=== PATIENT | female | born 1950 | race Caucasian/White ===

== ENCOUNTER 2017-09-04 12:34 | Emergency (ER) | payer MEDICARE, MEDICAID ==
[~2017-09-04] VITALS: Ht 157.5 cm; Wt 42.9 kg
[~2017-09-04 12:34] MED LIST: NO HOME MEDS; POTA20TA19 PO; PRED50TA PO
[2017-09-04 14:58] LABS: BASOPHILS % (AUTO) 0.1 % (0-1); EOSINOPHILS # (AUTO) 0.1 X10'3 (0-0.9); EOSINOPHILS % (AUTO) 1.1 % (0-6); HEMOGLOBIN 17.6 g/dl (12.0-16.0); MEAN CORPUSCULAR HEMOGLOBIN 29.4 PG (27.0-31.0); MEAN CORPUSCULAR HGB CONC 32.6 % (33.0-36.5); MEAN CORPUSCULAR VOLUME 90.2 FL (78-98); MEAN PLATELET VOLUME 8.7 FL (7.4-10.4); MONOCYTES # (AUTO) 0.2 X10'3 (0-0.9); MONOCYTES % (AUTO) 2.3 % (2-12); NEUTROPHILS # (AUTO) 6.1 X10'3 (1.8-7.7); NEUTROPHILS % (AUTO) 82.5 % (42-75); PLATELET COUNT 140 X10'3 (140-440); RED BLOOD COUNT 5.99 X10'6 (4.20-5.60); RED CELL DISTRIBUTION WIDTH 14.5 % (11.5-14.5); WHITE BLOOD COUNT 7.4 X10'3 (4.5-11.0)
[2017-09-04 15:12] LABS: ALANINE AMINOTRANSFERASE 19 U/L (12-78); ALBUMIN 3.5 G/DL (3.4-5.0); ALBUMIN/GLOBULIN RATIO 0.9 (1.1-1.5); ALKALINE PHOSPHATASE 85 IU/L (46-116); ANION GAP 5 (8-16); ASPARTATE AMINO TRANSFERASE 23 U/L (10-37); BILIRUBIN,TOTAL 0.9 MG/DL (0.1-1.0); BLOOD UREA NITROGEN 11 MG/DL (7-18); CALCIUM 9.5 MG/DL (8.5-10.1); CHLORIDE 104 MMOL/L (99-107); CREATININE 0.61 MG/DL (0.40-0.90); GLUCOSE 141 MG/DL (70-104); POTASSIUM 3.9 MMOL/L (3.5-5.1); SODIUM 144 MMOL/L (135-145); TOTAL CARBON DIOXIDE 34.7 MMOL/L (24-32); TOTAL PROTEIN 7.6 G/DL (6.4-8.2); eGFR > 90 ML/MIN
[2017-09-04] MEDS ORDERED: ringers solution, lactated 1000ml IV soln IV ONE (15:20)
[2017-09-04 17:42] VITALS: BP 109/77
== END 2017-09-04 17:45 | disposition home or self-care (01) ==
LOC: ER 12:34
DX: E86.0 Dehydration (principal); R13.10 Dysphagia, unspecified; J44.9 Chronic obstructive pulmonary disease, unspecified; Z88.0 Allergy status to penicillin; Z88.1 Allergy status to other antibiotic agents; Z88.5 Allergy status to narcotic agent; Z88.6 Allergy status to analgesic agent; Z88.8 Allergy status to other drugs, medicaments and biological substances
CPT/HCPCS: 36415; 71020; 80053; 85025; 96360; 99285; J7120

== ENCOUNTER 2017-09-24 20:49 | Emergency (ER) | payer MEDICARE, MEDICAID ==
[~2017-09-24] VITALS: Ht 157.5 cm; Wt 43.2 kg
[2017-09-24 20:53] VITALS: BP 106/66
== END 2017-09-24 21:25 | disposition home or self-care (01) ==
LOC: ER 20:50
DX: R13.10 Dysphagia, unspecified (principal); J44.9 Chronic obstructive pulmonary disease, unspecified; K21.9 Gastro-esophageal reflux disease without esophagitis; F17.200 Nicotine dependence, unspecified, uncomplicated; Z88.0 Allergy status to penicillin; Z88.5 Allergy status to narcotic agent; Z88.6 Allergy status to analgesic agent
CPT/HCPCS: 99283

== ENCOUNTER 2017-10-03 00:07 | Emergency (ER) | payer MEDICARE, MEDICAID ==
[~2017-10-03] VITALS: Ht 157.5 cm; Wt 43.2 kg
[2017-10-03] MEDS ORDERED: diphenhydrAMINE 50 mg/ml inj IV ONE (00:25)
[2017-10-03] MEDS ORDERED: BENZ1TAB7 PO (00:56)
[2017-10-03] MEDS ORDERED: benztropine 1mg tablet PO ONE (01:00)
[2017-10-03 01:54] VITALS: BP 117/77
== END 2017-10-03 02:27 | disposition home or self-care (01) ==
LOC: ER 00:07
DX: G24.09 Other drug induced dystonia (principal); J44.9 Chronic obstructive pulmonary disease, unspecified; K21.9 Gastro-esophageal reflux disease without esophagitis; R13.10 Dysphagia, unspecified; Z88.0 Allergy status to penicillin; Z88.5 Allergy status to narcotic agent; Z88.6 Allergy status to analgesic agent; Z88.1 Allergy status to other antibiotic agents; Z88.8 Allergy status to other drugs, medicaments and biological substances; Z79.899 Other long term (current) drug therapy
CPT/HCPCS: 96374; 99284; J1200

== ENCOUNTER 2018-09-25 10:39 | Emergency (ER) | payer MEDICARE, MEDICAID ==
[~2018-09-25] VITALS: Ht 157.5 cm; Wt 47.0 kg
[~2018-09-25 10:39] MED LIST changes: +PRED5TAB PO
[2018-09-25 10:40] VITALS: BP 121/92
== END 2018-09-25 12:32 | disposition home or self-care (01) ==
LOC: ER 10:40
DX: M79.672 Pain in left foot (principal); J44.9 Chronic obstructive pulmonary disease, unspecified; K21.9 Gastro-esophageal reflux disease without esophagitis; Z88.0 Allergy status to penicillin; Z88.6 Allergy status to analgesic agent; Z88.5 Allergy status to narcotic agent; Z88.1 Allergy status to other antibiotic agents; Z88.8 Allergy status to other drugs, medicaments and biological substances; Z79.899 Other long term (current) drug therapy; W01.0XXA Fall on same level from slipping, tripping and stumbling without subsequent striking against object, initial encounter; Y93.89 Activity, other specified; Y92.89 Other specified places as the place of occurrence of the external cause; Y99.8 Other external cause status
CPT/HCPCS: 73620; 99283

== ENCOUNTER 2019-07-06 10:21 | Emergency (ER) | payer MEDICARE, MEDICAID ==
[2019-07-06 11:05] LABS: BASOPHILS # (AUTO) 0.1 X10'3 (0-0.2); BASOPHILS % (AUTO) 0.8 % (0-1); EOSINOPHILS # (AUTO) 0.4 X10'3 (0-0.9); EOSINOPHILS % (AUTO) 6.5 % (0-6); HEMATOCRIT 47.9 % (35.0-45.0); LYMPHOCYTES # (AUTO) 1.2 X10'3 (1.1-4.8); LYMPHOCYTES % (AUTO) 16.9 % (21-51); MEAN CORPUSCULAR HEMOGLOBIN 30.4 PG (27.0-31.0); MEAN CORPUSCULAR HGB CONC 33.4 g/dL (33.0-36.5); MEAN CORPUSCULAR VOLUME 90.8 FL (78-98); MONOCYTES # (AUTO) 0.5 X10'3 (0-0.9); MONOCYTES % (AUTO) 7.3 % (2-12); NEUTROPHILS # (AUTO) 4.7 X10'3 (1.8-7.7); NEUTROPHILS % (AUTO) 68.5 % (42-75); PLATELET COUNT 180 X10'3 (140-440); RED BLOOD COUNT 5.27 X10'6 (4.20-5.60); RED CELL DISTRIBUTION WIDTH 14.2 % (11.5-14.5); WHITE BLOOD COUNT 6.8 X10'3 (4.5-11.0)
[2019-07-06 11:15] LABS: ALANINE AMINOTRANSFERASE 16 U/L (12-78); ALBUMIN 3.6 G/DL (3.4-5.0); ALBUMIN/GLOBULIN RATIO 0.8 (1.1-1.5); ALKALINE PHOSPHATASE 80 IU/L (46-116); ANION GAP 3 (8-16); ASPARTATE AMINO TRANSFERASE 23 U/L (10-37); BILIRUBIN,TOTAL 0.5 MG/DL (0.1-1.0); BLOOD UREA NITROGEN 11 MG/DL (7-18); BUN/CREATININE RATIO 18.3 (6.6-38.0); CALCIUM 9.5 MG/DL (8.5-10.1); CHLORIDE 103 MMOL/L (99-107); GLUCOSE 86 MG/DL (70-104); SODIUM 143 MMOL/L (135-145); TOTAL CARBON DIOXIDE 36.6 MMOL/L (24-32); TOTAL PROTEIN 8.1 G/DL (6.4-8.2); eGFR > 90 ML/MIN
[2019-07-06 11:16] LABS: POTASSIUM 4.5 MMOL/L (3.5-5.1)
[2019-07-06] MEDS ORDERED: ipratropium/albuterol 3ml nebule NEB ONE (11:30)
[2019-07-06] MEDS ORDERED: predniSONE 20 mg tablet PO ONE (11:35)
[2019-07-06] MEDS ORDERED: normal saline 1000ml 1,000 ML IV ONE (11:40)
[2019-07-06] MEDS ORDERED: PRED20TA PO (12:14)
[2019-07-06] MEDS ORDERED: AZIT-63 PO (12:14)
[2019-07-06 12:38] LABS: PARTIAL THROMBOPLASTIN TIME 28 SECONDS (22-32)
[2019-07-06 12:46] LABS: CLARITY,URINE CLOUDY (Clear); COLOR,URINE YELLOW (Yellow); GLUCOSE, URINE NEGATIVE (Neg); KETONES,URINE TRACE mg/dl (Neg); LEUKOCYTE ESTERASE ,URINE MODERATE (Neg); NITRITES, URINE POSITIVE (Neg); OCCULT BLOOD,URINE TRACE-INTACT (Neg); PROTEIN,URINE TRACE mg/dl (Neg)
[2019-07-06 12:47] LABS: UA COLLECTION TYPE CLN CATCH MIDSTREAM
[2019-07-06 12:54] LABS: SQUAMOUS EPITHELIAL CELL,UR MODERATE /LPF (FEW); TRIPLE PHOSPHATE CRYST 1+ /HPF (NEGATIVE); WBC,URINE 50-100 /HPF (0-4)
[2019-07-06 12:55] LABS: BACTERIA,URINE 3+ /HPF (Neg)
[2019-07-06 12:57] LABS: AMORPHOUS PHOSPHATES 1+; RBC,URINE 0-2 /HPF (0-2)
[2019-07-06] MEDS ORDERED: NITR100C6 PO (13:17)
[2019-07-06 13:28] VITALS: BP 105/67
== END 2019-07-06 13:29 | disposition home or self-care (01) ==
LOC: ER 10:22
DX: J44.1 Chronic obstructive pulmonary disease with (acute) exacerbation (principal); N39.0 Urinary tract infection, site not specified; B96.89 Other specified bacterial agents as the cause of diseases classified elsewhere; J44.9 Chronic obstructive pulmonary disease, unspecified; K21.9 Gastro-esophageal reflux disease without esophagitis; Z88.0 Allergy status to penicillin; Z88.6 Allergy status to analgesic agent; Z88.5 Allergy status to narcotic agent; Z88.1 Allergy status to other antibiotic agents; Z79.899 Other long term (current) drug therapy
CPT/HCPCS: 36415; 71045; 80053; 81001; 84484; 85025; 85610; 85730; 87077; 87088; 87186; 93005; 94640; 99284; J7030; J7512

== ENCOUNTER 2019-07-31 10:01 | Emergency (ER) | payer MEDICARE, MEDICAID ==
[~2019-07-31] VITALS: Ht 157.5 cm; Wt 53.6 kg
[~2019-07-31 10:01] MED LIST changes: +NITR100C6 PO
--- NOTE | 2019-07-31 11:02 | NUR ---
Gomez GAVIRIA stated no IV was necessary at this time.
[2019-07-31 11:08] LABS: BASOPHILS # (AUTO) 0.1 X10'3 (0-0.2); BASOPHILS % (AUTO) 0.8 % (0-1); EOSINOPHILS # (AUTO) 0.3 X10'3 (0-0.9); EOSINOPHILS % (AUTO) 4.9 % (0-6); HEMATOCRIT 48.4 % (35.0-45.0); HEMOGLOBIN 16.2 g/dl (12.0-16.0); LYMPHOCYTES # (AUTO) 1.1 X10'3 (1.1-4.8); LYMPHOCYTES % (AUTO) 16.4 % (21-51); MEAN CORPUSCULAR HEMOGLOBIN 30.1 PG (27.0-31.0); MEAN CORPUSCULAR HGB CONC 33.5 g/dL (33.0-36.5); MEAN CORPUSCULAR VOLUME 89.9 FL (78-98); MEAN PLATELET VOLUME 7.5 FL (7.4-10.4); MONOCYTES # (AUTO) 0.4 X10'3 (0-0.9); MONOCYTES % (AUTO) 6.1 % (2-12); NEUTROPHILS # (AUTO) 4.8 X10'3 (1.8-7.7); NEUTROPHILS % (AUTO) 71.8 % (42-75); PLATELET COUNT 282 X10'3 (140-440); RED BLOOD COUNT 5.38 X10'6 (4.20-5.60); RED CELL DISTRIBUTION WIDTH 13.9 % (11.5-14.5); WHITE BLOOD COUNT 6.7 X10'3 (4.5-11.0)
[2019-07-31 11:25] LABS: ALANINE AMINOTRANSFERASE 19 U/L (12-78); ALBUMIN 3.4 G/DL (3.4-5.0); ALBUMIN/GLOBULIN RATIO 0.8 (1.1-1.5); ALKALINE PHOSPHATASE 79 IU/L (46-116); ANION GAP 5 (8-16); ASPARTATE AMINO TRANSFERASE 25 U/L (10-37); BILIRUBIN,TOTAL 0.7 MG/DL (0.1-1.0); BLOOD UREA NITROGEN 6 MG/DL (7-18); BUN/CREATININE RATIO 10.5 (6.6-38.0); CALCIUM 9.5 MG/DL (8.5-10.1); CHLORIDE 104 MMOL/L (99-107); CREATININE 0.57 MG/DL (0.40-0.90); GLUCOSE 77 MG/DL (70-104); POTASSIUM 4.3 MMOL/L (3.5-5.1); SODIUM 143 MMOL/L (135-145); TOTAL PROTEIN 7.5 G/DL (6.4-8.2); eGFR > 90 ML/MIN
[2019-07-31 11:56] LABS: CLARITY,URINE CLOUDY (Clear); COLOR,URINE YELLOW (Yellow); GLUCOSE, URINE NEGATIVE (Neg); KETONES,URINE >=80 mg/dl (Neg); LEUKOCYTE ESTERASE ,URINE SMALL (Neg); NITRITES, URINE POSITIVE (Neg); OCCULT BLOOD,URINE MODERATE (Neg); PROTEIN,URINE TRACE mg/dl (Neg); UA COLLECTION TYPE VOIDED
[2019-07-31 12:03] LABS: BACTERIA,URINE 4+ /HPF (Neg); MUCUS STRANDS MODERATE /LPF (Neg); SQUAMOUS EPITHELIAL CELL,UR MODERATE /LPF (FEW); WBC,URINE 50-100 /HPF (0-4)
[2019-07-31 12:04] LABS: WBC CLUMPS,URINE MODERATE /HPF (NEGATIVE)
[2019-07-31] MEDS ORDERED: normal saline 1000ML IV soln IVB ONE (12:15)
[2019-07-31] MEDS ORDERED: CefTRIAXone 2gm/D5W 50ml 50 ML IV ONE (12:15)
[2019-07-31 12:16] LABS: ABG BASE EXCESS 2.4 mmol/L (-2.0-3.0); ABG HCO3 28.9 mmol/L (22.0-26.0); ABG OXYGEN SATURATION 96.2 % (95-98); ABG PCO2 (T) 51.4 mmHg (35.0-45.0); ABG PH (T) 7.368 (7.350-7.450); ABG PO2 (T) 83.4 mmHg (83-108); ALLEN'S TEST Positive; FLOW 2 L/min; FMetHb 0.2 % (0.3-1.12); FO2Hb 93.1 % (94-100); TOTAL HEMOGLOBIN 15.8 G/dl (12.0-16.0)
[2019-07-31] MEDS ORDERED: ketorolac trometh. 30mg/ml inj. IV ONE (12:40)
[2019-07-31] MEDS ORDERED: prednisone 10mg tablet PO STA (12:41)
[2019-07-31] MEDS ORDERED: SULF1TAB49 PO (13:48)
[2019-07-31] MEDS ORDERED: PRED20TA PO (13:48)
[2019-07-31 14:07] VITALS: BP 110/68
== END 2019-07-31 14:15 | disposition home or self-care (01) ==
LOC: ER 10:01
DX: J44.1 Chronic obstructive pulmonary disease with (acute) exacerbation (principal); N39.0 Urinary tract infection, site not specified; K21.9 Gastro-esophageal reflux disease without esophagitis; F41.9 Anxiety disorder, unspecified; F17.200 Nicotine dependence, unspecified, uncomplicated; Z99.81 Dependence on supplemental oxygen; Z88.0 Allergy status to penicillin; Z88.6 Allergy status to analgesic agent; Z88.1 Allergy status to other antibiotic agents; Z91.041 Radiographic dye allergy status; Z79.899 Other long term (current) drug therapy
CPT/HCPCS: 36415; 36600; 71046; 80053; 81001; 82803; 83880; 84484; 85018; 85025; 93005; 96365; 96375; 99284; J0696; J1885; J7040; J7512

== ENCOUNTER 2019-08-12 11:05 | Emergency (ER) | payer MEDICARE, MEDICAID ==
[~2019-08-12] VITALS: Ht 157.5 cm; Wt 60.0 kg
[2019-08-12] MEDS ORDERED: OLAN5TAB3 PO (13:02)
[2019-08-12 13:17] VITALS: BP 105/71
== END 2019-08-12 13:20 | disposition home or self-care (01) ==
LOC: ER 11:06
DX: G24.01 Drug induced subacute dyskinesia (principal); R13.10 Dysphagia, unspecified; R44.0 Auditory hallucinations; J44.9 Chronic obstructive pulmonary disease, unspecified; K21.9 Gastro-esophageal reflux disease without esophagitis; F41.9 Anxiety disorder, unspecified; Z88.0 Allergy status to penicillin; Z88.5 Allergy status to narcotic agent; Z91.048 Other nonmedicinal substance allergy status; Z88.8 Allergy status to other drugs, medicaments and biological substances; Z88.1 Allergy status to other antibiotic agents; Z79.899 Other long term (current) drug therapy
CPT/HCPCS: 99283

== ENCOUNTER 2019-08-29 10:59 | Emergency (ER) | payer MEDICARE, MEDICAID ==
[~2019-08-29] VITALS: Ht 154.9 cm; Wt 50.0 kg
[~2019-08-29 10:59] MED LIST changes: +OLAN5TAB3 PO
[2019-08-29 11:05] VITALS: BP 126/78
[2019-08-29] MEDS ORDERED: orphenadrine citrate 60mg/2ml inj. IM ONE (12:25)
--- NOTE | 2019-08-29 13:10 | NUR ---
PT GIVEN A PEPSI PER EVERETTE PATRICK REQUEST TO SEE IF THIS WILL HELP WITH THE SENSATION OF A FORGEIN BODY IN HER THROAT.
== END 2019-08-29 13:37 | disposition home or self-care (01) ==
LOC: ER 11:01
DX: R13.10 Dysphagia, unspecified (principal); J44.9 Chronic obstructive pulmonary disease, unspecified; K21.9 Gastro-esophageal reflux disease without esophagitis; Z88.8 Allergy status to other drugs, medicaments and biological substances; Z88.0 Allergy status to penicillin; Z88.6 Allergy status to analgesic agent; Z88.5 Allergy status to narcotic agent; Z91.041 Radiographic dye allergy status; Z79.899 Other long term (current) drug therapy
CPT/HCPCS: 70360; 99284

== ENCOUNTER 2019-09-10 11:35 | Emergency (ER) | payer MEDICARE, MEDICAID ==
[~2019-09-10] VITALS: Ht 157.5 cm; Wt 52.3 kg
[2019-09-10 12:49] LABS: BASOPHILS % (AUTO) 0.8 % (0-1); EOSINOPHILS # (AUTO) 0.2 X10'3 (0-0.9); EOSINOPHILS % (AUTO) 2.9 % (0-6); HEMATOCRIT 49.6 % (35.0-45.0); HEMOGLOBIN 16.5 g/dl (12.0-16.0); LYMPHOCYTES # (AUTO) 1.2 X10'3 (1.1-4.8); LYMPHOCYTES % (AUTO) 22.2 % (21-51); MEAN CORPUSCULAR HEMOGLOBIN 29.3 PG (27.0-31.0); MEAN CORPUSCULAR HGB CONC 33.2 g/dL (33.0-36.5); MEAN CORPUSCULAR VOLUME 88.3 FL (78-98); MEAN PLATELET VOLUME 9.1 FL (7.4-10.4); MONOCYTES # (AUTO) 0.3 X10'3 (0-0.9); NEUTROPHILS # (AUTO) 3.7 X10'3 (1.8-7.7); NEUTROPHILS % (AUTO) 68.1 % (42-75); PLATELET COUNT 168 X10'3 (140-440); RED BLOOD COUNT 5.61 X10'6 (4.20-5.60); RED CELL DISTRIBUTION WIDTH 13.8 % (11.5-14.5); WHITE BLOOD COUNT 5.4 X10'3 (4.5-11.0)
[2019-09-10 13:06] LABS: ALANINE AMINOTRANSFERASE 18 U/L (12-78); ALBUMIN 3.5 G/DL (3.4-5.0); ALBUMIN/GLOBULIN RATIO 1.1 (1.1-1.5); ALKALINE PHOSPHATASE 70 IU/L (46-116); ANION GAP 5 (8-16); ASPARTATE AMINO TRANSFERASE 20 U/L (10-37); BILIRUBIN,TOTAL 0.4 MG/DL (0.1-1.0); BLOOD UREA NITROGEN 7 MG/DL (7-18); BUN/CREATININE RATIO 10.9 (6.6-38.0); CALCIUM 9.4 MG/DL (8.5-10.1); CHLORIDE 104 MMOL/L (99-107); CREATININE 0.64 MG/DL (0.40-0.90); GLUCOSE 99 MG/DL (70-104); POTASSIUM 3.6 MMOL/L (3.5-5.1); SODIUM 145 MMOL/L (135-145); TOTAL CARBON DIOXIDE 35.7 MMOL/L (24-32); TOTAL PROTEIN 6.8 G/DL (6.4-8.2); eGFR > 90 ML/MIN
[2019-09-10 14:02] VITALS: BP 99/64
== END 2019-09-10 14:09 | disposition home or self-care (01) ==
LOC: ER 11:35
DX: J44.1 Chronic obstructive pulmonary disease with (acute) exacerbation (principal); K21.9 Gastro-esophageal reflux disease without esophagitis; Z88.8 Allergy status to other drugs, medicaments and biological substances; Z88.0 Allergy status to penicillin; Z88.6 Allergy status to analgesic agent; Z88.5 Allergy status to narcotic agent; Z91.041 Radiographic dye allergy status; Z79.899 Other long term (current) drug therapy; Z90.49 Acquired absence of other specified parts of digestive tract
CPT/HCPCS: 36415; 71045; 80053; 84484; 85025; 93005; 99284

== ENCOUNTER 2019-09-30 19:43 | Observation (INO) | payer MEDICARE, MEDICAID ==
[~2019-09-30] VITALS: Ht 157.5 cm; Wt 50.9 kg
[2019-09-30] MEDS ORDERED: pantoprazole 40 MG vial IV ONE (20:30)
[2019-09-30] MEDS ORDERED: DIAZ10TA5 PO (20:37)
[2019-09-30] MEDS ORDERED: ALB0.5UD IH (20:37)
[2019-09-30] MEDS: dextrose 5%-1/2 normal saline 1,000 ML IV SCH (20:50)
[2019-09-30] MEDS ORDERED: SUCR1TAB34 PO (20:59)
[2019-09-30] MEDS ORDERED: ondansetron/PF 4mg/2ml inj IV PRN (21:00)
[2019-09-30] MEDS ORDERED: magnesium 2GM in 50ml NS 50 ML IV PRN (21:00)
[2019-09-30] MEDS ORDERED: ipratropium/albuterol 3ml nebule NEB PRN (21:00)
[2019-09-30] MEDS ORDERED: mag hydrox/Alum hydrox/simeth 30ml oral suspension PO PRN (21:00)
[2019-09-30] MEDS ORDERED: acetaminophen 325mg tablet PO PRN (21:00)
[2019-09-30] MEDS ORDERED: magnesium hydroxide 30ml (MOM) UD suspension PO PRN (21:00)
[2019-09-30] MEDS ORDERED: magnesium 4gm in 100ml NS 100 ML IV PRN (21:00)
[2019-09-30] MEDS ORDERED: potassium CL 10mEq/100ml bag 100 ML IV PRN ×2 (21:00)
[2019-09-30] MEDS ORDERED: potassium Cl 20 mEq SR tablet PO PRN ×2 (21:00)
[2019-09-30 21:06] LABS: BASOPHILS % (AUTO) 0.3 % (0-1); EOSINOPHILS # (AUTO) 0.1 X10'3 (0-0.9); EOSINOPHILS % (AUTO) 0.5 % (0-6); HEMATOCRIT 53.1 % (35.0-45.0); HEMOGLOBIN 17.6 g/dl (12.0-16.0); LYMPHOCYTES # (AUTO) 1.5 X10'3 (1.1-4.8); LYMPHOCYTES % (AUTO) 12.8 % (21-51); MEAN CORPUSCULAR HEMOGLOBIN 29.3 PG (27.0-31.0); MEAN CORPUSCULAR HGB CONC 33.2 g/dL (33.0-36.5); MEAN CORPUSCULAR VOLUME 88.3 FL (78-98); MEAN PLATELET VOLUME 8.8 FL (7.4-10.4); MONOCYTES # (AUTO) 0.7 X10'3 (0-0.9); MONOCYTES % (AUTO) 5.9 % (2-12); NEUTROPHILS # (AUTO) 9.6 X10'3 (1.8-7.7); NEUTROPHILS % (AUTO) 80.5 % (42-75); PLATELET COUNT 231 X10'3 (140-440); RED BLOOD COUNT 6.02 X10'6 (4.20-5.60); RED CELL DISTRIBUTION WIDTH 14.8 % (11.5-14.5); WHITE BLOOD COUNT 11.9 X10'3 (4.5-11.0)
[2019-09-30 21:09] LABS: PARTIAL THROMBOPLASTIN TIME 29 SECONDS (22-32)
[2019-09-30 21:11] LABS: ANION GAP 11 (8-16); ASPARTATE AMINO TRANSFERASE 29 U/L (10-37); BILIRUBIN,TOTAL 0.4 MG/DL (0.1-1.0); BLOOD UREA NITROGEN 7 MG/DL (7-18); CALCIUM 9.4 MG/DL (8.5-10.1); CHLORIDE 102 MMOL/L (99-107); CREATININE 0.88 MG/DL (0.40-0.90); GLUCOSE 117 MG/DL (70-104); POTASSIUM 4.1 MMOL/L (3.5-5.1); SODIUM 141 MMOL/L (135-145); TOTAL CARBON DIOXIDE 27.9 MMOL/L (24-32); TOTAL PROTEIN 8.1 G/DL (6.4-8.2); eGFR 64 ML/MIN
[2019-09-30 21:12] LABS: ALANINE AMINOTRANSFERASE 27 U/L (12-78); ALKALINE PHOSPHATASE 115 IU/L (46-116)
[2019-09-30] MEDS: pantoprazole 40MG/NS 100ML BAG 100 ML IV SCH (21:54)
[2019-09-30] MEDS: normal saline 1000ml 1,000 ML IV SCH (22:34)
[2019-10-01] VITALS (10 sets, daily range): BP systolic 86–116; BP diastolic 48–75
[2019-10-01] MEDS: pantoprazole 40MG/NS 100ML BAG 100 ML IV SCH ×3 (02:36→12:40)
[2019-10-01] MEDS ORDERED: Chloraseptic (Phenol) Spray 177ml MM PRN (02:45)
[2019-10-01 06:08] LABS: BASOPHILS % (AUTO) 0.5 % (0-1); EOSINOPHILS # (AUTO) 0.2 X10'3 (0-0.9); EOSINOPHILS % (AUTO) 2.8 % (0-6); HEMATOCRIT 43.9 % (35.0-45.0); HEMOGLOBIN 14.7 g/dl (12.0-16.0); LYMPHOCYTES # (AUTO) 2.3 X10'3 (1.1-4.8); LYMPHOCYTES % (AUTO) 28.6 % (21-51); MEAN CORPUSCULAR HEMOGLOBIN 29.5 PG (27.0-31.0); MEAN CORPUSCULAR HGB CONC 33.6 g/dL (33.0-36.5); MEAN CORPUSCULAR VOLUME 87.9 FL (78-98); MEAN PLATELET VOLUME 8.5 FL (7.4-10.4); MONOCYTES # (AUTO) 0.7 X10'3 (0-0.9); MONOCYTES % (AUTO) 8.6 % (2-12); NEUTROPHILS # (AUTO) 4.7 X10'3 (1.8-7.7); NEUTROPHILS % (AUTO) 59.5 % (42-75); PLATELET COUNT 184 X10'3 (140-440); RED BLOOD COUNT 4.99 X10'6 (4.20-5.60); RED CELL DISTRIBUTION WIDTH 14.4 % (11.5-14.5); WHITE BLOOD COUNT 7.9 X10'3 (4.5-11.0)
--- NOTE | 2019-10-01 06:15 | NUR ---
Patient in room KATHY 350. I have received report from AMBER Avelar and had the opportunity to ask questions and assume patient care.
[2019-10-01 06:29] LABS: ALANINE AMINOTRANSFERASE 21 U/L (12-78); ALBUMIN 2.9 G/DL (3.4-5.0); ALKALINE PHOSPHATASE 87 IU/L (46-116); ANION GAP 7 (8-16); ASPARTATE AMINO TRANSFERASE 22 U/L (10-37); BILIRUBIN,TOTAL 0.6 MG/DL (0.1-1.0); BLOOD UREA NITROGEN 5 MG/DL (7-18); BUN/CREATININE RATIO 8.5 (6.6-38.0); CALCIUM 8.1 MG/DL (8.5-10.1); CHLORIDE 108 MMOL/L (99-107); CREATININE 0.59 MG/DL (0.40-0.90); GLUCOSE 59 MG/DL (70-104); MAGNESIUM 1.5 MG/DL (1.5-2.4); POTASSIUM 3.7 MMOL/L (3.5-5.1); SODIUM 144 MMOL/L (135-145); TOTAL CARBON DIOXIDE 28.9 MMOL/L (24-32); TOTAL PROTEIN 5.8 G/DL (6.4-8.2); eGFR > 90 ML/MIN
[2019-10-01] MEDS ORDERED: enoxaparin 40mg/0.4ml syringe SQ SCH (08:00)
[2019-10-01] MEDS ORDERED: K and/or MAG REPLACEMENT MC SCH (08:00)
[2019-10-01] MEDS: normal saline 1000ml 1,000 ML IV SCH (08:43)
[2019-10-01] MEDS ORDERED: MIDAZolam 5mg/5ml vial ONE (08:53)
[2019-10-01] MEDS ORDERED: fentaNYL/PF 50MCG/1 ML 2ML syringe ONE (08:53)
[2019-10-01] MEDS ORDERED: LIDOcaine Viscous 15ml cup ONE (08:54)
--- NOTE | 2019-10-01 11:36 | NUR ---
Initial: Pt admit with dysphagia with reports of difficulty swallowing solids and liquids. Per H&P pt seen in the the ED for COPD exacerbation on September 10 at that time she had had cessation of oatmeal stuck in her throat for 3 days. Pt with appointment for EGD 10/07 however is to get an EGD today per H&P. Pt NPO at this time. LBM 09/30. Will continue to follow closely and monitor need for nutrition intervention. Recommendations: 1) Advance to regular diet as medically indicated if safe for PO intake pending EGD 2) Monitor need for alternative nutrition if unsafe for PO intake 3) Bowel care PRN 4) Wt per rx Addendum: 10/01/19 at [address] Amended: Links added.
[2019-10-01] MEDS ORDERED: HYDROcodone/acetaminophen 5mg/325mg tablet PO PRN (13:50)
[2019-10-01] MEDS: dextrose 5%-1/2 normal saline 1,000 ML IV SCH (14:03)
[2019-10-01] MEDS ORDERED: PHEN20SP2 MM (14:22)
[2019-10-01] MEDS ORDERED: PANT40TA4 PO (14:22)
--- NOTE | 2019-10-01 15:33 | NUR ---
Patient discharged home via friend and taken from unit via wheelchair with x1 staff. PIV removed with cannula intact. Patient was given discharge instructions and was given time for question and answers. Patient was given education on smoking cessation due to overall health benefits as well as the spasms that she stated having. Patient was also given instructions on dysphagia and when to seek help. Patient was encouraged to follow up with Dr. Downey and keep her appointment on 10/07. Patient stated an understanding. During the discharge instruction patient asked primary nurse to stop explaining everything because her ride was downstairs and she did not want to keep them waiting or hear anymore of the discharge instructions. Patient stated that she would read over the packet. Patient was also given information on advancing diet slowly to soft foods after being able to tolerate full liquids. Primary nurse did confirm the return of patient's gag reflex after EGD and patient was able to drink water and broth without difficulty prior to discharge.
[2019-10-01] MEDS ORDERED: diazepam 5mg tablet PO SCH (21:00)
--- NOTE | 2019-10-05 13:08 | NUR ---
Case Management DC follow up: VMailbox full; unable to contact
== END 2019-10-01 15:15 | disposition home or self-care (01) ==
LOC: ER 19:43 → ED HOLD 22:02 → INTOOBSV 22:02 → SUR 3N 22:25
PROVIDERS: ADMIT Family Medicine; ATTEND Family Medicine
DX: K22.4 Dyskinesia of esophagus (principal); K21.0 Gastro-esophageal reflux disease with esophagitis; R13.10 Dysphagia, unspecified; D72.829 Elevated white blood cell count, unspecified; R47.02 Dysphasia; J44.9 Chronic obstructive pulmonary disease, unspecified; F32.9 Major depressive disorder, single episode, unspecified; F41.9 Anxiety disorder, unspecified; Z85.3 Personal history of malignant neoplasm of breast; F17.210 Nicotine dependence, cigarettes, uncomplicated; Z99.81 Dependence on supplemental oxygen; Z79.899 Other long term (current) drug therapy; Z88.0 Allergy status to penicillin; Z88.1 Allergy status to other antibiotic agents; Z88.5 Allergy status to narcotic agent; Z88.6 Allergy status to analgesic agent; Z88.8 Allergy status to other drugs, medicaments and biological substances; Z91.048 Other nonmedicinal substance allergy status
CPT/HCPCS: 36415; 43235; 80053; 83735; 85025; 85610; 85730; 94667; 94760; 96365; 96366; 96376; 99284; C9113; G0378; J2250; J3010; J7030; 43227; 96374; 99152; 99285; A4620

== ENCOUNTER 2019-10-16 15:05 | Inpatient (IN) | payer MEDICARE, MEDICAID ==
[~2019-10-16] VITALS: Ht 157.5 cm; Wt 45.5 kg
[~2019-10-16 15:05] MED LIST changes: +ALB0.5UD IH; +DIAZ10TA5 PO; -NITR100C6 PO; -NO HOME MEDS; -OLAN5TAB3 PO; +PANT40TA4 PO; +PHEN20SP2 MM; -POTA20TA19 PO; -PRED50TA PO; -PRED5TAB PO; +SUCR1TAB34 PO; +heparin, porcine-25,000 units/D5-250ml premix IV ONE
[2019-10-16] MEDS ORDERED: albuterol 2.5 MG/3 ML nebule CONTNEB PRN (15:15)
[2019-10-16] MEDS ORDERED: heparin 10,000 units/1 ML INJ IV ONE ×3 (15:25→17:45)
[2019-10-16] MEDS: heparin 25,000 UNIT/250ml bag 250 ML IV SCH ×2 (15:37→18:43)
[2019-10-16] MEDS ORDERED: dexamethasone sod phosphate 10mg/ml inj IV STA (15:43)
[2019-10-16] MEDS ORDERED: ondansetron/PF 4mg/2ml inj IV ONE (15:45)
[2019-10-16] MEDS ORDERED: famotidine/PF 10 mg/ml inj IV ONE (15:45)
[2019-10-16] MEDS ORDERED: diphenhydrAMINE 50 mg/ml inj IV ONE (15:45)
[2019-10-16] MEDS ORDERED: tirofiban 5mg in NS 100mL 100 ML IV ONE (15:48)
[2019-10-16] MEDS ORDERED: fentaNYL/PF 50MCG/1 ML 2ML syringe ONE (15:48)
[2019-10-16] MEDS ORDERED: LIDOcaine 1% (10mg/ml)w/preservative injection 20ml MDV ONE (15:49)
[2019-10-16] MEDS ORDERED: heparin 1,000unit/ml 10ml vial 10 ML ONE (15:49)
[2019-10-16] MEDS ORDERED: iohexol 350 MG/1 ML 200ml bottle ONE (15:49)
[2019-10-16] MEDS ORDERED: midazolam 2 mg/2 ml injection ONE (15:49)
[2019-10-16 16:06] LABS: ABG BASE EXCESS -5.4 mmol/L (-2.0-3.0); ABG HCO3 21.5 mmol/L (22.0-26.0); ABG OXYGEN SATURATION 98.9 % (95-98); ABG PCO2 (T) 46.7 mmHg (35.0-45.0); ABG PH (T) 7.281 (7.350-7.450); ABG PO2 (T) 144.2 mmHg (83-108); ALLEN'S TEST POSITIVE; FCOHb 1.1 % (0.5-1.5); FLOW 15 L/min; FMetHb 0.2 % (0.3-1.12); FO2Hb 97.6 % (94-100); TOTAL HEMOGLOBIN 16.1 G/dl (12.0-16.0)
[2019-10-16 16:06] LABS: BASOPHILS # (AUTO) 0.1 X10'3 (0-0.2); BASOPHILS % (AUTO) 0.3 % (0-1); EOSINOPHILS % (AUTO) 0 % (0-6); HEMATOCRIT 47.8 % (35.0-45.0); HEMOGLOBIN 15.6 g/dl (12.0-16.0); LYMPHOCYTES # (AUTO) 1.2 X10'3 (1.1-4.8); LYMPHOCYTES % (AUTO) 6.1 % (21-51); MEAN CORPUSCULAR HEMOGLOBIN 29.3 PG (27.0-31.0); MEAN CORPUSCULAR HGB CONC 32.6 g/dL (33.0-36.5); MEAN PLATELET VOLUME 8.4 FL (7.4-10.4); MONOCYTES # (AUTO) 1.5 X10'3 (0-0.9); MONOCYTES % (AUTO) 7.4 % (2-12); NEUTROPHILS # (AUTO) 17.5 X10'3 (1.8-7.7); NEUTROPHILS % (AUTO) 86.2 % (42-75); PLATELET COUNT 255 X10'3 (140-440); RED BLOOD COUNT 5.31 X10'6 (4.20-5.60); RED CELL DISTRIBUTION WIDTH 16.7 % (11.5-14.5); WHITE BLOOD COUNT 20.3 X10'3 (4.5-11.0)
[2019-10-16] MEDS ORDERED: normal saline 1000ML IV soln IVB ONE (16:10)
[2019-10-16 16:20] LABS: ALANINE AMINOTRANSFERASE 8 U/L (12-78); ALBUMIN 1.3 G/DL (3.4-5.0); ALBUMIN/GLOBULIN RATIO 0.7 (1.1-1.5); ALKALINE PHOSPHATASE 54 IU/L (46-116); ANION GAP 8 (8-16); ASPARTATE AMINO TRANSFERASE 31 U/L (10-37); BILIRUBIN,TOTAL 0.2 MG/DL (0.1-1.0); BLOOD UREA NITROGEN 7 MG/DL (7-18); BUN/CREATININE RATIO 13.2 (6.6-38.0); CHLORIDE 124 MMOL/L (99-107); CREATININE 0.53 MG/DL (0.40-0.90); GLUCOSE 92 MG/DL (70-104); SODIUM 150 MMOL/L (135-145); TOTAL CARBON DIOXIDE 17.8 MMOL/L (24-32); TOTAL PROTEIN 3.1 G/DL (6.4-8.2); eGFR > 90 ML/MIN
[2019-10-16 16:35] LABS: CALCIUM < 5.0 MG/DL (8.5-10.1)
[2019-10-16] MEDS ORDERED: CefTRIAXone 2gm/D5W 50ml 50 ML IV ONE (16:55)
[2019-10-16] MEDS ORDERED: azithromycin 250mg tablet PO ONE (16:55)
[2019-10-16] MEDS ORDERED: calcium chloride 100 MG/1 ML inj IV ONE (17:00)
[2019-10-16] MEDS ORDERED: vancomycin/NS 1 GM ADD-VANTAGE 250 ML IV ONE (17:20)
[2019-10-16] MEDS ORDERED: heparin 25,000 UNIT/250ml bag 250 ML IV SCH (17:42)
[2019-10-16] MEDS ORDERED: magnesium hydroxide 30ml (MOM) UD suspension PO PRN (17:45)
[2019-10-16] MEDS ORDERED: potassium CL 10mEq/100ml bag 100 ML IV PRN ×2 (17:45)
[2019-10-16] MEDS ORDERED: mag hydrox/Alum hydrox/simeth 30ml oral suspension PO PRN (17:45)
[2019-10-16] MEDS ORDERED: magnesium Cl slow-release 64mg tablet PO PRN (17:45)
[2019-10-16] MEDS ORDERED: potassium Cl 20 mEq SR tablet PO PRN ×2 (17:45)
[2019-10-16] MEDS ORDERED: ondansetron/PF 4mg/2ml inj IV PRN (17:45)
[2019-10-16] MEDS ORDERED: heparin 10,000 units/1 ML INJ IV PRN (17:45)
[2019-10-16] MEDS ORDERED: ipratropium/albuterol 3ml nebule NEB PRN (17:45)
[2019-10-16] MEDS ORDERED: magnesium 4gm in 100ml NS 100 ML IV PRN (17:45)
[2019-10-16] MEDS ORDERED: magnesium 2GM in 50ml NS 50 ML IV PRN (17:45)
[2019-10-16] MEDS: sodium chloride 0.45% 1,000 ML IV SCH (18:21)
[2019-10-16] MEDS: ipratropium/albuterol 3ml nebule NEB SCH ×2 (18:42→22:57)
[2019-10-16] MEDS ORDERED: RISP2TAB3 PO (18:54)
[2019-10-16] MEDS ORDERED: PANT-47 PO (18:54)
[2019-10-16] MEDS: K and/or MAG REPLACEMENT MC SCH (19:18)
[2019-10-16 19:47] LABS: BASOPHILS % (AUTO) 0.1 % (0-1); EOSINOPHILS % (AUTO) 0 % (0-6); HEMATOCRIT 45.6 % (35.0-45.0); HEMOGLOBIN 14.9 g/dl (12.0-16.0); LYMPHOCYTES # (AUTO) 0.5 X10'3 (1.1-4.8); LYMPHOCYTES % (AUTO) 2.9 % (21-51); MEAN CORPUSCULAR HEMOGLOBIN 29.2 PG (27.0-31.0); MEAN CORPUSCULAR HGB CONC 32.7 g/dL (33.0-36.5); MEAN CORPUSCULAR VOLUME 89.3 FL (78-98); MEAN PLATELET VOLUME 8.8 FL (7.4-10.4); MONOCYTES # (AUTO) 1.2 X10'3 (0-0.9); MONOCYTES % (AUTO) 6.9 % (2-12); NEUTROPHILS % (AUTO) 90.1 % (42-75); PLATELET COUNT 190 X10'3 (140-440); RED BLOOD COUNT 5.11 X10'6 (4.20-5.60); RED CELL DISTRIBUTION WIDTH 16.3 % (11.5-14.5); WHITE BLOOD COUNT 17.7 X10'3 (4.5-11.0)
[2019-10-16 19:55] LABS: PARTIAL THROMBOPLASTIN TIME 43 SECONDS (22-32)
--- NOTE | 2019-10-16 19:55 | NUR ---
Paged and spoke with MD Schwarz concerning 1520 Calcium result of < 5.0. Replacement was ordered in the ED but cancelled when the patient was moved to the cleaner laboratory equipment. MD Schwarz re-ordered 1gm calcium replacement.
[2019-10-16] MEDS ORDERED: calcium gluconate inj. 1 GM in normal saline 100ml IV soln 90 ML IV ONE (20:00)
[2019-10-16] MEDS: metoprolol tartrate 12.5mg (1/2 tablet) PO SCH (20:00)
--- NOTE | 2019-10-16 20:00 | NUR ---
Patient in room PCU 3024. I have received report from Markus CLARK and had the opportunity to ask questions and assume patient care.
[2019-10-16 20:10] VITALS: BP 89/56
[2019-10-16 20:11] LABS: HEMOGLOBIN A1C 5.5 % (4.5-6.2)
[2019-10-16] MEDS ORDERED: calcium gluconate inj. 1 GM in normal saline 100ml IV soln 100 ML IV ONE (20:12)
[2019-10-16] MEDS ORDERED: VANCOMYCIN 750MG IV in NS 250 ML IV SCH (20:14)
--- NOTE | 2019-10-16 20:27 | NUR ---
Page Sent PAGER ID: [phone] MESSAGE: lorri Junior Kimberlee here for NSTEMI and PNA, has a critical lactic acid of 5.3.- David 282
[2019-10-16] MEDS ORDERED: temazepam 15mg capsule PO PRN (21:00)
--- NOTE | 2019-10-16 22:36 | NUR ---
Page Sent PAGER ID: [phone] MESSAGE: pt Junior, Kimberlee [id number] here for NSTEMI and PNA, critical high lactic acid 4.2 down from 5.3 she has 1/2 NS at 100ml/hr , and being covered by azithromycin, vancomycin, rocephine. Pt also complains of a 8/10 head ache and neck pain- David
[2019-10-17] VITALS (9 sets, daily range): BP systolic 78–104; BP diastolic 47–74
[2019-10-17] MEDS: sodium chloride 0.45% 1,000 ML IV SCH (03:36)
--- NOTE | 2019-10-17 04:25 | NUR ---
Page Sent PAGER ID: [phone] MESSAGE: Kimberlee Ro [id number] here for NSTEMI and PNA, blood pressure is 76/50 by manual BP- David [id number]
--- NOTE | 2019-10-17 05:00 | NUR ---
Page Sent PAGER ID: [phone] MESSAGE: Kimberlee Ro [id number] here for NSTEMI and PNA, blood pressure is 76/50 by manual BP- David 5441
--- NOTE | 2019-10-17 05:28 | NUR ---
[address] Schwarz regarding pts low BP, 76/[address] Schwarz has not called, pt asymptomatic.
--- NOTE | 2019-10-17 05:39 | NUR ---
spoke with dr. smith regarding low bp, dr. smith gave the order to give a 500cc iv fluid bolus
--- NOTE | 2019-10-17 06:17 | NUR ---
Problems reprioritized. Patient report given, questions answered & plan of care reviewed with Brea CLARK.
[2019-10-17 06:45] LABS: BASOPHILS % (AUTO) 0.2 % (0-1); EOSINOPHILS % (AUTO) 0 % (0-6); HEMATOCRIT 44.6 % (35.0-45.0); HEMOGLOBIN 14.7 g/dl (12.0-16.0); LYMPHOCYTES % (AUTO) 6.6 % (21-51); MEAN CORPUSCULAR HEMOGLOBIN 29.1 PG (27.0-31.0); MEAN CORPUSCULAR HGB CONC 33.1 g/dL (33.0-36.5); MEAN PLATELET VOLUME 8.5 FL (7.4-10.4); MONOCYTES # (AUTO) 1.2 X10'3 (0-0.9); MONOCYTES % (AUTO) 7.7 % (2-12); NEUTROPHILS # (AUTO) 13.4 X10'3 (1.8-7.7); NEUTROPHILS % (AUTO) 85.5 % (42-75); PLATELET COUNT 205 X10'3 (140-440); RED BLOOD COUNT 5.07 X10'6 (4.20-5.60); RED CELL DISTRIBUTION WIDTH 16.2 % (11.5-14.5); WHITE BLOOD COUNT 15.6 X10'3 (4.5-11.0)
[2019-10-17 07:14] LABS: ALANINE AMINOTRANSFERASE 33 U/L (12-78); ALBUMIN 2.6 G/DL (3.4-5.0); ALBUMIN/GLOBULIN RATIO 0.7 (1.1-1.5); ALKALINE PHOSPHATASE 96 IU/L (46-116); ANION GAP 8 (8-16); ASPARTATE AMINO TRANSFERASE 66 U/L (10-37); BILIRUBIN,TOTAL 0.4 MG/DL (0.1-1.0); BLOOD UREA NITROGEN 15 MG/DL (7-18); CALCIUM 8.9 MG/DL (8.5-10.1); CHLORIDE 105 MMOL/L (99-107); CHOL/HDL RATIO 1.9 (0.00-4.99); CHOLESTEROL 122 MG/DL (0-200); CREATININE 0.88 MG/DL (0.40-0.90); GLUCOSE 123 MG/DL (70-104); HDL CHOLESTEROL 65 MG/DL (35-60); LDL CHOLESTEROL 48 MG/DL (50-100); MAGNESIUM 1.7 MG/DL (1.5-2.4); PHOSPHORUS 3.3 MG/DL (2.3-4.5); POTASSIUM 4.3 MMOL/L (3.5-5.1); SODIUM 139 MMOL/L (135-145); TOTAL CARBON DIOXIDE 26.1 MMOL/L (24-32); TOTAL PROTEIN 6.4 G/DL (6.4-8.2); TRIGLYCERIDES 72 MG/DL (20-135); eGFR 64 ML/MIN
--- NOTE | 2019-10-17 07:25 | NUR ---
Patient in room PCU 3024. I have received report from David CLARK and had the opportunity to ask questions and assume patient care.
[2019-10-17] MEDS: CefTRIAXone/D5W-Rocephin 1gm 50 ML IV SCH (07:52)
[2019-10-17] MEDS: azithromycin/NS 500mg/250ml 250 ML IV SCH (07:52)
[2019-10-17] MEDS: clopidogrel 75mg tablet PO SCH (07:52)
[2019-10-17] MEDS ORDERED: VANCOMYCIN 750MG IV in NS 250 ML IV SCH (08:00)
[2019-10-17] MEDS: metoprolol tartrate 12.5mg (1/2 tablet) PO SCH ×2 (08:00→19:14)
[2019-10-17] MEDS: K and/or MAG REPLACEMENT MC SCH ×2 (08:00→19:05)
[2019-10-17] MEDS: ipratropium/albuterol 3ml nebule NEB SCH ×5 (08:18→23:56)
[2019-10-17 10:18] LABS: URINE AMPHETAMINE SCREEN NEGATIVE (Neg); URINE BARBITUATE SCREEN NEGATIVE (Neg); URINE BENZODIAZEPINES SCREEN POSITIVE (Neg); URINE CANNABINOID SCREEN NEGATIVE (Neg); URINE COCAINE SCREEN NEGATIVE (Neg); URINE METHADONE SCREEN NEGATIVE (Neg); URINE OPIATE SCREEN NEGATIVE (Neg); URINE PHENCYCLIDINE SCREEN NEGATIVE (Neg)
--- NOTE | 2019-10-17 12:31 | NUR ---
PAGER ID: [phone] MESSAGE: [id number] Kimberlee Pacheco, can she have order for Tylenol for upper back pain? Brea CLARK
[2019-10-17] MEDS: acetaminophen 325mg tablet PO PRN (14:37)
--- NOTE | 2019-10-17 16:51 | NUR ---
Blood pressure check reveals 78/51 with a MAP of 60. Pt. stated, "Im just tired." Denies dizziness. LS are actually CTA. MD notified with orders to repeat a bolus 1/2 liter of NS and start NS @ 75 cc/hr. Pt. is in Trendelenburg. Will continue to monitor.
[2019-10-17] MEDS ORDERED: normal saline 1000ml 1,000 ML IV ONE (17:05)
--- NOTE | 2019-10-17 17:32 | NUR ---
Pt. had non-sustained bradycardia down to 48 with sinus arrhythmia, assessed patient. Pt. is currently getting a carotid ultrasound, assessed apical HR with pulse of 88. Returned to baseline quickly.
--- NOTE | 2019-10-17 17:40 | NUR ---
Patients blood pressure is currently 104/78. Pt. is in no apparent distress at this time. Will report off to NOC shift.
[2019-10-17] MEDS: normal saline 1000ml 1,000 ML IV SCH (17:44)
--- NOTE | 2019-10-17 17:46 | NUR ---
Malnutrition consult: Pt admit w/ SOB hx COPD and quit smoking last month but still chain smokes at home per EMR. DX NSTEMI, community vs possible aspiration PNA, and hypernatremia per MD note. Pt has mild weakness, no edema/wounds, and no accurate wt hx as all current and prior wts pt stated. Pt well-developed per MD note and PO 25-50% fluctuating first 2 meals this admit. Advanced to heart healthy/mechanical soft grind all per SUPER[employer] SH[employer]PER[employer] recs given pt hx esophageal narrowing. LBM 10/15. Pt likely maintains stable low wt and does not meet minimum malnutrition criteria at this time. Will continue to monitor for additional protein needs and malnutrition criteria this admit. Rec: 1. continue heart healthy/mechanical soft grind all per SUPER[employer] SHOW OPER[employer] recs 2. monitor for ONS needs 3. bowel care as needed 4. wt per rx Addendum: 10/17/19 at [address] Amended: Links added.
--- NOTE | 2019-10-17 18:19 | NUR ---
Problems reprioritized. Patient report given, questions answered & plan of care reviewed with David CLARK, Pt. is eating dinner and in no apparent distress.
--- NOTE | 2019-10-17 18:33 | NUR ---
Patient in room PCU 3024. I have received report from Brea CLARK and had the opportunity to ask questions and assume patient care.
[2019-10-17] MEDS: pantoprazole 40mg Tablet.DR PO SCH (19:14)
[2019-10-17] MEDS: vancomycin/NS 1 GM ADD-VANTAGE 250 ML IV SCH (19:15)
[2019-10-17] MEDS: diazepam 5mg tablet PO SCH (21:00)
--- NOTE | 2019-10-17 21:15 | NUR ---
PT REFUSED 2100 DIAZEPAM, PER PT SHE TAKES IT IN THE AM
[2019-10-18 01:37] LABS: BASOPHILS % (AUTO) 0.3 % (0-1); EOSINOPHILS % (AUTO) 0.2 % (0-6); LYMPHOCYTES # (AUTO) 0.9 X10'3 (1.1-4.8); LYMPHOCYTES % (AUTO) 8.7 % (21-51); MEAN CORPUSCULAR HEMOGLOBIN 29.6 PG (27.0-31.0); MEAN CORPUSCULAR HGB CONC 33.3 g/dL (33.0-36.5); MEAN CORPUSCULAR VOLUME 88.8 FL (78-98); MEAN PLATELET VOLUME 8.2 FL (7.4-10.4); MONOCYTES # (AUTO) 0.8 X10'3 (0-0.9); MONOCYTES % (AUTO) 7.8 % (2-12); NEUTROPHILS # (AUTO) 8.9 X10'3 (1.8-7.7); PLATELET COUNT 171 X10'3 (140-440); RED BLOOD COUNT 4.39 X10'6 (4.20-5.60); RED CELL DISTRIBUTION WIDTH 16.4 % (11.5-14.5); WHITE BLOOD COUNT 10.7 X10'3 (4.5-11.0)
[2019-10-18 01:53] LABS: ALANINE AMINOTRANSFERASE 46 U/L (12-78); ALBUMIN 2.2 G/DL (3.4-5.0); ALBUMIN/GLOBULIN RATIO 0.6 (1.1-1.5); ALKALINE PHOSPHATASE 120 IU/L (46-116); ANION GAP 7 (8-16); ASPARTATE AMINO TRANSFERASE 84 U/L (10-37); BILIRUBIN,TOTAL 0.4 MG/DL (0.1-1.0); BLOOD UREA NITROGEN 14 MG/DL (7-18); BUN/CREATININE RATIO 18.9 (6.6-38.0); CALCIUM 8.9 MG/DL (8.5-10.1); CHLORIDE 110 MMOL/L (99-107); CREATININE 0.74 MG/DL (0.40-0.90); GLUCOSE 90 MG/DL (70-104); MAGNESIUM 1.7 MG/DL (1.5-2.4); PHOSPHORUS 1.9 MG/DL (2.3-4.5); POTASSIUM 3.9 MMOL/L (3.5-5.1); SODIUM 143 MMOL/L (135-145); TOTAL CARBON DIOXIDE 26.4 MMOL/L (24-32); TOTAL PROTEIN 5.7 G/DL (6.4-8.2); eGFR 78 ML/MIN
[2019-10-18 02:00] VITALS: BP 94/62
[2019-10-18] MEDS: heparin 10,000 units/1 ML INJ IV PRN ×2 (02:11→15:44)
[2019-10-18] MEDS: heparin 25,000 UNIT/250ml bag 250 ML IV SCH ×3 (02:14→15:45)
[2019-10-18] MEDS: acetaminophen 325mg tablet PO PRN ×3 (02:21→19:52)
[2019-10-18] MEDS: normal saline 1000ml 1,000 ML IV SCH (04:39)
--- NOTE | 2019-10-18 05:48 | NUR ---
Page Sent PAGER ID: [phone] MESSAGE: pt 3K Juan Carlos Dutton here for resp failure, critical high venous CO2 of 44.8- David
--- NOTE | 2019-10-18 06:17 | NUR ---
Problems reprioritized. Patient report given, questions answered & plan of care reviewed with Brea CLARK.
[2019-10-18 07:00] VITALS: BP 82/52
[2019-10-18] MEDS ORDERED: predniSONE 20 mg tablet PO ONE (07:00)
--- NOTE | 2019-10-18 07:19 | NUR ---
Patient in room PCU 3024. I have received report from David CLARK and had the opportunity to ask questions and assume patient care.
[2019-10-18] MEDS: clopidogrel 75mg tablet PO SCH (07:28)
[2019-10-18] MEDS: pantoprazole 40mg Tablet.DR PO SCH ×2 (07:28→21:16)
[2019-10-18] MEDS: CefTRIAXone/D5W-Rocephin 1gm 50 ML IV SCH (07:29)
[2019-10-18] MEDS: metoprolol tartrate 12.5mg (1/2 tablet) PO SCH ×2 (07:42→20:00)
[2019-10-18] MEDS: K and/or MAG REPLACEMENT MC SCH ×2 (08:00→20:00)
[2019-10-18] MEDS: ipratropium/albuterol 3ml nebule NEB SCH ×5 (08:39→23:00)
[2019-10-18] MEDS: azithromycin/NS 500mg/250ml 250 ML IV SCH (08:43)
[2019-10-18] MEDS ORDERED: pneumococcal 23-VAL P-sac vacc 25 mcg/0.5ml vial IMVAC ONE (10:00)
[2019-10-18 11:00] VITALS: BP 87/53
--- NOTE | 2019-10-18 12:18 | NUR ---
Paged Dr Andersen, primary nurse currently with patient PAGER ID: [phone] MESSAGE: [place]. Adair Cantu [id number]. Reported from registered nurse cardiac telemetry that patient is going in and out of a-fib currently, rate currently in 140's. Pt symptomatic, feeling dizzy
--- NOTE | 2019-10-18 12:21 | NUR ---
Assessed patient r/t telephoto engineer reporting elevated HR and going in and out of a-fib. Pt. was ambulating back to bed from her BSC. Asked patient if she was symptomatic and she stated, "I feel loopy." Pt. reported feeling dizzy. BP 93/57 which is her baseline. Pt. denies having any more dyspnea that she has been having since admit. RR 20 and does not appear to be in any respiratory distress. Urine in BSC was noted to be cloudy and foul smelling. MD was notified of change in rhythm and nursing current assessment. PTT is therapeutic at this time. MD is evaluating the patient.
[2019-10-18] MEDS ORDERED: amiodarone 150mg/dext, iso-os 100 ML IV ONE (12:25)
--- NOTE | 2019-10-18 12:44 | NUR ---
Amiodarone bolus administered per MD order. Patient stated she is feeling better already. HR is 117-120's and in and out of sinus. Will continue to monitor patient status closely.
[2019-10-18] MEDS ORDERED: predniSONE 20 mg tablet PO SCH (13:35)
[2019-10-18] MEDS: amiodarone 200mg tablet PO SCH ×2 (14:02→21:16)
--- NOTE | 2019-10-18 14:16 | NUR ---
Patient is eating lunch. Pt. converted back to SR. Pt. is scheduled to go to hospital laboratory technician in the AM. Requested UA from Dr. Andersen r/t foul smelling, cloudy urine however, the patient denies urinary symptoms. Order was not granted. Will continue to monitor.
[2019-10-18 15:00] VITALS: BP 90/57
--- NOTE | 2019-10-18 17:00 | NUR ---
Patient was cleared to discharge. Discharge instructions and new medications reviewed with patient. New prescriptions were e-faxed to [facility] per patients request. Pt. stated he will call and make a FU appointment with his primary care provider within the week. Tele removed and PIV removed. Patient is currently waiting for his ride. Addendum: 10/18/19 at 1735 by Brea Mazariegos RN licensed direct entry midwife error - Previous note added on incorrect patient. Please disregard.
[2019-10-18 17:13] LABS: CLARITY,URINE SLIGHTLY CLOUDY (Clear); COLOR,URINE STRAW (Yellow); GLUCOSE, URINE NEGATIVE (Neg); KETONES,URINE NEGATIVE (Neg); LEUKOCYTE ESTERASE ,URINE NEGATIVE (Neg); NITRITES, URINE NEGATIVE (Neg); OCCULT BLOOD,URINE TRACE-INTACT (Neg); PROTEIN,URINE NEGATIVE (Neg); UROBILINOGEN,URINE 0.2 E.U/dL (0.2-1.0)
[2019-10-18 17:19] LABS: UA COLLECTION TYPE NON-SPECIFIED
[2019-10-18 17:41] LABS: MUCUS STRANDS NONE SEEN /LPF (Neg); SQUAMOUS EPITHELIAL CELL,UR MANY /LPF (FEW)
[2019-10-18 17:42] LABS: RBC,URINE 0-2 /HPF (0-2)
[2019-10-18 17:43] LABS: BACTERIA,URINE FEW /HPF (Neg)
--- NOTE | 2019-10-18 18:15 | NUR ---
Patient in room PCU 3024. I have received report from ALEKSANDR CLARK and had the opportunity to ask questions and assume patient care.
--- NOTE | 2019-10-18 18:29 | NUR ---
Problems reprioritized. Patient report given, questions answered & plan of care reviewed with Janel CLARK.
[2019-10-18 18:30] VITALS: BP 111/73
[2019-10-18] MEDS ORDERED: LORazepam 0.5 MG tablet PO PRN (18:50)
[2019-10-18] MEDS: vancomycin/NS 1 GM ADD-VANTAGE 250 ML IV SCH (21:09)
[2019-10-18] MEDS: diazepam 5mg tablet PO SCH (21:15)
[2019-10-18] MEDS: lactobacillus rhamnosus 10,000 MMU CELLS/CAPSULE PO SCH (21:16)
[2019-10-18 22:30] VITALS: BP 104/62
[2019-10-19] VITALS (14 sets, daily range): BP systolic 82–96; BP diastolic 51–72
[2019-10-19 03:19] LABS: BASOPHILS % (AUTO) 0.2 % (0-1); EOSINOPHILS % (AUTO) 0 % (0-6); HEMATOCRIT 34.9 % (35.0-45.0); HEMOGLOBIN 11.8 g/dl (12.0-16.0); LYMPHOCYTES # (AUTO) 0.5 X10'3 (1.1-4.8); LYMPHOCYTES % (AUTO) 9.2 % (21-51); MEAN CORPUSCULAR HEMOGLOBIN 30.1 PG (27.0-31.0); MEAN CORPUSCULAR VOLUME 88.6 FL (78-98); MEAN PLATELET VOLUME 8.3 FL (7.4-10.4); MONOCYTES # (AUTO) 0.2 X10'3 (0-0.9); MONOCYTES % (AUTO) 4.2 % (2-12); NEUTROPHILS # (AUTO) 4.3 X10'3 (1.8-7.7); NEUTROPHILS % (AUTO) 86.4 % (42-75); PLATELET COUNT 168 X10'3 (140-440); RED BLOOD COUNT 3.94 X10'6 (4.20-5.60); RED CELL DISTRIBUTION WIDTH 16.4 % (11.5-14.5)
[2019-10-19 03:37] LABS: ALANINE AMINOTRANSFERASE 44 U/L (12-78); ALBUMIN 2.1 G/DL (3.4-5.0); ALBUMIN/GLOBULIN RATIO 0.6 (1.1-1.5); ALKALINE PHOSPHATASE 110 IU/L (46-116); ANION GAP 6 (8-16); ASPARTATE AMINO TRANSFERASE 52 U/L (10-37); BILIRUBIN,TOTAL 0.4 MG/DL (0.1-1.0); BLOOD UREA NITROGEN 13 MG/DL (7-18); BUN/CREATININE RATIO 22.8 (6.6-38.0); CALCIUM 8.8 MG/DL (8.5-10.1); CHLORIDE 111 MMOL/L (99-107); CREATININE 0.57 MG/DL (0.40-0.90); GLUCOSE 160 MG/DL (70-104); MAGNESIUM 1.7 MG/DL (1.5-2.4); PHOSPHORUS 2.4 MG/DL (2.3-4.5); POTASSIUM 4.1 MMOL/L (3.5-5.1); SODIUM 142 MMOL/L (135-145); TOTAL CARBON DIOXIDE 25.3 MMOL/L (24-32); TOTAL PROTEIN 5.5 G/DL (6.4-8.2); eGFR > 90 ML/MIN
[2019-10-19] MEDS: normal saline 1000ml 1,000 ML IV SCH ×2 (05:19→11:54)
--- NOTE | 2019-10-19 06:08 | NUR ---
Patient in room PCU 3024. I have received report from Janel CLARK and had the opportunity to ask questions and assume patient care.
--- NOTE | 2019-10-19 06:32 | NUR ---
Problems reprioritized. Patient report given, questions answered & plan of care reviewed with Sadaf CLARK.
[2019-10-19] MEDS ORDERED: predniSONE 20 mg tablet PO ONE (07:00)
[2019-10-19] MEDS: ipratropium/albuterol 3ml nebule NEB SCH ×5 (07:18→23:15)
[2019-10-19] MEDS: K and/or MAG REPLACEMENT MC SCH ×2 (08:00→20:00)
[2019-10-19] MEDS: metoprolol tartrate 12.5mg (1/2 tablet) PO SCH ×2 (08:00→20:00)
[2019-10-19] MEDS: pantoprazole 40mg Tablet.DR PO SCH ×2 (08:05→20:22)
[2019-10-19] MEDS: amiodarone 200mg tablet PO SCH ×2 (08:06→20:23)
[2019-10-19] MEDS: clopidogrel 75mg tablet PO SCH (08:06)
[2019-10-19] MEDS: lactobacillus rhamnosus 10,000 MMU CELLS/CAPSULE PO SCH ×2 (08:06→20:23)
[2019-10-19] MEDS: azithromycin 250mg tablet PO SCH (08:06)
[2019-10-19] MEDS: CefTRIAXone/D5W-Rocephin 1gm 50 ML IV SCH (08:07)
[2019-10-19] MEDS ORDERED: fentaNYL/PF 50MCG/1 ML 2ML syringe ONE (08:30)
[2019-10-19] MEDS ORDERED: LIDOcaine 1% (10mg/ml)w/preservative injection 20ml MDV ONE (08:30)
[2019-10-19] MEDS ORDERED: iohexol 350 MG/ML 50ML vial IV ONE (08:30)
[2019-10-19] MEDS ORDERED: iohexol 350MG/ML 100ml bottle IV ONE (08:30)
[2019-10-19] MEDS ORDERED: midazolam 2 mg/2 ml injection ONE (08:30)
[2019-10-19] MEDS ORDERED: diphenhydrAMINE 50 mg/ml inj ONE (09:04)
[2019-10-19] MEDS: sodium chloride 0.45% 1,000 ML IV SCH (09:56)
[2019-10-19] MEDS ORDERED: acetaminophen 325mg tablet PO PRN (10:00)
[2019-10-19] MEDS ORDERED: OXAZEpam 15mg capsule PO PRN (10:00)
[2019-10-19] MEDS ORDERED: nitroGLYCERIN 0.4mg SUBLingual tab SL PRN (10:00)
[2019-10-19] MEDS ORDERED: ondansetron/PF 4mg/2ml inj IV PRN (10:00)
[2019-10-19] MEDS ORDERED: proCHLORperazine 10 MG/2 ml inj IV PRN (10:00)
[2019-10-19] MEDS ORDERED: VANCOMYCIN LEVEL IV ONE (17:30)
--- NOTE | 2019-10-19 18:30 | NUR ---
Patient in room PCU 3024. I have received report from Sadaf CLARK and had the opportunity to ask questions and assume patient care. per hand off report from Sadaf CLARK, pt has low blood pressures and this is normal for her, is aware of maps in the mid 50s, per Sadaf CLARK, is ok with maps >55.
[2019-10-19] MEDS: diazepam 5mg tablet PO SCH (20:24)
[2019-10-19] MEDS: vancomycin/NS 1 GM ADD-VANTAGE 250 ML IV SCH (20:25)
[2019-10-19] MEDS: acetaminophen 325mg tablet PO PRN (20:33)
[2019-10-20] MEDS: normal saline 1000ml 1,000 ML IV SCH ×2 (00:52→16:30)
[2019-10-20] MEDS: sodium chloride 0.45% 1,000 ML IV SCH (00:55)
[2019-10-20 02:00] VITALS: BP 93/53
[2019-10-20 05:34] LABS: BASOPHILS % (AUTO) 0.1 % (0-1); EOSINOPHILS % (AUTO) 0.2 % (0-6); HEMATOCRIT 32.5 % (35.0-45.0); HEMOGLOBIN 10.9 g/dl (12.0-16.0); LYMPHOCYTES # (AUTO) 1.1 X10'3 (1.1-4.8); LYMPHOCYTES % (AUTO) 15.7 % (21-51); MEAN CORPUSCULAR HEMOGLOBIN 29.3 PG (27.0-31.0); MEAN CORPUSCULAR HGB CONC 33.5 g/dL (33.0-36.5); MEAN CORPUSCULAR VOLUME 87.4 FL (78-98); MEAN PLATELET VOLUME 8.4 FL (7.4-10.4); MONOCYTES # (AUTO) 0.6 X10'3 (0-0.9); NEUTROPHILS # (AUTO) 5.2 X10'3 (1.8-7.7); PLATELET COUNT 194 X10'3 (140-440); RED BLOOD COUNT 3.71 X10'6 (4.20-5.60); RED CELL DISTRIBUTION WIDTH 16.3 % (11.5-14.5); WHITE BLOOD COUNT 6.9 X10'3 (4.5-11.0)
[2019-10-20 05:59] LABS: ALANINE AMINOTRANSFERASE 30 U/L (12-78); ALBUMIN 1.6 G/DL (3.4-5.0); ALBUMIN/GLOBULIN RATIO 0.6 (1.1-1.5); ALKALINE PHOSPHATASE 80 IU/L (46-116); ANION GAP 5 (8-16); ASPARTATE AMINO TRANSFERASE 27 U/L (10-37); BILIRUBIN,TOTAL 0.3 MG/DL (0.1-1.0); BLOOD UREA NITROGEN 8 MG/DL (7-18); BUN/CREATININE RATIO 18.2 (6.6-38.0); CALCIUM 8.2 MG/DL (8.5-10.1); CHLORIDE 109 MMOL/L (99-107); CREATININE 0.44 MG/DL (0.40-0.90); GLUCOSE 90 MG/DL (70-104); MAGNESIUM 1.4 MG/DL (1.5-2.4); PHOSPHORUS 1.8 MG/DL (2.3-4.5); POTASSIUM 3.5 MMOL/L (3.5-5.1); SODIUM 141 MMOL/L (135-145); TOTAL CARBON DIOXIDE 26.7 MMOL/L (24-32); TOTAL PROTEIN 4.5 G/DL (6.4-8.2); eGFR > 90 ML/MIN
[2019-10-20 06:00] VITALS: BP 100/61
--- NOTE | 2019-10-20 06:25 | NUR ---
Problems reprioritized. Patient report given, questions answered & plan of care reviewed with Belén CLARK.
--- NOTE | 2019-10-20 06:59 | NUR ---
Patient in room PCU 3024. I have received report from Jose Miguel CLARK and had the opportunity to ask questions and assume patient care.
[2019-10-20] MEDS: ipratropium/albuterol 3ml nebule NEB SCH ×5 (07:08→23:51)
[2019-10-20] MEDS: CefTRIAXone/D5W-Rocephin 1gm 50 ML IV SCH (08:05)
[2019-10-20] MEDS: azithromycin 250mg tablet PO SCH (08:05)
[2019-10-20] MEDS: lactobacillus rhamnosus 10,000 MMU CELLS/CAPSULE PO SCH ×2 (08:06→20:27)
[2019-10-20] MEDS: amiodarone 200mg tablet PO SCH ×2 (08:06→20:27)
[2019-10-20] MEDS: pantoprazole 40mg Tablet.DR PO SCH ×2 (08:06→20:27)
[2019-10-20] MEDS: clopidogrel 75mg tablet PO SCH (08:06)
[2019-10-20] MEDS: metoprolol tartrate 12.5mg (1/2 tablet) PO SCH ×2 (08:06→22:20)
[2019-10-20] MEDS ORDERED: magnesium Cl slow-release 64mg tablet PO PRN (08:40)
[2019-10-20] MEDS ORDERED: potassium CL 10mEq/100ml bag 100 ML IV PRN (08:40)
[2019-10-20] MEDS ORDERED: potassium Cl 20 mEq SR tablet PO PRN (08:40)
[2019-10-20] MEDS ORDERED: magnesium 4gm in 100ml NS 100 ML IV PRN (08:40)
[2019-10-20] MEDS: K and/or MAG REPLACEMENT MC SCH ×2 (08:55→20:00)
[2019-10-20 11:00] VITALS: BP 82/55
[2019-10-20] MEDS: heparin 25,000 UNIT/250ml bag 250 ML IV SCH (11:57)
--- NOTE | 2019-10-20 14:57 | NUR ---
Reassessment: Pt PO has improved to 75-100% avg meals meeting needs at this time. LBM 10/20 small per RN; JEROME d/w RN regarding routine bowel care per MD approval given likely constipation and no bowel care yet this admit. Will continue to monitor. Rec: 1. continue heart healthy/mechanical soft grind all per [employer]IC recs 2. monitor for ONS needs 3. routine bowel care 4. wt per rx Addendum: 10/20/19 at [address] Amended: Links added.
[2019-10-20 15:00] VITALS: BP 91/55
[2019-10-20] MEDS ORDERED: VANCOMYCIN LEVEL IV ONE (17:30)
[2019-10-20 18:00] VITALS: BP 92/61
--- NOTE | 2019-10-20 18:13 | NUR ---
Problems reprioritized. Patient report given, questions answered & plan of care reviewed with Anitha CLARK.
--- NOTE | 2019-10-20 18:15 | NUR ---
received pt report from AMBER Melissa
[2019-10-20] MEDS: furosemide 20MG tablet PO SCH (20:27)
[2019-10-20] MEDS: diazepam 5mg tablet PO SCH (20:51)
--- NOTE | 2019-10-20 21:00 | NUR ---
Dr. Howard ordered maintenance fluid to be discontinued due to CHF. patient is now saline locked. receiving PO lasix.
[2019-10-20 22:00] VITALS: BP 97/64
[2019-10-21 02:00] VITALS: BP 95/55
[2019-10-21 06:00] VITALS: BP 105/64
[2019-10-21 06:03] LABS: BASOPHILS % (AUTO) 0.1 % (0-1); EOSINOPHILS # (AUTO) 0.2 X10'3 (0-0.9); EOSINOPHILS % (AUTO) 2.4 % (0-6); HEMATOCRIT 38.2 % (35.0-45.0); HEMOGLOBIN 12.9 g/dl (12.0-16.0); LYMPHOCYTES # (AUTO) 2.2 X10'3 (1.1-4.8); LYMPHOCYTES % (AUTO) 27.2 % (21-51); MEAN CORPUSCULAR HEMOGLOBIN 29.3 PG (27.0-31.0); MEAN CORPUSCULAR HGB CONC 33.7 g/dL (33.0-36.5); MEAN CORPUSCULAR VOLUME 87.1 FL (78-98); MEAN PLATELET VOLUME 7.7 FL (7.4-10.4); MONOCYTES # (AUTO) 0.9 X10'3 (0-0.9); MONOCYTES % (AUTO) 10.6 % (2-12); NEUTROPHILS # (AUTO) 4.8 X10'3 (1.8-7.7); NEUTROPHILS % (AUTO) 59.7 % (42-75); PLATELET COUNT 257 X10'3 (140-440); RED BLOOD COUNT 4.39 X10'6 (4.20-5.60); RED CELL DISTRIBUTION WIDTH 16.4 % (11.5-14.5); WHITE BLOOD COUNT 8.1 X10'3 (4.5-11.0)
[2019-10-21 06:20] LABS: ALANINE AMINOTRANSFERASE 44 U/L (12-78); ALBUMIN 2.1 G/DL (3.4-5.0); ALBUMIN/GLOBULIN RATIO 0.6 (1.1-1.5); ALKALINE PHOSPHATASE 83 IU/L (46-116); ANION GAP -1 (8-16); ASPARTATE AMINO TRANSFERASE 32 U/L (10-37); BILIRUBIN,TOTAL 0.4 MG/DL (0.1-1.0); BLOOD UREA NITROGEN 6 MG/DL (7-18); BUN/CREATININE RATIO 9.5 (6.6-38.0); CALCIUM 8.3 MG/DL (8.5-10.1); CHLORIDE 107 MMOL/L (99-107); CREATININE 0.63 MG/DL (0.40-0.90); GLUCOSE 63 MG/DL (70-104); MAGNESIUM 1.6 MG/DL (1.5-2.4); PHOSPHORUS 2.6 MG/DL (2.3-4.5); POTASSIUM 3.2 MMOL/L (3.5-5.1); SODIUM 145 MMOL/L (135-145); TOTAL CARBON DIOXIDE 38.8 MMOL/L (24-32); TOTAL PROTEIN 5.4 G/DL (6.4-8.2); eGFR > 90 ML/MIN
--- NOTE | 2019-10-21 06:21 | NUR ---
gave report to AMBER Melissa
[2019-10-21] MEDS: ipratropium/albuterol 3ml nebule NEB SCH ×3 (06:52→15:46)
--- NOTE | 2019-10-21 06:54 | NUR ---
Patient in room PCU 3024. I have received report from Anitha CLARK and had the opportunity to ask questions and assume patient care.
[2019-10-21] MEDS: K and/or MAG REPLACEMENT MC SCH (08:00)
[2019-10-21] MEDS: potassium Cl 20 mEq SR tablet PO PRN ×2 (09:11→15:01)
[2019-10-21] MEDS: metoprolol tartrate 12.5mg (1/2 tablet) PO SCH (09:11)
[2019-10-21] MEDS: furosemide 20MG tablet PO SCH (09:11)
[2019-10-21] MEDS: clopidogrel 75mg tablet PO SCH (09:12)
[2019-10-21] MEDS: azithromycin 250mg tablet PO SCH (09:12)
[2019-10-21] MEDS: CefTRIAXone/D5W-Rocephin 1gm 50 ML IV SCH (09:12)
[2019-10-21] MEDS: amiodarone 200mg tablet PO SCH (09:12)
[2019-10-21] MEDS: pantoprazole 40mg Tablet.DR PO SCH (09:12)
[2019-10-21] MEDS: lactobacillus rhamnosus 10,000 MMU CELLS/CAPSULE PO SCH (09:12)
[2019-10-21] MEDS: acetaminophen 325mg tablet PO PRN (09:13)
[2019-10-21 11:00] VITALS: BP 97/61
--- NOTE | 2019-10-21 12:41 | NUR ---
PAGER ID: [phone] MESSAGE: [id number] Kimberlee Pacheco: JAMEY Aggarwal client support representative will be fitting patient here at [facility] today. Thanks Belén
--- NOTE | 2019-10-21 15:28 | NUR ---
Pt is scheduled to be transferred to [facility] today at 1630, report was given to Ludy CLARK, all questions answered
--- NOTE | 2019-10-21 16:50 | NUR ---
Pt is picked up for transfer to [facility] at 1640 by [facility]-a-van transportation via wheelchair, pt left with transfer packet, life vest and belongings, tele monitor dc'ed and returned and PIV discontinued, clean dry dressing in place.
== END 2019-10-21 16:45 | DRG 871 ==
LOC: ER 15:05 → ED HOLD 17:42 → PCU 3S 20:17
PROVIDERS: ADMIT Family Medicine; ATTEND Family Medicine
PROC: 4A023N7 Measurement of Cardiac Sampling and Pressure, Left Heart, Percutaneous Approach (ICD-10-PCS; principal; 2019-10-19)
PROC: B2111ZZ Fluoroscopy of Multiple Coronary Arteries using Low Osmolar Contrast (ICD-10-PCS; 2019-10-19)
PROC: B2151ZZ Fluoroscopy of Left Heart using Low Osmolar Contrast (ICD-10-PCS; 2019-10-19)
DX: A41.9 Sepsis, unspecified organism (principal); I21.4 Non-ST elevation (NSTEMI) myocardial infarction; J18.9 Pneumonia, unspecified organism; E43 Unspecified severe protein-calorie malnutrition; I50.23 Acute on chronic systolic (congestive) heart failure; J96.01 Acute respiratory failure with hypoxia; J44.0 Chronic obstructive pulmonary disease with (acute) lower respiratory infection; E87.0 Hyperosmolality and hypernatremia; I51.81 Takotsubo syndrome; I42.8 Other cardiomyopathies; J44.1 Chronic obstructive pulmonary disease with (acute) exacerbation; Z68.1 Body mass index [BMI] 19.9 or less, adult; J20.9 Acute bronchitis, unspecified; R13.10 Dysphagia, unspecified; E83.51 Hypocalcemia; K21.9 Gastro-esophageal reflux disease without esophagitis; E78.5 Hyperlipidemia, unspecified; E83.39 Other disorders of phosphorus metabolism; E83.42 Hypomagnesemia; E87.6 Hypokalemia; F20.9 Schizophrenia, unspecified; F41.1 Generalized anxiety disorder; I34.1 Nonrheumatic mitral (valve) prolapse; I48.91 Unspecified atrial fibrillation; M41.9 Scoliosis, unspecified; Y95 Nosocomial condition; Z77.22 Contact with and (suspected) exposure to environmental tobacco smoke (acute) (chronic); Z80.0 Family history of malignant neoplasm of digestive organs; Z83.3 Family history of diabetes mellitus; Z79.01 Long term (current) use of anticoagulants; Z79.02 Long term (current) use of antithrombotics/antiplatelets; Z79.899 Other long term (current) drug therapy; Z85.3 Personal history of malignant neoplasm of breast; Z91.041 Radiographic dye allergy status; Z99.81 Dependence on supplemental oxygen; Z88.0 Allergy status to penicillin; Z88.8 Allergy status to other drugs, medicaments and biological substances; Z88.6 Allergy status to analgesic agent; Z88.1 Allergy status to other antibiotic agents
CPT/HCPCS: 36415; 36600; 71045; 80053; 80061; 80202; 80305; 81001; 82803; 82948; 83036; 83605; 83735; 83880; 84100; 84484; 85018; 85025; 85610; 85730; 87040; 87081; 92508; 92616; 93005; 93306; 93458; 93880; 93925; 94060; 94640; 94760; 96365; 96375; 97110; 97116; 97161; 97530; 97535; 99152; 99291; A4620; A6258; C1769; G0378; J0282; J0456; J0610; J0696; J1200; J1644; J2001; J2250; J2405; J3010; J3246; J3370; J3475; J7030; J7512; Q9967

== ENCOUNTER 2019-11-12 09:58 | Emergency (ER) | payer MEDICARE, MEDICAID ==
[~2019-11-12] VITALS: Ht 157.5 cm; Wt 49.1 kg
[~2019-11-12 09:58] MED LIST changes: +PANT-47 PO; -PANT40TA4 PO; -PHEN20SP2 MM; +RISP2TAB3 PO; -SUCR1TAB34 PO; -heparin, porcine-25,000 units/D5-250ml premix IV ONE
[2019-11-12 09:59] VITALS: BP 126/63
[2019-11-12] MEDS ORDERED: ondansetron 4mg rapidly disintigrating tab PO ONE (11:30)
== END 2019-11-12 12:43 | disposition home or self-care (01) ==
LOC: ER 09:59
DX: J02.9 Acute pharyngitis, unspecified (principal); J44.9 Chronic obstructive pulmonary disease, unspecified; K21.9 Gastro-esophageal reflux disease without esophagitis; Z88.8 Allergy status to other drugs, medicaments and biological substances; Z88.0 Allergy status to penicillin; Z88.6 Allergy status to analgesic agent; Z88.1 Allergy status to other antibiotic agents; Z91.041 Radiographic dye allergy status
CPT/HCPCS: 70360; 99283

== ENCOUNTER 2019-12-21 09:53 | Emergency (ER) | payer MEDICARE, MEDICAID ==
[~2019-12-21] VITALS: Ht 158.8 cm; Wt 46.8 kg
--- NOTE | 2019-12-21 10:06 | NUR ---
Spoke with Dr. Bruno who stated to place patient into lobby. No risk for COVID-19
[2019-12-21] MEDS ORDERED: sucralfate 1gm/10ml UD suspension PO STA (10:23)
[2019-12-21] MEDS ORDERED: LIDOcaine Viscous 15ml cup MM ONE (10:25)
[2019-12-21] MEDS ORDERED: mag hydrox/Alum hydrox/simeth 30ml oral suspension PO ONE (10:25)
[2019-12-21 10:37] VITALS: BP 137/81
== END 2019-12-21 11:10 | disposition home or self-care (01) ==
LOC: ER 09:54
DX: J02.9 Acute pharyngitis, unspecified (principal); R13.10 Dysphagia, unspecified; J44.9 Chronic obstructive pulmonary disease, unspecified; K21.9 Gastro-esophageal reflux disease without esophagitis; F41.9 Anxiety disorder, unspecified; Z88.0 Allergy status to penicillin; Z88.8 Allergy status to other drugs, medicaments and biological substances; Z79.82 Long term (current) use of aspirin; Z79.2 Long term (current) use of antibiotics; Z79.899 Other long term (current) drug therapy
CPT/HCPCS: 99283

== ENCOUNTER 2019-12-29 09:52 | Emergency (ER) | payer MEDICARE, MEDICAID ==
[~2019-12-29] VITALS: Ht 157.5 cm; Wt 43.2 kg
[2019-12-29] MEDS ORDERED: famotidine 20mg tablet PO ONE (10:10)
[2019-12-29] MEDS ORDERED: traMADol 50MG tablet PO ONE (10:10)
[2019-12-29] MEDS ORDERED: mag hydrox/Alum hydrox/simeth 30ml oral suspension PO ONE (10:10)
[2019-12-29] MEDS ORDERED: LIDOcaine Viscous 15ml cup MM ONE (10:10)
[2019-12-29 10:42] VITALS: BP 137/88
== END 2019-12-29 10:44 | disposition home or self-care (01) ==
LOC: ER 09:52
DX: R07.0 Pain in throat (principal); R13.10 Dysphagia, unspecified; J44.9 Chronic obstructive pulmonary disease, unspecified; K21.9 Gastro-esophageal reflux disease without esophagitis; Z88.0 Allergy status to penicillin; Z88.6 Allergy status to analgesic agent; Z91.048 Other nonmedicinal substance allergy status; Z88.5 Allergy status to narcotic agent; Z88.8 Allergy status to other drugs, medicaments and biological substances; Z79.899 Other long term (current) drug therapy
CPT/HCPCS: 99284

== ENCOUNTER 2020-01-25 13:49 | Outpatient (CLI) | payer MEDICARE, MEDICAID | END 2020-01-25 23:59 | disposition home or self-care (01) | LOC: RAD 13:49 | PROVIDERS: ATTEND Internal Medicine Gastroenterology | DX: R13.10 Dysphagia, unspecified (principal) | CPT/HCPCS: 74230 ==

== ENCOUNTER 2020-01-29 09:14 | Emergency (ER) | payer MEDICARE, MEDICAID ==
[~2020-01-29] VITALS: Ht 157.5 cm; Wt 44.1 kg
[2020-01-29] MEDS ORDERED: LIDOcaine 5% patch TP STA (09:33)
[2020-01-29 09:56] VITALS: BP 126/81
== END 2020-01-29 10:11 | disposition home or self-care (01) ==
LOC: ER 09:15
DX: M54.2 Cervicalgia (principal); M54.5 Low back pain; M41.9 Scoliosis, unspecified; J44.9 Chronic obstructive pulmonary disease, unspecified; K21.9 Gastro-esophageal reflux disease without esophagitis; F41.9 Anxiety disorder, unspecified; Z87.440 Personal history of urinary (tract) infections; Z88.1 Allergy status to other antibiotic agents; Z88.0 Allergy status to penicillin; Z88.8 Allergy status to other drugs, medicaments and biological substances; Z79.899 Other long term (current) drug therapy
CPT/HCPCS: 99283

== ENCOUNTER 2020-01-31 10:07 | Emergency (ER) | payer MEDICARE, MEDICAID ==
[~2020-01-31] VITALS: Ht 157.5 cm; Wt 50.0 kg
[2020-01-31] MEDS ORDERED: CYCL-1 PO (12:39)
[2020-01-31] MEDS ORDERED: ketorolac tromethamine 15mg/ml inj. IM ONE (12:40)
[2020-01-31 12:57] VITALS: BP 147/80
== END 2020-01-31 12:58 | disposition home or self-care (01) ==
LOC: ER 10:08
DX: M54.2 Cervicalgia (principal); M54.9 Dorsalgia, unspecified; J44.9 Chronic obstructive pulmonary disease, unspecified; K21.9 Gastro-esophageal reflux disease without esophagitis; F41.9 Anxiety disorder, unspecified; Z88.0 Allergy status to penicillin; Z88.6 Allergy status to analgesic agent; Z88.8 Allergy status to other drugs, medicaments and biological substances; Z79.899 Other long term (current) drug therapy
CPT/HCPCS: 96372; 99283; J1885

== ENCOUNTER → 2020-03-30 | Outpatient (CLI) | payer MEDICARE, MEDICAID ==
[~2020-03-30] MED LIST changes: +CYCL-1 PO
[2020-03-30 16:56] LABS: BASOPHILS # (AUTO) 0.1 X10'3 (0-0.2); BASOPHILS % (AUTO) 0.7 % (0-1); EOSINOPHILS % (AUTO) 0.5 % (0-6); HEMATOCRIT 53.5 % (35.0-45.0); HEMOGLOBIN 17.7 g/dl (12.0-16.0); LYMPHOCYTES # (AUTO) 1.7 X10'3 (1.1-4.8); LYMPHOCYTES % (AUTO) 18.4 % (21-51); MEAN CORPUSCULAR HEMOGLOBIN 30.2 PG (27.0-31.0); MEAN CORPUSCULAR VOLUME 91.5 FL (78-98); MEAN PLATELET VOLUME 9.2 FL (7.4-10.4); MONOCYTES # (AUTO) 0.5 X10'3 (0-0.9); MONOCYTES % (AUTO) 5.4 % (2-12); PLATELET COUNT 268 X10'3 (140-440); RED BLOOD COUNT 5.85 X10'6 (4.20-5.60); RED CELL DISTRIBUTION WIDTH 14.5 % (11.5-14.5); WHITE BLOOD COUNT 9.3 X10'3 (4.5-11.0)
[2020-03-30 17:15] LABS: ALANINE AMINOTRANSFERASE 25 U/L (12-78); ALBUMIN/GLOBULIN RATIO 1.1 (1.1-1.5); ALKALINE PHOSPHATASE 95 IU/L (46-116); ANION GAP 10 (8-16); ASPARTATE AMINO TRANSFERASE 25 U/L (10-37); BILIRUBIN,TOTAL 0.7 MG/DL (0.1-1.0); BLOOD UREA NITROGEN 13 MG/DL (7-18); BUN/CREATININE RATIO 15.3 (6.6-38.0); CALCIUM 9.5 MG/DL (8.5-10.1); CHLORIDE 103 MMOL/L (99-107); CREATININE 0.85 MG/DL (0.40-0.90); GLUCOSE 111 MG/DL (70-104); POTASSIUM 4.2 MMOL/L (3.5-5.1); SODIUM 142 MMOL/L (135-145); TOTAL PROTEIN 7.6 G/DL (6.4-8.2); eGFR 66 ML/MIN
== END | disposition home or self-care (01) ==
LOC: LAB SPEC 16:41
PROVIDERS: ATTEND Family Medicine
DX: E86.0 Dehydration (principal); R53.1 Weakness
CPT/HCPCS: 36415; 80053; 84443; 85025

== ENCOUNTER 2020-10-07 18:04 | Emergency (ER) | payer MEDICARE, MEDICAID ==
[~2020-10-07] VITALS: Ht 154.9 cm; Wt 45.5 kg
[~2020-10-07 18:04] MED LIST changes: -RISP2TAB3 PO; +RISP2TAB85 PO
[2020-10-07] MEDS ORDERED: albuterol 2.5 MG/3 ML nebule CONTNEB PRN (18:25)
[2020-10-07] MEDS ORDERED: azithromycin/NS 500mg/250ml 250 ML IV ONE (18:25)
[2020-10-07] MEDS ORDERED: methylPREDNISolone sod succ 125mg/2ml vial IV ONE (18:25)
[2020-10-07 18:55] LABS: BASOPHILS # (AUTO) 0.1 X10'3 (0-0.2); BASOPHILS % (AUTO) 0.8 % (0-1); EOSINOPHILS # (AUTO) 0.3 X10'3 (0-0.9); EOSINOPHILS % (AUTO) 3.6 % (0-6); HEMATOCRIT 33.4 % (35.0-45.0); LYMPHOCYTES # (AUTO) 1.4 X10'3 (1.1-4.8); LYMPHOCYTES % (AUTO) 14.2 % (21-51); MEAN CORPUSCULAR HEMOGLOBIN 29.5 PG (27.0-31.0); MEAN CORPUSCULAR VOLUME 89.5 FL (78-98); MEAN PLATELET VOLUME 6.8 FL (7.4-10.4); MONOCYTES # (AUTO) 0.8 X10'3 (0-0.9); MONOCYTES % (AUTO) 8.7 % (2-12); NEUTROPHILS # (AUTO) 6.9 X10'3 (1.8-7.7); NEUTROPHILS % (AUTO) 72.7 % (42-75); PLATELET COUNT 418 X10'3 (140-440); RED BLOOD COUNT 3.73 X10'6 (4.20-5.60); RED CELL DISTRIBUTION WIDTH 14.9 % (11.5-14.5); WHITE BLOOD COUNT 9.6 X10'3 (4.5-11.0)
[2020-10-07 19:06] LABS: ALANINE AMINOTRANSFERASE 20 U/L (12-78); ALBUMIN 2.3 G/DL (3.4-5.0); ALBUMIN/GLOBULIN RATIO 0.5 (1.1-1.5); ALKALINE PHOSPHATASE 164 IU/L (46-116); ANION GAP 2 (8-16); ASPARTATE AMINO TRANSFERASE 22 U/L (10-37); BILIRUBIN,TOTAL 0.4 MG/DL (0.1-1.0); BLOOD UREA NITROGEN 17 MG/DL (7-18); CALCIUM 8.5 MG/DL (8.5-10.1); CHLORIDE 104 MMOL/L (99-107); CREATININE 0.81 MG/DL (0.40-0.90); GLUCOSE 115 MG/DL (70-104); POTASSIUM 4.4 MMOL/L (3.5-5.1); SODIUM 141 MMOL/L (135-145); TOTAL CARBON DIOXIDE 35.2 MMOL/L (24-32); TOTAL PROTEIN 6.6 G/DL (6.4-8.2); eGFR 70 ML/MIN
[2020-10-07] MEDS ORDERED: PRED20TA PO (20:11)
[2020-10-07] MEDS ORDERED: AZIT-63 PO (20:11)
--- NOTE | 2020-10-07 20:20 | NUR ---
Upon checking pt, discovered she has pulled out her IV and taken off her oxygen. Started a new IV, rehooked up to oxygen and put back on monitor. Vitals taken.
[2020-10-07 22:11] VITALS: BP 102/53
== END 2020-10-07 22:05 | disposition home or self-care (01) ==
LOC: ER 18:04
DX: J44.1 Chronic obstructive pulmonary disease with (acute) exacerbation (principal); J96.20 Acute and chronic respiratory failure, unspecified whether with hypoxia or hypercapnia; K21.9 Gastro-esophageal reflux disease without esophagitis; F41.9 Anxiety disorder, unspecified; Z88.0 Allergy status to penicillin; Z88.8 Allergy status to other drugs, medicaments and biological substances; Z88.6 Allergy status to analgesic agent; Z88.5 Allergy status to narcotic agent; Z79.899 Other long term (current) drug therapy; Z88.1 Allergy status to other antibiotic agents
CPT/HCPCS: 36415; 71045; 80053; 83880; 85025; 93005; 94640; 96365; 96375; 99285; J0456; J2930; 94760; A7015

== ENCOUNTER 2021-11-15 03:38 | Inpatient (IN) | payer MEDICARE, MEDICAID ==
[~2021-11-15] VITALS: Ht 157.5 cm; Wt 56.4 kg
[2021-11-15] MEDS ORDERED: terbutaline 1 mg/ml inj SQ STA (03:43)
[2021-11-15] MEDS ORDERED: albuterol 2.5 MG/3 ML nebule CONTNEB PRN ×2 (03:45→04:45)
[2021-11-15] MEDS ORDERED: methylPREDNISolone sod succ 125mg/2ml vial IV ONE (03:45)
--- NOTE | 2021-11-15 04:06 | NUR ---
RESPIRATORY AT BEDSIDE ADMINISTERING BREATHING TREATMENT
[2021-11-15 04:50] LABS: BASOPHILS # (AUTO) 0.2 X10'3 (0-0.2); BASOPHILS % (AUTO) 1.5 % (0-1); EOSINOPHILS # (AUTO) 0.5 X10'3 (0-0.9); EOSINOPHILS % (AUTO) 3.7 % (0-6); HEMATOCRIT 51.8 % (35.0-45.0); HEMOGLOBIN 16.5 g/dl (12.0-16.0); LYMPHOCYTES # (AUTO) 2.1 X10'3 (1.1-4.8); LYMPHOCYTES % (AUTO) 15.2 % (21-51); MEAN CORPUSCULAR HEMOGLOBIN 28.4 PG (27.0-31.0); MEAN CORPUSCULAR HGB CONC 31.9 g/dL (33.0-36.5); MEAN CORPUSCULAR VOLUME 88.9 FL (78-98); MEAN PLATELET VOLUME 8.3 FL (7.4-10.4); MONOCYTES # (AUTO) 0.5 X10'3 (0-0.9); MONOCYTES % (AUTO) 3.4 % (2-12); NEUTROPHILS # (AUTO) 10.6 X10'3 (1.8-7.7); NEUTROPHILS % (AUTO) 76.2 % (42-75); PLATELET COUNT 262 X10'3 (140-440); RED BLOOD COUNT 5.83 X10'6 (4.20-5.60); RED CELL DISTRIBUTION WIDTH 17.6 % (11.5-14.5); WHITE BLOOD COUNT 13.9 X10'3 (4.5-11.0)
[2021-11-15 05:04] LABS: ALANINE AMINOTRANSFERASE 21 U/L (12-78); ALBUMIN 3.7 G/DL (3.4-5.0); ALBUMIN/GLOBULIN RATIO 0.8 (1.1-1.5); ALKALINE PHOSPHATASE 109 IU/L (46-116); ANION GAP 13 (8-16); ASPARTATE AMINO TRANSFERASE 24 U/L (10-37); BILIRUBIN,TOTAL 0.8 MG/DL (0.1-1.0); BLOOD UREA NITROGEN 16 MG/DL (7-18); CALCIUM 9.2 MG/DL (8.5-10.1); CHLORIDE 101 MMOL/L (99-107); CREATININE 0.64 MG/DL (0.40-0.90); GLUCOSE 216 MG/DL (70-104); POTASSIUM 4.2 MMOL/L (3.5-5.1); SODIUM 142 MMOL/L (135-145); TOTAL CARBON DIOXIDE 28.5 MMOL/L (24-32); TOTAL PROTEIN 8.3 G/DL (6.4-8.2); eGFR > 90 ML/MIN
[2021-11-15 05:10] LABS: ANISOCYTOSIS 1+; PLATELET ESTIMATE NORMAL; TOTAL CELLS COUNTED 100
[2021-11-15 05:15] LABS: ABG BASE EXCESS -1.8 mmol/L (-2.0-2.0); ABG HCO3 24.5 mmol/L (22.0-26.0); ABG OXYGEN SATURATION 95.9 % (94-97); ABG PCO2 (T) 46.1 mmHg (32.0-45.0); ABG PO2 (T) 79.3 mmHg (75.0-100.0); ALLEN'S TEST POSITIVE; FCOHb 0.9 % (0.0-3.9); FMetHb 0.1 % (0.0-1.5); FO2Hb 94.9 % (94-97); PATIENT TEMPERATURE 36.4; TOTAL HEMOGLOBIN 15.8 G/dl (12.0-16.0)
--- NOTE | 2021-11-15 06:37 | NUR ---
Assumed care of pt. Found while in bedside report that pt's HeliOx tank was empty with a significant amount of medication remaining in nebulizer. RT paged.
[2021-11-15] MEDS ORDERED: levoFLOXACIN-Levaquin 750MG/D5 150 ML IV STA (07:10)
[2021-11-15] MEDS ORDERED: magnesium hydroxide 30ml (MOM) UD suspension PO PRN (08:55)
[2021-11-15] MEDS ORDERED: acetaminophen 325mg tablet PO PRN (08:55)
[2021-11-15] MEDS ORDERED: potassium CL 10mEq/100ml bag 100 ML IV PRN (08:55)
[2021-11-15] MEDS ORDERED: acetaminophen 650mg rectal suppository RC PRN (08:55)
[2021-11-15] MEDS ORDERED: bisacodyl 10mg suppository rectal RC PRN (08:55)
[2021-11-15] MEDS ORDERED: potassium Cl 20 mEq SR tablet PO PRN ×2 (08:55)
[2021-11-15] MEDS ORDERED: magnesium 2GM in 50ml NS 50 ML IV PRN (08:55)
[2021-11-15] MEDS ORDERED: magnesium 4gm in 100ml NS 100 ML IV PRN (08:55)
[2021-11-15] MEDS ORDERED: morphine 2 MG/ML inj. syringe IV PRN ×2 (08:55)
[2021-11-15] MEDS ORDERED: mag hydrox/Alum hydrox/simeth 30ml oral suspension PO PRN (08:55)
[2021-11-15] MEDS ORDERED: diphenhydrAMINE 25mg capsule PO PRN (08:55)
[2021-11-15] MEDS ORDERED: ondansetron/PF 4mg/2ml inj IV PRN (08:55)
[2021-11-15] MEDS ORDERED: magnesium Cl slow-release 64mg tablet PO PRN (08:55)
[2021-11-15] MEDS: normal saline 1000ml 1,000 ML IV SCH (09:37)
[2021-11-15 11:30] VITALS: BP 113/74
[2021-11-15 11:52] LABS: CLARITY,URINE CLOUDY (Clear); GLUCOSE, URINE NEGATIVE (Neg); KETONES,URINE NEGATIVE (Neg); LEUKOCYTE ESTERASE ,URINE NEGATIVE (Neg); NITRITES, URINE NEGATIVE (Neg); OCCULT BLOOD,URINE SMALL (Neg); PROTEIN,URINE 30 mg/dl (Neg); UROBILINOGEN,URINE 0.2 E.U/dL (0.2-1.0)
[2021-11-15 11:55] LABS: COLOR,URINE DARK YELLOW (Yellow); UA COLLECTION TYPE NON-SPECIFIED
[2021-11-15 12:00] LABS: BACTERIA,URINE 1+ /HPF (Neg); WBC,URINE 0-4 /HPF (0-4)
[2021-11-15 12:01] LABS: CAL OXALATE CRYSTALS 3+ /HPF (NEGATIVE); FINE GRANULAR CAST 0-3 /LPF (NEGATIVE); MUCUS STRANDS MANY /LPF (Neg); SQUAMOUS EPITHELIAL CELL,UR MANY /LPF (FEW)
[2021-11-15] MEDS ORDERED: FAMO20TA8 PO (13:28)
[2021-11-15] MEDS ORDERED: ALBU17AE26 PO (13:28)
[2021-11-15] MEDS ORDERED: PRED10TA PO (13:28)
[2021-11-15] MEDS ORDERED: DULO30CA52 PO (13:28)
[2021-11-15] MEDS ORDERED: CLOP75TA34 PO (13:28)
[2021-11-15] MEDS ORDERED: HYDR-3964 PO (13:28)
[2021-11-15 13:55] LABS: D-DIMER 3.03 MG/L FEU (0-0.50)
[2021-11-15] MEDS: methylPREDNISolone sod succ 125mg/2ml vial IV SCH ×2 (14:17→19:57)
[2021-11-15 15:00] VITALS: BP_SYST 121; BP_SYST 154; BP_DIAS 67; BP_DIAS 69
[2021-11-15 15:12] LABS: HEMOGLOBIN A1C 5.6 % (4.5-6.2)
[2021-11-15] MEDS: ipratropium/albuterol 3ml nebule NEB SCH ×4 (15:44→23:00)
--- NOTE | 2021-11-15 18:18 | NUR ---
Problems reprioritized. Patient report given, questions answered & plan of care reviewed with Olivia CLARK.
[2021-11-15 19:12] VITALS: BP 101/59
[2021-11-15] MEDS: docusate sod 100mg capsule PO SCH (19:56)
[2021-11-15] MEDS: acetaminophen 325mg tablet PO PRN (19:57)
[2021-11-15] MEDS: K and/or MAG REPLACEMENT MC SCH (20:00)
[2021-11-15] MEDS: heparin, porcine 5000 units/ml vial SQ SCH (20:10)
[2021-11-15 22:38] VITALS: BP 103/70
[2021-11-16] MEDS: methylPREDNISolone sod succ 125mg/2ml vial IV SCH ×4 (03:20→20:54)
[2021-11-16] MEDS: ipratropium/albuterol 3ml nebule NEB SCH ×5 (03:20→20:04)
[2021-11-16 04:00] VITALS: BP 104/60
[2021-11-16] MEDS: normal saline 1000ml 1,000 ML IV SCH (05:32)
[2021-11-16 06:00] VITALS: BP 93/57
[2021-11-16 06:26] LABS: BASOPHILS % (AUTO) 0.1 % (0-1); EOSINOPHILS % (AUTO) 0 % (0-6); HEMATOCRIT 42.3 % (35.0-45.0); LYMPHOCYTES # (AUTO) 0.5 X10'3 (1.1-4.8); LYMPHOCYTES % (AUTO) 5.8 % (21-51); MEAN CORPUSCULAR VOLUME 87.7 FL (78-98); MEAN PLATELET VOLUME 8.5 FL (7.4-10.4); MONOCYTES # (AUTO) 0.1 X10'3 (0-0.9); MONOCYTES % (AUTO) 1.4 % (2-12); NEUTROPHILS # (AUTO) 8.5 X10'3 (1.8-7.7); NEUTROPHILS % (AUTO) 92.7 % (42-75); PLATELET COUNT 221 X10'3 (140-440); RED BLOOD COUNT 4.83 X10'6 (4.20-5.60); RED CELL DISTRIBUTION WIDTH 17.1 % (11.5-14.5); WHITE BLOOD COUNT 9.2 X10'3 (4.5-11.0)
[2021-11-16 06:57] LABS: ALANINE AMINOTRANSFERASE 14 U/L (12-78); ALBUMIN 3.1 G/DL (3.4-5.0); ALBUMIN/GLOBULIN RATIO 0.9 (1.1-1.5); ALKALINE PHOSPHATASE 63 IU/L (46-116); ANION GAP 4 (8-16); ASPARTATE AMINO TRANSFERASE 13 U/L (10-37); BILIRUBIN,TOTAL 0.6 MG/DL (0.1-1.0); BLOOD UREA NITROGEN 17 MG/DL (7-18); BUN/CREATININE RATIO 32.7 (6.6-38.0); CALCIUM 9.5 MG/DL (8.5-10.1); CHLORIDE 104 MMOL/L (99-107); CHOL/HDL RATIO 2.6 (0.00-4.99); CHOLESTEROL 251 MG/DL (0-200); CREATININE 0.52 MG/DL (0.40-0.90); GLUCOSE 156 MG/DL (70-104); HDL CHOLESTEROL 96 MG/DL (35-60); LDL CHOLESTEROL 135 MG/DL (50-100); MAGNESIUM 1.8 MG/DL (1.5-2.4); PHOSPHORUS 3.1 MG/DL (2.3-4.5); POTASSIUM 4.7 MMOL/L (3.5-5.1); SODIUM 137 MMOL/L (135-145); TOTAL CARBON DIOXIDE 29.1 MMOL/L (24-32); TOTAL PROTEIN 6.7 G/DL (6.4-8.2); TRIGLYCERIDES 59 MG/DL (20-135); eGFR > 90 ML/MIN
[2021-11-16] MEDS: K and/or MAG REPLACEMENT MC SCH ×2 (08:00→20:00)
[2021-11-16] MEDS: docusate sod 100mg capsule PO SCH ×2 (08:00→20:55)
[2021-11-16] MEDS: levoFLOXACIN-Levaquin 750MG/D5 150 ML IV SCH (09:00)
[2021-11-16] MEDS: heparin, porcine 5000 units/ml vial SQ SCH ×2 (09:01→20:55)
[2021-11-16 11:00] VITALS: BP 107/59
[2021-11-16] MEDS ORDERED: ipratropium/albuterol 3ml nebule NEB PRN (11:50)
--- NOTE | 2021-11-16 14:21 | NUR ---
Dr. Nicolas paged regarding new order noted for CT with contrast, patient have allergy with iodine. and stated " I would not take the contrast.
[2021-11-16 15:00] VITALS: BP 114/60
[2021-11-16] MEDS: atorvastatin 20mg tablet PO SCH (15:17)
[2021-11-16] MEDS: acetaminophen 325mg tablet PO PRN (15:24)
[2021-11-16 16:55] LABS: ABG BASE EXCESS 2.2 mmol/L (-2.0-2.0); ABG HCO3 26.5 mmol/L (22.0-26.0); ABG OXYGEN SATURATION 96.6 % (94-97); ABG PCO2 (T) 40.1 mmHg (32.0-45.0); ABG PO2 (T) 85.4 mmHg (75.0-100.0); ALLEN'S TEST POSITIVE; FCOHb 0.2 % (0.0-3.9); FLOW 2 L/min; FMetHb 0.4 % (0.0-1.5); TOTAL HEMOGLOBIN 14.1 G/dl (12.0-16.0)
[2021-11-16 18:00] VITALS: BP 121/66
--- NOTE | 2021-11-16 18:30 | NUR ---
Assumed pt. report from Katlyn CLARK. questions and concerns addressed. Addendum: 11/16/21 at 1855 by Татьяна Webster RN Amended: Links added.
--- NOTE | 2021-11-16 18:49 | NUR ---
Problems reprioritized. Patient report given to Татьяна CLARK, questions answered & plan of care reviewed with .
[2021-11-16 22:00] VITALS: BP 105/60
[2021-11-17 02:00] VITALS: BP 113/64
[2021-11-17] MEDS: ipratropium/albuterol 3ml nebule NEB SCH ×4 (03:03→20:00)
[2021-11-17] MEDS: methylPREDNISolone sod succ 125mg/2ml vial IV SCH (04:12)
[2021-11-17] MEDS: normal saline 1000ml 1,000 ML IV SCH ×2 (04:19→20:55)
--- NOTE | 2021-11-17 05:00 | NUR ---
Please omit the recorded container volume on NS- correction container volume was 1000ml Addendum: 11/17/21 at 0701 by Татьяна Webster RN Amended: Links added.
--- NOTE | 2021-11-17 05:00 | NUR ---
No episodes of SOB or c/o of this shift. Overall, pt. slept well. Addendum: 11/17/21 at 0703 by Татьяна Webster RN Amended: Links added.
[2021-11-17 06:00] VITALS: BP 107/59
[2021-11-17 07:05] LABS: BASOPHILS % (AUTO) 0.1 % (0-1); EOSINOPHILS % (AUTO) 0 % (0-6); HEMATOCRIT 39.8 % (35.0-45.0); HEMOGLOBIN 12.9 g/dl (12.0-16.0); LYMPHOCYTES # (AUTO) 0.5 X10'3 (1.1-4.8); LYMPHOCYTES % (AUTO) 4.4 % (21-51); MEAN CORPUSCULAR HEMOGLOBIN 28.6 PG (27.0-31.0); MEAN CORPUSCULAR HGB CONC 32.3 g/dL (33.0-36.5); MEAN CORPUSCULAR VOLUME 88.4 FL (78-98); MEAN PLATELET VOLUME 8.5 FL (7.4-10.4); MONOCYTES # (AUTO) 0.2 X10'3 (0-0.9); NEUTROPHILS # (AUTO) 10.3 X10'3 (1.8-7.7); NEUTROPHILS % (AUTO) 93.5 % (42-75); PLATELET COUNT 220 X10'3 (140-440); RED CELL DISTRIBUTION WIDTH 17.2 % (11.5-14.5)
[2021-11-17 07:23] LABS: ALANINE AMINOTRANSFERASE 12 U/L (12-78); ALBUMIN 2.7 G/DL (3.4-5.0); ALBUMIN/GLOBULIN RATIO 0.8 (1.1-1.5); ALKALINE PHOSPHATASE 53 IU/L (46-116); ANION GAP 7 (8-16); ASPARTATE AMINO TRANSFERASE 11 U/L (10-37); BILIRUBIN,TOTAL 0.4 MG/DL (0.1-1.0); BLOOD UREA NITROGEN 19 MG/DL (7-18); CALCIUM 8.8 MG/DL (8.5-10.1); CHLORIDE 106 MMOL/L (99-107); GLUCOSE 148 MG/DL (70-104); MAGNESIUM 1.8 MG/DL (1.5-2.4); PHOSPHORUS 2.9 MG/DL (2.3-4.5); POTASSIUM 4.1 MMOL/L (3.5-5.1); SODIUM 143 MMOL/L (135-145); TOTAL CARBON DIOXIDE 29.7 MMOL/L (24-32); TOTAL PROTEIN 5.9 G/DL (6.4-8.2); eGFR > 90 ML/MIN
[2021-11-17] MEDS: K and/or MAG REPLACEMENT MC SCH ×2 (08:00→20:00)
[2021-11-17] MEDS ORDERED: prednisone 10mg tablet PO SCH (08:00)
[2021-11-17] MEDS: duloxetine 30mg CAPSULE.DR PO SCH (08:15)
[2021-11-17] MEDS: levoFLOXACIN-Levaquin 750MG/D5 150 ML IV SCH (08:15)
[2021-11-17] MEDS: atorvastatin 20mg tablet PO SCH (08:16)
[2021-11-17] MEDS: clopidogrel 75mg tablet PO SCH (08:16)
[2021-11-17] MEDS: heparin, porcine 5000 units/ml vial SQ SCH ×2 (08:16→21:13)
[2021-11-17] MEDS: docusate sod 100mg capsule PO SCH ×2 (08:16→21:12)
[2021-11-17] MEDS: famotidine 20mg tablet PO SCH (08:16)
[2021-11-17 11:00] VITALS: BP 125/72
--- NOTE | 2021-11-17 18:27 | NUR ---
Problems reprioritized. Patient report given, questions answered & plan of care reviewed with Bebo CLARK.
[2021-11-17 19:00] VITALS: BP 136/58
[2021-11-17 22:00] VITALS: BP 111/67
[2021-11-18] MEDS: ipratropium/albuterol 3ml nebule NEB SCH ×2 (03:14→07:04)
[2021-11-18 05:49] LABS: BASOPHILS % (AUTO) 0.2 % (0-1); EOSINOPHILS % (AUTO) 0.1 % (0-6); HEMATOCRIT 39.5 % (35.0-45.0); HEMOGLOBIN 12.8 g/dl (12.0-16.0); LYMPHOCYTES # (AUTO) 1.4 X10'3 (1.1-4.8); LYMPHOCYTES % (AUTO) 16.1 % (21-51); MEAN CORPUSCULAR HEMOGLOBIN 28.8 PG (27.0-31.0); MEAN CORPUSCULAR HGB CONC 32.4 g/dL (33.0-36.5); MEAN CORPUSCULAR VOLUME 88.8 FL (78-98); MEAN PLATELET VOLUME 8.2 FL (7.4-10.4); MONOCYTES # (AUTO) 0.9 X10'3 (0-0.9); MONOCYTES % (AUTO) 9.8 % (2-12); NEUTROPHILS # (AUTO) 6.5 X10'3 (1.8-7.7); NEUTROPHILS % (AUTO) 73.8 % (42-75); PLATELET COUNT 216 X10'3 (140-440); RED BLOOD COUNT 4.45 X10'6 (4.20-5.60); RED CELL DISTRIBUTION WIDTH 17.3 % (11.5-14.5); WHITE BLOOD COUNT 8.8 X10'3 (4.5-11.0)
[2021-11-18 06:00] VITALS: BP 116/66
--- NOTE | 2021-11-18 06:13 | NUR ---
Problems reprioritized. Patient report given, questions answered & plan of care reviewed with QI. Addendum: 11/18/21 at 0613 by Jalen Gracia RN Amended: Links added.
[2021-11-18 06:21] LABS: ALANINE AMINOTRANSFERASE 12 U/L (12-78); ALBUMIN 2.7 G/DL (3.4-5.0); ALBUMIN/GLOBULIN RATIO 0.8 (1.1-1.5); ALKALINE PHOSPHATASE 66 IU/L (46-116); ANION GAP 5 (8-16); ASPARTATE AMINO TRANSFERASE 11 U/L (10-37); BILIRUBIN,TOTAL 0.4 MG/DL (0.1-1.0); BLOOD UREA NITROGEN 22 MG/DL (7-18); BUN/CREATININE RATIO 39.3 (6.6-38.0); CALCIUM 8.6 MG/DL (8.5-10.1); CHLORIDE 108 MMOL/L (99-107); CREATININE 0.56 MG/DL (0.40-0.90); GLUCOSE 79 MG/DL (70-104); MAGNESIUM 2.2 MG/DL (1.5-2.4); PHOSPHORUS 2.3 MG/DL (2.3-4.5); POTASSIUM 3.9 MMOL/L (3.5-5.1); SODIUM 147 MMOL/L (135-145); TOTAL CARBON DIOXIDE 34.2 MMOL/L (24-32); TOTAL PROTEIN 5.9 G/DL (6.4-8.2); eGFR > 90 ML/MIN
[2021-11-18] MEDS: K and/or MAG REPLACEMENT MC SCH (08:00)
[2021-11-18] MEDS ORDERED: predniSONE 20 mg tablet PO SCH (08:00)
[2021-11-18] MEDS: atorvastatin 20mg tablet PO SCH (08:40)
[2021-11-18] MEDS: famotidine 20mg tablet PO SCH (08:40)
[2021-11-18] MEDS: levoFLOXACIN-Levaquin 750MG/D5 150 ML IV SCH (08:40)
[2021-11-18] MEDS: duloxetine 30mg CAPSULE.DR PO SCH (08:40)
[2021-11-18] MEDS: clopidogrel 75mg tablet PO SCH (08:40)
[2021-11-18] MEDS: docusate sod 100mg capsule PO SCH (08:40)
[2021-11-18] MEDS: heparin, porcine 5000 units/ml vial SQ SCH (08:41)
[2021-11-18] MEDS ORDERED: ATOR20TA66 PO (09:36)
[2021-11-18] MEDS ORDERED: BUDE10.22 INH (09:36)
[2021-11-18] MEDS ORDERED: PRED10TA23 PO (09:36)
[2021-11-18] MEDS ORDERED: LEVO750T46 PO (09:36)
[2021-11-18] MEDS ORDERED: LACT1CAP26 PO (09:36)
[2021-11-18 11:00] VITALS: BP 123/87
--- NOTE | 2021-11-18 11:34 | NUR ---
stable for discharge as per MD. discharge instructions was given and explained to patient, PIV discontinued with cannula tip complete and intact.
== END 2021-11-18 12:03 | disposition home health service (06) | DRG 189 ==
LOC: ER 03:39 → ED HOLD 09:01 → PCU 3S 10:54
PROVIDERS: ADMIT Family Medicine; ATTEND Family Medicine
PROC: CB121ZZ Planar Nuclear Medicine Imaging of Lungs and Bronchi using Technetium 99m (Tc-99m) (ICD-10-PCS; principal; 2021-11-17)
DX: J96.21 Acute and chronic respiratory failure with hypoxia (principal); R65.11 Systemic inflammatory response syndrome (SIRS) of non-infectious origin with acute organ dysfunction; J44.0 Chronic obstructive pulmonary disease with (acute) lower respiratory infection; E87.2 Acidosis; J44.1 Chronic obstructive pulmonary disease with (acute) exacerbation; J96.00 Acute respiratory failure, unspecified whether with hypoxia or hypercapnia; J20.9 Acute bronchitis, unspecified; Z20.822 Contact with and (suspected) exposure to COVID-19; D75.1 Secondary polycythemia; E05.90 Thyrotoxicosis, unspecified without thyrotoxic crisis or storm; F17.210 Nicotine dependence, cigarettes, uncomplicated; E78.5 Hyperlipidemia, unspecified; E86.0 Dehydration; F32.A Depression, unspecified; F41.9 Anxiety disorder, unspecified; I25.10 Atherosclerotic heart disease of native coronary artery without angina pectoris; K21.9 Gastro-esophageal reflux disease without esophagitis; Z79.02 Long term (current) use of antithrombotics/antiplatelets; Z79.899 Other long term (current) drug therapy; Z80.0 Family history of malignant neoplasm of digestive organs; Z83.3 Family history of diabetes mellitus; Z88.0 Allergy status to penicillin; Z88.5 Allergy status to narcotic agent; Z88.8 Allergy status to other drugs, medicaments and biological substances; Z87.440 Personal history of urinary (tract) infections; Z90.49 Acquired absence of other specified parts of digestive tract
CPT/HCPCS: 36415; 36600; 71045; 80053; 80061; 81001; 82803; 82948; 83036; 83605; 83735; 83880; 84100; 84145; 84439; 84443; 84484; 85007; 85018; 85025; 85379; 87040; 87070; 87081; 87635; 93005; 93306; 94640; 94760; 96365; 96372; 96375; 97116; 97161; 97530; 99291; A7015; A9540; C9803; G0378; J1644; J1956; J2270; J2930; J3105; J7030; J7512

== ENCOUNTER 2022-02-01 19:33 | Emergency (ER) | payer MEDICARE, MEDICAID ==
[~2022-02-01] VITALS: Ht 157.5 cm; Wt 59.1 kg
[~2022-02-01 19:33] MED LIST changes: -ALB0.5UD IH; +ALBU1.256 NEB; +ALBU17AE26 PO; +BUDE0.5A3 NEB; +BUDE10.22 INH; +CLOP75TA34 PO; -CYCL-1 PO; -DIAZ10TA5 PO; +DULO30CA52 PO; +FAMO20TA8 PO; +IPRA3AMP9 NEB; -PANT-47 PO; +PRED20TA PO; -RISP2TAB85 PO; +SULF1TAB45 PO
[2022-02-01 19:35] VITALS: BP 144/94
[2022-02-01] MEDS ORDERED: acetaminophen 325mg tablet PO ONE (22:35)
== END 2022-02-01 23:48 | disposition home or self-care (01) ==
LOC: ER 19:33
DX: M54.50 Low back pain, unspecified (principal); J44.9 Chronic obstructive pulmonary disease, unspecified; K21.9 Gastro-esophageal reflux disease without esophagitis; F41.9 Anxiety disorder, unspecified; Z87.440 Personal history of urinary (tract) infections; Z88.8 Allergy status to other drugs, medicaments and biological substances; Z88.0 Allergy status to penicillin; Z88.1 Allergy status to other antibiotic agents; Z79.899 Other long term (current) drug therapy
CPT/HCPCS: 72100; 99284

== ENCOUNTER 2022-02-05 11:55 | Emergency (ER) | payer MEDICARE, MEDICAID ==
[~2022-02-05] VITALS: Ht 157.5 cm; Wt 58.6 kg
[2022-02-05 13:15] LABS: BASOPHILS # (AUTO) 0.1 X10'3 (0-0.2); BASOPHILS % (AUTO) 0.5 % (0-1); EOSINOPHILS # (AUTO) 0.1 X10'3 (0-0.9); EOSINOPHILS % (AUTO) 1.1 % (0-6); HEMATOCRIT 49.9 % (35.0-45.0); HEMOGLOBIN 16.1 g/dl (12.0-16.0); LYMPHOCYTES # (AUTO) 1.6 X10'3 (1.1-4.8); LYMPHOCYTES % (AUTO) 16.1 % (21-51); MEAN CORPUSCULAR HEMOGLOBIN 28.4 PG (27.0-31.0); MEAN CORPUSCULAR HGB CONC 32.3 g/dL (33.0-36.5); MEAN PLATELET VOLUME 7.5 FL (7.4-10.4); MONOCYTES # (AUTO) 0.8 X10'3 (0-0.9); MONOCYTES % (AUTO) 8.4 % (2-12); NEUTROPHILS # (AUTO) 7.2 X10'3 (1.8-7.7); NEUTROPHILS % (AUTO) 73.9 % (42-75); PLATELET COUNT 321 X10'3 (140-440); RED BLOOD COUNT 5.67 X10'6 (4.20-5.60); RED CELL DISTRIBUTION WIDTH 15.7 % (11.5-14.5); WHITE BLOOD COUNT 9.8 X10'3 (4.5-11.0)
[2022-02-05 13:28] LABS: ALANINE AMINOTRANSFERASE 11 U/L (12-78); ALBUMIN 3.3 G/DL (3.4-5.0); ALBUMIN/GLOBULIN RATIO 0.8 (1.1-1.5); ALKALINE PHOSPHATASE 99 IU/L (46-116); ANION GAP 9 (8-16); ASPARTATE AMINO TRANSFERASE 23 U/L (10-37); BILIRUBIN,TOTAL 1.2 MG/DL (0.1-1.0); BLOOD UREA NITROGEN 11 MG/DL (7-18); BUN/CREATININE RATIO 14.1 (6.6-38.0); CALCIUM 9.4 MG/DL (8.5-10.1); CHLORIDE 104 MMOL/L (99-107); CREATININE 0.78 MG/DL (0.40-0.90); GLUCOSE 115 MG/DL (70-104); POTASSIUM 4.5 MMOL/L (3.5-5.1); SODIUM 141 MMOL/L (135-145); TOTAL CARBON DIOXIDE 27.9 MMOL/L (24-32); TOTAL PROTEIN 7.5 G/DL (6.4-8.2); eGFR 73 ML/MIN
[2022-02-05 14:01] LABS: CLARITY,URINE SLIGHTLY CLOUDY (Clear); COLOR,URINE YELLOW (Yellow); GLUCOSE, URINE 100 mg/dl (Neg); KETONES,URINE 15 mg/dl (Neg); LEUKOCYTE ESTERASE ,URINE NEGATIVE (Neg); NITRITES, URINE NEGATIVE (Neg); OCCULT BLOOD,URINE TRACE-INTACT (Neg); PROTEIN,URINE 30 mg/dl (Neg)
[2022-02-05 14:04] LABS: UA COLLECTION TYPE NON-SPECIFIED
[2022-02-05 14:12] LABS: BACTERIA,URINE FEW /HPF (Neg); RBC,URINE 0-2 /HPF (0-2); SQUAMOUS EPITHELIAL CELL,UR MANY /LPF (FEW)
[2022-02-05 14:13] LABS: CAL OXALATE CRYSTALS FEW /HPF (NEGATIVE); HYALINE CASTS 0-3 /LPF (NEGATIVE); WBC,URINE 0-4 /HPF (0-4)
[2022-02-05 14:27] VITALS: BP 107/85
--- NOTE | 2022-02-05 15:10 | NUR ---
40 MIN ETA FOR [facility]
--- NOTE | 2022-02-06 05:57 | NUR ---
ATTEMPTED TO LEAVE VOICEMAIL TO NOTIFY PT THAT SHE'D LEFT HER WALKER IN THE ER LOBBY, VOICEMAIL NOT SET UP, UNABLE TO LEAVE HER A MESSAGE
== END 2022-02-05 18:19 | disposition home or self-care (01) ==
LOC: ER 11:55
DX: J44.1 Chronic obstructive pulmonary disease with (acute) exacerbation (principal); R91.1 Solitary pulmonary nodule; R10.84 Generalized abdominal pain; R06.02 Shortness of breath; J44.9 Chronic obstructive pulmonary disease, unspecified; K21.9 Gastro-esophageal reflux disease without esophagitis; F41.9 Anxiety disorder, unspecified; F17.200 Nicotine dependence, unspecified, uncomplicated; Z87.440 Personal history of urinary (tract) infections; Z88.0 Allergy status to penicillin; Z88.8 Allergy status to other drugs, medicaments and biological substances; Z79.2 Long term (current) use of antibiotics; Z79.899 Other long term (current) drug therapy
CPT/HCPCS: 36415; 71045; 71250; 80053; 81001; 83880; 84484; 85025; 93005; 99285

== ENCOUNTER 2022-02-28 19:27 | Emergency (ER) | payer MEDICARE, MEDICAID ==
[~2022-02-28] VITALS: Ht 157.5 cm; Wt 54.2 kg
[2022-02-28 20:27] LABS: BASOPHILS # (AUTO) 0.1 X10'3 (0-0.2); BASOPHILS % (AUTO) 0.6 % (0-1); EOSINOPHILS # (AUTO) 0.2 X10'3 (0-0.9); EOSINOPHILS % (AUTO) 1.8 % (0-6); HEMATOCRIT 51.2 % (35.0-45.0); HEMOGLOBIN 16.4 g/dl (12.0-16.0); LYMPHOCYTES # (AUTO) 2.4 X10'3 (1.1-4.8); LYMPHOCYTES % (AUTO) 17.3 % (21-51); MEAN CORPUSCULAR HEMOGLOBIN 28.1 PG (27.0-31.0); MEAN CORPUSCULAR VOLUME 87.6 FL (78-98); MEAN PLATELET VOLUME 8.7 FL (7.4-10.4); MONOCYTES # (AUTO) 0.9 X10'3 (0-0.9); MONOCYTES % (AUTO) 6.4 % (2-12); NEUTROPHILS # (AUTO) 10.1 X10'3 (1.8-7.7); NEUTROPHILS % (AUTO) 73.9 % (42-75); PLATELET COUNT 305 X10'3 (140-440); RED BLOOD COUNT 5.84 X10'6 (4.20-5.60); RED CELL DISTRIBUTION WIDTH 15.4 % (11.5-14.5); WHITE BLOOD COUNT 13.6 X10'3 (4.5-11.0)
[2022-02-28 20:41] LABS: ALANINE AMINOTRANSFERASE 11 U/L (12-78); ALBUMIN 3.4 G/DL (3.4-5.0); ALBUMIN/GLOBULIN RATIO 0.8 (1.1-1.5); ALKALINE PHOSPHATASE 82 IU/L (46-116); ANION GAP 12 (8-16); ASPARTATE AMINO TRANSFERASE 25 U/L (10-37); BILIRUBIN,TOTAL 0.6 MG/DL (0.1-1.0); BLOOD UREA NITROGEN 29 MG/DL (7-18); BUN/CREATININE RATIO 20.6 (6.6-38.0); CALCIUM 9.6 MG/DL (8.5-10.1); CHLORIDE 103 MMOL/L (99-107); CREATININE 1.41 MG/DL (0.40-0.90); ETHANOL < 0.010 GM/DL (0.0-0.010); GLUCOSE 106 MG/DL (70-104); POTASSIUM 3.9 MMOL/L (3.5-5.1); SODIUM 147 MMOL/L (135-145); TOTAL CARBON DIOXIDE 31.7 MMOL/L (24-32); TOTAL PROTEIN 7.6 G/DL (6.4-8.2); eGFR 37 ML/MIN
[2022-02-28] MEDS ORDERED: normal saline 1000ml 1,000 ML IV ONE (21:25)
[2022-02-28] MEDS ORDERED: diphenhydrAMINE 50 mg/ml inj IM ONE (22:10)
[2022-02-28] MEDS ORDERED: LORazepam 2 mg/ml vial IM ONE (22:10)
--- NOTE | 2022-02-28 23:00 | NUR ---
Pt uncooperative and combative only when approached for care. Help from staff needed to restrain patient for blood draw. Pt informed she would need an IV placed for IV fluids. Pt was uncooperative, but IV was placed in right elam and coban placed for stability. Pt will not cooperate with history and medication information and requests to be left alone.
[2022-03-01 03:09] LABS: CLARITY,URINE SLIGHTLY CLOUDY (Clear); COLOR,URINE YELLOW (Yellow); GLUCOSE, URINE NEGATIVE (Neg); KETONES,URINE 15 mg/dl (Neg); LEUKOCYTE ESTERASE ,URINE NEGATIVE (Neg); NITRITES, URINE NEGATIVE (Neg); OCCULT BLOOD,URINE NEGATIVE (Neg); PROTEIN,URINE NEGATIVE (Neg); UROBILINOGEN,URINE 0.2 E.U/dL (0.2-1.0)
[2022-03-01 03:11] LABS: UA COLLECTION TYPE CLN CATCH MIDSTREAM
[2022-03-01 03:29] LABS: BACTERIA,URINE 1+ /HPF (Neg); MUCUS STRANDS NONE SEEN /LPF (Neg); RBC,URINE NONE SEEN /HPF (0-2); SQUAMOUS EPITHELIAL CELL,UR MANY /LPF (FEW); WBC,URINE 0-4 /HPF (0-4)
[2022-03-01 03:30] LABS: URINE AMPHETAMINE SCREEN NEGATIVE (Neg); URINE BARBITUATE SCREEN NEGATIVE (Neg); URINE BENZODIAZEPINES SCREEN NEGATIVE (Neg); URINE CANNABINOID SCREEN NEGATIVE (Neg); URINE COCAINE SCREEN NEGATIVE (Neg); URINE METHADONE SCREEN NEGATIVE (Neg); URINE OPIATE SCREEN NEGATIVE (Neg); URINE PHENCYCLIDINE SCREEN NEGATIVE (Neg)
[2022-03-01] MEDS ORDERED: normal saline 1000ML IV soln IVB ONE (04:10)
--- NOTE | 2022-03-01 06:26 | NUR ---
PACKET FAXED TO [facility]
--- NOTE | 2022-03-01 07:45 | NUR ---
Patient brought over by Abbie Stovall in w/c. Patient changed to gown and I.V. heplock removed from right elam area as patient is medically cleared. Patient states she is able to walk but was weight in attempting to get patient in w/c over to ED OF. Patient was cleaned prior to arriving in ED OF. It was said 1 bed bug was seen on her and patient decontaminated prior to coming. No lice or bugs seen on patient. Continue to monitor.
[2022-03-01] MEDS ORDERED: IPRA3AMP31 IH (08:12)
[2022-03-01] MEDS ORDERED: BUDE0.5A11 NEB (08:13)
[2022-03-01] MEDS ORDERED: ipratropium/albuterol 3ml nebule IH PRN (08:35)
[2022-03-01] MEDS: budesonide 0.5mg/2ml UD nebule IH SCH ×2 (09:00→21:00)
[2022-03-01] MEDS: clopidogrel 75mg tablet PO SCH (09:15)
[2022-03-01] MEDS: duloxetine 30mg CAPSULE.DR PO SCH (09:15)
--- NOTE | 2022-03-01 09:15 | NUR ---
RN gave patient her medication and assisted patient in eating her breakfast tray. Patient drank half her coffee and drank a part of her juice. Patient took some bites of her Cream of Wheat and ate part of her toast. RN encouraging patient to eat and drink. Continue to monitor.
--- NOTE | 2022-03-01 09:50 | NUR ---
Patient sleeping on left side. RN gave patient a warm blanket. No distress observed. Continue to monitor.
--- NOTE | 2022-03-01 11:15 | NUR ---
Patient sleeping on her left side. No distress observed. Continue to monitor.
--- NOTE | 2022-03-01 12:03 | NUR ---
Patient eating lunch. No distress observed. Continue to monitor.
--- NOTE | 2022-03-01 14:01 | NUR ---
Heather FU, evaluating the patient.
--- NOTE | 2022-03-01 14:25 | NUR ---
Patient's 5150 was removed by [facility]. Patient does not meet criteria for a mental health hold. RN to send a message to Airport Operations Duty Manager.
--- NOTE | 2022-03-01 16:20 | NUR ---
Patient sleeping supine. No distress observed. Continue to monitor.
--- NOTE | 2022-03-01 19:00 | NUR ---
Pt resting in bed, helped up to the commode, and then back to bed
--- NOTE | 2022-03-01 20:00 | NUR ---
PT refused breathing treatment
--- NOTE | 2022-03-01 23:31 | NUR ---
Pt asleep on R side respirations even and unlabored
--- NOTE | 2022-03-02 01:03 | NUR ---
Pt is awake in bed, talking to herself or people who are not there.
--- NOTE | 2022-03-02 04:00 | NUR ---
Pt tossing and turning, tucked back into bed
--- NOTE | 2022-03-02 06:05 | NUR ---
PT asleep on R side respirations even and unlabored
--- NOTE | 2022-03-02 06:30 | NUR ---
Patient sleeping in Bed #22 at this time. Appears comfortable.
[2022-03-02] MEDS: duloxetine 30mg CAPSULE.DR PO SCH ×2 (08:00→09:37)
[2022-03-02] MEDS: clopidogrel 75mg tablet PO SCH ×2 (08:00→10:13)
--- NOTE | 2022-03-02 08:15 | NUR ---
Attempted to wake patient up to take prescribed medications. Patient awoke easily, and refused to take medications Cymbalta & Plavix as ordered by MD. Patient stated "I feel fine, I do not need those pills because I feel so much better." Explained to the patient that the reason that she feels fine is that she has been taking these medications for a while. Patient was assisted to a sitting position in her bed and the lights were turned on. Patient refused each time myself and other Nurses and Techs attempted to get the patient to take her medication. Informed the patient that if she does not take her medications, we will attempt to give them to her again at lunch time. Patient sat up approximately 30 minutes then laid back down and went back to sleep. Will continue to monitor.
[2022-03-02] MEDS: budesonide 0.5mg/2ml UD nebule IH SCH ×2 (09:00→20:29)
--- NOTE | 2022-03-02 10:30 | NUR ---
Again attempted to get the patient to take her prescribed medications. Patient is easy to arouse, but said "I do not want to take your pills. Informed the patient these are her prescribed medications and the ordered them because she needs to take them here while she is in the hospital. Patient continued to refuse then fell immediately back to sleep.
--- NOTE | 2022-03-02 10:35 | NUR ---
Pt laying on right lateral side, respirations are even and unlabored. Pt in no acute distress at this time.
--- NOTE | 2022-03-02 12:15 | NUR ---
Patient moved up in bed and encouraged to drink water. Patient drank multiple drinks of water. Patient repositioned with HOB elevated to eat lunch. Patient is easy to arouse, but then refuses to take her 0800 medications as ordered by the MD. Informed the patient over and over about the importance of taking her Plavix and Cymbalta, but patient would said "No No, please just leave me alone. I don't want to take them, or you can just leave the cup (containing the medications), here on my table and I will take them soon. Informed the patient that I am not allowed to leave her medications at her bedside. Patient then said "I won't take them anyways." Will continue to monitor water intake, and encourage to take drinks of water at least every 30 minutes.
--- NOTE | 2022-03-02 14:10 | NUR ---
Patient resting in bed at this time. Continues with adequate fluid intake of water. Patient refusing her meals today. Spoke directly with the patient to inform her that she needs to increase her nutritional intake of food each meal. And continue to increase her fluid intake. Patient consistently states "You get out of here and don't bother me anymore. I don't want anything from you." Will continue to monitor patient.
--- NOTE | 2022-03-02 16:20 | NUR ---
Patient awake in bed. Non verbal at times. Patient has poor recall of any information that is discussed with her, and still refuses to take her medications that were ordered for 0800 this morning. Patient yells at staff members, and refuses to assist with any tasks like changing her bedding, turning from side to side, feeding herself her lunch. Patient has weakness in bilateral upper extremities, but can pick and shovel man her water container alongside on her bedside table without hesitation or difficulty. Will continue to request patient's own independence in caring for herself at this time.
--- NOTE | 2022-03-02 17:59 | NUR ---
PATIENT REFUSED VITAL SIGNS
--- NOTE | 2022-03-02 18:30 | NUR ---
Patient is sleeping on her right side. No distress.
--- NOTE | 2022-03-02 22:50 | NUR ---
RT came by to give patient a breathing treatment. The patient stated she was fine and didn't need a treatment. The patient then returned to sleep.
--- NOTE | 2022-03-02 23:08 | NUR ---
Patient is sleeping quietly in a supine position.
--- NOTE | 2022-03-03 00:49 | NUR ---
Jeanette lowe in [facility] - 03/03/22 at 0056 by DILCIA Patient is sleeping in a mid fowlers position. She is in direct view from the nurses station.
--- NOTE | 2022-03-03 00:56 | NUR ---
Patient is sleeping on her right side in bed. No distress.
--- NOTE | 2022-03-03 03:04 | NUR ---
Patient remains sleeping on her right side. No distress.
--- NOTE | 2022-03-03 04:26 | NUR ---
Patient is sleeping quietly on her right side. No distress.
--- NOTE | 2022-03-03 06:49 | NUR ---
Patient sleeping on right side. No distress observed. Continue to monitor.
[2022-03-03] MEDS: duloxetine 30mg CAPSULE.DR PO SCH (08:00)
[2022-03-03] MEDS: clopidogrel 75mg tablet PO SCH (08:00)
--- NOTE | 2022-03-03 08:10 | NUR ---
Patient given breakfast tray. Patient does not want to eat and does not want to be bothered. Patient also refused her medication. Tech attempted to get patient's vital signs but was adamant about not allowing vital signs. Continue to monitor.
[2022-03-03] MEDS: budesonide 0.5mg/2ml UD nebule IH SCH ×2 (09:00→20:14)
--- NOTE | 2022-03-03 09:55 | NUR ---
Norma, Communication Arts Lecturer, attempting to speak to patient. Patient does not wants to be left alone. Norma attempted to get patient to talk and she did talk about going some place safe....."but that's not here." Then she rolled over and wouldn't speak. Norma states there is a daughter listed and she will attempt to get a hold of her.
--- NOTE | 2022-03-03 11:32 | NUR ---
Patient sleeping supine. RN gave patient a warm blanket. No distress observed. Continue to monitor.
--- NOTE | 2022-03-03 12:10 | NUR ---
Patient refused lunch. Patient did not eat breakfast. RN to encourage fluids. Continue to monitor.
--- NOTE | 2022-03-03 12:41 | NUR ---
Patient would not drink water but agreed to chew on ice chips. RN gave patient a cup of ice and patient took a few. Continue to monitor.
--- NOTE | 2022-03-03 13:55 | NUR ---
RN spoke to Dr Kwan about patient refusing to eat and hardly drink. okayed Ensure but patient stated she wouldn't drink it.
--- NOTE | 2022-03-03 14:43 | NUR ---
Patient is awake and laying supine. No distress observed. Continue to monitor.
--- NOTE | 2022-03-03 14:56 | NUR ---
RN gave patient a second cup of ice and a jello and applesauce is on her bedside. Patient states she won't drink a protein shake. RN to Continue to monitor her fluid and nutrition intake.
--- NOTE | 2022-03-03 15:10 | NUR ---
RICK Green, attempted to speak to patient. Patient advised Norma that she wants to be left alone. Patient is oriented to year only. Patient does state that the name Norma gave was the patient's only child (daughter). Patient doesn't know where daughter lives and doesn't have her phone number. Continue to monitor.
--- NOTE | 2022-03-03 16:00 | NUR ---
RN again attempted to get patient to eat jello or apple sauce. Patient just states "Leave me alone!" RN explains that she is worried about her. Patient states "I'm fine! I'm fine!" Continue to monitor.
--- NOTE | 2022-03-03 18:15 | NUR ---
Dietary sent up cottage cheese, ice cream and beef stew. Patient refused all of it. States "Just leave me alone. I'm fine." RN spoke to [place] about patient refusing food and water. Patient had one 8 oz cup of ice and a small amount from a second cup. Other than the ice, patient is not drinking anything. Night nurse will need to leave a note for Phoenix as how she did last night and he will bring her up in the morning meeting. Continue to monitor.
--- NOTE | 2022-03-04 06:21 | NUR ---
Pt. used commode by herself during the night. Refused to eat any food. pt seemed fearful when I came into the room and introduced myself. She denied having any needs. pt. slept through most of the night.
--- NOTE | 2022-03-04 06:40 | NUR ---
Pt moved over to OF bed #22. Pt was anxious staying "I don't want an x-ray." Attempted to place patient in a more comfortably bed, but she refused. "I don't want a different bed." Pt c/o of feeling SOB, pt was at 84% O2. 2LNC was placed on patient increasing O2 saturation to 98%. Addendum: 03/04/22 at 0806 by SHIRA Pt ambulated to bathroom independently with staff at stand by. Pt's gait was steady.
--- NOTE | 2022-03-04 06:52 | NUR ---
Pt sitting on bed calm, states she is feeling better. O2 saturation remains at 99% at 2LNC.
[2022-03-04] MEDS: duloxetine 30mg CAPSULE.DR PO SCH (08:00)
[2022-03-04] MEDS: clopidogrel 75mg tablet PO SCH (08:00)
--- NOTE | 2022-03-04 08:15 | NUR ---
Pt refused her breakfast even after staff encouraged her to eat. Pt states "Leave me alone." "I just want lemon-red cliff soda." Soda was ordered from kitchen.
--- NOTE | 2022-03-04 08:30 | NUR ---
Pt refused her medication "I don't need no medicine, my heart is fine." "Leave me alone."
[2022-03-04] MEDS: budesonide 0.5mg/2ml UD nebule IH SCH ×2 (09:00→21:00)
--- NOTE | 2022-03-04 10:15 | NUR ---
RECEIVED PHONE CALL FROM RICK BRIDGES: SHE WOULD LIKE A MENTAL HEALTH REEVALUATION. PT WAS DISCUSSED IN THEIR MORNING MEETINGS. PT WAS SEEN A COUPLE MONTHS AGO AND WAS A&OX4. THEY FEEL PT'S REFUSING BEHAVIOR OR FAILTURE TO THRIEVE MAY BE R/T PT BEING DEPRESSED FROM THE LOSS OF HER SO. SPOKE WITH LINDA, CLINICIAN. WILL FAX PACKET TO [facility] TO INITATE EVALUATION.
--- NOTE | 2022-03-04 10:27 | NUR ---
Pt refused breathing treatment.
--- NOTE | 2022-03-04 11:05 | NUR ---
Pt resting comfortably on left side. Pt is able to self turn.
--- NOTE | 2022-03-04 12:05 | NUR ---
Pt's lunch tray at bedside. Pt continues to refuse to eat. Refaxed request for lemon-paiute-shoshone soda. Pt telling sheet writer "leave me alone." Addendum: 03/04/22 at 1306 by SHIRA Pt drank 8 oz of water.
--- NOTE | 2022-03-04 12:15 | NUR ---
FAXED PACKET TO [facility].
--- NOTE | 2022-03-04 14:44 | NUR ---
Pt laying on right lateral side. Pt states "I don't need anything, I am doing good."
--- NOTE | 2022-03-04 14:56 | NUR ---
Norma, manager social services at bedside, attempted to talk to the pt however pt refused. She repeatedly roxi Addendum: 03/04/22 at 1459 by KAVITHA Norma, manager social services at bedside, attempted to talk to the pt however pt refused. She repeatedly "Leave me alone, I don't want to talk to anyone."
--- NOTE | 2022-03-04 15:30 | NUR ---
Pt was up to bedside commode. Large BM. Pt cleaned and now back into bed.
--- NOTE | 2022-03-04 17:24 | NUR ---
Pt lying in bed playing with her hair. Asked patient if she wanted a snack "No I don't need nothing." Pt drank 3 oz of her lemon-robinson soda.
--- NOTE | 2022-03-04 17:55 | NUR ---
Patient refused vital signs
--- NOTE | 2022-03-04 17:56 | NUR ---
Patient refused her vitals. Pt denies c/o SOB, attempted to get O2 saturation "I don't want that on my finger, leave me alone." Dinner tray at bedside, pt refusing to eat. Pt was encouraged to eat her cottage cheese and drink her lemon-orutsararmiut soda. Pt continues to refuse.
--- NOTE | 2022-03-04 20:21 | NUR ---
Patient appears to be sleeping on her right side. No s/sx of distress.
--- NOTE | 2022-03-04 21:15 | NUR ---
Patient has refused her breathing treatments for tonight.
--- NOTE | 2022-03-04 22:20 | NUR ---
Patient woke up, used the bedside commode, and has gone back to sleep.
--- NOTE | 2022-03-04 23:06 | NUR ---
Patient is on her back side. She appears to be sleeping. No s/sx of distress.
--- NOTE | 2022-03-05 00:55 | NUR ---
Patient lying on her right side. She does not appear to be sleeping, but trying to.
--- NOTE | 2022-03-05 02:12 | NUR ---
Patient appears to be sleeping. No s/sx of distress.
--- NOTE | 2022-03-05 04:04 | NUR ---
Patient appears to be sleeping. No s/sx of distress.
--- NOTE | 2022-03-05 05:43 | NUR ---
pt refused vitals
--- NOTE | 2022-03-05 05:58 | NUR ---
Patient back to sleep after vitals.
--- NOTE | 2022-03-05 06:17 | NUR ---
Patient laying supine. Patient rubbing her eyes. No distress observed.
--- NOTE | 2022-03-05 06:45 | NUR ---
Patient sits up and points in front of her but appears to be looking down the bennett in front of the nurses station. "Tell him to get out of here!" RN responds, "Who?" Patient states "That jaylen right there!" There was nobody in the hallway. RN shut the patient's curtain so she cannot see the hallway. Patient states "That's better." Continue to monitor.
[2022-03-05] MEDS: clopidogrel 75mg tablet PO SCH (08:00)
[2022-03-05] MEDS: duloxetine 30mg CAPSULE.DR PO SCH (08:00)
--- NOTE | 2022-03-05 08:20 | NUR ---
Patient drank a few sips of her coffee. Other than that, patient refusing food. RN goes up to patient and patient responds "Just leave me alone!". RN left tray at bedside to see if she would pick at her food. Patient is laying on rights side and playing with her hair. Continue to monitor.
[2022-03-05] MEDS: budesonide 0.5mg/2ml UD nebule IH SCH ×2 (09:00→20:12)
[2022-03-05] MEDS ORDERED: normal saline 1000ML IV soln IVB ONE (09:20)
[2022-03-05] MEDS ORDERED: haloperidol decanoate***LONG-ACTING*** 100mg/ml **IM only** inj. IM ONE (09:30)
--- NOTE | 2022-03-05 09:35 | NUR ---
Georgia came to see patient and ordered I.V. fluid, I.M. Haldol, labs and an EKG. Continue to monitor.
--- NOTE | 2022-03-05 10:09 | NUR ---
RN asked patient if she was trying to . Patient states "No, I just want to rest and be left alone." RN explained that she has rested for 5 days. Then patient sat up and spoke to RN for a couple of minutes. RN explained to to patient that she appears to be hastening by not eating or drinking. Patient states "I don't like your food and I have enough fat on me where I won't ." (patient is thin but does a have a little belly) RN asked patient if she would allow RN to place an I.V. in patient. Patient refused. Patient also refused blood draw, EKG and refused to speak to Cinder Dump Crane Operator when she came to speak to patient. Patient refused vitals and her morning medication along with her respiratory treatment. Will advise Dr. Ho.
--- NOTE | 2022-03-05 12:05 | NUR ---
Patient's lunch tray at bedside. Patient is refusing to eat anything. Continue to monitor.
--- NOTE | 2022-03-05 12:30 | NUR ---
attempt ekg, patient not allowing staff to do ekgs, labs or any others tests at this time. Charge aware. Will attempt ekg at another time.
--- NOTE | 2022-03-05 12:40 | NUR ---
Patient transported over to Main ED Room 10 from ED OF Bed 22 in the psychiatric bed. Patient doesn't want to be moved. Patient wants an officer to come pick her up and take her somewhere else. RN asked patient if she wanted to go to the [facility]. Patient stated no. RN explained unless she has a place there is no other place to go. Patient's bedside commode at bedside in Main 10. Report given to
[2022-03-05] MEDS ORDERED: haloperidol lactate 5mg/ml inj IM ONE ×2 (13:20→18:25)
--- NOTE | 2022-03-05 15:41 | NUR ---
Pt has refused blood draws numerous times.
[2022-03-05] MEDS ORDERED: LORazepam 2 mg/ml vial IM ONE (18:25)
--- NOTE | 2022-03-05 19:00 | NUR ---
Pt denied physical assessment by RN
--- NOTE | 2022-03-05 19:00 | NUR ---
PT REFUSED XRAY
--- NOTE | 2022-03-05 19:41 | NUR ---
RN could not find active [id number]. notified. to write [id number]
--- NOTE | 2022-03-05 19:51 | NUR ---
Pt refused vital signs
--- NOTE | 2022-03-05 20:00 | NUR ---
Patient refused CT scan and yelled "just leave me alone!"
[2022-03-05] MEDS ORDERED: normal saline 1000ml 1,000 ML IV ONE ×2 (23:35)
--- NOTE | 2022-03-06 01:07 | NUR ---
This RN and another attempted several times to draw blood with no success. Pt did allow RN to change her bedding and clean her up after she urinated in the bed.
[2022-03-06] MEDS ORDERED: normal saline 1000ml 1,000 ML IV ONE (06:20)
[2022-03-06] MEDS ORDERED: normal saline 1000ML IV soln IVB ONE (06:20)
--- NOTE | 2022-03-06 06:51 | NUR ---
pt got up to the bedside commode with min assist. 400 cc urine
[2022-03-06 06:55] LABS: BASOPHILS % (AUTO) 0.5 % (0-1); EOSINOPHILS # (AUTO) 0.3 X10'3 (0-0.9); EOSINOPHILS % (AUTO) 3.4 % (0-6); HEMATOCRIT 48.9 % (35.0-45.0); HEMOGLOBIN 15.9 g/dl (12.0-16.0); LYMPHOCYTES # (AUTO) 1.8 X10'3 (1.1-4.8); MEAN CORPUSCULAR HEMOGLOBIN 28.6 PG (27.0-31.0); MEAN CORPUSCULAR HGB CONC 32.5 g/dL (33.0-36.5); MEAN PLATELET VOLUME 8.5 FL (7.4-10.4); MONOCYTES # (AUTO) 0.8 X10'3 (0-0.9); MONOCYTES % (AUTO) 8.8 % (2-12); NEUTROPHILS # (AUTO) 5.7 X10'3 (1.8-7.7); NEUTROPHILS % (AUTO) 66.3 % (42-75); PLATELET COUNT 241 X10'3 (140-440); RED BLOOD COUNT 5.56 X10'6 (4.20-5.60); RED CELL DISTRIBUTION WIDTH 15.2 % (11.5-14.5); WHITE BLOOD COUNT 8.6 X10'3 (4.5-11.0)
[2022-03-06 07:41] LABS: ALBUMIN 2.2 G/DL (3.4-5.0); ANION GAP 12 (8-16); BLOOD UREA NITROGEN 2 MG/DL (7-18); BUN/CREATININE RATIO 3.8 (6.6-38.0); CHLORIDE 110 MMOL/L (99-107); CREATININE 0.53 MG/DL (0.40-0.90); GLUCOSE 62 MG/DL (70-104); MAGNESIUM 1.5 MG/DL (1.5-2.4); POTASSIUM 3.4 MMOL/L (3.5-5.1); SODIUM 145 MMOL/L (135-145); TOTAL CARBON DIOXIDE 23.5 MMOL/L (24-32); eGFR > 90 ML/MIN
[2022-03-06] MEDS: duloxetine 30mg CAPSULE.DR PO SCH (08:34)
[2022-03-06] MEDS: clopidogrel 75mg tablet PO SCH (08:34)
--- NOTE | 2022-03-06 08:35 | NUR ---
pt went to ct. pt had a applesauce for breakfast. pt took her am meds without issue
--- NOTE | 2022-03-06 12:27 | NUR ---
pt sat up on the side of the bed with the RN and had lunch. pt was able to feed herself.
--- NOTE | 2022-03-06 17:56 | NUR ---
PT IS SITTING UP EATING CAKE FOR DINNER
--- NOTE | 2022-03-07 00:59 | NUR ---
The patient transferred to the ER overflow. She is currently not on a mental health hold and social work case manager will be need to coordinate her discharge.
--- NOTE | 2022-03-07 01:14 | NUR ---
The patient appears to be sleeping
--- NOTE | 2022-03-07 03:14 | NUR ---
The patient appears to be sleeping
--- NOTE | 2022-03-07 05:20 | NUR ---
The patient is resting on her bed but awake
--- NOTE | 2022-03-07 06:58 | NUR ---
The patient is resting on her bed.
[2022-03-07] MEDS: clopidogrel 75mg tablet PO SCH ×2 (08:00→08:42)
[2022-03-07] MEDS: duloxetine 30mg CAPSULE.DR PO SCH ×2 (08:00→08:42)
--- NOTE | 2022-03-07 08:59 | NUR ---
The patient was assisted to get up to the bedside commode and with shaving her face. She refused to eat her breakfast. She is on strict I & O. PO fluids encouraged. She refused her po morning medications and stated that she believed they contained acid and they were not her medications.
--- NOTE | 2022-03-07 10:08 | NUR ---
The patient is resting on her bed.
--- NOTE | 2022-03-07 12:06 | NUR ---
The patient is resting on her bed.
--- NOTE | 2022-03-07 12:42 | NUR ---
Attempting to ambulate to patient and she is very resistive to care.
--- NOTE | 2022-03-07 12:42 | NUR ---
The patient has refused both breakfast and lunch. She is taking minimal po fluids.
--- NOTE | 2022-03-07 13:12 | NUR ---
Dr. Bruno made aware that the patient is refusing to eat and drink. He states he is going to contact social services aide.
--- NOTE | 2022-03-07 13:49 | NUR ---
The patient is resting on her bed.
--- NOTE | 2022-03-07 14:21 | NUR ---
The patient is resting on her bed
--- NOTE | 2022-03-07 16:30 | NUR ---
Pt appears to be sleeping, no restless movements. Noted rise and fall of chest.
--- NOTE | 2022-03-07 18:30 | NUR ---
Patient had eaten her dinner. She is now sleeping quietly in bed.
--- NOTE | 2022-03-07 19:37 | NUR ---
Patient is sleeping quietly in bed. No distress. She has self repositioned.
--- NOTE | 2022-03-07 20:30 | NUR ---
Patient was up to bedside commode to void. She then returned to bed.
--- NOTE | 2022-03-07 21:40 | NUR ---
Patient si sleeping quietly in a supine position. In view from nurses station.
--- NOTE | 2022-03-07 21:49 | NUR ---
BREAKING PRIMARY RN. PT SLEEPING ON HER SIDE COMFORTABLY. EQUAL RISE AND FALL OF CHEST.
--- NOTE | 2022-03-07 23:41 | NUR ---
Patient is sleeping in a low fowlers position. No distress.
--- NOTE | 2022-03-08 01:21 | NUR ---
Patient is sleeping on her right side, she has repositioned. No distress.
--- NOTE | 2022-03-08 04:32 | NUR ---
Patient is sleeping quietly on her right side.
[2022-03-08] MEDS: clopidogrel 75mg tablet PO SCH (08:00)
[2022-03-08] MEDS: duloxetine 30mg CAPSULE.DR PO SCH (08:00)
--- NOTE | 2022-03-08 08:00 | NUR ---
PT REFUSED AM MEDICATIONS. RN STRESSED THAT IT WAS VERY IMPORTANT FOR HER TO TAKE MEDICATIONS, BUT SHE REFUSES AND SAYS "GO AWAY"
--- NOTE | 2022-03-08 10:00 | NUR ---
PT ASLEEP ON BACK , REFUSES TO PARTICIPATE IN 1:1
--- NOTE | 2022-03-08 12:46 | NUR ---
Dr. Bruno made aware that the patient is refusing all medications, meals and having minimal PO fluids. No new orders at this time
--- NOTE | 2022-03-08 14:17 | NUR ---
The patient is resting on her bed. She makes no attempt to engage others. She is not attending to any kind of self care. She has been refusing po food and fluids
--- NOTE | 2022-03-08 15:10 | NUR ---
The patient has pulled out her IV.
--- NOTE | 2022-03-08 16:56 | NUR ---
The patient is resting on her bed. She is drinking fluids and eating ice
--- NOTE | 2022-03-08 17:14 | NUR ---
The patient up out of bed to void
--- NOTE | 2022-03-08 17:45 | NUR ---
PT REFUSED TO ALLOW TECH TO TAKE VITALS
--- NOTE | 2022-03-08 19:01 | NUR ---
The patient refused her evening tray. She denies that she feels paranoid about her tray but just insists "I'm okay you don't need to worry about me" She did request a lemon grand ronde tribes soda which was given to her. Her bedside commode was emptied of 1250 cc of urine.
--- NOTE | 2022-03-08 21:28 | NUR ---
The patient up to the bedside commode
--- NOTE | 2022-03-08 22:42 | NUR ---
The patient is resting on her bed but awake
--- NOTE | 2022-03-09 00:52 | NUR ---
The patient appears to be sleeping
--- NOTE | 2022-03-09 03:06 | NUR ---
The patient is resting on her bed but awake
--- NOTE | 2022-03-09 05:01 | NUR ---
The patient currently appears to be sleeping but she has been awake off and on during the night
--- NOTE | 2022-03-09 05:18 | NUR ---
PT REFUSED VITAL SIGNS
--- NOTE | 2022-03-09 06:41 | NUR ---
Patient laying onher right side. Got off the bed side commode a few minutes ago. No distress observed. Continue to monitor.
[2022-03-09] MEDS: duloxetine 30mg CAPSULE.DR PO SCH (08:00)
[2022-03-09] MEDS: clopidogrel 75mg tablet PO SCH (08:00)
--- NOTE | 2022-03-09 08:35 | NUR ---
Patient refused her morning meds and refused her food. Patient took a sip of her Sprite and a sip of apple juice but said they both tasted funny. RN encouraged patient to eat and drink patient refused.
--- NOTE | 2022-03-09 10:33 | NUR ---
Patient sleeping on left side. No distress observed. No P.O. intake these last 2 hours.
--- NOTE | 2022-03-09 12:26 | NUR ---
Patient's lunch tray on bedside table. Patient is sleeping on her right side. No distress observed. Continue to monitor.
--- NOTE | 2022-03-09 18:41 | NUR ---
Received report, assumed care, pt is laying in bed asleep and change of shift. Pt awaken for dinner and she states "take that garbage out of here, I dont like that stuff, I'm not eating it." Asked pt if there is anything else she would like? She doesnt answer and goes back to sleep.
--- NOTE | 2022-03-09 19:06 | NUR ---
Pt has a Nasal Cannula on but its not attached to O2. Spoke w/RT and pt has been refusing treatments so they were DC'd. Pt is now requesting O2. Pts O2 sats are at 90. Dr Escobedo notified and pt has been ordered 2L of 02 via NC. O2 was hooked up at 2L, and pt states it smells funny. Pt is assured it is Oxygen and connected to the green tube, despite this pt is refusing to have cannula attached to Oxygen and pulls it out of the wall.
--- NOTE | 2022-03-09 19:59 | NUR ---
RT spoke with pt and assured her the wall is Oxygen but pt continues to refuse O2 saying "it smells like nitroglycerin!" Pts sats were rechecked by RT since HOB has been raised and she now has sats of 93.
--- NOTE | 2022-03-09 20:40 | NUR ---
Pt sitting up in bed playing w/her hair.
--- NOTE | 2022-03-09 21:46 | NUR ---
pt is asleep in bed rr 16
--- NOTE | 2022-03-09 23:01 | NUR ---
Pt is asleep in bed rr 16
--- NOTE | 2022-03-09 23:39 | NUR ---
Pt up to use the commode and returned to bed.
--- NOTE | 2022-03-10 02:12 | NUR ---
Pt is resting in bed on her right side rr even and unlabored.
--- NOTE | 2022-03-10 02:55 | NUR ---
Pt is awake asking for orange soda, provided her w/orange juice because we dont have orange soda. Pt drank a couple of sips of her drink and requested a "lemon beaver" soda. pt had been given lemon beaver soda earlier and complained it doesnt taste good.
--- NOTE | 2022-03-10 04:04 | NUR ---
pt laying on her right side asleep rr even and unlabored.
--- NOTE | 2022-03-10 05:27 | NUR ---
Pt refused vitals
--- NOTE | 2022-03-10 06:35 | NUR ---
Patient getting on the bedside commode. No distress observed. Continue to monitor.
[2022-03-10] MEDS: clopidogrel 75mg tablet PO SCH (07:57)
[2022-03-10] MEDS: duloxetine 30mg CAPSULE.DR PO SCH (07:57)
--- NOTE | 2022-03-10 08:09 | NUR ---
RN brought patient her tray. Patient did not want any of the food but like the canned Sprite. 2 small cans were put in the fridge for the patient and patient was given one with a straw. Patient is drinking the Sprite. Continue to monitor.
--- NOTE | 2022-03-10 09:58 | NUR ---
Patient sitting up in bed. No distress observed. Continue to monitor.
--- NOTE | 2022-03-10 11:51 | NUR ---
Patient laying on right side. No distress observed. Continue to monitor.
--- NOTE | 2022-03-10 12:40 | NUR ---
Patient refusing food. However, Dr. Bruno went to see patient and fed her her pudding. Patient was gushing over Dr. Bruno. Patient has drank more today. Continue to monitor.
--- NOTE | 2022-03-10 13:10 | NUR ---
Patient sleeping. No distress observed. Continue to monitor.
--- NOTE | 2022-03-10 16:39 | NUR ---
Patient is awake and reclining in bed. No distress observed. Continue to monitor.
--- NOTE | 2022-03-10 20:24 | NUR ---
Pt sleeping at this time. Repeated offers of food and liquids declined.
--- NOTE | 2022-03-11 04:07 | NUR ---
Pt awake lying quietly in bed. Ate entire cupcake and drank a little milk.
--- NOTE | 2022-03-11 05:57 | NUR ---
Pt sleeping. PO intake pushed. Voided 200cc x1 loose BM intake 275 cc. After much encouragment ate 8 crackers and a cupcake.
--- NOTE | 2022-03-11 07:03 | NUR ---
Pt appears to be sleeping comfortably, respirations even and unlabored.
[2022-03-11] MEDS: duloxetine 30mg CAPSULE.DR PO SCH (08:00)
[2022-03-11] MEDS: clopidogrel 75mg tablet PO SCH (08:00)
--- NOTE | 2022-03-11 09:00 | NUR ---
Pt sitting up in bed awake. Pt refused her morning medication, however she ate 100% of her eggs and a couple of bites of mongolian toast. Pt still requests to be "leave me alone." Pt was able to get herself to the bedside commode where she had a small BM.
--- NOTE | 2022-03-11 10:16 | NUR ---
Pt sitting up in bed eating her fruit cup.
--- NOTE | 2022-03-11 11:02 | NUR ---
Pt lying in bed restfully, respirations even and unlabored.
--- NOTE | 2022-03-11 11:44 | NUR ---
Pt woke up asking for "a snack." Pt was afraid she had missed lunch. Pt was given an applesauce and crackers. Will monitor what she consumes. Addendum: 03/11/22 at 1232 by SHIRA Pt consumed 2 packets of crackers.
--- NOTE | 2022-03-11 12:32 | NUR ---
Pt ate a good lunch - all of her mashpotates, 3-4 bites of meatloaf, 3/4 of the sherbert.
--- NOTE | 2022-03-11 13:15 | NUR ---
FAxed down for addtional bowl of mashed potatoes as PT REQUESTED. PT ATE 100% OF 2ND BOWL.
--- NOTE | 2022-03-11 15:02 | NUR ---
Pt resting comfortably on left side, respirations even and unlabored.
--- NOTE | 2022-03-11 17:05 | NUR ---
Pt resting comfortably, respirations even and unlabored.
--- NOTE | 2022-03-11 18:30 | NUR ---
PT sitting up in bed, new tray ordered for her, soft pasta, pudding and ensure because she didn't like her dinner tray
--- NOTE | 2022-03-11 19:00 | NUR ---
pt refused to eat the pasta stating it wasn't good and wanted scrambed eggs or holbrook, RN informed pt that the kitchen was now closed, offered her other options but pt did not want any and settled on saltines.
--- NOTE | 2022-03-11 20:30 | NUR ---
pt voided on bedside commode
--- NOTE | 2022-03-11 22:25 | NUR ---
pt asleep on R side respirations even and unlabored
--- NOTE | 2022-03-12 00:02 | NUR ---
pt up to use bedside commode
--- NOTE | 2022-03-12 00:30 | NUR ---
pt upeating apple sauce and drinking small sips of water
--- NOTE | 2022-03-12 02:00 | NUR ---
pt up to use the restroom
--- NOTE | 2022-03-12 04:00 | NUR ---
pt resting in bed quietly
--- NOTE | 2022-03-12 06:21 | NUR ---
pt up in bed drinking francisco roro
[2022-03-12] MEDS: clopidogrel 75mg tablet PO SCH (07:54)
[2022-03-12] MEDS: duloxetine 30mg CAPSULE.DR PO SCH ×2 (07:54→08:00)
--- NOTE | 2022-03-12 09:50 | NUR ---
Patient ate breakfast. Uses the bedside commode. Resting quietly in bed at this time.
--- NOTE | 2022-03-12 12:00 | NUR ---
Patient is resting quietly in bed. Appears awake off and on.
--- NOTE | 2022-03-12 12:39 | NUR ---
Patient eats lunch and continues resting quietly in bed
--- NOTE | 2022-03-12 14:23 | NUR ---
Patient is resting quietly in bed
--- NOTE | 2022-03-12 16:23 | NUR ---
Patient resting quietly in bed
--- NOTE | 2022-03-12 19:10 | NUR ---
One to one with the patient who was resting on her bed. She ate well at dinner and is drinking lemon kweth[place] soda. She also requested and received chips. She is pleasant and friendly but only oriented to herself. She is not sure why she is here and stated, "I was doing good at the [facility]" She is using the bedside commode independently.
--- NOTE | 2022-03-12 20:08 | NUR ---
The patient is resting on her bed.
--- NOTE | 2022-03-12 22:22 | NUR ---
The patient appears to be sleeping
--- NOTE | 2022-03-12 23:34 | NUR ---
The patient awake and asking if she had missed dinner. Talking about someone named Xavier. Snack given. Patient reoriented to time
--- NOTE | 2022-03-13 02:04 | NUR ---
The patient appears to be sleeping
--- NOTE | 2022-03-13 04:22 | NUR ---
The patient is awake on her bed at this time but was sleeping
--- NOTE | 2022-03-13 06:48 | NUR ---
Pt quietly sitting up on her bed; "I'm waiting for breakfast."
--- NOTE | 2022-03-13 07:02 | NUR ---
Pt laid back down. She is resting with her eyes closed. RR even and unlabored.
--- NOTE | 2022-03-13 10:31 | NUR ---
Pt is with RICK Green. She is engaging in conversation and cooperative.
--- NOTE | 2022-03-13 11:57 | NUR ---
Pt has been quietly sittin up on her bed or laying back on her back resting.
--- NOTE | 2022-03-13 12:01 | NUR ---
Pt eating lunch.
[2022-03-13] MEDS: duloxetine 30mg CAPSULE.DR PO SCH (13:06)
[2022-03-13] MEDS: clopidogrel 75mg tablet PO SCH (13:06)
--- NOTE | 2022-03-13 13:16 | NUR ---
Pt agreed to take the Plavix. She almost agreed to take the Cymbalta but then refused. She states, "this is not the right one."
--- NOTE | 2022-03-13 15:30 | NUR ---
Pt's Plavix found at the bedside. Pt does not want to take her medications. She thinks the dosage of Cymbalta is not the right dosage. She continues to sit quietly on her bed most of the day. She is awaiting placement.
--- NOTE | 2022-03-13 17:20 | NUR ---
Pt up eating her meal. Then laid back down to go to sleep. Pt continues to wait for placement.
--- NOTE | 2022-03-13 18:57 | NUR ---
One to one with the patient. She is pleasantly cofused. She did not eat her dinner but she believed that someone was bringing her pizza which is not accurate. She needs prompts and assist with personal care. She does get up to the bedside commode independently.
--- NOTE | 2022-03-13 20:35 | NUR ---
The patient appears to be sleeping
--- NOTE | 2022-03-13 22:30 | NUR ---
The patient awake and sitting on her bed quietly
--- NOTE | 2022-03-14 00:10 | NUR ---
The patient is resting on her bed but awake
--- NOTE | 2022-03-14 00:56 | NUR ---
The patient is resting quietly on her bed but awake
--- NOTE | 2022-03-14 02:26 | NUR ---
The patient appears to be sleeping
--- NOTE | 2022-03-14 03:54 | NUR ---
The patient is resting on her bed but awake
--- NOTE | 2022-03-14 04:54 | NUR ---
The patient appears to be sleeping
--- NOTE | 2022-03-14 07:19 | NUR ---
The patient is resting on her bed and does appear to be asleep. Reviewed EMAR and the patient has consistently been refusing her medications. Dr. Rizo aware and is requesting that staff continue to try and get her to take her medications.
[2022-03-14] MEDS: clopidogrel 75mg tablet PO SCH ×2 (08:00→08:01)
[2022-03-14] MEDS: duloxetine 30mg CAPSULE.DR PO SCH ×2 (08:00→08:01)
--- NOTE | 2022-03-14 08:11 | NUR ---
The patient refused her am medications and was unable to give a logical reason why. She currently is sitting up at the bedside and eating her breakfast.
--- NOTE | 2022-03-14 09:18 | NUR ---
The patient was encouraged to get up and ambulate with the help of staff but she is refusing. She will be asked again in a while.
--- NOTE | 2022-03-14 09:52 | NUR ---
The patient agreed to ambulate with staff and she walked from her bed to the bathroom and back. The bedside commode was removed.
--- NOTE | 2022-03-14 10:44 | NUR ---
The patient ambulated up to the nursing station and back to her bed without prompts from staff.
--- NOTE | 2022-03-14 11:15 | NUR ---
SW here to see the patient and stated that physical therapy will come and assess patient because [facility]
--- NOTE | 2022-03-14 11:22 | NUR ---
PT paged for evaluation
--- NOTE | 2022-03-14 11:25 | NUR ---
PT paged for assessment
--- NOTE | 2022-03-14 12:13 | NUR ---
Physical Therapist here to assess the patient.
--- NOTE | 2022-03-14 13:23 | NUR ---
The patient appears to be sleeping
--- NOTE | 2022-03-14 14:33 | NUR ---
The patient appears to be sleeping
--- NOTE | 2022-03-14 16:08 | NUR ---
The patient appears to be sleeping
--- NOTE | 2022-03-14 18:09 | NUR ---
The patient is sitting up at the bedside eating her dinner.
--- NOTE | 2022-03-14 19:39 | NUR ---
Patient is sleeping quietly on her right side. Bed is in med fowlers position. No distress.
--- NOTE | 2022-03-14 21:31 | NUR ---
Patient sleeping in a mid fowlers position on her back.
--- NOTE | 2022-03-14 22:38 | NUR ---
Patient is awake and sitting up at bedside. Patient is friendly. She needed to be reoriented to date and time. She uses bedside commode.
--- NOTE | 2022-03-14 23:58 | NUR ---
Patient is sleeping quietly on her left side. The bed is in a mid fowlers position.
--- NOTE | 2022-03-15 01:07 | NUR ---
Patient is asleep. In view from nurses station.
--- NOTE | 2022-03-15 02:13 | NUR ---
Patient is sleeping in a prone position. No distress.
--- NOTE | 2022-03-15 04:52 | NUR ---
Patient is awake and sitting up at bedside. No distress.
--- NOTE | 2022-03-15 06:30 | NUR ---
Received pt. sleeping, laying on her left side at this time, rr are even and unlabored.
[2022-03-15] MEDS: duloxetine 30mg CAPSULE.DR PO SCH (08:00)
[2022-03-15] MEDS: clopidogrel 75mg tablet PO SCH (08:00)
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
--- NOTE | 2022-03-15 12:26 | NUR ---
Pt. sat up to eat lunch, she ate a small amout before laying back down and returning to sleep. Pt. is laying on her right side at this time, will continue monitor closely.
--- NOTE | 2022-03-15 14:26 | NUR ---
Pt. continues to sleep at this time, laying on her left side, rr are even and unlabored.
--- NOTE | 2022-03-15 16:32 | NUR ---
Pt. continues to sleep at this time, laying on her back with HOB elevated, rr are even and unlabored.
--- NOTE | 2022-03-15 17:59 | NUR ---
Pt. continues to sleep at this time, rr are even and unlabored.
--- NOTE | 2022-03-15 18:23 | NUR ---
Pt's blood pressure elevated, however she continues to present with agitaion yelling out, "Leave me alone!" Her agitaion is likely contributing to increased BP. This typewriter ribbon winder attempted to re-check pt's BP but she adamantly refused, endorsed to Noc shift who will continue to monitor pt. closely.
--- NOTE | 2022-03-15 19:11 | NUR ---
The patient ate minimally of her dinner. She is irritable and refused to allow a physical assessment to be completed. The bedside commode was removed to encourage patient to ambulate to and from the bathroom. She is makes no attempts at personal hygiene.
--- NOTE | 2022-03-15 20:44 | NUR ---
The patient appears to be sleeping
--- NOTE | 2022-03-15 22:06 | NUR ---
The patient appears to be sleeping
--- NOTE | 2022-03-16 00:21 | NUR ---
The patient appears to be sleeping
--- NOTE | 2022-03-16 01:28 | NUR ---
The patient appears to be sleeping
--- NOTE | 2022-03-16 03:18 | NUR ---
The patient appears to be sleeping
--- NOTE | 2022-03-16 05:29 | NUR ---
Patient up to the bathroom. She was moved closer to the bathroom to make it easier for her.
--- NOTE | 2022-03-16 06:27 | NUR ---
The patient appears to be sleeping
[2022-03-16] MEDS: clopidogrel 75mg tablet PO SCH (08:00)
[2022-03-16] MEDS: duloxetine 30mg CAPSULE.DR PO SCH (08:00)
--- NOTE | 2022-03-16 08:10 | NUR ---
The patient is sitting up on her bed and eating breakfast. She is refusing her AM medications because she believes the medications are not real.
--- NOTE | 2022-03-16 08:29 | NUR ---
02 sats 92% on one liter
--- NOTE | 2022-03-16 09:34 | NUR ---
The patient is resting on her bed.
--- NOTE | 2022-03-16 10:28 | NUR ---
The patient is resting on her bed.
--- NOTE | 2022-03-16 11:56 | NUR ---
The patient appears to be sleeping
--- NOTE | 2022-03-16 12:37 | NUR ---
The patient is awake and resting on her bed. She is irritable at times. She refused her lunch.
--- NOTE | 2022-03-16 15:10 | NUR ---
The patient is resting on her bed.
--- NOTE | 2022-03-16 19:02 | NUR ---
Received pt sleeping, HOB up, 02 1L nasal canula. Dinner tray next to pt. breathing even and symmetrical.
--- NOTE | 2022-03-16 21:46 | NUR ---
Patient up to use the bathroom.
--- NOTE | 2022-03-16 22:06 | NUR ---
Pt in bed appears to be sleeping.
--- NOTE | 2022-03-17 00:55 | NUR ---
Pt appears to be sleeping at this time
--- NOTE | 2022-03-17 03:50 | NUR ---
Pt appears to be sleeping at this time.
--- NOTE | 2022-03-17 06:43 | NUR ---
Patient sleeping supine. No distress observed. Continue to monitor.
[2022-03-17] MEDS: duloxetine 30mg CAPSULE.DR PO SCH (08:00)
[2022-03-17] MEDS: clopidogrel 75mg tablet PO SCH (08:00)
--- NOTE | 2022-03-17 08:17 | NUR ---
Patient awoken for her medication but patient refused. RN offerred patient her breakfast. Patient drank some Sprite and ate her eggs. No distress observed. Continue to monitor.
--- NOTE | 2022-03-17 10:11 | NUR ---
Patient sleeping on left side. No distress observed. Continue to monitor.
--- NOTE | 2022-03-17 12:07 | NUR ---
Tech brought patient's lunch to bed side and advised patient that her tray was next to her. Patient continues to sleep. Patient adjusted to her back. No distress observed. Continue to monitor.
--- NOTE | 2022-03-17 14:07 | NUR ---
Patient sleeping on right side. No distress observed. Continue to monitor.
--- NOTE | 2022-03-17 16:15 | NUR ---
Patient ambulatory to BR and back to bed. No distress observed. Continue to monitor.
--- NOTE | 2022-03-17 19:15 | NUR ---
The patient is resting on her bed. She makes no attempt to engage others. She refused her dinner. She makes no effort towards self care or hygiene. She denies that she feels SOB. She is on 1 L NC of
--- NOTE | 2022-03-17 19:21 | NUR ---
MD made aware of patient poor dietary intake off and on. The patient states that she likes chocolate ensure and order received.
--- NOTE | 2022-03-17 21:07 | NUR ---
The patient appears to be sleeping
--- NOTE | 2022-03-17 23:19 | NUR ---
Patient up to use the bathroom
--- NOTE | 2022-03-18 00:57 | NUR ---
The patient appears to be sleeping
--- NOTE | 2022-03-18 02:07 | NUR ---
The patient appears to be sleeping
--- NOTE | 2022-03-18 03:42 | NUR ---
The patient appears to be sleeping
--- NOTE | 2022-03-18 05:44 | NUR ---
The patient appears to be sleeping
--- NOTE | 2022-03-18 06:25 | NUR ---
Patient sitting up at the edge of her bed. Patient ambulatory to BR, steady gait. No distress observed. Continue to monitor.
[2022-03-18] MEDS: duloxetine 30mg CAPSULE.DR PO SCH (08:00)
[2022-03-18] MEDS: clopidogrel 75mg tablet PO SCH (08:00)
--- NOTE | 2022-03-18 08:20 | NUR ---
Patient eating breakfast and it looks like she is eating well. No distress observed. Continue to monitor.
[2022-03-18] MEDS: lactose-reduced food (Ensure High Protein) 237ml bottle PO SCH ×3 (08:51→18:24)
--- NOTE | 2022-03-18 10:11 | NUR ---
Patient is sleeping supine. No distress observed. Continue to monitor.
--- NOTE | 2022-03-18 12:10 | NUR ---
Patient eating her lunch. No distress observed. Continue to monitor.
--- NOTE | 2022-03-18 14:11 | NUR ---
Patient sleeping on left side. No distress observed. Continue to monitor.
--- NOTE | 2022-03-18 16:08 | NUR ---
Patient sleeping supine. No distress observed. Continue to monitor.
--- NOTE | 2022-03-18 19:32 | NUR ---
The patient is pending placement. She is oriented to herself but unable to state month or day. She makes no attempt to engage in personal hygiene.
--- NOTE | 2022-03-18 21:40 | NUR ---
The patient appears to be sleeping
--- NOTE | 2022-03-18 22:43 | NUR ---
The patient appears to be sleeping
--- NOTE | 2022-03-19 00:31 | NUR ---
The patient appears to be sleeping
--- NOTE | 2022-03-19 01:36 | NUR ---
The patient appears to be sleeping
--- NOTE | 2022-03-19 03:03 | NUR ---
The patient appears to be sleeping
--- NOTE | 2022-03-19 04:05 | NUR ---
The patient appears to be sleeping
--- NOTE | 2022-03-19 05:19 | NUR ---
The patient appears to be sleeping
--- NOTE | 2022-03-19 06:31 | NUR ---
Patient reclining in bed with her eyes closed. Patient appears to be awake as she is rubbing her face. No distress observed. Continue to monitor.
[2022-03-19] MEDS: clopidogrel 75mg tablet PO SCH (08:00)
[2022-03-19] MEDS: duloxetine 30mg CAPSULE.DR PO SCH (08:00)
[2022-03-19] MEDS: lactose-reduced food (Ensure High Protein) 237ml bottle PO SCH ×3 (08:14→18:05)
--- NOTE | 2022-03-19 08:17 | NUR ---
Patient eating breakfast. Patient complaining about the food being sent. Continue to monitor.
--- NOTE | 2022-03-19 10:35 | NUR ---
Jose Mehta, Psychiatric PA attempting to speak to patient. Patient telling Jose "I don't want you here! Leave me alone! I don't want to talk to you!" Jose left patient's room and patient was calm again. Continue to monitor.
--- NOTE | 2022-03-19 12:11 | NUR ---
Patient upset about the food she rec'd. Patient stated she wants different food. Patient also refused to drink her Ensure. Continue to monitor.
--- NOTE | 2022-03-19 13:43 | NUR ---
EVERETTE Regan approached patient with friendly demeanor but patient refused to speak to him again. "I need to rest and I don't want to talk to you." No distress observed. Continue to monitor.
--- NOTE | 2022-03-19 18:46 | NUR ---
The patient is resting on her bed. She is refusing her dinner. She is unable to verbalize a plan if she were to leave the hospital. She is making no attempts to do anything but lay in her bed. She is getting up and walking to the bathroom
--- NOTE | 2022-03-19 21:33 | NUR ---
The patient appears to be sleeping
--- NOTE | 2022-03-19 22:09 | NUR ---
The patient is awake and eating potato chips.
--- NOTE | 2022-03-20 00:59 | NUR ---
The patient appears to be sleeping
--- NOTE | 2022-03-20 02:16 | NUR ---
The patient currently appears to be sleeping but has been awake off and on
--- NOTE | 2022-03-20 03:43 | NUR ---
The patient appears to be sleeping
--- NOTE | 2022-03-20 05:09 | NUR ---
The patient appears to be sleeping
--- NOTE | 2022-03-20 06:11 | NUR ---
The patient is resting on her bed but awake
--- NOTE | 2022-03-20 07:04 | NUR ---
The patient is resting on her bed
[2022-03-20] MEDS: clopidogrel 75mg tablet PO SCH (08:00)
[2022-03-20] MEDS: duloxetine 30mg CAPSULE.DR PO SCH (08:00)
[2022-03-20] MEDS: lactose-reduced food (Ensure High Protein) 237ml bottle PO SCH ×3 (08:22→18:00)
--- NOTE | 2022-03-20 08:31 | NUR ---
The patient is resting on her bed and is awake
--- NOTE | 2022-03-20 09:56 | NUR ---
The patient is resting on her bed.
--- NOTE | 2022-03-20 13:37 | NUR ---
The patient appears to be sleeping.
--- NOTE | 2022-03-20 14:17 | NUR ---
The patient is resting on her bed.
--- NOTE | 2022-03-20 15:24 | NUR ---
The patient appears to be sleeping
--- NOTE | 2022-03-20 17:13 | NUR ---
The patient is resting on her bed
--- NOTE | 2022-03-20 18:15 | NUR ---
Patient is awake. She declined her dinner. She then retired to sleep.
--- NOTE | 2022-03-20 19:37 | NUR ---
Patient continues to sleep quietly. She has self repositioned in bed.
--- NOTE | 2022-03-20 20:45 | NUR ---
Patient is sleeping in a supine position. No distress.
--- NOTE | 2022-03-20 21:33 | NUR ---
Patient is sleeping in a supine position.
--- NOTE | 2022-03-20 22:19 | NUR ---
Patient is sleeping quietly in a supine position.
--- NOTE | 2022-03-21 02:03 | NUR ---
Patient is sleeping in a low fowlers position. No distress.
--- NOTE | 2022-03-21 03:22 | NUR ---
Patient continues to sleep quietly in a supine position. No distress.
--- NOTE | 2022-03-21 04:37 | NUR ---
Patient is sleeping supine in bed.
--- NOTE | 2022-03-21 05:51 | NUR ---
Patient awakens for vital signs. She is cooperative with staff.
--- NOTE | 2022-03-21 07:07 | NUR ---
Patient is sleeping in a low fowlers position.
--- NOTE | 2022-03-21 07:42 | NUR ---
Patient gets out of bed and ambulates to the bathroom with a normal gait and no use of her walker. She then returns to bed.
[2022-03-21] MEDS: clopidogrel 75mg tablet PO SCH (08:00)
[2022-03-21] MEDS: duloxetine 30mg CAPSULE.DR PO SCH (08:00)
[2022-03-21] MEDS: lactose-reduced food (Ensure High Protein) 237ml bottle PO SCH ×3 (08:00→18:45)
--- NOTE | 2022-03-21 08:30 | NUR ---
This patient refused her am Cymbalta, Plavix, and Ensure too. Patient states she will not take generic medications. The pharmacy was advised, only generic medications are available. The patient tells this technical writer to leave her alone, "I just want to sleep." The patient was advised of the risks of not taking her Plavix and Cymbalta (generics,) she states "I don't care."
--- NOTE | 2022-03-21 09:00 | NUR ---
Patient is sleeping quietly, no distress.
--- NOTE | 2022-03-21 09:52 | NUR ---
Patient is sleeping quietly in a supine position.
--- NOTE | 2022-03-21 12:03 | NUR ---
Patient is sleeping in a supine position with her knees flexed. She has self repositioned.
--- NOTE | 2022-03-21 13:42 | NUR ---
Patient is noncompliant with Rx meds and ensure. She does request that eggs and holbrook be sent for her consumption. This information writer advised the patient that special orders are not permitted.
--- NOTE | 2022-03-21 18:57 | NUR ---
PT SITTING UP IN BED EATING DINNER.
--- NOTE | 2022-03-22 01:31 | NUR ---
PT IN BED ASLEEP.
[2022-03-22] MEDS: lactose-reduced food (Ensure High Protein) 237ml bottle PO SCH ×3 (08:09→18:00)
[2022-03-22] MEDS: duloxetine 30mg CAPSULE.DR PO SCH (08:09)
[2022-03-22] MEDS: clopidogrel 75mg tablet PO SCH (08:09)
--- NOTE | 2022-03-22 08:30 | NUR ---
PT STATES MEDICATIONS "ARE NOT RIGHT FOR ME. I DON'T DO GENERIC." RN ATTEMPTED TO EXPLAIN NEED FOR MEDICATIONS. PT CONTINUED TO REFUSE. PT IS NOT ORIENTED. MEDICATIONS MIXED IN COFFEE, PT CONSUMED DRINK WITHOUT ISSUE.
--- NOTE | 2022-03-22 11:45 | NUR ---
PATIENT MOVED BACK TO ER OVERFLOW BED #26. RESTING IN BED WITHOUT COMPLAINTS.
--- NOTE | 2022-03-22 12:30 | NUR ---
PATIENT STATES SHE WOULD LIKE TO SPEAK WITH DOCTOR, SHE SHOULD NOT BE HERE. ER MD CAME TO SPEAK WITH PATIENT. NO FURTHER NEEDS IDENTIFIED AT THIS TIME.
--- NOTE | 2022-03-22 14:30 | NUR ---
DOZING IN BED. NO COMPLAINTS AT THIS TIME.
--- NOTE | 2022-03-22 16:00 | NUR ---
RESTING IN BED. RESP UNLABORED. NO COMPLAINTS AT THIS TIME.
--- NOTE | 2022-03-22 18:00 | NUR ---
NO COMPLAINTS AT THIS TIME. RESTING IN BED.
--- NOTE | 2022-03-22 19:22 | NUR ---
The patient has been resting on her bed. She refused to eat her dinner and claimed it tasted bad. She was given a sandwhich. She refused to ensure.
--- NOTE | 2022-03-22 20:00 | NUR ---
The patient is resting on her bed
--- NOTE | 2022-03-22 20:55 | NUR ---
The patient is resting on her bed.
--- NOTE | 2022-03-22 22:00 | NUR ---
The patient appears to be sleeping
--- NOTE | 2022-03-23 00:01 | NUR ---
The patient appears to be sleeping
--- NOTE | 2022-03-23 02:12 | NUR ---
The patient appears to be sleeping
--- NOTE | 2022-03-23 03:27 | NUR ---
The patient appears to be sleeping
--- NOTE | 2022-03-23 04:09 | NUR ---
The patient appears to be sleeping
--- NOTE | 2022-03-23 05:10 | NUR ---
The patient appears to be sleeping
--- NOTE | 2022-03-23 06:36 | NUR ---
Patient is laying supine with her eyes closed. Respirations non-labored. No distress observed. Continue to monitor.
[2022-03-23] MEDS: clopidogrel 75mg tablet PO SCH (08:00)
[2022-03-23] MEDS: duloxetine 30mg CAPSULE.DR PO SCH (08:00)
[2022-03-23] MEDS: lactose-reduced food (Ensure High Protein) 237ml bottle PO SCH ×3 (08:39→18:09)
--- NOTE | 2022-03-23 08:40 | NUR ---
Patient only ate her eggs on her breakfast tray. Patient states she does not like her Ensure. RN brought patient a 2 scoop carton of scrambled eggs. Patient ate all the eggs. Continue to monitor.
--- NOTE | 2022-03-23 10:37 | NUR ---
Patient sleeping supine. No distress observed. Continue to monitor.
--- NOTE | 2022-03-23 12:25 | NUR ---
Patient only at a bag of ships and a few sips of Sprite for lunch. Continue to monitor.
--- NOTE | 2022-03-23 14:32 | NUR ---
Patient sleeping on right side. No distress observed. Continue to monitor.
--- NOTE | 2022-03-23 16:11 | NUR ---
Patient up to the BR, steady gait. No distress observed. Continue to monitor.
--- NOTE | 2022-03-23 17:50 | NUR ---
Patient sleeping. No distress observed. Continue to monitor.
--- NOTE | 2022-03-23 19:08 | NUR ---
The patient is resting on her bed and appears chronically fatiqued. She is a very picky eater and she did name a few items that she would like and the kitchen was faxed some menu items that she named. She is not drinking the ensures.
--- NOTE | 2022-03-23 20:05 | NUR ---
The patient appears to be sleeping.
--- NOTE | 2022-03-23 21:22 | NUR ---
The patient is resting on her bed
--- NOTE | 2022-03-23 21:58 | NUR ---
The patient appears to be sleeping
--- NOTE | 2022-03-23 23:19 | NUR ---
The patient appears to be sleeping
--- NOTE | 2022-03-24 00:44 | NUR ---
The patient appears to be sleeping
--- NOTE | 2022-03-24 02:26 | NUR ---
The patient is resting on her bed but currently is awake
--- NOTE | 2022-03-24 04:02 | NUR ---
The patient appears to be sleeping
--- NOTE | 2022-03-24 05:01 | NUR ---
The patient is resting on her bed
--- NOTE | 2022-03-24 06:40 | NUR ---
Patient sitting up at the edge of her bed. Patient was weighed and has lost weight due to minimal eating. RN will place a nutritional consult. No distress observed at this time. Continue to monitor.
[2022-03-24] MEDS: duloxetine 30mg CAPSULE.DR PO SCH (08:00)
[2022-03-24] MEDS: clopidogrel 75mg tablet PO SCH (08:00)
--- NOTE | 2022-03-24 08:23 | NUR ---
Patient agreed to eat her cream of wheat as long as she had brown sugar and patient wants peaches. RN ran down to cafeteria to buy brown sugar and peaches. Patient ate her cream of wheat but stated her peaches tasted like crap and would not eat them. Continue to monitor.
[2022-03-24] MEDS: lactose-reduced food (Ensure High Protein) 237ml bottle PO SCH ×3 (08:38→18:00)
--- NOTE | 2022-03-24 10:19 | NUR ---
Patient sleeping. No distress observed. Continue to monitor.
--- NOTE | 2022-03-24 12:11 | NUR ---
Patient's daughter visiting patient. Continue to monitor.
--- NOTE | 2022-03-24 12:29 | NUR ---
RN overhearing some of the conversation between patient and daughter. Patient thought her daughter was because she hasn't heard from her in so long. Patient's mom, who has dementia, is admitted to the hospital. Patient asking her daughter to get her out of here. Daughter states she can't. Patient states she didn't get out of the bed at the [facility] because she didn't have any clothes to wear. Patient states "Sixto" was supposed to get her out today. Daughter states she doesn't know who Sixto is. Continue to monitor.
--- NOTE | 2022-03-24 19:34 | NUR ---
The patient was assisted in visiting her mother who was a patient in the main ER. She is currently resting on her bed.
--- NOTE | 2022-03-24 21:17 | NUR ---
The patient is resting on her bed.
--- NOTE | 2022-03-24 22:54 | NUR ---
The patient is resting on her bed
--- NOTE | 2022-03-25 00:13 | NUR ---
The patient is resting on her bed
--- NOTE | 2022-03-25 01:23 | NUR ---
The patient is resting on her bed
--- NOTE | 2022-03-25 03:05 | NUR ---
The patient is resting on her bed.
--- NOTE | 2022-03-25 05:02 | NUR ---
The patient appears to be sleeping
--- NOTE | 2022-03-25 06:31 | NUR ---
Patient sleeping supine. No distress observed. Continue to monitor.
[2022-03-25] MEDS: clopidogrel 75mg tablet PO SCH (08:00)
[2022-03-25] MEDS: duloxetine 30mg CAPSULE.DR PO SCH (08:00)
[2022-03-25] MEDS: lactose-reduced food (Ensure High Protein) 237ml bottle PO SCH ×2 (08:00→13:10)
--- NOTE | 2022-03-25 08:11 | NUR ---
Patient eating breakfast and wants more eggs. Patient ate her cream of wheat. Continue to monitor.
--- NOTE | 2022-03-25 09:20 | NUR ---
RN brought patient a double scoop of eggs. Patient ate all of it. Continue to monitor.
--- NOTE | 2022-03-25 11:10 | NUR ---
Patient sleeping supine. No distress observed. Continue to monitor.
--- NOTE | 2022-03-25 12:08 | NUR ---
Pt is sitting up on the edge of the bed eating lunch. Pt is in no acute distress at this time.
--- NOTE | 2022-03-25 14:32 | NUR ---
Patient sleeping on right side. No distress observed. Continue to monitor.
--- NOTE | 2022-03-25 17:32 | NUR ---
Patient sitting up on the edge of her bed. No distress observed. Continue to monitor.
--- NOTE | 2022-03-25 19:00 | NUR ---
The patient is resting on her bed.
--- NOTE | 2022-03-25 20:48 | NUR ---
The patient was asking about her mother. She is wanting to be discharged but currently has no place to go and she was made aware that SW is trying to find her housing.
--- NOTE | 2022-03-25 22:26 | NUR ---
The patient again is talking about going home.
--- NOTE | 2022-03-25 23:08 | NUR ---
The patient appears to be sleeping
--- NOTE | 2022-03-26 00:20 | NUR ---
The patient appears to be sleeping
--- NOTE | 2022-03-26 01:01 | NUR ---
The patient appears to be sleeping
--- NOTE | 2022-03-26 02:02 | NUR ---
The patient is sitting up at the side of the bed
--- NOTE | 2022-03-26 03:28 | NUR ---
The patient appears to be sleeping
--- NOTE | 2022-03-26 05:08 | NUR ---
The patient appears to be sleeping
[2022-03-26 05:16] VITALS: BP 120/82
--- NOTE | 2022-03-26 06:23 | NUR ---
Recvd report from AMBER Tejada - Patient awake sitting on side of bed. No signs of distress. No needs at this time.
[2022-03-26] MEDS: duloxetine 30mg CAPSULE.DR PO SCH (07:25)
[2022-03-26] MEDS: clopidogrel 75mg tablet PO SCH (07:26)
--- NOTE | 2022-03-26 07:34 | NUR ---
Attempted to administer morning medications, patient stated "those medications arent real. you guys dont have the real ones". Nurse tried to level with patient and educate on the need for taking the meds and patient continued to refused. Very adamant about leaving today, wants to go home.
--- NOTE | 2022-03-26 08:21 | NUR ---
Patient sitting up in bed eating breakfast.
--- NOTE | 2022-03-26 08:39 | NUR ---
Patient was given extra egg omlet from extra tray from dietary. Patient ate both egg omletes, 50% of her oatmeal, and 50% of the coffee cake on tray.
--- NOTE | 2022-03-26 10:07 | NUR ---
Patient awake sitting on the side of bed.
--- NOTE | 2022-03-26 10:28 | NUR ---
Bill Clerk at patient bedside arranging discharge.
--- NOTE | 2022-03-26 13:50 | NUR ---
PT at bedside to set patient up with her new walker. Patient tolerating well. Arranging transport home with [facility].
[2022-04-04] MEDS ORDERED: LEVO-65 PO (11:37)
== END 2022-03-26 14:32 | disposition home or self-care (01) ==
LOC: ER 19:27
DX: F29 Unspecified psychosis not due to a substance or known physiological condition (principal); Z20.822 Contact with and (suspected) exposure to COVID-19; J44.9 Chronic obstructive pulmonary disease, unspecified; K21.9 Gastro-esophageal reflux disease without esophagitis; Z87.440 Personal history of urinary (tract) infections; Z87.81 Personal history of (healed) traumatic fracture; Z88.8 Allergy status to other drugs, medicaments and biological substances; Z88.0 Allergy status to penicillin; Z91.041 Radiographic dye allergy status; Z88.1 Allergy status to other antibiotic agents; Z79.899 Other long term (current) drug therapy
CPT/HCPCS: 36415; 80048; 80053; 80305; 80320; 81001; 82948; 83735; 85025; 87426; 96360; 96361; 96372; 97161; 97530; 99285; J1200; J2060; J7030; A4615

== ENCOUNTER 2022-03-28 14:24 | Emergency (ER) | payer MEDICARE, MEDICAID ==
[~2022-03-28] VITALS: Ht 157.5 cm; Wt 64.0 kg
[~2022-03-28 14:24] MED LIST changes: -ALBU1.256 NEB; -ALBU17AE26 PO; +BUDE0.5A11 NEB; -BUDE0.5A3 NEB; -BUDE10.22 INH; -FAMO20TA8 PO; +IPRA3AMP31 IH; -IPRA3AMP9 NEB; -PRED20TA PO; -SULF1TAB45 PO
[2022-03-28 14:30] VITALS: BP 111/84
--- NOTE | 2022-03-28 15:50 | NUR ---
PATIENT GIVEN SANDWICH, PROTEIN SHAKE, AND CRACKERS BUT REFUSED STATING " I ALREADY ATE"
== END 2022-03-28 17:00 | disposition home or self-care (01) ==
LOC: ER 14:25
DX: Z00.8 Encounter for other general examination (principal); J44.9 Chronic obstructive pulmonary disease, unspecified; K21.9 Gastro-esophageal reflux disease without esophagitis; E11.9 Type 2 diabetes mellitus without complications; Z88.0 Allergy status to penicillin; Z91.041 Radiographic dye allergy status; Z91.09 Other allergy status, other than to drugs and biological substances; Z59.00 Homelessness unspecified
CPT/HCPCS: 99281; 99283

== ENCOUNTER 2022-03-30 20:58 | Inpatient (IN) | payer MEDICARE, MEDICAID ==
[~2022-03-30] VITALS: Ht 162.6 cm; Wt 54.5 kg
[2022-03-30 22:14] LABS: BASOPHILS # (AUTO) 0.1 X10'3 (0-0.2); BASOPHILS % (AUTO) 0.7 % (0-1); EOSINOPHILS # (AUTO) 0.3 X10'3 (0-0.9); EOSINOPHILS % (AUTO) 3.3 % (0-6); HEMATOCRIT 44.7 % (35.0-45.0); HEMOGLOBIN 14.6 g/dl (12.0-16.0); LYMPHOCYTES % (AUTO) 23.8 % (21-51); MEAN CORPUSCULAR HEMOGLOBIN 28.7 PG (27.0-31.0); MEAN CORPUSCULAR HGB CONC 32.6 g/dL (33.0-36.5); MEAN PLATELET VOLUME 7.8 FL (7.4-10.4); MONOCYTES # (AUTO) 0.7 X10'3 (0-0.9); MONOCYTES % (AUTO) 8.6 % (2-12); NEUTROPHILS # (AUTO) 5.4 X10'3 (1.8-7.7); NEUTROPHILS % (AUTO) 63.6 % (42-75); PLATELET COUNT 311 X10'3 (140-440); RED BLOOD COUNT 5.08 X10'6 (4.20-5.60); RED CELL DISTRIBUTION WIDTH 16.2 % (11.5-14.5); WHITE BLOOD COUNT 8.4 X10'3 (4.5-11.0)
[2022-03-30 22:27] LABS: ALANINE AMINOTRANSFERASE 25 U/L (12-78); ALBUMIN 3.2 G/DL (3.4-5.0); ALBUMIN/GLOBULIN RATIO 0.7 (1.1-1.5); ALKALINE PHOSPHATASE 120 IU/L (46-116); ANION GAP 8 (8-16); ASPARTATE AMINO TRANSFERASE 24 U/L (10-37); BILIRUBIN,TOTAL 0.6 MG/DL (0.1-1.0); BLOOD UREA NITROGEN 12 MG/DL (7-18); BUN/CREATININE RATIO 17.9 (6.6-38.0); CALCIUM 9.1 MG/DL (8.5-10.1); CHLORIDE 106 MMOL/L (99-107); CREATININE 0.67 MG/DL (0.40-0.90); GLUCOSE 123 MG/DL (70-104); POTASSIUM 3.3 MMOL/L (3.5-5.1); SODIUM 144 MMOL/L (135-145); TOTAL CARBON DIOXIDE 29.7 MMOL/L (24-32); TOTAL PROTEIN 7.6 G/DL (6.4-8.2); eGFR 87 ML/MIN
[2022-03-31] MEDS ORDERED: ipratropium/albuterol 3ml nebule NEB ONE (09:10)
--- NOTE | 2022-03-31 09:49 | NUR ---
lowest read 81
--- NOTE | 2022-03-31 09:49 | NUR ---
ambulated to radiology with oxygen and nurse escort, ER physician requested a study to see spo2 with exertion
[2022-03-31] MEDS ORDERED: methylPREDNISolone sod succ 125mg/2ml vial IV ONE (10:00)
[2022-03-31] MEDS ORDERED: magnesium 2GM in 50ml NS 50 ML IV ONE (10:05)
[2022-03-31] MEDS ORDERED: mag hydrox/Alum hydrox/simeth 30ml oral suspension PO PRN (10:55)
[2022-03-31] MEDS ORDERED: POTASSIUM BICARB 20meq eff tab 20 MEQ TABLET.EFF PO PRN ×2 (10:55)
[2022-03-31] MEDS ORDERED: morphine 2 MG/ML inj. syringe IV PRN ×2 (10:55)
[2022-03-31] MEDS ORDERED: magnesium 2GM in 50ml NS 50 ML IV PRN (10:55)
[2022-03-31] MEDS ORDERED: potassium CL 10mEq/100ml bag 100 ML IV PRN (10:55)
[2022-03-31] MEDS ORDERED: magnesium Cl slow-release 64mg tablet PO PRN (10:55)
[2022-03-31] MEDS ORDERED: magnesium hydroxide 30ml (MOM) UD suspension PO PRN (10:55)
[2022-03-31] MEDS ORDERED: acetaminophen 325mg tablet PO PRN (10:55)
[2022-03-31] MEDS ORDERED: magnesium 4gm in 100ml NS 100 ML IV PRN (10:55)
[2022-03-31] MEDS ORDERED: ondansetron/PF 4mg/2ml inj IV PRN (10:55)
[2022-03-31] MEDS: ipratropium/albuterol 3ml nebule NEB SCH ×4 (11:00→23:29)
--- NOTE | 2022-03-31 11:30 | NUR ---
SECURITY INSTALLATION TECHNICIAN SPOKE WITH NURSE, ADVISED SHE WILL BE FOLLOWING CASE
[2022-03-31 11:56] LABS: POTASSIUM 3.5 MMOL/L (3.5-5.1)
[2022-03-31 12:02] LABS: MAGNESIUM 6.4 MG/DL (1.5-2.4)
[2022-03-31] MEDS: normal saline 1000ml 1,000 ML IV SCH (12:07)
--- NOTE | 2022-03-31 12:21 | NUR ---
mag level to be redrawn, blood taken while magnesium was being infused. possible false reading. ER MLP advised of critical value, states he will page hospitalist
--- NOTE | 2022-03-31 12:51 | NUR ---
patient taking off her oxygen, requesting bedside commode.
[2022-03-31] MEDS: levoFLOXACIN-Levaquin 500mg/D5 100 ML IV SCH (15:35)
--- NOTE | 2022-03-31 16:31 | NUR ---
report given to Akira CLARK at this time, cleared for transfer to [facility] [id number]
--- NOTE | 2022-03-31 16:40 | NUR ---
Problems reprioritized. Patient report given, questions answered & plan of care reviewed with CAKE INSPECTOR.
[2022-03-31 17:08] VITALS: BP 120/67
[2022-03-31 18:00] VITALS: BP 92/50
--- NOTE | 2022-03-31 18:09 | NUR ---
Patient in room PCU 3019Q. I have received report from AMBER Champion and had the opportunity to ask questions and assume patient care.
--- NOTE | 2022-03-31 18:13 | NUR ---
Problems reprioritized. Patient report given, questions answered & plan of care reviewed with Soco CLARK.
[2022-03-31] MEDS ORDERED: ipratropium/albuterol 3ml nebule IH PRN (18:20)
[2022-03-31] MEDS: K and/or MAG REPLACEMENT MC SCH (19:08)
[2022-03-31] MEDS: methylPREDNISolone sod succ 125mg/2ml vial IV SCH (19:37)
[2022-03-31] MEDS: docusate sod 100mg capsule PO SCH (19:37)
[2022-03-31] MEDS: heparin, porcine 5000 units/ml vial SQ SCH (19:37)
[2022-03-31] MEDS: budesonide 0.5mg/2ml UD nebule IH SCH (19:57)
[2022-03-31 22:00] VITALS: BP 95/63
[2022-04-01 02:00] VITALS: BP 99/50
[2022-04-01] MEDS: ipratropium/albuterol 3ml nebule NEB SCH ×6 (03:20→23:50)
--- NOTE | 2022-04-01 06:06 | NUR ---
Patient in room PCU 3017. I have received report from Soco CLARK and had the opportunity to ask questions and assume patient care.
[2022-04-01 07:00] VITALS: BP 91/53
[2022-04-01] MEDS: clopidogrel 75mg tablet PO SCH (08:00)
[2022-04-01] MEDS: duloxetine 30mg CAPSULE.DR PO SCH (08:00)
[2022-04-01] MEDS: docusate sod 100mg capsule PO SCH ×2 (08:00→19:46)
[2022-04-01] MEDS: heparin, porcine 5000 units/ml vial SQ SCH ×2 (08:00→19:46)
[2022-04-01] MEDS: K and/or MAG REPLACEMENT MC SCH ×2 (08:00→19:46)
[2022-04-01] MEDS: budesonide 0.5mg/2ml UD nebule IH SCH ×2 (08:00→19:34)
[2022-04-01] MEDS: methylPREDNISolone sod succ 125mg/2ml vial IV SCH ×2 (08:07→19:46)
[2022-04-01] MEDS: levoFLOXACIN-Levaquin 500mg/D5 100 ML IV SCH (08:08)
[2022-04-01 11:01] VITALS: BP 101/59
[2022-04-01 15:00] VITALS: BP_SYST 94; BP_SYST 95; BP_DIAS 55; BP_DIAS 61
--- NOTE | 2022-04-01 15:00 | NUR ---
patient unchanged, will continue to monitor
--- NOTE | 2022-04-01 15:58 | NUR ---
Anxious and suspicious of meds prescribed by Dr Fishstating she cannot take them as they are the "wrong" color / Dr Schwarz aware.emile continue to monitor
[2022-04-01] MEDS ORDERED: LORazepam 0.5 MG tablet PO PRN (16:40)
[2022-04-01 18:00] VITALS: BP 100/56
--- NOTE | 2022-04-01 18:29 | NUR ---
Problems reprioritized. Patient report given, questions answered & plan of care reviewed with Katharine RN.
[2022-04-01 22:00] VITALS: BP 115/61
[2022-04-02 02:00] VITALS: BP 113/43
[2022-04-02] MEDS: ipratropium/albuterol 3ml nebule NEB SCH ×5 (03:34→19:35)
--- NOTE | 2022-04-02 06:32 | NUR ---
Patient in room PCU 3017. I have received report from rosa menjivar and had the opportunity to ask questions and assume patient care.
[2022-04-02 06:46] VITALS: BP 107/61
[2022-04-02] MEDS: levoFLOXACIN-Levaquin 500mg/D5 100 ML IV SCH (07:52)
[2022-04-02] MEDS: duloxetine 30mg CAPSULE.DR PO SCH (07:53)
[2022-04-02] MEDS: docusate sod 100mg capsule PO SCH ×2 (07:53→20:00)
[2022-04-02] MEDS: clopidogrel 75mg tablet PO SCH (07:53)
[2022-04-02] MEDS: methylPREDNISolone sod succ 125mg/2ml vial IV SCH ×2 (07:55→21:40)
[2022-04-02] MEDS: heparin, porcine 5000 units/ml vial SQ SCH ×2 (07:55→21:41)
[2022-04-02] MEDS: budesonide 0.5mg/2ml UD nebule IH SCH ×2 (07:56→19:35)
[2022-04-02] MEDS: K and/or MAG REPLACEMENT MC SCH ×2 (08:00→20:00)
--- NOTE | 2022-04-02 08:42 | NUR ---
PT REFUSED ALL PO MEDS AND HEPARIN. EDUCATED PT ON THE IMPORTANCE OF EACH MED, PT STILL REFUSED. WILL NOTIFY
[2022-04-02 10:59] VITALS: BP 104/55
[2022-04-02] MEDS: normal saline 1000ml 1,000 ML IV SCH (11:16)
[2022-04-02 15:00] VITALS: BP 98/62
--- NOTE | 2022-04-02 18:31 | NUR ---
Problems reprioritized. Patient report given, questions answered & plan of care reviewed with SATISH RN.
[2022-04-02 19:00] VITALS: BP 121/67
[2022-04-02 22:00] VITALS: BP 108/66
[2022-04-03] MEDS: ipratropium/albuterol 3ml nebule NEB SCH ×7 (00:20→23:35)
[2022-04-03 02:00] VITALS: BP 113/62
--- NOTE | 2022-04-03 06:21 | NUR ---
Patient in room PCU 3017. I have received report from SATISH CLARK and had the opportunity to ask questions and assume patient care.
[2022-04-03 06:45] VITALS: BP 127/75
[2022-04-03] MEDS: clopidogrel 75mg tablet PO SCH (07:15)
[2022-04-03] MEDS: docusate sod 100mg capsule PO SCH ×2 (07:15→22:31)
[2022-04-03] MEDS: duloxetine 30mg CAPSULE.DR PO SCH (07:15)
[2022-04-03] MEDS: K and/or MAG REPLACEMENT MC SCH ×2 (07:17→20:00)
[2022-04-03] MEDS: heparin, porcine 5000 units/ml vial SQ SCH ×2 (07:20→20:00)
[2022-04-03] MEDS: levoFLOXACIN-Levaquin 500mg/D5 100 ML IV SCH (07:20)
[2022-04-03] MEDS: methylPREDNISolone sod succ 125mg/2ml vial IV SCH ×2 (07:20→22:32)
[2022-04-03] MEDS: budesonide 0.5mg/2ml UD nebule IH SCH ×2 (08:45→19:26)
[2022-04-03 11:00] VITALS: BP 125/66
[2022-04-03 18:00] VITALS: BP 128/65
--- NOTE | 2022-04-03 18:11 | NUR ---
Problems reprioritized. Patient report given, questions answered & plan of care reviewed with rosa rn.
--- NOTE | 2022-04-03 18:53 | NUR ---
Patient in room PCU 3017. I have received report from AMBER Alcantar and had the opportunity to ask questions and assume patient care.
--- NOTE | 2022-04-03 19:30 | NUR ---
Problems reprioritized. Patient report given, questions answered & plan of care reviewed with AMBER Lane.
[2022-04-04 02:00] VITALS: BP 137/82
[2022-04-04] MEDS: ipratropium/albuterol 3ml nebule NEB SCH ×6 (03:24→23:33)
[2022-04-04 06:00] VITALS: BP 138/71
[2022-04-04] MEDS: budesonide 0.5mg/2ml UD nebule IH SCH ×2 (07:57→19:50)
[2022-04-04] MEDS: duloxetine 30mg CAPSULE.DR PO SCH ×2 (08:00→10:29)
[2022-04-04] MEDS: K and/or MAG REPLACEMENT MC SCH ×2 (08:00→19:12)
[2022-04-04] MEDS: docusate sod 100mg capsule PO SCH ×2 (08:00→19:46)
[2022-04-04] MEDS: clopidogrel 75mg tablet PO SCH ×2 (08:00→10:28)
[2022-04-04] MEDS: heparin, porcine 5000 units/ml vial SQ SCH ×2 (08:00→19:46)
--- NOTE | 2022-04-04 10:00 | NUR ---
Pt refused cymbalta, heparin, colace, and plavix - education provided - pt verbalized understanding.
[2022-04-04] MEDS: levoFLOXACIN-Levaquin 500mg/D5 100 ML IV SCH (10:27)
[2022-04-04] MEDS: methylPREDNISolone sod succ 125mg/2ml vial IV SCH ×2 (10:28→19:44)
--- NOTE | 2022-04-04 10:36 | NUR ---
Initial: Pt presented with c/o SOB and admit for acute respiratory failure, COPD exacerbation, and acute bronchitis. Per physician progress note respiratory failure exacerbation is resolved and COPD exacerbation is much improved. Pt now on a 1799 for grave disability per EMR. Pt on a heart healthy diet with fluctuating PO intake, averaging 50% throughout LOS which meets roughly 87% estimated energy needs and 78% estimated protein needs. See recommended nutrition interventions below that were d/w dietary in hopes of optimizing PO intake. Pt historically eats well during previous admits with mostly 100% PO intake, hopeful that PO intake will improve this admit. [facility] 04/02. Will continue to follow and monitor need for further nutrition intervention. Recommendations: 1) Liberalize to regular diet 2) Trial smoothie BIDBD, yogurt WL 3) Routine bowel care 4) Scaled weight this admit; subsequent weekly scaled weights Addendum: 04/04/22 at [address] Amended: Links added.
--- NOTE | 2022-04-04 10:42 | NUR ---
Paged Dr milan Message: [phone]. Kimberlee Pacheco. want updated labs? Rolando, Heather [phone] Custom Responses: promotional table spacer Transaction number: [id number]
[2022-04-04] MEDS: normal saline 1000ml 1,000 ML IV SCH ×2 (10:55→23:08)
[2022-04-04 11:00] VITALS: BP 121/74
[2022-04-04] MEDS ORDERED: LEVO500T90 PO (11:37)
[2022-04-04] MEDS ORDERED: PRED10TA23 PO (11:37)
[2022-04-04] MEDS ORDERED: ALBU8.5H17 INH (11:37)
--- NOTE | 2022-04-04 15:00 | NUR ---
pt refused 1500 vs - education provided, pt verbalized understanding.
--- NOTE | 2022-04-04 16:30 | NUR ---
Pt is refusing d/c. Pt has contacted medicare and appealed. , BERTRAND, SS is aware.
[2022-04-04 18:00] VITALS: BP 145/88
--- NOTE | 2022-04-04 18:36 | NUR ---
Problems reprioritized. Patient report given, questions answered & plan of care reviewed with Kole RN & AMBER Patino.
--- NOTE | 2022-04-04 18:46 | NUR ---
Patient in room PCU 3017. I have received report from Heather CLARK and had the opportunity to ask questions and assume patient care.
[2022-04-04 22:00] VITALS: BP 128/65
[2022-04-05 02:00] VITALS: BP 146/78
[2022-04-05] MEDS: ipratropium/albuterol 3ml nebule NEB SCH ×6 (03:00→22:18)
[2022-04-05 06:00] VITALS: BP 150/69
--- NOTE | 2022-04-05 06:53 | NUR ---
Problems reprioritized. Patient report given, questions answered & plan of care reviewed with Sadaf CLARK.
[2022-04-05] MEDS: budesonide 0.5mg/2ml UD nebule IH SCH ×2 (07:28→19:29)
[2022-04-05] MEDS: heparin, porcine 5000 units/ml vial SQ SCH ×2 (08:00→20:00)
[2022-04-05] MEDS: K and/or MAG REPLACEMENT MC SCH ×2 (08:00→20:30)
[2022-04-05] MEDS: docusate sod 100mg capsule PO SCH ×2 (08:00→20:00)
[2022-04-05] MEDS: levoFLOXACIN-Levaquin 500mg/D5 100 ML IV SCH (08:15)
[2022-04-05] MEDS: duloxetine 30mg CAPSULE.DR PO SCH (08:18)
[2022-04-05] MEDS: methylPREDNISolone sod succ 125mg/2ml vial IV SCH ×2 (08:18→20:37)
[2022-04-05] MEDS: clopidogrel 75mg tablet PO SCH (08:18)
--- NOTE | 2022-04-05 09:53 | NUR ---
Refused medications: Educated on medications. Will offer again later.
[2022-04-05 11:00] VITALS: BP 131/60
[2022-04-05 15:00] VITALS: BP 105/67
[2022-04-05 18:00] VITALS: BP 129/66
--- NOTE | 2022-04-05 18:30 | NUR ---
Got report from SHANNAN Talavera RN, patient is lying in bed without uncomfortable, call light is on reach.
--- NOTE | 2022-04-05 18:57 | NUR ---
Patient in room PCU 3017. I have received report from Sadaf CLARK and had the opportunity to ask questions and assume patient care.
[2022-04-05 22:00] VITALS: BP 148/80
[2022-04-05] MEDS: normal saline 1000ml 1,000 ML IV SCH (23:00)
[2022-04-06 02:00] VITALS: BP 136/75
[2022-04-06] MEDS: ipratropium/albuterol 3ml nebule NEB SCH ×5 (02:28→19:46)
[2022-04-06 06:00] VITALS: BP 143/79
--- NOTE | 2022-04-06 07:12 | NUR ---
Problems reprioritized. Patient report given, questions answered & plan of care reviewed with Sadaf CLARK.
[2022-04-06] MEDS: budesonide 0.5mg/2ml UD nebule IH SCH ×2 (07:22→19:47)
[2022-04-06] MEDS: heparin, porcine 5000 units/ml vial SQ SCH ×2 (08:00→19:21)
[2022-04-06] MEDS: docusate sod 100mg capsule PO SCH ×2 (08:00→19:21)
[2022-04-06] MEDS: duloxetine 30mg CAPSULE.DR PO SCH (08:00)
[2022-04-06] MEDS: K and/or MAG REPLACEMENT MC SCH ×2 (08:00→19:21)
[2022-04-06] MEDS: clopidogrel 75mg tablet PO SCH (08:00)
[2022-04-06] MEDS: levoFLOXACIN-Levaquin 500mg/D5 100 ML IV SCH (10:51)
[2022-04-06] MEDS: methylPREDNISolone sod succ 125mg/2ml vial IV SCH ×2 (10:51→19:20)
[2022-04-06 11:00] VITALS: BP 132/73
--- NOTE | 2022-04-06 11:08 | NUR ---
Refused Medications based on: dislikes generic colors etc.
[2022-04-06 15:00] VITALS: BP 128/66
[2022-04-06 18:00] VITALS: BP 107/54
[2022-04-06 22:00] VITALS: BP 116/56
[2022-04-07 02:00] VITALS: BP 131/63
[2022-04-07 06:00] VITALS: BP 132/81
--- NOTE | 2022-04-07 06:42 | NUR ---
Problems reprioritized. Patient report given, questions answered & plan of care reviewed with AMBER Garner.
--- NOTE | 2022-04-07 06:43 | NUR ---
Patient in room PCU 3017. I have received report from AMBER Cárdenas and had the opportunity to ask questions and assume patient care.
[2022-04-07] MEDS: ipratropium/albuterol 3ml nebule NEB SCH ×2 (07:42→11:11)
[2022-04-07] MEDS: budesonide 0.5mg/2ml UD nebule IH SCH (07:42)
[2022-04-07] MEDS: clopidogrel 75mg tablet PO SCH (08:00)
[2022-04-07] MEDS: K and/or MAG REPLACEMENT MC SCH (08:00)
[2022-04-07] MEDS: duloxetine 30mg CAPSULE.DR PO SCH (08:00)
[2022-04-07] MEDS: heparin, porcine 5000 units/ml vial SQ SCH (08:00)
[2022-04-07] MEDS: levoFLOXACIN-Levaquin 500mg/D5 100 ML IV SCH (08:00)
[2022-04-07] MEDS: docusate sod 100mg capsule PO SCH (08:00)
[2022-04-07] MEDS: methylPREDNISolone sod succ 125mg/2ml vial IV SCH (08:22)
--- NOTE | 2022-04-07 13:43 | NUR ---
Pt resistive to DC but cooperating now by getting dressed in hospital supplied clothing. Pt choose to transport to [employer] in [place] to get her money. Her belongings according to the patient are at the [facility] but she does not want to return there. Pt reports her O2 is there. Explained she could be responsible to O2 supplier if not retrieved and returned properly. Pt currently on Room air with no SOB O2 sat 92% with activity. Pt advised of new medications to cherry picker operator once she has her funds from the bank.
== END 2022-04-07 14:15 | disposition home or self-care (01) | DRG 189 ==
LOC: ER 20:59 → PCU 3S 03-31 10:56 → ER 03-31 16:39
PROVIDERS: ADMIT Family Medicine; ATTEND Family Medicine
DX: J96.21 Acute and chronic respiratory failure with hypoxia (principal); J44.1 Chronic obstructive pulmonary disease with (acute) exacerbation; F33.0 Major depressive disorder, recurrent, mild; J44.0 Chronic obstructive pulmonary disease with (acute) lower respiratory infection; F41.9 Anxiety disorder, unspecified; K21.9 Gastro-esophageal reflux disease without esophagitis; J20.9 Acute bronchitis, unspecified; Z59.00 Homelessness unspecified; Z80.0 Family history of malignant neoplasm of digestive organs; Z83.3 Family history of diabetes mellitus; Z87.891 Personal history of nicotine dependence; Z88.0 Allergy status to penicillin; Z88.8 Allergy status to other drugs, medicaments and biological substances; Z91.041 Radiographic dye allergy status; Z87.440 Personal history of urinary (tract) infections; Z56.0 Unemployment, unspecified; Z79.899 Other long term (current) drug therapy; Z90.49 Acquired absence of other specified parts of digestive tract
CPT/HCPCS: 36415; 71046; 80053; 83735; 83880; 84132; 84484; 85025; 87081; 93005; 94640; 94760; 96374; 97110; 97116; 97161; 99281; 99283; 99285; G0378; J1644; J1956; J2930; J3475; J7030

== ENCOUNTER 2022-04-21 13:13 | Emergency (ER) | payer MEDICARE, MEDICAID ==
[~2022-04-21] VITALS: Ht 162.6 cm; Wt 59.1 kg
[~2022-04-21 13:13] MED LIST changes: +ALBU8.5H17 INH; +LEVO-65 PO; +PRED10TA23 PO
[2022-04-21 13:25] VITALS: BP 109/74
[2022-04-21] MEDS ORDERED: BEBTELOVIMAB 175 MG/2 ML VIAL IV ONE (15:10)
--- NOTE | 2022-04-21 18:33 | NUR ---
IV DC'D PT BEING DISCHARGED DRESSING APPLIED
== END 2022-04-21 18:34 | disposition home or self-care (01) ==
LOC: ER 13:14
DX: U07.1 COVID-19 (principal); R06.02 Shortness of breath; J44.9 Chronic obstructive pulmonary disease, unspecified; K21.9 Gastro-esophageal reflux disease without esophagitis; F41.9 Anxiety disorder, unspecified; Z87.440 Personal history of urinary (tract) infections; Z59.00 Homelessness unspecified; Z56.0 Unemployment, unspecified; Z88.0 Allergy status to penicillin; Z88.8 Allergy status to other drugs, medicaments and biological substances; Z79.2 Long term (current) use of antibiotics; Z79.899 Other long term (current) drug therapy
CPT/HCPCS: 71045; 99283; M0222; Q0222

== ENCOUNTER 2022-04-21 20:16 | Emergency (ER) | payer MEDICARE, MEDICAID ==
[~2022-04-21] VITALS: Ht 162.6 cm; Wt 59.0 kg
[2022-04-21 21:15] VITALS: BP 112/63
== END 2022-04-21 22:17 | disposition home or self-care (01) ==
LOC: ER 20:17
DX: U07.1 COVID-19 (principal); J44.9 Chronic obstructive pulmonary disease, unspecified; K21.9 Gastro-esophageal reflux disease without esophagitis; F41.9 Anxiety disorder, unspecified; Z87.440 Personal history of urinary (tract) infections; Z59.00 Homelessness unspecified; Z56.0 Unemployment, unspecified; Z88.0 Allergy status to penicillin; Z88.8 Allergy status to other drugs, medicaments and biological substances; Z88.1 Allergy status to other antibiotic agents; Z79.2 Long term (current) use of antibiotics; Z79.899 Other long term (current) drug therapy
CPT/HCPCS: 99283

== ENCOUNTER 2022-04-25 16:50 | Emergency (ER) | payer MEDICARE, MEDICAID ==
[~2022-04-25] VITALS: Ht 162.6 cm; Wt 51.6 kg
--- NOTE | 2022-04-25 17:02 | NUR ---
ACCORDING TO [facility] PATIENT'S APS WORKER SHAINA IS WILLING TO SET UP HOUSING FOR PATIENT UPON DISCHARGE [phone].
[2022-04-25 18:23] LABS: HEMOGLOBIN 16.7 g/dl (12.0-16.0)
[2022-04-25 18:24] LABS: BASOPHILS # (AUTO) 0.1 X10'3 (0-0.2); BASOPHILS % (AUTO) 0.6 % (0-1); EOSINOPHILS # (AUTO) 0.2 X10'3 (0-0.9); EOSINOPHILS % (AUTO) 1.9 % (0-6); HEMATOCRIT 50.3 % (35.0-45.0); LYMPHOCYTES # (AUTO) 0.9 X10'3 (1.1-4.8); LYMPHOCYTES % (AUTO) 9.8 % (21-51); MEAN CORPUSCULAR HEMOGLOBIN 28.9 PG (27.0-31.0); MEAN CORPUSCULAR HGB CONC 33.2 g/dL (33.0-36.5); MEAN CORPUSCULAR VOLUME 86.9 FL (78-98); MEAN PLATELET VOLUME 7.8 FL (7.4-10.4); MONOCYTES # (AUTO) 0.8 X10'3 (0-0.9); MONOCYTES % (AUTO) 8.7 % (2-12); NEUTROPHILS # (AUTO) 7.6 X10'3 (1.8-7.7); PLATELET COUNT 307 X10'3 (140-440); RED BLOOD COUNT 5.79 X10'6 (4.20-5.60); RED CELL DISTRIBUTION WIDTH 15.3 % (11.5-14.5); WHITE BLOOD COUNT 9.7 X10'3 (4.5-11.0)
[2022-04-25 20:11] LABS: ALANINE AMINOTRANSFERASE 15 U/L (12-78); ALBUMIN 3.2 G/DL (3.4-5.0); ALBUMIN/GLOBULIN RATIO 0.7 (1.1-1.5); ALKALINE PHOSPHATASE 116 IU/L (46-116); ANION GAP 11 (8-16); ASPARTATE AMINO TRANSFERASE 20 U/L (10-37); BILIRUBIN,TOTAL 0.7 MG/DL (0.1-1.0); BLOOD UREA NITROGEN 19 MG/DL (7-18); CALCIUM 9.5 MG/DL (8.5-10.1); CHLORIDE 97 MMOL/L (99-107); CREATININE 1.12 MG/DL (0.40-0.90); GLUCOSE 103 MG/DL (70-104); LIPASE 109 U/L (73-393); POTASSIUM 3.2 MMOL/L (3.5-5.1); SODIUM 139 MMOL/L (135-145); TOTAL CARBON DIOXIDE 30.9 MMOL/L (24-32); TOTAL PROTEIN 8.1 G/DL (6.4-8.2); eGFR 48 ML/MIN
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
[2022-04-25] MEDS ORDERED: POTASSIUM BICARB 20meq eff tab 20 MEQ TABLET.EFF PO ONE (21:55)
[2022-04-25 22:12] LABS: URINE HCG NEGATIVE (NEG)
[2022-04-25 22:23] LABS: CLARITY,URINE CLEAR (Clear); GLUCOSE, URINE NEGATIVE (Neg); KETONES,URINE 15 mg/dl (Neg); LEUKOCYTE ESTERASE ,URINE NEGATIVE (Neg); NITRITES, URINE NEGATIVE (Neg); OCCULT BLOOD,URINE NEGATIVE (Neg); PH,URINE 5.5 (4.8-8.0); PROTEIN,URINE 30 mg/dl (Neg); UROBILINOGEN,URINE 0.2 E.U/dL (0.2-1.0)
[2022-04-25 22:37] LABS: COLOR,URINE AMBER (Yellow); UA COLLECTION TYPE STRAIGHT CATH
[2022-04-25 22:54] LABS: BACTERIA,URINE NONE SEEN /HPF (Neg); MUCUS STRANDS MANY /LPF (Neg); SQUAMOUS EPITHELIAL CELL,UR NONE SEEN /LPF (FEW); TRANSITIONAL EPI CELLS,URINE FEW /HPF; WBC,URINE 0-4 /HPF (0-4)
[2022-04-25 22:56] LABS: RBC,URINE 0-2 /HPF (0-2)
[2022-04-25 23:11] LABS: URINE AMPHETAMINE SCREEN NEGATIVE (Neg); URINE BARBITUATE SCREEN NEGATIVE (Neg); URINE BENZODIAZEPINES SCREEN NEGATIVE (Neg); URINE CANNABINOID SCREEN NEGATIVE (Neg); URINE COCAINE SCREEN NEGATIVE (Neg); URINE METHADONE SCREEN NEGATIVE (Neg); URINE OPIATE SCREEN NEGATIVE (Neg); URINE PHENCYCLIDINE SCREEN NEGATIVE (Neg)
--- NOTE | 2022-04-25 23:28 | NUR ---
PT ON 1798 FOR GRAVELY DISABLE. PLACED IN GREEN SCRUBS PER PROTOCOL. SANDWICH GIVEN AND BLANKET.
--- NOTE | 2022-04-26 01:00 | NUR ---
PT WITH EYES CLOSE NON LABORED BREATHING. NO S/S OF PAIN OR RESP DISTRESS. WILL MONITOR.
--- NOTE | 2022-04-26 03:00 | NUR ---
PT WITH EYES CLOSE NON LABORED BREATHING. NO S/S OF PAIN OR RESP DISTRESS. WILL MONITOR.
--- NOTE | 2022-04-26 05:00 | NUR ---
PT AWAKEN TO CHANGE BRIEF. INCONTINENT OF URINE. DENIES PAIN. N/O S/S OF RESP DISTRESS. WILL MONITOR.
--- NOTE | 2022-04-26 06:30 | NUR ---
first contact with pt, found supine in bed. rr even and unlabored. pt in no distress.
--- NOTE | 2022-04-26 16:57 | NUR ---
PACKET FAXED TO [facility]
--- NOTE | 2022-04-26 17:32 | NUR ---
pt refusing vitals. self removed bp cuff while taking, refused to put 02 monitor on finger, states "its not a real one"
--- NOTE | 2022-04-26 18:00 | NUR ---
Pt. arrived from main ER. Pt. given meal tray. Per report pt. came in for abdomnial pain. Pt. has been incontinent of urine and been in bed most of the day. Pt. is reportedly paranoid and won't allow blood pressure to be obtained. PT. has a hx of dementia and has been staying at the [facility]. Pt.'s reportedly recently . Pt. repotedly walked to the rest room and toileted herself before she arrived to [facility].
--- NOTE | 2022-04-26 20:32 | NUR ---
Patient arrived from ED. Patient allowed this nurse to somewhat do a physical. Patient mostly non-compliant. Pt refused dinner. Patient lying in bed appears to be sleeping at this time.
--- NOTE | 2022-04-26 23:38 | NUR ---
Pt on right side and appears to be sleeping at this time.
--- NOTE | 2022-04-27 02:41 | NUR ---
Patient appears to be sleeping at this time. Will continue to monitor.
--- NOTE | 2022-04-27 04:33 | NUR ---
Patient appears to be sleeping at this time.
--- NOTE | 2022-04-27 08:28 | NUR ---
Patient has been sleeping since shift change. She is in view from the nurses station. No distress noted.
--- NOTE | 2022-04-27 09:00 | NUR ---
PACKET FAXED TO [facility]
--- NOTE | 2022-04-27 09:28 | NUR ---
Patient is sleeping quietly. She did not awaken for breakfast. She is in view from nurses station.
--- NOTE | 2022-04-27 11:44 | NUR ---
Patient has primarily been sleeping. She was awoken by [facility]. Patient was released from her hold as she was primarily in need of chcf placement as she is unable to care for herself due to a longstanding medical history. The [facility] social worker school will be contacting a hospital sales planner on Thursday.
--- NOTE | 2022-04-27 12:20 | NUR ---
Patient is sleeping quietly in a mid fowlers position. No distress.
--- NOTE | 2022-04-27 13:59 | NUR ---
Patient is sleeping quietly in a low fowlers position.
--- NOTE | 2022-04-27 17:13 | NUR ---
Patient is sleeping in a low fowlers position. She has self repositioned in bed.
--- NOTE | 2022-04-27 17:31 | NUR ---
Patient refused vitals
[2022-04-27] MEDS: lactose-reduced food (Ensure High Protein) 237ml bottle PO SCH (19:20)
--- NOTE | 2022-04-27 19:54 | NUR ---
Pt resting in bed at change of shift w/eyes closed, rr 15. Pt woke for assessment. Pt c/o back pain and terrible food! Pt states she wants to leave and buy a house w/her "social security money and pay the taxes later when I , but I need more social security money first." Pt denies s/i. Pt has not been eating but was assisted by PCT to find foods she likes and ate 75% of her sandwhich, chips, and lemon [place] soda. Pt prefers chocolate ensure.
--- NOTE | 2022-04-27 23:00 | NUR ---
pt in bed appears to be asleep. RR even and unlabored. Pt had a large bm earlier in the shift.
--- NOTE | 2022-04-28 03:29 | NUR ---
Pt is laying on her back appears to be sleeping rr 16
--- NOTE | 2022-04-28 04:56 | NUR ---
Pt is asleep rr 14
--- NOTE | 2022-04-28 06:36 | NUR ---
Assumed patient care at this time. Patient appears to be sleeping.
--- NOTE | 2022-04-28 08:10 | NUR ---
Patient ate some breakfast.
[2022-04-28] MEDS: lactose-reduced food (Ensure High Protein) 237ml bottle PO SCH ×3 (08:50→18:09)
--- NOTE | 2022-04-28 09:00 | NUR ---
Patient appears to be sleeping comfortably on bed.
--- NOTE | 2022-04-28 10:05 | NUR ---
Patient appears to be resting comfortably on stretcher.
--- NOTE | 2022-04-28 11:05 | NUR ---
Patient is resting comfrotably on stretcher.
--- NOTE | 2022-04-28 14:03 | NUR ---
Patient drinking ensure.
--- NOTE | 2022-04-28 16:15 | NUR ---
Patient ambulated to the restroom.
--- NOTE | 2022-04-28 16:29 | NUR ---
Patient awake laying down on stretcher.
--- NOTE | 2022-04-28 16:40 | NUR ---
attempted to change patient's diaper, she denied need for it, patient stated she used the restroom.
--- NOTE | 2022-04-28 17:50 | NUR ---
Patient is awake resting on bed.
--- NOTE | 2022-04-28 19:00 | NUR ---
pt resting quietly in bed
--- NOTE | 2022-04-28 23:00 | NUR ---
Pt repositions self. RR 16
--- NOTE | 2022-04-29 01:05 | NUR ---
pt assisted to the restroom, voided
--- NOTE | 2022-04-29 03:00 | NUR ---
Pt resting on R side respirations even and unlabored
--- NOTE | 2022-04-29 06:42 | NUR ---
Patient reclining in bed. No distress observed. Continue to monitor.
--- NOTE | 2022-04-29 08:09 | NUR ---
Patient sitting up and drinking her Ensure. Patient is not eating any of the food. Continue to monitor.
[2022-04-29] MEDS: lactose-reduced food (Ensure High Protein) 237ml bottle PO SCH ×3 (08:38→18:11)
--- NOTE | 2022-04-29 10:05 | NUR ---
Patient sleeping on right side. No distress observed. Continue to monitor.
--- NOTE | 2022-04-29 11:35 | NUR ---
RN attempting to assist patient up to the BR. Patient has not been up yet today. Patient stated "Leave me alone! I don't need to go to the bathroom!". Patient has a diaper on and RN felt it and it was dry. Patient has drank water and juice this morning. Continue to monitor.
--- NOTE | 2022-04-29 12:01 | NUR ---
Patient's lunch brought to her. Patient refuses lunch but does drink some of the Ensure. Continue to monitor.
--- NOTE | 2022-04-29 14:32 | NUR ---
Patient sleeping on right side. No distress observed.
--- NOTE | 2022-04-29 15:24 | NUR ---
Patient sleeping supine. No distress observed. Continue to monitor.
--- NOTE | 2022-04-29 17:20 | NUR ---
Patient stood up and asked for help to ambulatory to the BR. Mary Ellen Leiva, assisted patient to the BR and assisted patient In the BR. No distress observed. Continue to monitor.
--- NOTE | 2022-04-29 17:30 | NUR ---
Patient had a BM. Continue to monitor
--- NOTE | 2022-04-30 06:27 | NUR ---
Patient sleeping supine. No distress observed. Continue to monitor.
[2022-04-30] MEDS: lactose-reduced food (Ensure High Protein) 237ml bottle PO SCH ×3 (08:22→18:08)
--- NOTE | 2022-04-30 08:25 | NUR ---
Patient sitting up in bed. Patient ate all of her breakfast and ate a good amount of food in the middle of the night. No distress observed. Continue to monitor.
--- NOTE | 2022-04-30 10:22 | NUR ---
Patient reclining in bed with her eyes closed but moving her foot back and forth. No distress observed. Continue to monitor.
--- NOTE | 2022-04-30 12:18 | NUR ---
Patient sleeping supine. No distress observed. Continue to monitor.
--- NOTE | 2022-04-30 13:26 | NUR ---
Patient is sitting up and eating lunch. No distress observed. Continue to monitor.
--- NOTE | 2022-04-30 14:35 | NUR ---
Patient ambulatory to BR, steady gait. No distress observed. Continue to monitor.
--- NOTE | 2022-04-30 15:58 | NUR ---
Patient xleeping on right side. No distress observed. Continue to monitor.
--- NOTE | 2022-04-30 18:40 | NUR ---
Patient taking a few bites of her dinner and stated it was horrible. Kitchen sent up a sandwich with turkey, lettuce and tomato with a side of delroy food cake and fruit. Patient was happy and ate that dinner. No distress observed. Continue to monitor.
--- NOTE | 2022-04-30 20:32 | NUR ---
Patient reclining in bed and patient's foot is swinging back and forth. No distress observed. Continue to Monitor.
--- NOTE | 2022-04-30 21:57 | NUR ---
Patient sleeping on right side. No distress observed. Continue to monitor.
--- NOTE | 2022-04-30 23:46 | NUR ---
Patient sitting up awake in her bed. RN gave her some juice (patient wanted coffee). No distress observed. Continue to monitor.
--- NOTE | 2022-05-01 02:32 | NUR ---
Patient sleeping supine. No distress observed. Continue to monitor.
--- NOTE | 2022-05-01 04:30 | NUR ---
Patient sleeping on right side. No distress observed. Continue to monitor.
--- NOTE | 2022-05-01 05:54 | NUR ---
Patient ambulatory to BR, steady gait. Continue to monitor.
[2022-05-01] MEDS: lactose-reduced food (Ensure High Protein) 237ml bottle PO SCH ×3 (08:00→18:00)
--- NOTE | 2022-05-01 18:30 | NUR ---
The patient sat up to eat her dinner but she is refusing to eat because she doesn't like the food that is served. She is not attending to even basic care of her personal hygiene. She was asked what her discharge plan was she stated that "I'm supposed to go to [facility]. I don't have a social security worker. I have to have one of those before I can get out of here. She is poorly oriented. When asked what year it was she stated "Is it [birth year]. I'm 72 aren't I? I thought I was 73"
--- NOTE | 2022-05-01 19:53 | NUR ---
The patient appears to be sleeping.
--- NOTE | 2022-05-01 20:30 | NUR ---
The patient is awake and eating potato chips
--- NOTE | 2022-05-01 21:51 | NUR ---
The patient appears to be sleeping
--- NOTE | 2022-05-02 00:12 | NUR ---
The patient appears to be sleeping
--- NOTE | 2022-05-02 01:23 | NUR ---
The patient appears to be sleeping
--- NOTE | 2022-05-02 03:05 | NUR ---
The patient appears to be sleeping
--- NOTE | 2022-05-02 05:00 | NUR ---
The patient appears to be sleeping
[2022-05-02] MEDS: lactose-reduced food (Ensure High Protein) 237ml bottle PO SCH ×3 (08:00→18:33)
--- NOTE | 2022-05-02 08:00 | NUR ---
Pt. awake at bedside and eating breakfast. RN attempted to toilet pt. but pt. refused. RN had female tech attempt to see if pt. needed to be changed but pt. refused adimantly refused.
--- NOTE | 2022-05-02 10:00 | NUR ---
Pt. is asleep in bed in supine position. normal R&R of respirations observed, rate of 16.
--- NOTE | 2022-05-02 12:00 | NUR ---
Pt. awake and snacking on chips. RN and female tech attempted to toitlet pt. but pt. refused, becoming agitated. Pt. states, "Get away from me!"
--- NOTE | 2022-05-02 14:00 | NUR ---
Pt. awoke from nap and ate some of her lunch. Pt. in no apparent distress.
--- NOTE | 2022-05-02 16:00 | NUR ---
Pt. asleep in bed in supine position. Normal R&R of respirations observed. Rate is 18. Pt. in no apparent distress.
--- NOTE | 2022-05-02 17:53 | NUR ---
Pt. requested new brief. Pt. changed with assistance from female tech.
--- NOTE | 2022-05-02 18:53 | NUR ---
Patient c/o constipation. RN to speak to about medication. Continue to monitor.
[2022-05-02] MEDS ORDERED: bisacodyl 10mg suppository rectal RC STA (19:03)
--- NOTE | 2022-05-02 20:19 | NUR ---
Patient sleeping. No distress observed. Continue to monitor.
[2022-05-02] MEDS: docusate sod 100mg capsule PO SCH (20:32)
--- NOTE | 2022-05-02 21:07 | NUR ---
RN placed supository for B.M. RN felt hard stool in the rectal vault. Patient screamed and RN could only just go inside the anus. Patient got up immediately to go to the BR but did not have a B.M. Patient told RN she gave the patient the wrong medication. Patient chewed the Colace and stated she can't swallow pills. Continue to monitor.
--- NOTE | 2022-05-02 22:11 | NUR ---
Patient asking RN to remove the suppository she place because "It's hurting me." RN explained that the suppository is melted and it's the hard stool in her rectum that is painful. RN advised patient to sit on the toilet and give the stool some time to come out. Patient stated she already tried that for 1 minute and it didn't work. RN advised patient she need to sit for longer. Patient states she can't. Patient refused to let RN remove the stool. Continue to monitor.
--- NOTE | 2022-05-03 00:24 | NUR ---
While AMBER Hernandez was at lunch, AMBER Díaz covered RN. Patient asked for a diaper change. Patient had a palm size BM in her diaper and her diaper was wet. AMBER Díaz cleaned and changed patient. Patient tolerated well. Patient is now sleeping supine. No distress observed. Continue to monitor.
--- NOTE | 2022-05-03 02:07 | NUR ---
Patient sleeping supine. Respirations nonlabored. No distress observed. Continue to monitor.
--- NOTE | 2022-05-03 04:19 | NUR ---
Patient laying in bed but moving around a little. No distress observed. Continue to monitor
--- NOTE | 2022-05-03 06:30 | NUR ---
patient asleep in bed, no acute distress or discomfort noted
[2022-05-03] MEDS: docusate sod 100mg capsule PO SCH ×2 (08:12→20:00)
[2022-05-03] MEDS: lactose-reduced food (Ensure High Protein) 237ml bottle PO SCH ×3 (08:21→18:18)
--- NOTE | 2022-05-03 09:53 | NUR ---
still sleeping in bed at this time, no acute distress
--- NOTE | 2022-05-03 12:10 | NUR ---
patient in bed, not eating much, no complaints
--- NOTE | 2022-05-03 14:39 | NUR ---
no changes in condition
--- NOTE | 2022-05-03 16:35 | NUR ---
no changes in condition patinet laying in bed
--- NOTE | 2022-05-03 17:11 | NUR ---
patient ambulated to restroom
--- NOTE | 2022-05-04 07:29 | NUR ---
Patient room air sat is 85 percent room air. Per airplane patroller the patient is post covid and will be moved back to the main ED for a further medical workup.
[2022-05-04] MEDS: docusate sod 100mg capsule PO SCH ×2 (08:00→20:00)
[2022-05-04 08:29] LABS: BASOPHILS # (AUTO) 0.1 X10'3 (0-0.2); BASOPHILS % (AUTO) 1.1 % (0-1); EOSINOPHILS # (AUTO) 0.2 X10'3 (0-0.9); EOSINOPHILS % (AUTO) 3.6 % (0-6); HEMATOCRIT 47.9 % (35.0-45.0); HEMOGLOBIN 15.7 g/dl (12.0-16.0); LYMPHOCYTES # (AUTO) 1.7 X10'3 (1.1-4.8); LYMPHOCYTES % (AUTO) 29.7 % (21-51); MEAN CORPUSCULAR HEMOGLOBIN 28.3 PG (27.0-31.0); MEAN CORPUSCULAR HGB CONC 32.8 g/dL (33.0-36.5); MEAN CORPUSCULAR VOLUME 86.2 FL (78-98); MEAN PLATELET VOLUME 7.9 FL (7.4-10.4); MONOCYTES # (AUTO) 0.7 X10'3 (0-0.9); MONOCYTES % (AUTO) 11.5 % (2-12); NEUTROPHILS # (AUTO) 3.1 X10'3 (1.8-7.7); NEUTROPHILS % (AUTO) 54.1 % (42-75); PLATELET COUNT 344 X10'3 (140-440); RED BLOOD COUNT 5.56 X10'6 (4.20-5.60); RED CELL DISTRIBUTION WIDTH 15.7 % (11.5-14.5); WHITE BLOOD COUNT 5.8 X10'3 (4.5-11.0)
[2022-05-04 08:30] LABS: ALANINE AMINOTRANSFERASE 19 U/L (12-78); ALBUMIN 3.1 G/DL (3.4-5.0); ALBUMIN/GLOBULIN RATIO 0.7 (1.1-1.5); ALKALINE PHOSPHATASE 96 IU/L (46-116); ANION GAP 4 (8-16); ASPARTATE AMINO TRANSFERASE 22 U/L (10-37); BILIRUBIN,TOTAL 0.4 MG/DL (0.1-1.0); BLOOD UREA NITROGEN 6 MG/DL (7-18); BUN/CREATININE RATIO 10.9 (6.6-38.0); CALCIUM 9.6 MG/DL (8.5-10.1); CHLORIDE 106 MMOL/L (99-107); CREATININE 0.55 MG/DL (0.40-0.90); GLUCOSE 76 MG/DL (70-104); POTASSIUM 4.3 MMOL/L (3.5-5.1); SODIUM 144 MMOL/L (135-145); TOTAL CARBON DIOXIDE 34.5 MMOL/L (24-32); TOTAL PROTEIN 7.4 G/DL (6.4-8.2); eGFR > 90 ML/MIN
--- NOTE | 2022-05-04 08:30 | NUR ---
Patient resting in bed, no signs of distress noted.
[2022-05-04 08:53] LABS: D-DIMER 2.59 MG/L FEU (0-0.50)
--- NOTE | 2022-05-04 09:30 | NUR ---
Patient sleeping, no signs of distress noted.
[2022-05-04] MEDS ORDERED: methylPREDNISolone sod succ 125mg/2ml vial IV ONE (09:45)
[2022-05-04] MEDS: lactose-reduced food (Ensure High Protein) 237ml bottle PO SCH ×3 (10:21→18:15)
--- NOTE | 2022-05-04 10:40 | NUR ---
PATIENT UP TO BATHROOM INDEPENDENTLY, GAIT STEADY, BALANCED, NO SIGNS OF DISTRESS NOTED, PATIENT BACK IN TO BED WITHOUT DIFFICULTY, PAT WITHIN LINE OF SIGHT OF STAFF AT ALL TIMES.
--- NOTE | 2022-05-04 11:40 | NUR ---
Patient sleeping on right side at this time, no signs of distress noted. All safety measures in place, pat in sight of staff at all times.
--- NOTE | 2022-05-04 12:40 | NUR ---
Patient asleep on side, no signs of distress noted.
--- NOTE | 2022-05-04 13:30 | NUR ---
Patient sitting up in bed, no signs of distress noted eating lunch tray.
[2022-05-04] MEDS ORDERED: diphenhydrAMINE 50 mg/ml inj IV ONE (13:50)
[2022-05-04] MEDS ORDERED: methylPREDNISolone sod succ/PF 40mg inj. IV ONE (13:50)
[2022-05-04] MEDS ORDERED: iohexol 350MG/ML 100ml bottle IV ONE (15:04)
--- NOTE | 2022-05-04 15:40 | NUR ---
Patient unable to have CT scan r/t infiltrated IV. Patient returned to room and refuses to have RN start another IV for scan, MD aware. Patient yelling for staff to "get out... I am not supposed to be here... I need a permission slip, I am not supposed to be at [facility]". Patient reoriented, within sight of staff at all times.
[2022-05-04] MEDS ORDERED: diphenhydrAMINE 25mg capsule PO ONE (16:00)
[2022-05-04] MEDS ORDERED: LORazepam 1 MG tablet PO ONE (16:00)
[2022-05-04] MEDS ORDERED: OLANZapine 5mg rapidly disint. tablet PO ONE (16:00)
--- NOTE | 2022-05-04 16:23 | NUR ---
Dr Rizo aware patient refusing to take PO meds at this time. to review patient's chart.
--- NOTE | 2022-05-04 17:00 | NUR ---
Dr Rizo in to assess patient at this time. Patient awake, alert, eating chips sitting up at bedside, no signs of distress noted with oxygen in place. Patient stated she was on home oxygen at 2L for the past 17 years, patient trial SPO2 86% on room air which increased to 91% on 2L NC. Patient within sight of staff at all times, will continue to monitor.
--- NOTE | 2022-05-04 18:34 | NUR ---
Received report from AMBER Jose. Patient sitting up in bed, having dinner.
--- NOTE | 2022-05-04 19:10 | NUR ---
Patient refused her medications. Stated she is feeling fine
--- NOTE | 2022-05-04 21:05 | NUR ---
Patient seen attempting to cover her eyes from light, offered to turn off the light in the room. Patient stated that she wants to be left alone. Informed her to call if she needs anything.
--- NOTE | 2022-05-04 22:53 | NUR ---
Patient laying in bed with eyes closed, in no apparent distress on 16 even and unlabored respirations
--- NOTE | 2022-05-05 01:40 | NUR ---
Patient laying in bed with 16 even and unlabored respirations. In no apparent distress.
--- NOTE | 2022-05-05 06:45 | NUR ---
Patient moved to bed #25 from main ER.
[2022-05-05] MEDS: docusate sod 100mg capsule PO SCH ×2 (08:00→20:00)
--- NOTE | 2022-05-05 08:05 | NUR ---
Patient awake eating her breakfast. Pt asked "why am I here." Pt is calm/cooperative. Pt waiting to be evaluated.
--- NOTE | 2022-05-05 08:12 | NUR ---
Patient slowly ambulated to restroom.
[2022-05-05] MEDS: lactose-reduced food (Ensure High Protein) 237ml bottle PO SCH ×3 (08:41→13:00)
--- NOTE | 2022-05-05 08:45 | NUR ---
Patient requested more scamble eggs and holbrook. Pt drank about 25% of her Ensure, states she doesn't like it. Sent fax to dietary for additional food. Pt continues to be pleasant.
--- NOTE | 2022-05-05 09:30 | NUR ---
Pt received her eggs and holbrook, ate 100%.
--- NOTE | 2022-05-05 11:05 | NUR ---
Patient resting comfortably in low curran's position. Pt on 2LNC, with rr even and unlabored. Addendum: 05/05/22 at 1601 by SHIRA Pt on 2LNC
--- NOTE | 2022-05-05 13:00 | NUR ---
Patient refused lunch "I don't like that." "I want lemon sel[place] soda please." Addendum: 05/05/22 at 1601 by SHIRA Ordered lemon sel[place]ik soda from kitchen.
--- NOTE | 2022-05-05 13:00 | NUR ---
Pt resting comfortably, no distress noted. Respirations even and unlabored.
--- NOTE | 2022-05-05 16:02 | NUR ---
Patient resting comfortably in low curran's position. Respiations even and unlabored.
--- NOTE | 2022-05-05 17:23 | NUR ---
Pt compliant with evening vitals. Pt given a glass of lemon-[place] soda. Pt content.
--- NOTE | 2022-05-05 17:33 | NUR ---
Checked patient for incontint episode, pt is dry. "No you can't do that!" "I am fine!"
--- NOTE | 2022-05-05 18:35 | NUR ---
Patient in bed with eyes closed, in no distress noted. 16 even and unlabored respirations.
--- NOTE | 2022-05-05 19:30 | NUR ---
Patient refused night time medications. Only wanted to drink craig soda, and did not eat any dinner on tray.
--- NOTE | 2022-05-05 20:30 | NUR ---
Patient appears to be resting comfortably in bed, in no apparent distress noted.
--- NOTE | 2022-05-05 21:20 | NUR ---
Patient up to bathroom
--- NOTE | 2022-05-05 21:51 | NUR ---
Resting comfortably in bed, laying on right side with 16 even and unlabored respirations. No incontinence noted.
--- NOTE | 2022-05-05 21:52 | NUR ---
Lab at bedside to draw labs. Patient refused to have blood drawn
--- NOTE | 2022-05-05 22:07 | NUR ---
Patient laying supine with eyes closed, 14 even and unlabored respirations.
--- NOTE | 2022-05-05 23:46 | NUR ---
Patient laying on right side with eyes closed. 16 even and unlabored respirations on room air.
--- NOTE | 2022-05-06 03:11 | NUR ---
Patient resting with eyes closed, in no apparent distress noted.
--- NOTE | 2022-05-06 06:18 | NUR ---
Patient laying in bed supine, in no apparent distress noted. 14 even and unlabored respirations.
--- NOTE | 2022-05-06 07:07 | NUR ---
The patient has been resting on her bed. Attempted one to one with the patient but she was uncooperative and answered questions minimally. She stated that she did not know where she was at then added, "I'm supposed to be in a alf. I think I'm in the ER at [facility]" When asked what year it was she stated, "leave me alone. I don't want to answer questions" She is disheveled and is not making attempts at self grooming. She is not attempting to socialize with peers or staff. Her dietary intake is poor.
[2022-05-06] MEDS: docusate sod 100mg capsule PO SCH ×2 (07:43→20:00)
[2022-05-06] MEDS: lactose-reduced food (Ensure High Protein) 237ml bottle PO SCH ×3 (08:00→18:00)
--- NOTE | 2022-05-06 08:11 | NUR ---
The patient is resting on her bed
--- NOTE | 2022-05-06 10:01 | NUR ---
The patient appears to be sleeping
--- NOTE | 2022-05-06 11:15 | NUR ---
The patient is resting on her bed
--- NOTE | 2022-05-06 12:24 | NUR ---
The patient instructed to get up and use the bathroom before she ate lunch. She was also given a brush and encouraged to brush her hair.
--- NOTE | 2022-05-06 14:26 | NUR ---
The patient appears to be sleeping
--- NOTE | 2022-05-06 16:20 | NUR ---
The patient is resting on her bed.
--- NOTE | 2022-05-06 17:21 | NUR ---
Patient refused vital signs. She states, "I do not need it, leave me alone."
--- NOTE | 2022-05-06 17:39 | NUR ---
The patient appears to be sleeping
--- NOTE | 2022-05-06 18:30 | NUR ---
PT was reassured in movint to the main ER pt thought that "we were going to kill her." RN assures pt this will not happen and that she just is changing rooms.
--- NOTE | 2022-05-06 20:03 | NUR ---
PT refused HS medications and meal
--- NOTE | 2022-05-07 00:10 | NUR ---
PT ate 75% of a sandwhich and drank a lemon [place] soda
--- NOTE | 2022-05-07 02:27 | NUR ---
Pt asleep on R side RR 16
--- NOTE | 2022-05-07 07:11 | NUR ---
PT SLEEPING IN RGT LATERAL POSITION AT THIS TIME,RR WNL ,WILL CONT TO MONITIOR.
[2022-05-07] MEDS: docusate sod 100mg capsule PO SCH ×2 (08:00→19:30)
[2022-05-07] MEDS: lactose-reduced food (Ensure High Protein) 237ml bottle PO SCH ×3 (08:00→18:00)
--- NOTE | 2022-05-07 10:02 | NUR ---
PT SLEEPING AT THIS TIME ,RR WNL ,WILL CONT TO MONITOR.
--- NOTE | 2022-05-07 11:51 | NUR ---
PT SLEEPING IN RGT LATERAL POSITION ,WENT TO USE RESTROOM IN BTW WITH THE SITTER.
--- NOTE | 2022-05-07 12:15 | NUR ---
Assumed patient care. She was brought from the main ER. Patient chooses to sleep, not interview.
--- NOTE | 2022-05-07 14:52 | NUR ---
Patient is sleeping on her right side with knees flexed. No distress noted.
--- NOTE | 2022-05-07 16:44 | NUR ---
Patient continues sleeping. Low Fowlers position in bed. She remains on 2 EFFICIENCY MINER of 02.
--- NOTE | 2022-05-07 17:39 | NUR ---
Patient awoke, she took O2 cannula off. Patient ambulated to bathroom to void. Upon returning to bed patients O2/cannula was put back on. The patient refused vital signs. This entry writer attempted to get patient to comply, she continued to refuse.
--- NOTE | 2022-05-07 19:30 | NUR ---
The patient has been in her bed with her eyes closed. She is refusing her dinner, her ensure drink. She was encouraged to get up and ambulate but she refused. She stated that she did get up to use the bathroom earlier and walked there. She has no plans for self care if she were to leave the hospital and she is not attending to any of her ADLs.
--- NOTE | 2022-05-07 20:29 | NUR ---
The patient is resting on her bed. She refused colace.
--- NOTE | 2022-05-07 21:54 | NUR ---
The patient is resting on her bed.
--- NOTE | 2022-05-07 23:01 | NUR ---
The patient appears to be sleeping
--- NOTE | 2022-05-08 00:26 | NUR ---
The patient up to use the bathroom
--- NOTE | 2022-05-08 02:01 | NUR ---
The patient appears to be sleeping
--- NOTE | 2022-05-08 04:34 | NUR ---
The patient is resting on her bed.
--- NOTE | 2022-05-08 05:09 | NUR ---
The patient appears to be sleeping
--- NOTE | 2022-05-08 06:52 | NUR ---
Patient sleeping supine No distress observed. Continue to monitor.
[2022-05-08] MEDS: docusate sod 100mg capsule PO SCH ×2 (08:00→20:00)
[2022-05-08] MEDS: lactose-reduced food (Ensure High Protein) 237ml bottle PO SCH ×3 (08:00→18:00)
--- NOTE | 2022-05-08 08:55 | NUR ---
Patient eating breakfast. No distress observed. Continue to monitor.
--- NOTE | 2022-05-08 10:44 | NUR ---
Patient ambulatory to BR, steady gait. No distress observed. Continue to monitor.
--- NOTE | 2022-05-08 12:22 | NUR ---
Patient slept through lunch. Tray at bedside. Continue to monitor.
--- NOTE | 2022-05-08 14:29 | NUR ---
Patient continues to sleep supine. No distress observed. Continue to monitor.
--- NOTE | 2022-05-08 19:00 | NUR ---
Pt laying in bed, she refused her dinner tray and wants mac and cheese, sent dietary request to kitchen, they refused this
--- NOTE | 2022-05-08 20:00 | NUR ---
Pt refused HS medication. she is OOB to use the bathroom with no issue.
--- NOTE | 2022-05-09 01:09 | NUR ---
PT asleep on R side RR 16
--- NOTE | 2022-05-09 03:00 | NUR ---
pt resting qietly in bed in no distress
--- NOTE | 2022-05-09 05:36 | NUR ---
pt asleep on R side respirations even and unlabored
[2022-05-09] MEDS: docusate sod 100mg capsule PO SCH ×2 (08:00→20:00)
[2022-05-09] MEDS: lactose-reduced food (Ensure High Protein) 237ml bottle PO SCH ×3 (08:00→16:49)
--- NOTE | 2022-05-09 08:00 | NUR ---
Patient comfortable. Patient asleep but rousable to voice.
--- NOTE | 2022-05-09 10:00 | NUR ---
Patient ate breakfast. Patient comfortable.
--- NOTE | 2022-05-09 12:00 | NUR ---
Patient has been refusing to take her ensure drink that was ordered with meals. Patient asleep and comfortable. Rousable to voice.
--- NOTE | 2022-05-09 14:52 | NUR ---
Patient awake and sat at bedside and ate alittle bit of lunch.
--- NOTE | 2022-05-09 18:30 | NUR ---
Patient is sleeping quietly in a mid fowlers position. O2 at 2 lpm by n/c. No signs of distress.
--- NOTE | 2022-05-09 19:46 | NUR ---
Patient continues to sleep quietly in a mid fowlers position.
--- NOTE | 2022-05-09 23:07 | NUR ---
Patient is sleeping on her right side, no distress. In view from nurses station.
--- NOTE | 2022-05-10 03:56 | NUR ---
Patient has self repositioned, she is sleeping quietly on her right side.
--- NOTE | 2022-05-10 05:26 | NUR ---
Patient sleeping, no distress.
--- NOTE | 2022-05-10 07:10 | NUR ---
Patient sleeping supine. No distress observed. Continue to monitor.
[2022-05-10] MEDS: lactose-reduced food (Ensure High Protein) 237ml bottle PO SCH ×4 (08:00→20:21)
[2022-05-10] MEDS: docusate sod 100mg capsule PO SCH ×2 (08:00→20:00)
--- NOTE | 2022-05-10 09:11 | NUR ---
Patient awoke and is eating breakfast. No distress observed. Continue to monitor.
--- NOTE | 2022-05-10 11:03 | NUR ---
Patient sleeping on right side. No distress observed. Continue to monitor.
--- NOTE | 2022-05-10 12:32 | NUR ---
Patient eating lunch. Patient ate well. Continue to monitor.
--- NOTE | 2022-05-10 14:29 | NUR ---
Patient sleeping supine. No distress observed. Continue to monitor.
--- NOTE | 2022-05-10 16:22 | NUR ---
Patient sleeping on her right side. No distress observed. Continue to monitor.
--- NOTE | 2022-05-10 19:00 | NUR ---
The patient has been resting on her bed.
--- NOTE | 2022-05-10 21:51 | NUR ---
The patient is resting on her bed. She refused her ensure at dinner and she is consistently refusing her colace.
--- NOTE | 2022-05-10 23:06 | NUR ---
The patient is resting on her bed
--- NOTE | 2022-05-11 00:54 | NUR ---
The patient is resting on her bed
--- NOTE | 2022-05-11 02:49 | NUR ---
The patient is resting on her bed but is awake
--- NOTE | 2022-05-11 04:26 | NUR ---
The patient is resting on her bed
--- NOTE | 2022-05-11 07:43 | NUR ---
The patient is resting on her bed. She denies pain. She is not attending to her ADLs.
[2022-05-11] MEDS: docusate sod 100mg capsule PO SCH ×2 (08:00→20:00)
[2022-05-11] MEDS: lactose-reduced food (Ensure High Protein) 237ml bottle PO SCH ×2 (08:07→18:03)
--- NOTE | 2022-05-11 08:57 | NUR ---
The patient is resting on her bed but awake
--- NOTE | 2022-05-11 10:31 | NUR ---
The patient appears to be sleeping on her bed.
--- NOTE | 2022-05-11 12:10 | NUR ---
The patient was awakened for her lunch but did not sit up to eat.
--- NOTE | 2022-05-11 13:09 | NUR ---
The patient is resting on her bed
--- NOTE | 2022-05-11 14:41 | NUR ---
The patient is resting on her bed
--- NOTE | 2022-05-11 17:01 | NUR ---
The patient is resting on her bed.
--- NOTE | 2022-05-12 07:12 | NUR ---
Patient awake and reclining in Bed. No distress observed. Continue to monitor.
[2022-05-12] MEDS: docusate sod 100mg capsule PO SCH ×2 (08:00→20:00)
[2022-05-12] MEDS: lactose-reduced food (Ensure High Protein) 237ml bottle PO SCH ×3 (08:00→18:01)
--- NOTE | 2022-05-12 09:10 | NUR ---
Patient sitting up and eating breakfast. No distress observed. Continue to monitor.
--- NOTE | 2022-05-12 11:07 | NUR ---
Patient sleeping on right side. No distress observed. Continue to monitor.
--- NOTE | 2022-05-12 12:17 | NUR ---
Patient ambulatory to BR, Steady gait. No distress observed. Continue to monitor.
--- NOTE | 2022-05-12 12:22 | NUR ---
Patient eating lunch. No distress observed. Continue to monitor.
--- NOTE | 2022-05-12 15:11 | NUR ---
Note negroone in ED - 05/12/22 at 1606 by RACHEL RN cleansed and redressed bilateral leg wounds. Per manager shift RN, she changed the dressing twice because they would not stay up. Small amount of discharge see as patient's legs are weepy with edema. Patient has 2 stasis ulcers at her ankles. Patient tolerated the change well. No distress observed. Continue to monitor.
--- NOTE | 2022-05-12 15:20 | NUR ---
Patient sleeping on right side. No distress observed. Continue to monitor.
--- NOTE | 2022-05-12 17:05 | NUR ---
Patient sleeping supine No distress observed. Continue to monitor.
--- NOTE | 2022-05-12 18:35 | NUR ---
Assumed care of patient. Pt appears to be asleep, eyes closed RR15.
--- NOTE | 2022-05-12 20:44 | NUR ---
Pt states she doesnt know how her day is. Pt is pleasant but gives minimal response to questions. Pt is refusing her colace tonight. Pt states she doesnt need it. Pts bowel sounds are present, pts abdomen is soft non tender. Pt up to use the restroom and returned to bed.
--- NOTE | 2022-05-12 22:57 | NUR ---
Pt is laying in bed on her right side rr 15
--- NOTE | 2022-05-13 00:48 | NUR ---
Pt is awake laying in bed, offered pt a blanket and she replied "No thank you, Im fine."
--- NOTE | 2022-05-13 02:48 | NUR ---
Pt is laying in bed eyes closed RR 14
--- NOTE | 2022-05-13 05:01 | NUR ---
Pt is laying in bed appears to be asleep. RR even and unlabored
--- NOTE | 2022-05-13 06:54 | NUR ---
Patient sleeping supine. No distress observed. Continue to monitor.
[2022-05-13] MEDS: docusate sod 100mg capsule PO SCH ×2 (08:00→20:00)
[2022-05-13] MEDS: lactose-reduced food (Ensure High Protein) 237ml bottle PO SCH ×3 (08:00→18:10)
--- NOTE | 2022-05-13 08:22 | NUR ---
RN took off top to patient's breakfast tray. No distress observed. Patient refused her Colace stating she had a good BM yesterday. Continue to monitor.
--- NOTE | 2022-05-13 10:07 | NUR ---
Patient sleeping on right side. No distress observed. Continue to monitor.
--- NOTE | 2022-05-13 12:17 | NUR ---
Patient given lunch but patient rolls over and doesn't want any. Patient will eat the chips later. No distress observed. Continue to monitor.
--- NOTE | 2022-05-13 13:55 | NUR ---
RN received call from RICK Green's boss and advised RN that Himanshu's Probate conservatorship was denied. James is requesting reasons why.
--- NOTE | 2022-05-13 14:03 | NUR ---
Patient ambulatory to BR, steady gait. No distress observed. Continue to monitor.
--- NOTE | 2022-05-13 15:58 | NUR ---
Patient continues sleeping. No distress observed. Continue to monitor.
--- NOTE | 2022-05-13 17:16 | NUR ---
Patient sleeping. RN and tech awoke patient to do a complete skin check as patient has a tendency to sleep on her right side. Patient was very resistant and yelling at us that her skin is fine. Patient eventually did allow us to take a look. No redness seen. Continue to monitor.
--- NOTE | 2022-05-13 19:30 | NUR ---
PT refuses her dinner tray except for chips
--- NOTE | 2022-05-13 20:22 | NUR ---
Pt is resting in bed, she refuses her dinner tray.
--- NOTE | 2022-05-14 00:47 | NUR ---
Pt had an episode of stool incontinence, pt cleaned up and bed cheets changed.
--- NOTE | 2022-05-14 03:00 | NUR ---
PT asleep in R side, RR 14
--- NOTE | 2022-05-14 05:20 | NUR ---
Pt woke up asking for scrambled eggs, pt reminded it was not breakfast time yet
[2022-05-14] MEDS: docusate sod 100mg capsule PO SCH ×2 (08:00→20:00)
[2022-05-14] MEDS: lactose-reduced food (Ensure High Protein) 237ml bottle PO SCH ×3 (08:05→18:03)
--- NOTE | 2022-05-14 08:30 | NUR ---
Pt. awake and picking at breakfast at bedside. Pt. in no apparent distress.
--- NOTE | 2022-05-14 10:30 | NUR ---
RN attempted to do 1:1 assessment at bedside and pt. pretended to be asleep. Pt. in no apparent distress.
--- NOTE | 2022-05-14 12:30 | NUR ---
Pt. awoken for lunch but refused and went back to sleep. R&R of respirations 16 and unlabored.
--- NOTE | 2022-05-14 14:30 | NUR ---
Pt. awake and resting on her right side in bed. Pt. did not eat any of her lunch. Pt. states, "It just doesn't taste right".
[2022-05-14] MEDS ORDERED: naproxen 500mg tablet PO ONE (16:15)
--- NOTE | 2022-05-14 16:30 | NUR ---
Pt. c/o back pain. RN received one time order of Naproxyn 500mg however, pt. refused, reporting her back pain had improved.
--- NOTE | 2022-05-14 18:18 | NUR ---
Pt. awake and resting in bed in supine position. Pt. refusing her dinner.
--- NOTE | 2022-05-14 18:38 | NUR ---
Pt refused her dinner tray accept her cake.
--- NOTE | 2022-05-14 21:00 | NUR ---
PT refused her HS emd and ensure
--- NOTE | 2022-05-15 | NUR ---
Pt asleep on R side RR 16
--- NOTE | 2022-05-15 02:00 | NUR ---
PT wakes up asking for coffee, pt reminded it was 0200 AM and coffee would ve served with breakfast
--- NOTE | 2022-05-15 03:10 | NUR ---
PT asks for coffee again
--- NOTE | 2022-05-15 05:58 | NUR ---
Pt asleep on back respirations even and unlabored
--- NOTE | 2022-05-15 07:10 | NUR ---
Patient awake sitting up in bed. No complaints at this time.
--- NOTE | 2022-05-15 07:11 | NUR ---
Patient sleeping. Wearing nasal cannula at 2 liters.
[2022-05-15] MEDS: docusate sod 100mg capsule PO SCH ×2 (08:49→19:59)
[2022-05-15] MEDS: lactose-reduced food (Ensure High Protein) 237ml bottle PO SCH ×3 (08:50→18:24)
--- NOTE | 2022-05-15 09:21 | NUR ---
Patient is in bed sleeping. Patient ate 25% of breakfast.
--- NOTE | 2022-05-15 10:01 | NUR ---
RICK Green here talking with patient.
--- NOTE | 2022-05-15 11:45 | NUR ---
Patient sleeping on her right side. Respirations are even and unlabored.
--- NOTE | 2022-05-15 13:31 | NUR ---
Patient continues to sleep. She is not drinking ensures, and wants soda. Refused her lunch except some cake.
--- NOTE | 2022-05-15 14:10 | NUR ---
pt to be evaluated by public guardian to assess guardianship.
--- NOTE | 2022-05-15 15:09 | NUR ---
Patient is sleeping in bed. Respirations are even and unlabored.
--- NOTE | 2022-05-15 15:56 | NUR ---
Patient ambulated independently to the bathroom. Asked patient if she would like food items and she refused.
--- NOTE | 2022-05-15 17:49 | NUR ---
Patient sleeping in bed.
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
--- NOTE | 2022-05-15 19:48 | NUR ---
Patient was asked if staff could soak her hands and trim her nails and she stated "No that sounds weird. I want to have them taken off with radiation"
--- NOTE | 2022-05-15 22:22 | NUR ---
The patient appears to be sleeping
--- NOTE | 2022-05-16 00:30 | NUR ---
The patient appears to be sleeping
--- NOTE | 2022-05-16 03:03 | NUR ---
The patient appears to be sleeping
--- NOTE | 2022-05-16 04:32 | NUR ---
The patient appears to be sleeping
--- NOTE | 2022-05-16 05:33 | NUR ---
The patient appears to be sleeping
--- NOTE | 2022-05-16 06:29 | NUR ---
Patient ambulated independently to the restroom.
[2022-05-16] MEDS: docusate sod 100mg capsule PO SCH ×2 (08:00→20:00)
[2022-05-16] MEDS: lactose-reduced food (Ensure High Protein) 237ml bottle PO SCH ×4 (08:26→22:01)
--- NOTE | 2022-05-16 09:12 | NUR ---
Patient sleeping in bed. No signs of distress noted.
--- NOTE | 2022-05-16 11:24 | NUR ---
Patient is sleeping on her right side with nasal cannula in her nose running at 2 liters.
--- NOTE | 2022-05-16 14:02 | NUR ---
[facility] office here evaluating patient. Last spoke with patient she said that we are putting stool softeners in her food and coffee.
--- NOTE | 2022-05-16 15:40 | NUR ---
Patient laying on her right side sleeping in bed. No distress noted.
--- NOTE | 2022-05-16 18:01 | NUR ---
Patient continues to have delusions that laxatives are being put in her food and drinks.
--- NOTE | 2022-05-16 18:38 | NUR ---
Patient is sleeping quietly, no distress.
--- NOTE | 2022-05-16 19:13 | NUR ---
Patient sleeps quietly. No distress, mid fowlers position.
--- NOTE | 2022-05-16 20:11 | NUR ---
Patient continues to sleep quietly. No distress. Patient has self repositioned in bed.
--- NOTE | 2022-05-16 21:19 | NUR ---
Patient continues to sleep. No signs of distress. Frequent rounding for patient safety, Q15 minutes.
--- NOTE | 2022-05-16 22:36 | NUR ---
Patient is sleeping quietly. She has slept since shift change.
--- NOTE | 2022-05-16 23:35 | NUR ---
Patient is sleeping quietly in a mid fowlers position. [address] at 2 LPM, continous flow. No signs of distress.
--- NOTE | 2022-05-17 00:29 | NUR ---
Patient awoke and ambulated to the bathroom where she experienced a medium size bowel movement. Patient then returned to bed. She ate potato chips and a pepsi. She refused all other food. The patient was friendly.
--- NOTE | 2022-05-17 02:55 | NUR ---
Patient is sleeping quietly on her back, bed in mid fowers position. 02 is continuing at 2 LPM, it is her home medication.
--- NOTE | 2022-05-17 03:33 | NUR ---
Patient is sleeping quietly, no signs of distress.
--- NOTE | 2022-05-17 05:50 | NUR ---
Patient is sleeping on her right side. No distress noted.
[2022-05-17] MEDS: docusate sod 100mg capsule PO SCH (08:00)
--- NOTE | 2022-05-17 08:59 | NUR ---
Pt refused ensure and prefers pre packaged food. She has a special fondness for scrambles eggs.
--- NOTE | 2022-05-17 09:00 | NUR ---
Pt ate 25% of breakfast.
--- NOTE | 2022-05-17 12:30 | NUR ---
Pt refused lunch.
[2022-05-17] MEDS: lactose-reduced food (Ensure High Protein) 237ml bottle PO SCH ×2 (13:00→18:00)
[2022-05-17] MEDS ORDERED: docusate sod 100mg capsule PO PRN (18:50)
--- NOTE | 2022-05-17 19:24 | NUR ---
Attempted one to one with the patient who was laying on her bed with her eyes closed. She has been refusing most of her dinner and she ate poorly at lunch. She has been consistently refusing to drink the ensures that she gets with her meals and they were discontinued. She also has been refusing the colace and that was changed to PRN. She presents as guarded and paranoid.
--- NOTE | 2022-05-17 20:18 | NUR ---
The patient appears to be sleeping
--- NOTE | 2022-05-17 21:31 | NUR ---
The patient appears to be sleeping
--- NOTE | 2022-05-17 22:43 | NUR ---
The patient appears to be sleeping
--- NOTE | 2022-05-18 00:06 | NUR ---
The patient appears to be sleeping
--- NOTE | 2022-05-18 01:11 | NUR ---
The patient is resting on her bed
--- NOTE | 2022-05-18 04:31 | NUR ---
The patient appears to be sleeping
--- NOTE | 2022-05-18 05:29 | NUR ---
The patient appears to be sleeping
--- NOTE | 2022-05-18 06:37 | NUR ---
Patient sleeping supine. No distress observed. Continue to monitor.
--- NOTE | 2022-05-18 08:11 | NUR ---
Patient eating breakfast. No distress observed. Continue to monitor.
--- NOTE | 2022-05-18 09:19 | NUR ---
Patient sleeping on right side. No distress observed. Continue to monitor.
--- NOTE | 2022-05-18 11:03 | NUR ---
Patient laying supine with eyes closed. No distress observed. Continue to monitor.
--- NOTE | 2022-05-18 12:48 | NUR ---
Patient ambulatory to BR, steady gait. Continue to monitor.
--- NOTE | 2022-05-18 13:32 | NUR ---
Patient eating chips. Patient did not liker her lunch and didn't eat anything on her tray. Continue to monitor.
--- NOTE | 2022-05-18 15:04 | NUR ---
Patient sleeping supine. No distress observed. Continue to monitor.
--- NOTE | 2022-05-18 18:59 | NUR ---
The patient is resting on her bed. She ate very little of her dinner. She does not attempt socialization with others. She makes no attempt at self care or hygiene and she refuses assistance from staff.
--- NOTE | 2022-05-18 19:01 | NUR ---
WEIGHT 51.4 KG
--- NOTE | 2022-05-18 20:04 | NUR ---
Patient up to use the bathroom and is now back in bed
--- NOTE | 2022-05-18 22:29 | NUR ---
The patient is resting on her bed.
--- NOTE | 2022-05-19 00:30 | NUR ---
The patient appears to be sleeping
--- NOTE | 2022-05-19 02:45 | NUR ---
The patient awakened by another patient but is cooperative and resting on her bed.
--- NOTE | 2022-05-19 04:01 | NUR ---
The patient appears to be sleeping
--- NOTE | 2022-05-19 05:04 | NUR ---
The patient is resting on her bed.
--- NOTE | 2022-05-19 06:32 | NUR ---
Patient ambulatory, steady gait to BR. No distress observed. Continue to monitor.
--- NOTE | 2022-05-19 08:22 | NUR ---
Patient eating breakfast. Patient does not like the hard boiled eggs. RN requested scrambled eggs for patient. Continue to monitor.
--- NOTE | 2022-05-19 10:14 | NUR ---
Patient sleeping supine. No distress observed. Continue to monitor.
--- NOTE | 2022-05-19 12:08 | NUR ---
Patient eating lunch. No distress observed. Continue to monitor.
--- NOTE | 2022-05-19 14:03 | NUR ---
Norma, Size Marker, speaking with patient. Patient is not happy and is expecting to live in a house by herself. Continue to monitor.
--- NOTE | 2022-05-19 16:18 | NUR ---
Patient sleeping on her right side. No distress observed.
--- NOTE | 2022-05-19 18:06 | NUR ---
Patient sitting up and eating lunch. No distress observed. Continue to monitor.
--- NOTE | 2022-05-19 19:00 | NUR ---
PT laying quietly in bed, she does not want to talk to RN
--- NOTE | 2022-05-19 21:30 | NUR ---
Pt up to use the restroom, voided
--- NOTE | 2022-05-20 01:00 | NUR ---
Pt is resting quietly in bed
--- NOTE | 2022-05-20 04:00 | NUR ---
PT up to use the restroom
--- NOTE | 2022-05-20 05:33 | NUR ---
Pt is asleep on R side RR 16
--- NOTE | 2022-05-20 06:42 | NUR ---
Patient sleeping supine. No distress observed. Continue to monitor.
--- NOTE | 2022-05-20 08:40 | NUR ---
Patient eating lunch. No distress observed. Continue to monitor.
--- NOTE | 2022-05-20 10:05 | NUR ---
Paste Mixing Supervisor, Norma, speaking with patient. They have found a patient a place to stay but patient refuses because she wants a house. Norma and staff explain that she doesn't have enough money for a house and she couldn't cook, clean or do her shopping for herself. Patient states she will ask Social Security for enough money to cover the cost extra cost. Norma explains that it doesn't work that way. Patient does not appear to have the capacity to understand. Patient is in the process of Probate Conservatorship due to lack of capacity to make sound decisions. Patient is frustrated. Continue to monitor.
--- NOTE | 2022-05-20 12:03 | NUR ---
Patient eating lunch. No distress observed. Continue to monitor.
--- NOTE | 2022-05-20 14:33 | NUR ---
Patient sleeping. No distress observed. Continue to monitor.
--- NOTE | 2022-05-20 16:18 | NUR ---
Patient sleeping on right side. No distress observed. Continue to monitor.
--- NOTE | 2022-05-20 20:21 | NUR ---
Pt resting in bed, no complaints offered
--- NOTE | 2022-05-21 00:01 | NUR ---
Pt up to use the restroom
--- NOTE | 2022-05-21 02:00 | NUR ---
Pt asleep supine, RR 16
--- NOTE | 2022-05-21 03:45 | NUR ---
PT asleep on R side respirations even and unlabored
--- NOTE | 2022-05-21 05:50 | NUR ---
pt asleep RR 14
--- NOTE | 2022-05-21 06:30 | NUR ---
Pt is lying in bed, she appears to be sleeping.
--- NOTE | 2022-05-21 08:30 | NUR ---
Pt is sitting on the edge of her bed eating her breakfast.
--- NOTE | 2022-05-21 08:53 | NUR ---
Pt reports that she feels sad, pt denies SI/HI/AH/VH. Pt is alert and oriented X [address] Pt knew it was May but did not know the year.
--- NOTE | 2022-05-21 10:13 | NUR ---
Pt is lying in bed on her back, appears to be sleeping, respirations regular and unlabored, O2 cannula in place at 2L.
--- NOTE | 2022-05-21 11:49 | NUR ---
Pt is in bed lying on her back. She appears to be sleeping. RR 20.
--- NOTE | 2022-05-21 12:09 | NUR ---
Pt ambulated to the bathroom.
--- NOTE | 2022-05-21 13:09 | NUR ---
Pt declined her lunch though did eat some potato chips.
--- NOTE | 2022-05-21 15:00 | NUR ---
Pt in bed lying on her back, appears to be sleeping. RR 16.
--- NOTE | 2022-05-21 17:00 | NUR ---
Pt is lying in bed on her right side, appears to be sleeping. RR 16
--- NOTE | 2022-05-21 19:22 | NUR ---
The patient is resting on her bed with her eyes closed. She makes no attempt to engage with others. She makes no attempt at personal hygiene.
--- NOTE | 2022-05-21 23:09 | NUR ---
The patient appears to be sleeping
--- NOTE | 2022-05-22 00:08 | NUR ---
Patient up to use the bathroom but then right back to bed
--- NOTE | 2022-05-22 01:30 | NUR ---
The patient appears to be sleeping
--- NOTE | 2022-05-22 03:03 | NUR ---
The patient appears to be sleeping
--- NOTE | 2022-05-22 05:43 | NUR ---
The patient appears to be sleeping
--- NOTE | 2022-05-22 07:00 | NUR ---
Pt up to use the bathroom.
--- NOTE | 2022-05-22 09:00 | NUR ---
Pt lying in bed on her right side with head of bed elevated 30 degrees, she appears to be sleeping with regular respirations, NC in place.
--- NOTE | 2022-05-22 11:00 | NUR ---
Pt is lying in bed, appears to be sleeping.
--- NOTE | 2022-05-22 12:20 | NUR ---
Pt is awake and eating lunch.
--- NOTE | 2022-05-22 14:20 | NUR ---
Pt asked for some coffee and was provided with a cup of decaf.
--- NOTE | 2022-05-22 16:12 | NUR ---
Pt lying quietly in bed awake.
--- NOTE | 2022-05-22 16:21 | NUR ---
Pt ambulated to the bathroom.
--- NOTE | 2022-05-22 17:50 | NUR ---
Pt requesting macaroni and cheese for dinner.
--- NOTE | 2022-05-22 18:40 | NUR ---
The patient has been resting on her bed. She did not eat breakfast or lunch she was asked why and she stated that she tasted something bad and did not want to eat any of it. She is making no attempts to provide for self care or to socialize with peers.
--- NOTE | 2022-05-22 20:25 | NUR ---
The patient is resting on her bed
--- NOTE | 2022-05-22 21:59 | NUR ---
The patient appears to be sleeping
--- NOTE | 2022-05-23 00:10 | NUR ---
The patient awake briefly to ask for a snack
--- NOTE | 2022-05-23 01:25 | NUR ---
The patient appears to be sleeping
--- NOTE | 2022-05-23 03:06 | NUR ---
The patient appears to be sleeping
--- NOTE | 2022-05-23 05:26 | NUR ---
The patient is resting on her bed
--- NOTE | 2022-05-23 07:00 | NUR ---
Pt is lying in bed on her back, appears to be sleeping.
--- NOTE | 2022-05-23 07:55 | NUR ---
Pt ambulated to the bathroom. Tech changed her linens while she was up.
--- NOTE | 2022-05-23 08:40 | NUR ---
Pt is sitting on side of bed eating breafast. Pt states she is doing okay she guesses. Pt denies any pain and states she believes her last BM was yesterday. Pt continues on 2L O2 via NC, cannula is in place.
--- NOTE | 2022-05-23 09:30 | NUR ---
sent primary RN on a break, pt. is sleeping at this time, no distress noted.
--- NOTE | 2022-05-23 11:30 | NUR ---
Pt lying in bed on her right side, appears to be sleeping.
--- NOTE | 2022-05-23 13:21 | NUR ---
sent primary RN to lunch, pt. is sleeping at this time, no distress noted.
--- NOTE | 2022-05-23 15:09 | NUR ---
Pt is awake lying in bed. Pt only ate around 25% of her lunch.
--- NOTE | 2022-05-23 16:10 | NUR ---
Pt requesting something else to eat. She is not interested in any of the snacks in the refridgerator here on the unit. She is requsting potato chips. Dietary faxed her request for plain [employer] potato chips.
--- NOTE | 2022-05-23 18:10 | NUR ---
Pt moved from ER overflow bed 25 to ER main bed 15.
--- NOTE | 2022-05-23 18:33 | NUR ---
ASSUMED CARE OF PT. PT ROOMED IN ER BED 15. PT SLEEPING COMFORTABLY ON SUPINE POSITION. EQUAL RISE AND FALL OF CHEST.
--- NOTE | 2022-05-23 19:30 | NUR ---
PT SLEEPING COMFORTABLY. EQUAL RISE AND FALL OF CHEST.
--- NOTE | 2022-05-23 20:33 | NUR ---
PT SITTING NEXT TO HER BED. DINNER TRAY NEXT TO PT.
--- NOTE | 2022-05-23 21:30 | NUR ---
PT LYING ON HER SIDE. EQUAL RISE AND FALL OF CHEST.
--- NOTE | 2022-05-23 22:30 | NUR ---
PT SLEEPING COMFORTABLY. EQUA RISE AND FALL OF CHEST.
--- NOTE | 2022-05-23 23:36 | NUR ---
PT SLEEPING ON HER RIGHT SIDE. EQUAL RISE AND FALL OF CHEST.
--- NOTE | 2022-05-24 00:30 | NUR ---
PT SLEEPING ON SUPINE POSITION. EQUAL RISE AND FALL OF CHEST.
--- NOTE | 2022-05-24 01:30 | NUR ---
PT SLEEPING COMFORTABLY. EQUAL RISE AND FALL OF CHEST.
--- NOTE | 2022-05-24 02:30 | NUR ---
PT WALKED TO BATHROOM WITH RN AND WALKED BACK TO HER BED.
--- NOTE | 2022-05-24 03:33 | NUR ---
pt sleeping on his back. equal rise and fall of chest.
--- NOTE | 2022-05-24 04:45 | NUR ---
PT COMFORTABLY SLEEPING. EQUAL RISE AND FALL OF CHEST.
--- NOTE | 2022-05-24 06:14 | NUR ---
pt sleeping comfortably. equal rise and fall of chest.
--- NOTE | 2022-05-24 07:00 | NUR ---
Pt. refusing vital signs. Pt. states, "I don't think so".
--- NOTE | 2022-05-24 08:30 | NUR ---
Pt. awake and eating breakfast at bedside. Pt. got up to use the restroom and went back to her sitting at her bedside.
--- NOTE | 2022-05-24 08:45 | NUR ---
RN asked pt. if she wanted to shower today, pt. refused, states, "no... not right now".
--- NOTE | 2022-05-24 10:30 | NUR ---
Pt. asleep in supine position. Pt.'s R&R of respirations 16 and even.
--- NOTE | 2022-05-24 12:30 | NUR ---
Pt. refused her lunch. Pt. sleeping on her right side. Respiration R&R 18 and even.
--- NOTE | 2022-05-24 14:30 | NUR ---
Pt. asleep in supine position. Normal R&R of respirations, 16, even, and unlabored.
--- NOTE | 2022-05-24 16:35 | NUR ---
Pt. awake and walked to bathroom. Pt. reports she has not been able to have a BM yet. RN offered pt. jane PRN, pt. refused. Pt. has oxygen running at 2L per NC.
--- NOTE | 2022-05-24 18:25 | NUR ---
Pt. is awake and eating dinner at bedside.
--- NOTE | 2022-05-24 19:03 | NUR ---
The patient is resting on her bed. She did eat fairly well at dinner time. She has poor care of her ADLs. She declined a shower earlier in the day. She is not engaging with others
--- NOTE | 2022-05-24 21:04 | NUR ---
The patient appears to be sleeping
--- NOTE | 2022-05-24 22:58 | NUR ---
The patient appears to be sleeping
--- NOTE | 2022-05-25 01:13 | NUR ---
The patient appears to be sleeping
--- NOTE | 2022-05-25 02:48 | NUR ---
The patient appears to be sleeping
--- NOTE | 2022-05-25 04:08 | NUR ---
The patient appears to be sleeping
--- NOTE | 2022-05-25 05:28 | NUR ---
The patient appears to be sleeping
--- NOTE | 2022-05-25 08:07 | NUR ---
The patient appeared to have slept well during the night.
--- NOTE | 2022-05-25 08:10 | NUR ---
WEIGHT 51.6 KG
--- NOTE | 2022-05-25 09:11 | NUR ---
The patient agreed to shower. Her bed linens were changed.
--- NOTE | 2022-05-25 10:02 | NUR ---
The patient is resting on her bed.
--- NOTE | 2022-05-25 11:26 | NUR ---
The patient is resting on her bed.
--- NOTE | 2022-05-25 12:59 | NUR ---
The patient is resting on her bed.
--- NOTE | 2022-05-25 14:21 | NUR ---
The patient is resting on her bed
--- NOTE | 2022-05-25 15:57 | NUR ---
The patient is resting on her bed
--- NOTE | 2022-05-25 17:03 | NUR ---
The patient is resting on her bed
--- NOTE | 2022-05-25 19:08 | NUR ---
Assumed care of pt, pt move to main ER room 15. Pt states "how long will I be here and why am I here?" Pt resting in her bed comfortably with no s/s of distress, no complaints at this time.
--- NOTE | 2022-05-25 20:51 | NUR ---
Pt has been resting in bed, sleeping on and off, no complaints.
--- NOTE | 2022-05-25 22:15 | NUR ---
Pt appears to be sleeping.
--- NOTE | 2022-05-25 23:45 | NUR ---
Pt up to the bathroom, pt requesting snacks but doesnt like what is offered.
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
[2022-05-26] MEDS ORDERED: FAMO20TA8 PO (05:21)
[2022-05-26 07:02] LABS: BASOPHILS % (AUTO) 0.8 % (0-1); EOSINOPHILS # (AUTO) 0.2 X10'3 (0-0.9); EOSINOPHILS % (AUTO) 2.9 % (0-6); HEMOGLOBIN 14.1 g/dl (12.0-16.0); LYMPHOCYTES # (AUTO) 0.7 X10'3 (1.1-4.8); LYMPHOCYTES % (AUTO) 11.5 % (21-51); MEAN CORPUSCULAR HEMOGLOBIN 27.8 PG (27.0-31.0); MEAN CORPUSCULAR HGB CONC 32.9 g/dL (33.0-36.5); MEAN CORPUSCULAR VOLUME 84.6 FL (78-98); MEAN PLATELET VOLUME 7.8 FL (7.4-10.4); MONOCYTES # (AUTO) 0.5 X10'3 (0-0.9); MONOCYTES % (AUTO) 8.7 % (2-12); NEUTROPHILS # (AUTO) 4.7 X10'3 (1.8-7.7); NEUTROPHILS % (AUTO) 76.1 % (42-75); PLATELET COUNT 259 X10'3 (140-440); RED BLOOD COUNT 5.08 X10'6 (4.20-5.60); RED CELL DISTRIBUTION WIDTH 15.8 % (11.5-14.5); WHITE BLOOD COUNT 6.2 X10'3 (4.5-11.0)
[2022-05-26 07:14] LABS: D-DIMER 2.83 MG/L FEU (0-0.50)
[2022-05-26 07:19] LABS: ALANINE AMINOTRANSFERASE 10 U/L (12-78); ALBUMIN 2.6 G/DL (3.4-5.0); ALBUMIN/GLOBULIN RATIO 0.7 (1.1-1.5); ALKALINE PHOSPHATASE 78 IU/L (46-116); ANION GAP 6 (8-16); ASPARTATE AMINO TRANSFERASE 15 U/L (10-37); BILIRUBIN,TOTAL 0.6 MG/DL (0.1-1.0); BLOOD UREA NITROGEN 13 MG/DL (7-18); BUN/CREATININE RATIO 23.2 (6.6-38.0); CALCIUM 8.9 MG/DL (8.5-10.1); CHLORIDE 101 MMOL/L (99-107); CREATININE 0.56 MG/DL (0.40-0.90); GLUCOSE 309 MG/DL (70-104); POTASSIUM 3.3 MMOL/L (3.5-5.1); SODIUM 139 MMOL/L (135-145); TOTAL CARBON DIOXIDE 32.2 MMOL/L (24-32); TOTAL PROTEIN 6.3 G/DL (6.4-8.2); eGFR > 90 ML/MIN
--- NOTE | 2022-05-26 08:11 | NUR ---
Pt is up and eating breakfast.
[2022-05-26] MEDS ORDERED: ipratropium/albuterol 3ml nebule IH PRN (11:55)
--- NOTE | 2022-05-26 14:20 | NUR ---
Pt sleeps most of the day.
--- NOTE | 2022-05-26 18:37 | NUR ---
PT ate ice cream off dinner tray, but refused the rest of the tray. RN encouraged pt to try to eat more and offered assistance, but PT refused.
--- NOTE | 2022-05-26 19:50 | NUR ---
PT moved to ER overflow bed 25 with no issue
[2022-05-26] MEDS: budesonide 0.5mg/2ml UD nebule IH SCH (20:43)
--- NOTE | 2022-05-27 | NUR ---
PT sleeping supine RR 14
--- NOTE | 2022-05-27 02:00 | NUR ---
PT up to use restroom
--- NOTE | 2022-05-27 05:50 | NUR ---
PT asleep on R side RR 16
--- NOTE | 2022-05-27 06:36 | NUR ---
Patient laying on her right side and re-adjusting. No distress observed. Continue to monitor.
[2022-05-27] MEDS: famotidine 20mg tablet PO SCH ×2 (08:00→08:06)
[2022-05-27] MEDS: duloxetine 30mg CAPSULE.DR PO SCH ×2 (08:00→08:06)
--- NOTE | 2022-05-27 08:17 | NUR ---
Patient eating breakfast. No distress observed. Continue to monitor.
--- NOTE | 2022-05-27 08:40 | NUR ---
Patient refused meds. Patient does not like generic Cymbalta and then also refused Pepcid because the "pill looks bigger." No distress observed. Continue to monitor.
[2022-05-27] MEDS: budesonide 0.5mg/2ml UD nebule IH SCH (09:00)
--- NOTE | 2022-05-27 10:52 | NUR ---
Patient sleeping supine. No distress observed. Continue to monitor.
--- NOTE | 2022-05-27 12:11 | NUR ---
Patient eating lunch. No distress observed. Continue to monitor.
--- NOTE | 2022-05-27 14:20 | NUR ---
Patient sleeping on right side. No distress observed. Continue to monitor.
--- NOTE | 2022-05-27 15:24 | NUR ---
patient asleep.We will monitor.
--- NOTE | 2022-05-27 17:16 | NUR ---
Patient sleeping on her right side. No distress observed. Continue to monitor.
--- NOTE | 2022-05-27 19:00 | NUR ---
Pt resting in bed, not talkative
--- NOTE | 2022-05-28 | NUR ---
PT is asleep, supine, RR 16
--- NOTE | 2022-05-28 02:30 | NUR ---
Pt up to use the restroom
--- NOTE | 2022-05-28 06:20 | NUR ---
Patient awoken for vitals. Patient chatting with Tech. No distress observed. Continue to monitor.
[2022-05-28] MEDS: duloxetine 30mg CAPSULE.DR PO SCH (08:00)
[2022-05-28] MEDS: famotidine 20mg tablet PO SCH (08:00)
--- NOTE | 2022-05-28 08:10 | NUR ---
Patient sitting up and eating breakfast. No distress observed. Continue to monitor.
--- NOTE | 2022-05-28 09:52 | NUR ---
Patient laying supine with her eyes closed. No distress observed. Continue to monitor.
[2022-05-28] MEDS: budesonide 0.5mg/2ml UD nebule IH SCH ×2 (11:01→20:05)
--- NOTE | 2022-05-28 11:30 | NUR ---
Patient appears to be sleeping. No distress observed. Continue to monitor.
--- NOTE | 2022-05-28 12:10 | NUR ---
Patient picking at her food. Continue to monitor.
--- NOTE | 2022-05-28 13:49 | NUR ---
pt is resting, no distress at this time
--- NOTE | 2022-05-28 15:03 | NUR ---
Patient sleeping on her right side. No distress observed. Continue to monitor.
--- NOTE | 2022-05-28 17:04 | NUR ---
Patient laying supine. Patient is awake and re-adjusting. No distress observed. Continue to monitor.
--- NOTE | 2022-05-28 19:26 | NUR ---
The patient has been resting on her bed quietly with her eyes closed. She ate very little of her dinner. She denies that she has any pain or other complaints. She is withdrawn and does not make any effort to socialize with peers or take of her personal hygiene.
--- NOTE | 2022-05-28 20:18 | NUR ---
The patient is resting on her bed. Complained of being hungry and asked for and received a sandwich.
--- NOTE | 2022-05-28 21:44 | NUR ---
The patient appears to be sleeping
--- NOTE | 2022-05-29 00:03 | NUR ---
The patient appears to be sleeping
--- NOTE | 2022-05-29 01:41 | NUR ---
The patient appears to be sleeping
--- NOTE | 2022-05-29 03:19 | NUR ---
The patient appears to be sleeping
--- NOTE | 2022-05-29 05:05 | NUR ---
The patient appears to be sleeping
--- NOTE | 2022-05-29 06:34 | NUR ---
Patient awake and laying supine. No distress observed. Continue to monitor.
--- NOTE | 2022-05-29 06:51 | NUR ---
Patient ambulatory to BR, steady gait. No distress observed. Continue to monitor.
[2022-05-29] MEDS: duloxetine 30mg CAPSULE.DR PO SCH (08:00)
[2022-05-29] MEDS: famotidine 20mg tablet PO SCH (08:00)
--- NOTE | 2022-05-29 08:22 | NUR ---
Patient eating breakfast. RN gave patient an extra 2 pieces of holbrook since we had an extra tray. Patient ate well this morning. Continue to monitor.
[2022-05-29] MEDS: budesonide 0.5mg/2ml UD nebule IH SCH ×2 (09:00→21:00)
--- NOTE | 2022-05-29 10:17 | NUR ---
Patient ambulatory, steady gait to BR. No distress observed. Continue to monitor.
--- NOTE | 2022-05-29 12:15 | NUR ---
Patient picking at her lunch dessert. Continue to monitor.
--- NOTE | 2022-05-29 14:03 | NUR ---
Patient sleeping. No distress observed. Continue to monitor.
--- NOTE | 2022-05-29 16:32 | NUR ---
Patient ambulatory to BR, steady gait. No distress observed. Continue to monitor.
--- NOTE | 2022-05-29 18:23 | NUR ---
Patient sleeping on right side. No distress observed. Continue to monitor.
--- NOTE | 2022-05-29 18:42 | NUR ---
The patient is laying on her bed with her eyes closed. She refused to engage with the staff during the evening assessment and just replied "leave me alone" She makes no attempt to engage with others. She dosen't ask what plans are being made for her as far as placement. She makes no attempt at personal hygiene. She does ambulate independently to the bathroom and is continent.
--- NOTE | 2022-05-29 21:16 | NUR ---
The patient is sleeping on her bed
--- NOTE | 2022-05-29 22:39 | NUR ---
The patient appears to be sleeping
--- NOTE | 2022-05-30 00:03 | NUR ---
The patient appears to be sleeping
--- NOTE | 2022-05-30 01:09 | NUR ---
The patient appears to be sleeping
--- NOTE | 2022-05-30 03:01 | NUR ---
The patient appears to be sleeping
--- NOTE | 2022-05-30 05:14 | NUR ---
The patient is resting on her bed
--- NOTE | 2022-05-30 06:30 | NUR ---
Assumed care of pt., pt. is laying on her left side sleeping, rr are even and unlabored.
[2022-05-30] MEDS: budesonide 0.5mg/2ml UD nebule IH SCH ×2 (07:57→21:00)
[2022-05-30] MEDS: duloxetine 30mg CAPSULE.DR PO SCH (08:00)
[2022-05-30] MEDS: famotidine 20mg tablet PO SCH (08:00)
--- NOTE | 2022-05-30 08:30 | NUR ---
Pt. continues to be non-compliant with medications. When further questioned by this junior copywriter regarding her refusal, pt. stated in a high pitched voice, "It's not the right medication." This junior copywriter provided education regarding medications, however pt. continued to refuse and closed her eyes returning to sleep. This junior copywriter will continue to provide encouragement.
--- NOTE | 2022-05-30 10:19 | NUR ---
This technical document writer attempted to complete physical assessment and 1:1 mental health assessment at bedside. Pt. refused and stated, "No! I'm fine, leave me alone!" She slapped this technical document writer's hand away. Pt. got up to use the bathroom independently with encouragement from this technical document writer. While she was up, staff changed her bed linens which were full of dropped food items from meals. After using the bathroom, pt. returned back to bed replacing her oxygen N/C, will continue to provide needed encouragement to pt. to perform ADLs. Pt. continues to wear supplemental oxygen a 2L/min via nasal cannula. Her oxygen saturation is WNL.
--- NOTE | 2022-05-30 13:08 | NUR ---
Pt. continues to sleep at this time, laying on her left side, rr are even and unlabored.
--- NOTE | 2022-05-30 14:32 | NUR ---
Pt. continues to sleep at this time, she is laying on her back with HOB elevated. Rise and fall of chest noted.
--- NOTE | 2022-05-30 16:23 | NUR ---
Pt. continues to sleep at this time, her nasal cannula had come out and this brief writer awoke her in order to remind her to replace it back in her nose. Pt. was compliant, however continues to present as guarded and states, "Leave me alone!" Pt. again gets up to use the bathroom with prompting and is able to do so independently.
--- NOTE | 2022-05-30 18:08 | NUR ---
Pt. continues to lay in bed at this time, she was encouraged by staff to eat dinner.
--- NOTE | 2022-05-30 18:30 | NUR ---
Assumed patient care. Patient is sleeping on her right side. O2 in place at 2 LPM. No distress. No legal hold. Poker Room Manager is working on placement. Addendum: 05/31/22 at 0246 by DILCIA Summer, LITERACY TUTOR is primary care.
--- NOTE | 2022-05-30 18:58 | NUR ---
patient recieved resting quietly in bed with eyes closed. No s/sx acute distress.
--- NOTE | 2022-05-30 20:13 | NUR ---
Patient up to bathroom to void, she ambulates with a rapid and steady gait. Patient returns to bed to sleep.
--- NOTE | 2022-05-30 20:30 | NUR ---
Assumed total care of this patient from Summer, BLOCK CUTTER. Patient is sleeping quietly.
--- NOTE | 2022-05-30 21:00 | NUR ---
Patient awakened, she denies need for any medications.
--- NOTE | 2022-05-30 22:15 | NUR ---
Patient enjoyed a Pepsi and a bag of potato chips. For dinner she ate ice cream only. Patient has refused RT treatment or care.
--- NOTE | 2022-05-31 00:10 | NUR ---
Patient has been up to void, she then returned to bed and sleep. She administers her own cannula, on and off.
--- NOTE | 2022-05-31 05:33 | NUR ---
Patient was sleeping on her left side. She awoke and cooperated with morning vital signs.
[2022-05-31] MEDS: famotidine 20mg tablet PO SCH (08:00)
[2022-05-31] MEDS: duloxetine 30mg CAPSULE.DR PO SCH (08:00)
--- NOTE | 2022-05-31 08:39 | NUR ---
Patient has slept until breakfast, woke up to eat, then back to sleep. Patient refused her meds this morning.
[2022-05-31] MEDS: budesonide 0.5mg/2ml UD nebule IH SCH ×2 (09:00→19:03)
--- NOTE | 2022-05-31 10:17 | NUR ---
Patient appears to be asleep in supine position. Respirations are even and unlabored. No s/sx of distress.
--- NOTE | 2022-05-31 10:31 | NUR ---
Jeanette lowe in [facility] - 05/31/22 at 1033 by TERRANCE Patient is talking to her Father Joon on the phone.
--- NOTE | 2022-05-31 11:45 | NUR ---
Patient appears to be sleeping on her left side. no s/sx of distress.
--- NOTE | 2022-05-31 13:00 | NUR ---
Patient eating lunch after using the restroom.
--- NOTE | 2022-05-31 13:48 | NUR ---
Patient back asleep on her right side.
--- NOTE | 2022-05-31 15:05 | NUR ---
Patient appears to be sleeping in supine position. RR WNL. No s/sx of distress.
--- NOTE | 2022-05-31 16:21 | NUR ---
Patient continues to sleep on her right side. No s/sx of distress.
--- NOTE | 2022-05-31 19:19 | NUR ---
Patient is pleasant and cooperative; eating snacks and no apparent distress observed.
--- NOTE | 2022-05-31 22:00 | NUR ---
Patient observed sleeping; no apparent distress and self repositioning.
--- NOTE | 2022-06-01 01:00 | NUR ---
Patient observed sleeping; no apparent distress and continues to self reposition.
--- NOTE | 2022-06-01 03:46 | NUR ---
Patient remains sleeping; no apparent distress and self repositioning.
--- NOTE | 2022-06-01 05:13 | NUR ---
Patient observed sleeping; no apparent distress at this time and self repositiong.
--- NOTE | 2022-06-01 06:30 | NUR ---
Received report from FELIPE Stevens. Assumed care for patient. Patient sleeping at this time. Patient in line of sight observation.
[2022-06-01] MEDS: famotidine 20mg tablet PO SCH (08:00)
[2022-06-01] MEDS: duloxetine 30mg CAPSULE.DR PO SCH (08:00)
--- NOTE | 2022-06-01 08:05 | NUR ---
Patient awake and assessment completed. Patient refused 0800 medications at this time. RT here and patient refused RT treatment. Patient states "I don't like those masks." Patient smiling and laughing. Assessment completed. Patient ate breakfast and laid back down.
[2022-06-01] MEDS: budesonide 0.5mg/2ml UD nebule IH SCH ×2 (08:25→20:20)
--- NOTE | 2022-06-01 09:41 | NUR ---
Patient sleeping in bed at this time. Appears comfortable. Will continue to monitor.
--- NOTE | 2022-06-01 11:00 | NUR ---
Patient remains sleeping since after eating breakfast. Patient wearing 02 at 2L/NC. No shortness of breath noted. Appears comfortable at this time.
--- NOTE | 2022-06-01 12:30 | NUR ---
Patient sitting up alongside the bed. Assisted with ambulation to bathroom and patient informed this Clinical Operations Specialist she urinated. Assisted patient back to bed with the 02 cannula placed back into her nares.
--- NOTE | 2022-06-01 13:55 | NUR ---
Patient continues to sleep. Arouses easily. Will continue to monitor.
--- NOTE | 2022-06-01 15:50 | NUR ---
Patient sleeping at this time. Will continue to monitor.
--- NOTE | 2022-06-01 16:20 | NUR ---
Patient sleeping in bed at this time.
--- NOTE | 2022-06-01 17:26 | NUR ---
1630 Patient sleeping at this time. Easily aroused to have vital signs taken by PCT. Denies need of ambulating to the bathroom at this time to void. Will continue to monitor.
--- NOTE | 2022-06-01 18:57 | NUR ---
Pt sitting in bed at change of shift. Pt yells out that she doesnt want the "garbage we serve here!" Pt is refusing to eat her dinner and wants tray removed. Pt requested a 7 up and "breakfast." Pt was offered a sandwhich and provided with a cup of lemon kiana soda and ice. Pt states "thats just water! get it out of here!" Pt ate the sandwhich provided.
--- NOTE | 2022-06-01 19:53 | NUR ---
Pt appears to be sleeping rr 16
--- NOTE | 2022-06-02 00:27 | NUR ---
Pt is awake, up to use the bathroom and returned to bed.
--- NOTE | 2022-06-02 02:36 | NUR ---
Pt is laying quietly in bed awake. RR16
--- NOTE | 2022-06-02 04:10 | NUR ---
Pt is laying in bed appears to be sleeping rr even and unlabored
--- NOTE | 2022-06-02 05:05 | NUR ---
Pt awake and up to use the bathroom. Pt returned to bed and sitting quietly.
--- NOTE | 2022-06-02 06:32 | NUR ---
Patient sleeping supine. No distress observed. Continue to monitor.
[2022-06-02] MEDS: duloxetine 30mg CAPSULE.DR PO SCH (08:00)
[2022-06-02] MEDS: famotidine 20mg tablet PO SCH (08:00)
--- NOTE | 2022-06-02 08:26 | NUR ---
Patient eating breakfast. No distress observed. Continue to monitor.
--- NOTE | 2022-06-02 10:17 | NUR ---
Patient sleeping with her light on. No distress observed. Continue to monitor.
--- NOTE | 2022-06-02 12:11 | NUR ---
Patient picking at her food. Continue to monitor.
--- NOTE | 2022-06-02 14:13 | NUR ---
Patient sleeping supine. No distress observed. Continue to monitor.
--- NOTE | 2022-06-02 18:43 | NUR ---
The patient is resting on her bed. She was pleasant when approached.
--- NOTE | 2022-06-02 19:51 | NUR ---
The patient appears to be sleeping
--- NOTE | 2022-06-02 21:14 | NUR ---
The patient is resting on her bed quietly and appears to be asleep
--- NOTE | 2022-06-02 22:48 | NUR ---
The patient appears to be sleeping
--- NOTE | 2022-06-03 00:48 | NUR ---
The patient appears to be sleeping
--- NOTE | 2022-06-03 02:12 | NUR ---
The patient is resting on her bed with her eyes closed
--- NOTE | 2022-06-03 03:43 | NUR ---
The patient appears to be sleeping
--- NOTE | 2022-06-03 05:04 | NUR ---
The patient is awake and sitting on the side of her bed
--- NOTE | 2022-06-03 06:21 | NUR ---
Patient reclining in bed awake. No distress observed. Continue to monitor.
[2022-06-03] MEDS: famotidine 20mg tablet PO SCH (08:00)
[2022-06-03] MEDS: duloxetine 30mg CAPSULE.DR PO SCH (08:00)
--- NOTE | 2022-06-03 08:14 | NUR ---
Patient eating her breakfast. No distress observed. Continue to monitor.
--- NOTE | 2022-06-03 10:03 | NUR ---
Patient sleeping supine. No distress observed. Continue to monitor.
--- NOTE | 2022-06-03 12:06 | NUR ---
Patient's lunch at bedside. Patient picking at it. Conotinue to monitor.
--- NOTE | 2022-06-03 14:09 | NUR ---
Patient reclining with her eyes closed but moving around and awake. No distress observed. Continue to monitor.
--- NOTE | 2022-06-03 14:50 | NUR ---
Dr Gomez evaluating patient and performing a [place] test on patient.
--- NOTE | 2022-06-03 17:00 | NUR ---
Dr Gomez and his collegue leaving. Patient tolerated well. Continue to monitor.
--- NOTE | 2022-06-03 18:55 | NUR ---
Report received from Riana CLARK. Patient laying in bed. Dinner tyray brought in for patient. Patient refused dinner tray. Patient requests a sandwich. Dietary faxed for sandwiches.
--- NOTE | 2022-06-03 20:37 | NUR ---
Patient laying in bed quietly, she appears to be sleeping at this time.
--- NOTE | 2022-06-03 23:40 | NUR ---
Patient appears to be sleeping at this time.
--- NOTE | 2022-06-04 02:56 | NUR ---
Patient appears to be sleeping laying on her back.
--- NOTE | 2022-06-04 06:36 | NUR ---
Patient sleeping supine. No distress observed. Continue to monitor.
[2022-06-04] MEDS: duloxetine 30mg CAPSULE.DR PO SCH (08:00)
[2022-06-04] MEDS: famotidine 20mg tablet PO SCH (08:00)
--- NOTE | 2022-06-04 08:22 | NUR ---
Patient sitting up and eating breakfast. No distress observed. Continue to monitor.
--- NOTE | 2022-06-04 10:36 | NUR ---
Patient ambulatory, steady gait to BR. No distress observed. Continue to monitor.
--- NOTE | 2022-06-04 12:11 | NUR ---
RN placed patient's lunch tray on her bedside table. Patient awoke and said "Thank you." Patient went back to sleep. Continue to monitor.
--- NOTE | 2022-06-04 14:16 | NUR ---
Patient continues to sleep. No distress observed. Continue to monitor.
--- NOTE | 2022-06-04 16:03 | NUR ---
Patient sitting up on side of the bed. No distress observed. Continue to monitor.
--- NOTE | 2022-06-04 18:30 | NUR ---
ASSUMED CARE OF PT. PT SITTIN UP STARING AT A WALL
--- NOTE | 2022-06-04 19:30 | NUR ---
PT ATE HER SANDWHICH.
--- NOTE | 2022-06-04 20:16 | NUR ---
PT SLEEPING COMFORTABLY ON HER RIGHT SIDE. EQUAL RISE AND FALL OF CHEST.
--- NOTE | 2022-06-04 21:45 | NUR ---
PT SLEEPING COMFORTABLY IN SUPINE POSITION. EQUAL RISE AND FALL OF CHEST.
--- NOTE | 2022-06-04 22:45 | NUR ---
PT SLEEPING COMFORTABLY. EQUAL RISE AND FALL OF CHEST.
--- NOTE | 2022-06-04 23:45 | NUR ---
PT GOT UP TO USE RESTROOM THEN WALKED BACK TO BED.
--- NOTE | 2022-06-05 00:45 | NUR ---
PT SLEEPING ON HER RIGHT SIDE. EQUAL RISE AND FALL OF CHEST.
--- NOTE | 2022-06-05 01:45 | NUR ---
PT SLEEPING COMFORTABLY. EQUAL RISE AND FALL OF CHEST.
--- NOTE | 2022-06-05 02:45 | NUR ---
PT SLEEPING COMFORTABLY. EQUAL RISE AND FALL OF CHEST.
--- NOTE | 2022-06-05 03:54 | NUR ---
PT ON HER SIDE SLEEPING. EQUAL RISE AND FALL OF CHEST.
--- NOTE | 2022-06-05 04:47 | NUR ---
PT SLEEPING COMFORTABLY. EQUAL RISE AND FALL OF CHEST.
--- NOTE | 2022-06-05 05:15 | NUR ---
PT SLEEPING COMFORTABLY ON HER BACK. EQUAL RISE AND FALL OF CHEST.
[2022-06-05] MEDS: duloxetine 30mg CAPSULE.DR PO SCH (08:00)
[2022-06-05] MEDS: famotidine 20mg tablet PO SCH (08:00)
--- NOTE | 2022-06-05 08:24 | NUR ---
Pt refused her morning medications. "I don't need that and I will not change my mind."
--- NOTE | 2022-06-05 08:30 | NUR ---
Up to void. Steady gait.
--- NOTE | 2022-06-05 11:45 | NUR ---
Up to void. Steady gait.
--- NOTE | 2022-06-05 18:30 | NUR ---
Patient is sleeping, no distress.
--- NOTE | 2022-06-05 19:40 | NUR ---
Patient is up to bathroom. Patient ate 50 percent of her dinner and drank a soda. She then returned to sleep.
--- NOTE | 2022-06-05 20:54 | NUR ---
Patient remains sleeping quietly. She self repositions in bed.
--- NOTE | 2022-06-05 22:00 | NUR ---
Patient sleeping, no distress.
--- NOTE | 2022-06-05 22:55 | NUR ---
Patient is sleeping quietly on her left side. No distress. 02 is 2 LPM as it is her own rx at home when sleeping.
--- NOTE | 2022-06-06 04:33 | NUR ---
Patient is sleeping on her left side, knees flexed. No distress.
[2022-06-06] MEDS: famotidine 20mg tablet PO SCH (08:00)
[2022-06-06] MEDS: duloxetine 30mg CAPSULE.DR PO SCH (08:00)
--- NOTE | 2022-06-06 08:30 | NUR ---
Pt refused am meds as pt convinced the meds are not really "her meds". Pt seen by ED MD Dr. Bruno and MD updated on pt med refusal.
--- NOTE | 2022-06-06 10:30 | NUR ---
Pt has ambulated to bathroom and back a couple times this am. Pt remains calm and continues to denie needs.
--- NOTE | 2022-06-06 13:30 | NUR ---
Pt had picked at lunch tray and ate approx 20%. Pt now resting again.
--- NOTE | 2022-06-06 14:24 | NUR ---
monitoring patients during primary rn break, pt is resting quietly on right side respirations even and unlabored.
--- NOTE | 2022-06-06 18:45 | NUR ---
Pt taken to ED room 10 on hospital bed. Report given to NOCs charge entry specialist Donna.
--- NOTE | 2022-06-07 07:00 | NUR ---
Pt was brought to overflow bed 24 from ED bed 10. Pt has been up and ambulated to restroom and back to bed. Pt remains calm and cooperative, denies needs.
[2022-06-07] MEDS: famotidine 20mg tablet PO SCH (08:00)
[2022-06-07] MEDS: duloxetine 30mg CAPSULE.DR PO SCH (08:00)
--- NOTE | 2022-06-07 08:45 | NUR ---
Pt ate 100% of eggs and picked at rest of items. Pt now laying and resting comfortably.
--- NOTE | 2022-06-07 10:30 | NUR ---
Pt resting quietly and continues to denie needs.
--- NOTE | 2022-06-07 11:23 | NUR ---
Pt OOB and currently ambulating to restroom.
[2022-06-07] MEDS ORDERED: magnesium hydroxide 30ml (MOM) UD suspension PO ONE (19:35)
--- NOTE | 2022-06-07 19:36 | NUR ---
The patient is resting on her bed. She stated that she has been up 3 times to the bathroom to try and have a BM. She is agreeable to take a dose of MOM and Suraj GAVIRIA gave an order for one time dose.
--- NOTE | 2022-06-07 21:06 | NUR ---
The patient refused to take MOM when offered. She is currently resting on her bed
--- NOTE | 2022-06-07 21:53 | NUR ---
The patient is resting on her bed
--- NOTE | 2022-06-07 23:00 | NUR ---
The patient appears to be sleeping
--- NOTE | 2022-06-08 01:03 | NUR ---
The patient appears to be sleeping
--- NOTE | 2022-06-08 03:13 | NUR ---
The patient appears to be sleeping
--- NOTE | 2022-06-08 05:03 | NUR ---
The patient appeared to have slept well during the night
--- NOTE | 2022-06-08 07:00 | NUR ---
Pt sleeping comfortably, respirations even and unlabored.
[2022-06-08] MEDS: duloxetine 30mg CAPSULE.DR PO SCH (08:00)
[2022-06-08] MEDS: famotidine 20mg tablet PO SCH (08:00)
--- NOTE | 2022-06-08 09:01 | NUR ---
Pt lying in bed with eyes open, she is playing with her hair. Pt refused her morning medications. "I'm okay." Pt is calm/cooperative.
--- NOTE | 2022-06-08 11:00 | NUR ---
Pt resting comfortably, respirations even and unlabored.
--- NOTE | 2022-06-08 13:29 | NUR ---
Pt resting comfortably on right side, respirations even and unlabored.
--- NOTE | 2022-06-08 15:28 | NUR ---
Pt is resting comfortably, respiations even and unlabored. Pt is easily roused.
--- NOTE | 2022-06-08 17:30 | NUR ---
Pt lying in bed with eyes closed, no distress. Rise and fall of chest noted.
--- NOTE | 2022-06-08 19:36 | NUR ---
The patient has been resting on her bed with her eyes closed. She makes no attempt to socialize with others. She does not try and leave the unit. She has no plan for food, senior care or clothing if she were to leave the hospital.
--- NOTE | 2022-06-08 20:45 | NUR ---
The patient is resting on her bed
--- NOTE | 2022-06-08 22:11 | NUR ---
The patient appears to be sleeping
--- NOTE | 2022-06-08 23:00 | NUR ---
The patient appears to be sleeping
--- NOTE | 2022-06-09 00:44 | NUR ---
The patient appears to be sleeping
--- NOTE | 2022-06-09 02:13 | NUR ---
The patient appeared to be sleeping
--- NOTE | 2022-06-09 04:02 | NUR ---
The patient appears to be sleeping
[2022-06-09] MEDS ORDERED: AMIT-189 PO (04:33)
--- NOTE | 2022-06-09 05:16 | NUR ---
The patient appears to be sleeping
--- NOTE | 2022-06-09 07:08 | NUR ---
Pt appears to be sleeping restfully, no distress noted.
[2022-06-09] MEDS: famotidine 20mg tablet PO SCH (08:00)
[2022-06-09] MEDS: duloxetine 30mg CAPSULE.DR PO SCH (08:00)
--- NOTE | 2022-06-09 09:00 | NUR ---
Pt resting comfortably, ate 100% of her eggs for breakfast. Pt refused her monring medications.
--- NOTE | 2022-06-09 11:03 | NUR ---
Pt was up to the bathroom, gait slow and steady.
--- NOTE | 2022-06-09 13:02 | NUR ---
Pt lying in bed with eyes open. Pt ate about 25% of protein/starch for lunch. Pt is pleasant upon contact.
--- NOTE | 2022-06-09 15:03 | NUR ---
Pt resting comfortably in low curran's position. Respirations even and unlabored.
--- NOTE | 2022-06-09 17:15 | NUR ---
Pt resting peacefully, visible rise and fall of chest noted. No distress.
--- NOTE | 2022-06-09 20:21 | NUR ---
The patient is resting on her bed and makes no attempt to engage with others. She is keeping her eyes shut. She makes no attempt at grooming. She denies physical complaints at this time.
--- NOTE | 2022-06-09 21:44 | NUR ---
The patient appears to be sleeping
--- NOTE | 2022-06-09 23:04 | NUR ---
The patient appears to be sleeping
--- NOTE | 2022-06-10 01:09 | NUR ---
The patient appears to be sleeping
--- NOTE | 2022-06-10 02:36 | NUR ---
The patient appears to be sleeping
--- NOTE | 2022-06-10 03:31 | NUR ---
The patient appears to be sleeping
--- NOTE | 2022-06-10 05:02 | NUR ---
The patient appears to be sleeping
--- NOTE | 2022-06-10 07:00 | NUR ---
Pt was up to the bathroom, then back to bed.
[2022-06-10] MEDS: duloxetine 30mg CAPSULE.DR PO SCH (08:00)
[2022-06-10] MEDS: famotidine 20mg tablet PO SCH (08:00)
--- NOTE | 2022-06-10 09:02 | NUR ---
Pt resting comfortably after eating her breakfast. Refused morning medications, compliant with physical assessment.
--- NOTE | 2022-06-10 10:46 | NUR ---
Public Guardinan at bedside - pt being served conservator papers. Pt asking questions, but is calm.
--- NOTE | 2022-06-10 11:07 | NUR ---
Pt was anxious after [facility] left bedside. Pt states "I don't want to go to no place I can't take of myself." Power Hair Clipper sat at bedside and allowed pt talk, she eventually calmed. She was reassured that she would be safe and if she wanted she would be able to attend her court hearing.
--- NOTE | 2022-06-10 11:56 | NUR ---
Pt resting comfortably in mid curran's position. Respirations even and unlabored.
--- NOTE | 2022-06-10 12:58 | NUR ---
Pt sitting on side of bed eating her 2nd serving of mashed potatoes.
--- NOTE | 2022-06-10 15:05 | NUR ---
Pt awake talking with clinicians from [facility].
--- NOTE | 2022-06-10 15:30 | NUR ---
Received updated med sheet from [facility]. Updated med rec.
--- NOTE | 2022-06-10 16:34 | NUR ---
Pt appears to be anxious when asked about anxiety pt stares laureen at pattern chart writer. Pt was offered her PRN Ativan. Will continue to monitor.
--- NOTE | 2022-06-10 22:17 | NUR ---
The patient has been resting on her bed. She was given a snack. She denies pain. She was unclear when her last BM was . Her abd was soft. Bowel sounds hypoactive. She is not making any attempt to socialize or attend to her ADLs. She does get up to use the bathroom independently. She has no plans for food, halfway or clothing if she were to leave the hospital. She does not ask why or how long she is going to be here.
--- NOTE | 2022-06-10 23:57 | NUR ---
The patient appears to be sleeping
--- NOTE | 2022-06-11 02:03 | NUR ---
The patient appears to be sleeping
--- NOTE | 2022-06-11 03:50 | NUR ---
The patient appears to be sleeping
--- NOTE | 2022-06-11 04:54 | NUR ---
The patient is resting on her bed
--- NOTE | 2022-06-11 07:04 | NUR ---
Patient is sleeping in bed. Respirations are even and nonlabored.
[2022-06-11] MEDS: famotidine 20mg tablet PO SCH (08:00)
[2022-06-11] MEDS: duloxetine 30mg CAPSULE.DR PO SCH (08:00)
--- NOTE | 2022-06-11 09:11 | NUR ---
Patient awoke to eat, refused medications. Sleeping at this time.
--- NOTE | 2022-06-11 11:43 | NUR ---
Patient ambulated independently to the bathroom. Now back in bed laying on her right side.
--- NOTE | 2022-06-11 13:38 | NUR ---
Patient is sleeping in bed, no distress noted.
--- NOTE | 2022-06-11 15:23 | NUR ---
Patient lying in bed in semi-fowlers position sleeping. Respirations are even and unlabored.
--- NOTE | 2022-06-11 16:11 | NUR ---
Pt. ambulating independently to the restroom. No complaints at this time.
--- NOTE | 2022-06-11 17:28 | NUR ---
Patient given bed bath by RN and tech, bedding changed, new socks provided. Patient did have fatigue with exertion and assisted as she could. No skin breakdown noted.
--- NOTE | 2022-06-11 18:49 | NUR ---
The patient refused her dinner stating "it doesn't taste right" She was given a turkey sandwich and she ate that. She just lays on her bed with her eyes closed not engaging with others. Even when she is awake she lays on her bed with her eyes shut.
--- NOTE | 2022-06-11 20:17 | NUR ---
The patient is resting on her bed
--- NOTE | 2022-06-11 22:54 | NUR ---
The patient is awake and sitting on the side of her eating chips
--- NOTE | 2022-06-12 00:13 | NUR ---
The patient appears to be sleeping
--- NOTE | 2022-06-12 02:02 | NUR ---
The patient appears to be sleeping
--- NOTE | 2022-06-12 04:08 | NUR ---
The patient appears to be sleeping
--- NOTE | 2022-06-12 05:43 | NUR ---
THe patient was periodically awake during the night but overall slept well during the night
[2022-06-12] MEDS: duloxetine 30mg CAPSULE.DR PO SCH (08:00)
[2022-06-12] MEDS: famotidine 20mg tablet PO SCH (08:00)
--- NOTE | 2022-06-12 08:12 | NUR ---
PATIENT SEEMS TO BE ASLEEP, BREAKFAST TRAY AT BEDSIDE.
--- NOTE | 2022-06-12 19:37 | NUR ---
Patient ate about 20 percent of her spaghetti on her dinner tray, nothing else. Patient ambulated to bathroom to void, then back to bed after voiding.
--- NOTE | 2022-06-12 22:28 | NUR ---
Patient is sleeping quietly. 02 at 2 LPM by nasal cannula. In direct view from nurses station.
--- NOTE | 2022-06-13 00:52 | NUR ---
Patient continues to sleep quietly.
--- NOTE | 2022-06-13 01:20 | NUR ---
Patient is sleeping quietly in a low fowlers position. No distress noted.
--- NOTE | 2022-06-13 03:20 | NUR ---
Patient is sleeping low fowlers in bed with her knees flexed. No signs of distress.
--- NOTE | 2022-06-13 06:30 | NUR ---
Assumed Care. Pt appears to be sleeping. RR even and unlabored.
[2022-06-13] MEDS: duloxetine 30mg CAPSULE.DR PO SCH (08:00)
[2022-06-13] MEDS: famotidine 20mg tablet PO SCH (08:00)
--- NOTE | 2022-06-13 08:30 | NUR ---
Pt woke for breakfast. Pt ate her eggs and drank coffee. She then laid down and now appears to be sleeping.
--- NOTE | 2022-06-13 10:30 | NUR ---
Pt is resting curled up in a ball on her right side. She appears to be sleeping.
--- NOTE | 2022-06-13 12:30 | NUR ---
Pt up for lunch ate her potatoes and drank coffee.
--- NOTE | 2022-06-13 13:39 | NUR ---
Pt continues to appear to be sleeping. RR even and unlabored.
--- NOTE | 2022-06-13 16:30 | NUR ---
Dr. Pike from [facility] was here. He put this pt on a 5150; in [place] of [facility] conservatorship. Pt continues to spend most of her days resting on her bed. She is up for meals.
--- NOTE | 2022-06-13 17:12 | NUR ---
Pt resting on her bed. She appears to be sleeping. RR even and unlabored.
--- NOTE | 2022-06-13 17:23 | NUR ---
at 15:46 pt new packet sent to [facility]
--- NOTE | 2022-06-13 18:30 | NUR ---
Patient is sleeping at shift change. She os on 2 litres of 02 as is her home rx.
--- NOTE | 2022-06-14 01:32 | NUR ---
Patient awoke. She sipped some Pepsi and returned to sleep.
--- NOTE | 2022-06-14 03:55 | NUR ---
Patient is sleeping quietly, low fowlers position in bed.
--- NOTE | 2022-06-14 06:00 | NUR ---
Patient awakens, she repositioned self in bed and returned to sleep.
--- NOTE | 2022-06-14 07:25 | NUR ---
Pt packet to be reprinted and sent to [facility] office per request of Gudelia.
--- NOTE | 2022-06-14 07:30 | NUR ---
Pt resting, effortless respirations observed.
[2022-06-14] MEDS: duloxetine 30mg CAPSULE.DR PO SCH (08:00)
[2022-06-14] MEDS: famotidine 20mg tablet PO SCH (08:00)
--- NOTE | 2022-06-14 08:15 | NUR ---
Pt awake and eating from breakfast tray.
--- NOTE | 2022-06-14 09:33 | NUR ---
Pt remains calm and interacts pleasantly. Pt had earlier declined breathing tx but reports she will request if she changes her mind. Pt currently laying on bed on R side.
--- NOTE | 2022-06-14 10:30 | NUR ---
Pt remains without requests or needs and is sitting quietly on bed.
--- NOTE | 2022-06-14 12:20 | NUR ---
Pt at first declied lunch tray, lunch tray left on bedside table and let pt know I'd let tray sit there for a bit as pt can snack on if she changes her mind
--- NOTE | 2022-06-14 12:45 | NUR ---
Pt has been eating on lunch tray and is still nibbling on items.
--- NOTE | 2022-06-14 13:20 | NUR ---
Pt finished eating on lunch tray and now resting in bed.
--- NOTE | 2022-06-14 15:32 | NUR ---
Pt laying in bed on back resting with eyes closed, effortless respirations observed.
--- NOTE | 2022-06-14 17:30 | NUR ---
Pt is lying in bed on her back, appears to be sleeping.
--- NOTE | 2022-06-14 20:30 | NUR ---
Pt sleeping at start of shift. Woke up assisted with fingernails and shaving her chin per her request. Pt on O2 at 2L/min she removed O2 and ambulated independently to BR. Gait even and steady. Pt became SOB with exertion. Pt cooperative but would not allow assessment of sacral area. Areas of back and upper buttocks that were visible skin is clear and intact. Pt back to sleep at this time.
--- NOTE | 2022-06-15 00:10 | NUR ---
Pt sleeping. Independant position changes, resp even and unlabored.
--- NOTE | 2022-06-15 03:49 | NUR ---
Pt sleeping respirations even and unlabored, repostions self independantly.
--- NOTE | 2022-06-15 07:00 | NUR ---
Pt resting comfortably, respirations even and unlabored.
--- NOTE | 2022-06-15 09:01 | NUR ---
Pt was up and ambulated to the bathroom. Pt was compliant with physical assessment. Pt has some wheezing in lower lobes. Received order for PRN Albuterol inhaler. Addendum: 06/15/22 at 1004 by SHIRA Pt on continous NC.
[2022-06-15] MEDS: duloxetine 30mg CAPSULE.DR PO SCH (09:14)
[2022-06-15] MEDS: famotidine 20mg tablet PO SCH (09:15)
[2022-06-15] MEDS ORDERED: ALBUTEROL INHALER 1 PUFF/90 MCG INHALation IH PRN (09:45)
[2022-06-15] MEDS ORDERED: albuterol 2.5 MG/3 ML nebule NEB PRN (09:55)
--- NOTE | 2022-06-15 11:05 | NUR ---
Pt resting comfortably rr even and unlabored.
--- NOTE | 2022-06-15 11:44 | NUR ---
Pt ambulated to bathroom, gait steady.
--- NOTE | 2022-06-15 12:21 | NUR ---
Pt declined lunch tray, was given turkey sandwich.
--- NOTE | 2022-06-15 13:56 | NUR ---
Pt sitting on side of bed.
--- NOTE | 2022-06-15 15:10 | NUR ---
Pt sleeping comfortably, rr even and unlabored.
--- NOTE | 2022-06-15 17:22 | NUR ---
Encourged fluids throughout the day.
--- NOTE | 2022-06-15 19:27 | NUR ---
The patient is resting on her bed. She ate well and liked the meal. She denies pain or difficulty breathing. Discussed the plan of care with her. She stated, "I'm not mentally ill or anything." She stated that she just needs someone to help her get her social sercurity figured out. "I need someone to drive me to buy groceries and take me to the doctors" She began talking about her ID and stated "I have been hazed 3 different times. 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
--- NOTE | 2022-06-15 21:10 | NUR ---
The patient is resting on her bed but awake
--- NOTE | 2022-06-15 22:17 | NUR ---
The patient is resting on her bed but awake
--- NOTE | 2022-06-15 23:53 | NUR ---
The patient appears to be sleeping
--- NOTE | 2022-06-16 01:56 | NUR ---
The patient appears to be sleeping
--- NOTE | 2022-06-16 03:59 | NUR ---
The patient is resting on her bed but awake
--- NOTE | 2022-06-16 05:13 | NUR ---
The patient appears to be sleeping
--- NOTE | 2022-06-16 06:35 | NUR ---
Patient ambulatory to BR, steady gait. Continue to monitor.
--- NOTE | 2022-06-16 06:40 | NUR ---
Patient ambulatory to BR, steady gait. No distress observed. Continue to monitor.
[2022-06-16] MEDS: famotidine 20mg tablet PO SCH (08:00)
[2022-06-16] MEDS: duloxetine 30mg CAPSULE.DR PO SCH (08:00)
--- NOTE | 2022-06-16 08:25 | NUR ---
Patient eating her oatmeal. No distress observed. Continue to monitor.
--- NOTE | 2022-06-16 10:19 | NUR ---
Patient sleeping supine. No distress observed. Continue to monitor.
--- NOTE | 2022-06-16 12:22 | NUR ---
Patient picking at lunch. No distress observed. Continue to monitor.
--- NOTE | 2022-06-16 14:36 | NUR ---
Patient sleeping supine. No distress observed. Continue to monitior.
--- NOTE | 2022-06-16 16:37 | NUR ---
Patient reclining in bed awake and playing with her hair. No distress observed. Continue to monitor.
--- NOTE | 2022-06-16 20:26 | NUR ---
The patient has been resting on her bed. She was encouraged to try and walk more during the day.
--- NOTE | 2022-06-16 23:16 | NUR ---
The patient appears to be sleeping
--- NOTE | 2022-06-17 01:15 | NUR ---
The patient appears to be sleeping
--- NOTE | 2022-06-17 03:03 | NUR ---
The patient appears to be sleeping
--- NOTE | 2022-06-17 05:06 | NUR ---
The patient is resting on her bed
--- NOTE | 2022-06-17 06:54 | NUR ---
Patient sleeping on right side. Respirations nonlabored. No distress observed. Continue to monitor.
[2022-06-17] MEDS: famotidine 20mg tablet PO SCH (07:57)
[2022-06-17] MEDS: duloxetine 30mg CAPSULE.DR PO SCH (07:57)
--- NOTE | 2022-06-17 08:34 | NUR ---
Patient eating breakfast. No distress observed. Continue to monitor.
--- NOTE | 2022-06-17 10:44 | NUR ---
Patient sleeping. No distress observed. Continue to monitor.
--- NOTE | 2022-06-17 12:11 | NUR ---
Patient eating lunch. No distress observed. Continue to monitor.
--- NOTE | 2022-06-17 12:39 | NUR ---
Patient ambulatory to BR, steady gait. Continue to monitor.
--- NOTE | 2022-06-17 14:34 | NUR ---
Patient sleeping. No distress observed. Continue to monitor.
--- NOTE | 2022-06-17 16:29 | NUR ---
Patient continues to sleep. No distress observed. Continue to monitor.
--- NOTE | 2022-06-17 19:02 | NUR ---
The patient is quietly sitting on the side of her bed and eating her dinner. Her grooming is poor and her hair is sticking up all over. She doesn't display any desire to attend to her ADLs.
--- NOTE | 2022-06-17 20:33 | NUR ---
The patient is resting on her bed and appears to be sleeping
--- NOTE | 2022-06-17 21:43 | NUR ---
The patient appears to be sleeping
--- NOTE | 2022-06-17 22:13 | NUR ---
The patient is quietly resting on her bed but awake
--- NOTE | 2022-06-17 22:59 | NUR ---
The patient appears to be sleeping
--- NOTE | 2022-06-18 00:25 | NUR ---
The patient appears to be sleeping
--- NOTE | 2022-06-18 02:06 | NUR ---
The patient appears to be sleeping
--- NOTE | 2022-06-18 03:47 | NUR ---
The patient appears to be sleeping
--- NOTE | 2022-06-18 05:42 | NUR ---
The patient appears to be sleeping
--- NOTE | 2022-06-18 06:59 | NUR ---
Patient is resting in bed, wiggling her feet. No distress noted.
[2022-06-18] MEDS: famotidine 20mg tablet PO SCH (08:00)
[2022-06-18] MEDS: duloxetine 30mg CAPSULE.DR PO SCH (08:00)
--- NOTE | 2022-06-18 09:03 | NUR ---
Patient went to the restroom independently and reapplied her nasal cannula, resting in bed.
--- NOTE | 2022-06-18 11:25 | NUR ---
Patient laying in bed sleeping. Respirations are even and unlabored.
--- NOTE | 2022-06-18 12:20 | NUR ---
Patient eating lunch. No complaints at this time.
--- NOTE | 2022-06-18 16:57 | NUR ---
Patient is sleeping in bed. Respirations are even and unlabored.
--- NOTE | 2022-06-18 18:52 | NUR ---
One to one with the patient and she was much more talkative than usual. She stated that she has been thinking about a boy she dated in high school. She mentioned that yesterday she was having chest pain that was very bothersome and that "I just had to be really still" She denies chestpain today. She was instructed to tell staff immediately if she had chest pain. She stated that she has been feeling short of breath every time she gets up to use the bathroom and has to make sure she immediately puts her oxygen back on when she gets back in bed. She stated that she doesn't want to go to a psychiatric facility because "I'm not mentally ill"
--- NOTE | 2022-06-18 19:09 | NUR ---
Discussed with Adair GAVIRIA patient's complaint of chest pain. EKG ordered. Current vital signs 97.5, 94, 123/80, 96% on room air.
--- NOTE | 2022-06-18 21:19 | NUR ---
The patient is resting on her bed.
--- NOTE | 2022-06-18 22:57 | NUR ---
The patient appears to be sleeping
--- NOTE | 2022-06-18 23:08 | NUR ---
I DID A EKG ON [facility]O .TIME WAS 19:24. TOOK TO DR CB DORANTES SIGEN EKG WAS THEN GIVEN RENETTA
--- NOTE | 2022-06-19 01:13 | NUR ---
The patient appears to be sleeping
--- NOTE | 2022-06-19 03:05 | NUR ---
The patient appears to be sleeping
--- NOTE | 2022-06-19 05:19 | NUR ---
The patient appears to be sleeping
--- NOTE | 2022-06-19 06:33 | NUR ---
Received patient sleeping comfortably at shift change. Pt continues on 2LNC. Respirations even and unlabored.
[2022-06-19] MEDS: duloxetine 30mg CAPSULE.DR PO SCH (07:59)
[2022-06-19] MEDS: famotidine 20mg tablet PO SCH (07:59)
--- NOTE | 2022-06-19 08:33 | NUR ---
Pt resting comfortably, rr even and unlabored. Pt was given a warm blanket. Pt's breakfast tray is at bedside, pt states "I will eat in a little bit."
--- NOTE | 2022-06-19 10:49 | NUR ---
Pt continues to rest comfortably, rr even and unlabored. Pt ate 100% of eggs and [place].
--- NOTE | 2022-06-19 11:55 | NUR ---
Public Guardian at bedside serving [employer] papers. Pt asking questions asking "if she was in trouble." Pt states "I don't want to go to those places." Pt wants to be independent. "I want a house." Pt has no insight into her mental health or situation.
--- NOTE | 2022-06-19 13:26 | NUR ---
Pt resting comfortably. Pt requested turkey sandwich for lunch.
--- NOTE | 2022-06-19 13:35 | NUR ---
PT ATE 100% OF HER TURKEY SANDWICH.
--- NOTE | 2022-06-19 19:13 | NUR ---
The patient up to the desk complaining of chest pain, EKG done. Vital signs HR 95, BP 103/57 and sats are 96% on room air
--- NOTE | 2022-06-19 20:02 | NUR ---
The patient is resting on her bed
--- NOTE | 2022-06-19 22:29 | NUR ---
The patient appears to be sleeping
--- NOTE | 2022-06-19 23:51 | NUR ---
The patient is resting on her bed but is awake
--- NOTE | 2022-06-20 01:55 | NUR ---
The patient appears to be sleeping
--- NOTE | 2022-06-20 03:44 | NUR ---
The patient appears to be sleeping
--- NOTE | 2022-06-20 05:30 | NUR ---
The patient appears to be sleeping
--- NOTE | 2022-06-20 07:30 | NUR ---
sign up for pt moved from ER BED 2 TO ER BED 14.Taken over from Jayson CLARK.
[2022-06-20] MEDS: duloxetine 30mg CAPSULE.DR PO SCH (08:00)
--- NOTE | 2022-06-20 08:47 | NUR ---
pt resting in bed quietly ,appear to be sleeping,will cont to monitor,medicate when pt wake up.
[2022-06-20] MEDS: famotidine 20mg tablet PO SCH (09:06)
--- NOTE | 2022-06-20 09:06 | NUR ---
pt refused to take her morning meds,pt stated i just want to sleep and need extra blanket .warm blanket provided to the pt.
--- NOTE | 2022-06-20 10:28 | NUR ---
PT RESTING IN BED IN ROOM. APPEARS TO BE SLEEPING.
--- NOTE | 2022-06-20 11:26 | NUR ---
pt resting in room in er. pt appears to be sleeping
--- NOTE | 2022-06-20 12:37 | NUR ---
pt sleeping in supine position ,no distress noted,RR WNL ,will cont to monitor.
--- NOTE | 2022-06-20 13:30 | NUR ---
PT RESTING IN ROOM. APPEARS TO BE SLEEPING.
--- NOTE | 2022-06-20 14:30 | NUR ---
pt appears to be sleeping in room.
--- NOTE | 2022-06-20 15:30 | NUR ---
PT RESTING QUIETLY IN ROOM
--- NOTE | 2022-06-20 16:30 | NUR ---
PT RESTING IN ROOM QUIETLY. LUNCH MEAL TRAY REMOVED FROM ROOM, PT REFUSED TO EAT.
--- NOTE | 2022-06-21 07:41 | NUR ---
Received Pt awake and in no distress in main ER. Pt transfered to EROF and placed in bed 24 and is currently sleeping.
[2022-06-21] MEDS: famotidine 20mg tablet PO SCH (08:00)
[2022-06-21] MEDS: duloxetine 30mg CAPSULE.DR PO SCH (08:00)
--- NOTE | 2022-06-21 09:30 | NUR ---
Pt ate breakfast but did not take AM meds. Pt in bed resting with O2 at 2lites.
--- NOTE | 2022-06-21 11:30 | NUR ---
Pt got up and used bathroom by self and returned to bed. She appears to be sleeping at this time.
--- NOTE | 2022-06-21 14:15 | NUR ---
Pt ate lunch and continues to rest in bed w/o complaint.
--- NOTE | 2022-06-21 17:05 | NUR ---
Pt sleeping at this time after being up to bathroom.
--- NOTE | 2022-06-21 18:32 | NUR ---
Patient ambulatory to BR steady gait. No distress observed. Continue to monitor.
--- NOTE | 2022-06-21 20:19 | NUR ---
Patient sleeping. No distress observed. Continue to monitor.
--- NOTE | 2022-06-21 21:19 | NUR ---
Patient sleeping supine. No distress observed. Continue to monitor.
--- NOTE | 2022-06-21 22:55 | NUR ---
Patient sleeping supine. No distress observed. Continue to monitor.
--- NOTE | 2022-06-22 00:35 | NUR ---
Patient sleeping on right side. No distress observed. Continue to monitor.
--- NOTE | 2022-06-22 02:04 | NUR ---
Patient sleeping on her right side. No distress observed. Continue to monitor.
--- NOTE | 2022-06-22 03:57 | NUR ---
Patient sleeping supine. No distress observed. Continue to monitor.
--- NOTE | 2022-06-22 05:46 | NUR ---
Patient sleeping on her right side. No distress observed. Continue to monitor.
--- NOTE | 2022-06-22 07:18 | NUR ---
The patient is resting on her bed
[2022-06-22] MEDS: duloxetine 30mg CAPSULE.DR PO SCH (08:00)
[2022-06-22] MEDS: famotidine 20mg tablet PO SCH (08:00)
--- NOTE | 2022-06-22 09:02 | NUR ---
THe patient is resting on her bed
--- NOTE | 2022-06-22 11:22 | NUR ---
The patient appears to be sleeping
--- NOTE | 2022-06-22 13:10 | NUR ---
The patient is resting on her bed.
--- NOTE | 2022-06-22 14:47 | NUR ---
The patient appears to be sleeping
--- NOTE | 2022-06-22 17:06 | NUR ---
The patient has been resting on her bed. She stated she is doing "okay" and she asked for a snack and was given rafita crackers and made aware dinner would be coming in the next hour.
[2022-06-23] MEDS: famotidine 20mg tablet PO SCH (08:00)
[2022-06-23] MEDS: duloxetine 30mg CAPSULE.DR PO SCH (08:00)
--- NOTE | 2022-06-23 13:50 | NUR ---
Patient brought from main ED 13 to ED OF Bed 24. Patient awake and in no distress. Continue to monitor.
--- NOTE | 2022-06-23 15:44 | NUR ---
Patient sleeping in bed. No distress observed. Continue to monitor.
--- NOTE | 2022-06-23 17:36 | NUR ---
Patient ambulatory to BR, steady gait. Continue to monitor.
--- NOTE | 2022-06-24 06:52 | NUR ---
Patient sleeping on right side. No distress observed. Continue to monitor
--- NOTE | 2022-06-24 06:54 | NUR ---
Note chrissy in EDM - 06/24/22 at 0656 by RACHEL Patient sleeping on left side. Respirations nonlabored. No distress observed. Continue to monitor.
[2022-06-24] MEDS: duloxetine 30mg CAPSULE.DR PO SCH (08:00)
[2022-06-24] MEDS: famotidine 20mg tablet PO SCH (08:00)
--- NOTE | 2022-06-24 08:11 | NUR ---
Patient sitting up and eating breakfast. No distress observed. Continue to monitor.
--- NOTE | 2022-06-24 10:17 | NUR ---
Patient sleeping on right side. RN and TOPOLOGY PROFESSOR went in to assess patient's skin. Patient stood up for RN and TOPOLOGY PROFESSOR. No redness observed on coccyx, buttocks and hip areas. Patient in no distress. Continue to monitor.
--- NOTE | 2022-06-24 12:03 | NUR ---
Patient picking at her lunch. No distress observed. Continue to monitor.
--- NOTE | 2022-06-24 14:09 | NUR ---
Patient ambulatory to BR, steady gait. No distress observed. Continue to monitor.
--- NOTE | 2022-06-24 16:13 | NUR ---
Patient awake and laying supine. RN advised patient that she will go upstairs tonight to [facility]. Patient was not happy. RN encouraged patient that she will have a window and much more to do upstairs. Continue to monitor.
[2022-06-24 17:07] VITALS: BP 112/72
--- NOTE | 2022-06-24 18:15 | NUR ---
Patient moved to Main ED bed 14. No distress observed. Continue to monitor.
[2022-06-24] MEDS ORDERED: NO HOME MEDS (23:18)
== END 2022-06-24 22:40 ==
LOC: ER 16:51
DX: F79 Unspecified intellectual disabilities (principal); Z20.822 Contact with and (suspected) exposure to COVID-19; K59.00 Constipation, unspecified; K21.9 Gastro-esophageal reflux disease without esophagitis; J44.9 Chronic obstructive pulmonary disease, unspecified; F41.9 Anxiety disorder, unspecified; Z87.81 Personal history of (healed) traumatic fracture; Z59.00 Homelessness unspecified; Z56.0 Unemployment, unspecified
CPT/HCPCS: 36415; 80053; 80305; 81001; 81025; 83690; 83880; 84145; 85025; 85379; 85610; 87635; 87811; 93005; 96374; 96375; 96376; 99285; C9803; A4353

== ENCOUNTER 2022-06-24 16:00 | Inpatient (IN) | payer MEDICARE, MEDICAID ==
[~2022-06-24] VITALS: Ht 162.6 cm; Wt 54.2 kg
[~2022-06-24 16:00] MED LIST changes: +FAMO20TA8 PO; -LEVO-65 PO; -PRED10TA23 PO
[2022-06-24 22:49] VITALS: BP 132/72
--- NOTE | 2022-06-24 23:16 | NUR ---
Nursing Admission Note; The patient is a 71 year old female who was admitted from the ER where she has been staying since 04/24/22. She was brought to the ER from the halfway by [facility] after she was arrested for trespassing at a local correction. She has been in and out of the ER. She was discharged to the [facility] on 03/26 but was never able to maintain herself there. She has a daughter who she is estranged from and has no desire to help Kimberlee in anyway. Her last residence was at the [facility] where she was living with her significant other/healthcare project manager but he in February of this year. She was not unable to care for herself at the [facility] and was found by staff not eating, drinking and just laying in bed with soiled bed sheets. She reportedly has some dementia but also has periodically made very bizarre and delusional statements. She has been refusing medications her entire stay in the ER claiming the medications she was offered were the wrong color. She has COPD and quickly desats in the low 80's when off oxygen for more that a couple of minutes.
[2022-06-24] MEDS ORDERED: NO HOME MEDS (23:18)
[2022-06-24] MEDS ORDERED: loperamide 2mg capsule PO PRN (23:20)
[2022-06-24] MEDS ORDERED: mag hydrox/Alum hydrox/simeth 30ml oral suspension PO PRN (23:20)
[2022-06-24] MEDS ORDERED: magnesium hydroxide 30ml (MOM) UD suspension PO PRN (23:20)
[2022-06-24] MEDS ORDERED: acetaminophen 325mg tablet PO PRN (23:20)
[2022-06-25 07:55] VITALS: BP 92/52
[2022-06-25] MEDS ORDERED: pneumococcal 23-VAL P-sac vacc 25 mcg/0.5ml vial IMVAC ONE (10:00)
[2022-06-25] MEDS ORDERED: FLU VACC QS2022-23(6MOS UP)/PF 60 MCG/0.5 ML SYRINGE IMVAC ONE (10:00)
--- NOTE | 2022-06-25 16:32 | NUR ---
Nursing Progress Note: Kimberlee Problem: She was brought to the ER from the [facility] by [facility] after she was arrested for trespassing at a local retirement. She has been in and out of the ER. She was discharged to the [facility] on 03/26 but was never able to maintain herself there. Current 5150 for GD. Interventions: Medication administration. Maintained a safe and supportive environment, provided clear and simple instructions, provided direction and encouragement regarding performance of ADLs, monitored behaviors and maintained clear boundaries, provided positive reinforcement, and maintained Q15 minute safety checks Response: Pt. received sleeping and continues on 2L NC, she woke for breakfast and requested to eat in her room. Pt. denies SI, HI, A/VH and reports she was admitted d/t [facility] helped me she has no DC plan thus far. Pt. refused 2 vaccines offered today reporting I dont want the flu vaccine, and I think I had the pneumonia one at [facility] Pt. presents as fatigued and easily exerted with ADLs. Pt. is disheveled and wearing unit scrubs. She was found to be in bed most of the shift and napped intermittently. Plan: Pt needs crisis interruption and stabilization with medication adjustment and monitoring in a safe and therapeutic environment until stable.
[2022-06-25] MEDS ORDERED: traZODone 50mg tablet PO PRN ×2 (18:40→23:35)
[2022-06-25] MEDS ORDERED: LORazepam 0.5 MG tablet PO PRN ×3 (18:40→23:35)
[2022-06-25] MEDS ORDERED: bisacodyl 10mg suppository rectal RC PRN (18:45)
[2022-06-25 20:31] VITALS: BP 111/69
[2022-06-25] MEDS ORDERED: albuterol 2.5 MG/3 ML nebule NEB PRN (23:35)
--- NOTE | 2022-06-26 05:01 | NUR ---
Nursing Progress Note: Kimberlee Problem: She was brought to the ER from the [facility] by [facility] after she was arrested for trespassing at a local correction. She has been in and out of the ER. She was discharged to the [facility] on 03/26 but was never able to maintain herself there. Current 5150 for GD. Interventions: Medication administration. Maintained a safe and supportive environment, provided clear and simple instructions, provided direction and encouragement regarding performance of ADLs, monitored behaviors and maintained clear boundaries, provided positive reinforcement, and maintained Q15 minute safety checks Response: Patient was found sleeping at beginning of shift Patient continued to sleep and self isolate through out the shift. Patient did not request any prn's nor did she participate in snack time. Plan: Pt needs crisis interruption and stabilization with medication adjustment and monitoring in a safe and therapeutic environment until stable.
[2022-06-26] MEDS: budesonide 0.5mg/2ml UD nebule IH SCH ×2 (07:52→21:00)
[2022-06-26 08:00] VITALS: BP 100/57
--- NOTE | 2022-06-26 16:47 | NUR ---
Nursing Progress Note: Kimberlee Problem: She was brought to the ER from the [facility] by [facility] after she was arrested for trespassing at a local longterm. She has been in and out of the ER. She was discharged to the [facility] on 03/26 but was never able to maintain herself there. Current 5150 for GD. Interventions: Medication administration. Maintained a safe and supportive environment, provided clear and simple instructions, provided direction and encouragement regarding performance of ADLs, monitored behaviors and maintained clear boundaries, provided positive reinforcement, and maintained Q15 minute safety checks Response: Pt. received sleeping and continues to require continuous 2L per NC. She woke for breakfast and requested and ate in her room. Pt. denies SI, HI, A/VH she reports no plans re placement. She has poor hygiene, hair is un brushed, and is wearing unit scrubs. She ate lunch in her room per her request. No c/o or s/sx anxiety and no delusions endorsed. She presents as fatigued and easily exerted with minimal ADLs performed. Plan: Pt needs crisis interruption and stabilization with medication adjustment and monitoring in a safe and therapeutic environment until stable.
[2022-06-26] MEDS ORDERED: ipratropium/albuterol 3ml nebule NEB PRN (20:20)
[2022-06-26 20:50] VITALS: BP 129/66
--- NOTE | 2022-06-27 04:34 | NUR ---
Nursing Progress Note: Kimberlee Problem: She was brought to the ER from the long-term by [facility] after she was arrested for trespassing at a local senior living. She has been in and out of the ER. She was discharged to the [facility] on 03/26 but was never able to maintain herself there. Current 5150 for GD. Interventions: Medication administration. Maintained a safe and supportive environment, provided clear and simple instructions, provided direction and encouragement regarding performance of ADLs, monitored behaviors and maintained clear boundaries, provided positive reinforcement, and maintained Q15 minute safety checks Response: Patient was found sleeping at beginning of shift. Patient continued to sleep and self isolate through shift. When preforming 1:1 patient kept laughing and asking nonsensical questions. Patient asked for more food after dinner and was encouraged to get up and participate in snack. Patient was later found back asleep. Patient requested no prns and did not leave room during shift. Plan: Pt needs crisis interruption and stabilization with medication adjustment and monitoring in a safe and therapeutic environment until stable.
[2022-06-27] MEDS: pantoprazole 40mg Tablet.DR PO SCH (07:30)
[2022-06-27 08:00] VITALS: BP 100/53
[2022-06-27] MEDS: budesonide 0.5mg/2ml UD nebule IH SCH ×2 (08:00→20:00)
[2022-06-27 08:08] LABS: BASOPHILS # (AUTO) 0.1 X10'3 (0-0.2); BASOPHILS % (AUTO) 0.7 % (0-1); EOSINOPHILS # (AUTO) 0.3 X10'3 (0-0.9); EOSINOPHILS % (AUTO) 3.6 % (0-6); HEMATOCRIT 44.9 % (35.0-45.0); HEMOGLOBIN 14.6 g/dl (12.0-16.0); LYMPHOCYTES # (AUTO) 1.6 X10'3 (1.1-4.8); LYMPHOCYTES % (AUTO) 20.7 % (21-51); MEAN CORPUSCULAR HEMOGLOBIN 27.7 PG (27.0-31.0); MEAN CORPUSCULAR HGB CONC 32.6 g/dL (33.0-36.5); MEAN CORPUSCULAR VOLUME 84.9 FL (78-98); MEAN PLATELET VOLUME 8.1 FL (7.4-10.4); MONOCYTES # (AUTO) 0.7 X10'3 (0-0.9); MONOCYTES % (AUTO) 8.6 % (2-12); NEUTROPHILS # (AUTO) 5.1 X10'3 (1.8-7.7); NEUTROPHILS % (AUTO) 66.4 % (42-75); PLATELET COUNT 272 X10'3 (140-440); RED BLOOD COUNT 5.29 X10'6 (4.20-5.60); RED CELL DISTRIBUTION WIDTH 15.7 % (11.5-14.5); WHITE BLOOD COUNT 7.7 X10'3 (4.5-11.0)
[2022-06-27 08:37] LABS: ALANINE AMINOTRANSFERASE 14 U/L (12-78); ALBUMIN/GLOBULIN RATIO 0.8 (1.1-1.5); ALKALINE PHOSPHATASE 92 IU/L (46-116); ANION GAP 4 (8-16); ASPARTATE AMINO TRANSFERASE 17 U/L (10-37); BILIRUBIN,TOTAL 0.8 MG/DL (0.1-1.0); BLOOD UREA NITROGEN 14 MG/DL (7-18); BUN/CREATININE RATIO 25.9 (6.6-38.0); CALCIUM 9.3 MG/DL (8.5-10.1); CHLORIDE 104 MMOL/L (99-107); CREATININE 0.54 MG/DL (0.40-0.90); GLUCOSE 75 MG/DL (70-104); MAGNESIUM 1.7 MG/DL (1.5-2.4); PHOSPHORUS 3.4 MG/DL (2.3-4.5); POTASSIUM 3.7 MMOL/L (3.5-5.1); SODIUM 142 MMOL/L (135-145); TOTAL CARBON DIOXIDE 34.3 MMOL/L (24-32); TOTAL PROTEIN 6.8 G/DL (6.4-8.2); eGFR > 90 ML/MIN
--- NOTE | 2022-06-27 16:46 | NUR ---
Nursing Progress Note: Kimberlee Problem: She was brought to the ER from the intermediate by [facility] after she was arrested for trespassing at a local senior living. She has been in and out of the ER. She was discharged to the [facility] on 03/26 but was never able to maintain herself there. Current 5150 for GD. Interventions: Medication administration. Maintained a safe and supportive environment, provided clear and simple instructions, provided direction and encouragement regarding performance of ADLs, monitored behaviors and maintained clear boundaries, provided positive reinforcement, and maintained Q15 minute safety checks Response: Pt. received sleeping and continues to require continuous 2L per NC, pt. was hesitant and spit out her medication stating this looks different and taste different I dont want it Respiratory also reported pt. refused scheduled breathing Tx. this morning. She ate her meals both in her room and in dining room. She denies SI, HI, A/VH and minimizes MH needs. Pt. spent most of the shift sleeping and sitting in her bed. She is compliant and pleasant with staff. Pt. is disheveled, hair un brushed, and wearing unit scrubs. Plan: Pt needs crisis interruption and stabilization with medication adjustment and monitoring in a safe and therapeutic environment until stable.
[2022-06-27 19:00] VITALS: BP 101/53
--- NOTE | 2022-06-28 04:50 | NUR ---
Nursing Progress Note: Kimberlee Problem: She was brought to the ER from the long-term by [facility] after she was arrested for trespassing at a local skilled nursing. She has been in and out of the ER. She was discharged to the [facility] on 03/26 but was never able to maintain herself there. Current 5150 for GD. Interventions: Medication administration. Maintained a safe and supportive environment, provided clear and simple instructions, provided direction and encouragement regarding performance of ADLs, monitored behaviors and maintained clear boundaries, provided positive reinforcement, and maintained Q15 minute safety checks Response: Patient was found walking with assistance around unit at beginning of shift. Patient was help back in to bed and went to sleep. Patient was encouraged to get up and participate in snack . Patient refused and returned back to sleep. Patient continued to sleep and self isolate in room all shift. Patient didn't request any prns and was found multiple times laughing to herself. Plan: Pt needs crisis interruption and stabilization with medication adjustment and monitoring in a safe and therapeutic environment until stable.
[2022-06-28] MEDS: pantoprazole 40mg Tablet.DR PO SCH (07:30)
[2022-06-28 08:00] VITALS: BP 110/81
[2022-06-28] MEDS: budesonide 0.5mg/2ml UD nebule IH SCH ×2 (08:00→20:00)
[2022-06-28 08:43] LABS: BASOPHILS % (AUTO) 0.7 % (0-1); EOSINOPHILS # (AUTO) 0.3 X10'3 (0-0.9); EOSINOPHILS % (AUTO) 4.7 % (0-6); HEMATOCRIT 46.8 % (35.0-45.0); HEMOGLOBIN 15.5 g/dl (12.0-16.0); LYMPHOCYTES # (AUTO) 1.6 X10'3 (1.1-4.8); LYMPHOCYTES % (AUTO) 22.8 % (21-51); MEAN CORPUSCULAR HGB CONC 33.1 g/dL (33.0-36.5); MEAN CORPUSCULAR VOLUME 84.5 FL (78-98); MEAN PLATELET VOLUME 7.9 FL (7.4-10.4); MONOCYTES # (AUTO) 0.6 X10'3 (0-0.9); NEUTROPHILS # (AUTO) 4.6 X10'3 (1.8-7.7); NEUTROPHILS % (AUTO) 63.8 % (42-75); PLATELET COUNT 259 X10'3 (140-440); RED BLOOD COUNT 5.54 X10'6 (4.20-5.60); WHITE BLOOD COUNT 7.2 X10'3 (4.5-11.0)
[2022-06-28 09:01] LABS: ALANINE AMINOTRANSFERASE 17 U/L (12-78); ALBUMIN 3.1 G/DL (3.4-5.0); ALBUMIN/GLOBULIN RATIO 0.8 (1.1-1.5); ALKALINE PHOSPHATASE 97 IU/L (46-116); ANION GAP 3 (8-16); ASPARTATE AMINO TRANSFERASE 19 U/L (10-37); BILIRUBIN,TOTAL 0.8 MG/DL (0.1-1.0); BLOOD UREA NITROGEN 15 MG/DL (7-18); BUN/CREATININE RATIO 28.8 (6.6-38.0); CALCIUM 9.5 MG/DL (8.5-10.1); CHLORIDE 104 MMOL/L (99-107); CREATININE 0.52 MG/DL (0.40-0.90); GLUCOSE 77 MG/DL (70-104); MAGNESIUM 1.8 MG/DL (1.5-2.4); PHOSPHORUS 3.6 MG/DL (2.3-4.5); POTASSIUM 3.8 MMOL/L (3.5-5.1); SODIUM 141 MMOL/L (135-145); TOTAL CARBON DIOXIDE 33.9 MMOL/L (24-32); TOTAL PROTEIN 7.1 G/DL (6.4-8.2); eGFR > 90 ML/MIN
--- NOTE | 2022-06-28 18:06 | NUR ---
Nursing Progress Note: Problem: She was brought to the ER from the [facility] by [facility] after she was arrested for trespassing at a local assisted. She has been in and out of the ER. She was discharged to the [facility] on 03/26 but was never able to maintain herself there. Current 5150 for GD. Interventions: Medication administration. Maintained a safe and supportive environment, provided clear and simple instructions, provided direction and encouragement regarding performance of ADLs, monitored behaviors and maintained clear boundaries, provided positive reinforcement, and maintained Q15 minute safety checks Response: Patient is resting quietly in bed at the start of the shift. Sats 96% on 2L O2. No s/sx respiratory distress. Cooperative with 1:1 assessment. Refuses protonix. Denies any mental health symptoms at this time. She is unable to verbalize a plan for food, clothing and usp. Patient isolates to her room except for meals. Noted napping off and on throughout the day. Plan: Pt needs crisis interruption and stabilization with medication adjustment and monitoring in a safe and therapeutic environment until stable.
[2022-06-28] MEDS ORDERED: albuterol 2.5 MG/3 ML nebule NEB PRN (18:15)
[2022-06-28 19:00] VITALS: BP 93/50
--- NOTE | 2022-06-29 04:42 | NUR ---
Nursing Progress Note: Problem: She was brought to the ER from the correction by [facility] after she was arrested for trespassing at a local usp. She has been in and out of the ER. She was discharged to the [facility] on 03/26 but was never able to maintain herself there. Current 5150 for GD. Interventions: Medication administration. Maintained a safe and supportive environment, provided clear and simple instructions, provided direction and encouragement regarding performance of ADLs, monitored behaviors and maintained clear boundaries, provided positive reinforcement, and maintained Q15 minute safety checks Response: Patient is pleasant and cooperative with care; no medication this shift. She is isolative to her room. Denies SI, HI, A/VH; no apparent delusions expressed. Patient provided HS snack; observed sleeping but waking often. Plan: Pt needs crisis interruption and stabilization with medication adjustment and monitoring in a safe and therapeutic environment until stable.
--- NOTE | 2022-06-29 07:35 | NUR ---
Initial: Pt admitted w/ grave disability per EMR. Currently on Regular diet w/ avg intake 68% of meals meeting est needs at this time. Noted pt wt in EMR fluctuates between 45-56kg over the last few years. LBM 06/28. No nutrition intervention implemented at this time, will continue to monitor. Recs: 1. Continue Regular diet as tolerated 2. Bowel care PRN 3. Weekly wts Addendum: 06/29/22 at [address] Amended: Links added.
[2022-06-29 08:00] VITALS: BP 127/55
[2022-06-29] MEDS: budesonide 0.5mg/2ml UD nebule IH SCH ×2 (08:00→20:00)
[2022-06-29] MEDS: pantoprazole 40mg Tablet.DR PO SCH (08:03)
[2022-06-29] MEDS: acetaminophen 325mg tablet PO PRN (13:26)
--- NOTE | 2022-06-29 17:49 | NUR ---
Nursing Progress Note: Problem: She was brought to the ER from the correction by [facility] after she was arrested for trespassing at a local skilled nursing. She has been in and out of the ER. She was discharged to the [facility] on 03/26 but was never able to maintain herself there. Current 5150 for GD. Interventions: Medication administration. Maintained a safe and supportive environment, provided clear and simple instructions, provided direction and encouragement regarding performance of ADLs, monitored behaviors and maintained clear boundaries, provided positive reinforcement, and maintained Q15 minute safety checks Response: Patient received resting quietly in bed. Awakened for lab draw which upsets the patient. She yells at staff and refuses labs. Mood continues to be irritable throughout the day. Patient isolates to her room in her bed and is noted sleeping for long periods of time. She is resistive to care and irritable. Refuses Protonix in the morning. States, Its all wrong! At home I take Pepcid! This nurse offered to notify the provider for her requested changes. Patient become more irritable yelling, NO! Even that one looks wrong! Just never mind! I dont want any pills! Denies any mental health symptoms at this time. Plan: Pt needs crisis interruption and stabilization with medication adjustment and monitoring in a safe and therapeutic environment until stable.
[2022-06-29 19:26] VITALS: BP 93/50
--- NOTE | 2022-06-30 05:00 | NUR ---
Nursing Progress Note: Problem: She was brought to the ER from the half-way by [facility] after she was arrested for trespassing at a local group home. She has been in and out of the ER. She was discharged to the [facility] on 03/26 but was never able to maintain herself there. Current 5150 for GD. Interventions: Medication administration. Maintained a safe and supportive environment, provided clear and simple instructions, provided direction and encouragement regarding performance of ADLs, monitored behaviors and maintained clear boundaries, provided positive reinforcement, and maintained Q15 minute safety checks Response: Patient is pleasant and cooperative with care; no medications this shift. She denies SI, HI, A/VH; no apparent delusions expressed. Patient remains self isolative to her room and making needs known. She is observed sleeping but appears to wake up often. Plan: Pt needs crisis interruption and stabilization with medication adjustment and monitoring in a safe and therapeutic environment until stable.
[2022-06-30] MEDS: pantoprazole 40mg Tablet.DR PO SCH ×2 (07:30→08:01)
[2022-06-30 08:00] VITALS: BP 102/54
[2022-06-30] MEDS: sertraline 25mg tablet PO SCH ×2 (08:00→08:02)
[2022-06-30] MEDS: budesonide 0.5mg/2ml UD nebule IH SCH ×2 (09:00→19:52)
--- NOTE | 2022-06-30 11:57 | NUR ---
Nursing Progress Note: Problem: She was brought to the ER from the assisted by [facility] after she was arrested for trespassing at a local usp. She has been in and out of the ER. She was discharged to the [facility] on 03/26 but was never able to maintain herself there. Current 5150 for GD. Interventions: Medication administration. Maintained a safe and supportive environment, provided clear and simple instructions, provided direction and encouragement regarding performance of ADLs, monitored behaviors and maintained clear boundaries, provided positive reinforcement, and maintained Q15 minute safety checks Response: Patient was sleeping at change of shift. Patient has 2 liters of oxygen. Patient's skin is warm and dry. Patient was up for breakfast. Ambulatory, steady gait. Tech is pushing her oxygen tank. RN went to patient in the Community Room to give her her medications. Patient looked at them and said she didn't want them. RN attempted to talk patient into taking the medication but patient refused. Patient becomes a little irritable when pushed to comply. Patient lays in bed most of the day but has problems sleeping because she lays in bed most of the day and cat naps. Patient denies SI/HI. Patient denies A/V hallucinations. Plan: Pt needs crisis interruption and stabilization with medication adjustment and monitoring in a safe and therapeutic environment until stable.
[2022-06-30 19:39] VITALS: BP 96/61
--- NOTE | 2022-07-01 03:59 | NUR ---
Nursing Progress Note: Problem: She was brought to the ER from the [facility] by [facility] after she was arrested for trespassing at a local group home. She has been in and out of the ER. She was discharged to the [facility] on 03/26 but was never able to maintain herself there. Current 5150 for GD. Interventions: Medication administration. Maintained a safe and supportive environment, provided clear and simple instructions, provided direction and encouragement regarding performance of ADLs, monitored behaviors and maintained clear boundaries, provided positive reinforcement, and maintained Q15 minute safety checks Response: Patient is pleasant and cooperative; no medications. She continues to appear guarded and depressed; makes needs known when staff are in her room but remains isolative. She denies SI, HI, A/VH. Observed sleeping but woke up early (0). Plan: Pt needs crisis interruption and stabilization with medication adjustment and monitoring in a safe and therapeutic environment until stable.
[2022-07-01] MEDS: pantoprazole 40mg Tablet.DR PO SCH ×2 (07:30→07:47)
[2022-07-01] MEDS: sertraline 25mg tablet PO SCH ×2 (07:47→07:53)
[2022-07-01 08:00] VITALS: BP 101/52
[2022-07-01] MEDS: budesonide 0.5mg/2ml UD nebule IH SCH ×2 (08:00→20:00)
--- NOTE | 2022-07-01 16:29 | NUR ---
Nursing Progress Note: Problem: She was brought to the ER from the alf by [facility] after she was arrested for trespassing at a local retirement. She has been in and out of the ER. She was discharged to the [facility] on 03/26 but was never able to maintain herself there. Current 5150 for GD. Interventions: 1:1 assessment with therapeutic communication and active listening; encouraged pt to take AM medications; provided direction and encouragement regarding performance of ADLs; encouraged pt to get up out of bed; go to group, come out for meals and to socialize with peers; and maintained Q15 minute safety checks. Response: Pt nicely refused vitals, labs and all her medications today. She agreed to a shower requiring 1:1 assistance. She was up for all her meals. She slept through snacks. Pt was awake for meals than slept the rest of the day. Patient denies SI/HI. Patient denies A/V hallucinations. Plan: Pt needs crisis interruption and stabilization with medication adjustment and monitoring in a safe and therapeutic environment until stable.
[2022-07-01 19:32] VITALS: BP 97/64
--- NOTE | 2022-07-02 05:37 | NUR ---
Nursing Progress Note: Problem: She [facility] by [facility] after she was arrested for trespassing at a local halfway. She has been in and out of the ER. She was discharged to the [facility] on 03/26 but was never able to maintain herself there. Current 5150 for GD. Interventions: Medication administration. Maintained a safe and supportive environment, provided clear and simple instructions, provided direction and encouragement regarding performance of ADLs, monitored behaviors and maintained clear boundaries, provided positive reinforcement, and maintained Q15 minute safety checks Response: Patient is pleasant and remains isolative to her room; no meds this shift. She denies SI, HI, A/VH; no apparent delusions expressed. Patient was provided HS snack. She is observed sleeping and does not appear to be having difficulty. Plan: Pt needs crisis interruption and stabilization with medication adjustment and monitoring in a safe and therapeutic environment until stable.
[2022-07-02] MEDS: pantoprazole 40mg Tablet.DR PO SCH (07:30)
[2022-07-02 08:00] VITALS: BP 111/68
[2022-07-02] MEDS: duloxetine 30mg CAPSULE.DR PO SCH (08:00)
[2022-07-02] MEDS: budesonide 0.5mg/2ml UD nebule IH SCH ×2 (08:00→19:35)
--- NOTE | 2022-07-02 16:37 | NUR ---
Nursing Progress Note: Problem: She was brought to the ER from the shelter by [facility] after she was arrested for trespassing at a local longterm. She has been in and out of the ER. She was discharged to the [facility] on 03/26 but was never able to maintain herself there. Current T-Con for GD. Interventions: 1:1 assessment with therapeutic communication and active listening; encouraged pt to take AM medications; provided direction and encouragement regarding performance of ADLs; encouraged pt to get up out of bed; go to group, come out for meals and to socialize with peers; and maintained Q15 minute safety checks. Response: Received patient sleeping in bed at change of shift. Patient has 2 L 02 by PA. Patient sleeps most of the day, but attends meals in the dining room. Patient is a picky eater and will eat eggs, but only ate her ice cream for lunch. Patient has steady ambulation with a walker. Patient denies all mental health symptoms. Patient is pleasant while performing physical exam. Plan: Pt needs crisis interruption and stabilization with medication adjustment and monitoring in a safe and therapeutic environment until stable. Patient is on a T-Con at present and will be placed in termite exterminator helper care by [facility] office.
[2022-07-02 19:50] VITALS: BP 104/83
--- NOTE | 2022-07-03 05:14 | NUR ---
Nursing Progress Note: Problem: She was brought to the ER from the usp by [facility] after she was arrested for trespassing at a local long term. She has been in and out of the ER. She was discharged to the [facility] on 03/26 but was never able to maintain herself there. Current 5150 for GD. Interventions: Medication administration. Maintained a safe and supportive environment, provided clear and simple instructions, provided direction and encouragement regarding performance of ADLs, monitored behaviors and maintained clear boundaries, provided positive reinforcement, and maintained Q15 minute safety checks Response: Patient is pleasant and continues to self isolate in her room. Denies SI, HI, A/VH; no apparent delusions expressed. She remains guarded but making needs known. She was provided HS snack. Observed sleeping but appears to be having difficulty staying asleep. Plan: Pt needs crisis interruption and stabilization with medication adjustment and monitoring in a safe and therapeutic environment until stable.
[2022-07-03] MEDS: pantoprazole 40mg Tablet.DR PO SCH (07:30)
[2022-07-03] MEDS: duloxetine 30mg CAPSULE.DR PO SCH (08:00)
[2022-07-03] MEDS: budesonide 0.5mg/2ml UD nebule IH SCH ×2 (08:00→19:26)
[2022-07-03 08:13] VITALS: BP 147/69
--- NOTE | 2022-07-03 16:52 | NUR ---
Nursing Progress Note: Problem: She was brought to the ER from the half-way by [facility] after she was arrested for trespassing at a local intermediate. She has been in and out of the ER. She was discharged to the [facility] on 03/26 but was never able to maintain herself there. Current T-Con for GD. Interventions: 1:1 assessment with therapeutic communication and active listening; encouraged pt to take AM medications; provided direction and encouragement regarding performance of ADLs; encouraged pt to get up out of bed; go to group, come out for meals and to socialize with peers; and maintained Q15 minute safety checks. Response: Patient is sleeping at shift change with 2 liters 02 running per NC. Patient attends all meals in the dining room and sits with her peers. Patient spent a good amount of time out of bed this morning during breakfast. Consulted with Dr. Valle who agrees that patient should be up for all meals. Patient refused her a.m. medications. Patient sleeps most of the day when she is not eating her meals and appears comfortable. Patient reports no mental health symptoms. Plan: Pt needs crisis interruption and stabilization with medication adjustment and monitoring in a safe and therapeutic environment until stable. 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
[2022-07-03 19:35] VITALS: BP 89/46
[2022-07-03 19:47] VITALS: BP 117/70
--- NOTE | 2022-07-04 05:29 | NUR ---
Nursing Progress Note: Problem: She was brought to the ER from the assisted by [facility] after she was arrested for trespassing at a local custodial. She has been in and out of the ER. She was discharged to the [facility] on 03/26 but was never able to maintain herself there. Current 5150 for GD. Interventions: Medication administration. Maintained a safe and supportive environment, provided clear and simple instructions, provided direction and encouragement regarding performance of ADLs, monitored behaviors and maintained clear boundaries, provided positive reinforcement, and maintained Q15 minute safety checks Response: Patient is pleasant and continues to self isolate in her room. Denies SI, HI, A/VH; no apparent delusions expressed but remains guarded and responds minimally. Patient had decreased BP on the first read, 88/33 LUE, but second was WNL, 117/70 RUE. Patient was encouraged to increase water intake. Patient is observed sleeping with frequent interruptions. Plan: Pt needs crisis interruption and stabilization with medication adjustment and monitoring in a safe and therapeutic environment until stable.
[2022-07-04] MEDS: pantoprazole 40mg Tablet.DR PO SCH ×2 (07:30→07:55)
--- NOTE | 2022-07-04 07:48 | NUR ---
PLACEMENT Sent placement packet to [place] office. REGGIE Cummings
[2022-07-04] MEDS: duloxetine 30mg CAPSULE.DR PO SCH ×2 (07:55→08:00)
[2022-07-04 08:00] VITALS: BP 97/62
[2022-07-04] MEDS: budesonide 0.5mg/2ml UD nebule IH SCH ×3 (08:00→20:00)
--- NOTE | 2022-07-04 17:04 | NUR ---
Nursing Progress Note: Problem: She was brought to the ER from the fci by [facility] after she was arrested for trespassing at a local snf. She has been in and out of the ER. She was discharged to the [facility] on 03/26 but was never able to maintain herself there. Current T-Con for GD. Interventions: 1:1 assessment with therapeutic communication and active listening; encouraged pt to take AM medications; provided direction and encouragement regarding performance of ADLs; encouraged pt to get up out of bed; go to group, come out for meals and to socialize with peers; and maintained Q15 minute safety checks. Response: Pt spent most of the day in bed. Spoke with pt briefly and she was confused and unable to follow conversation at all. Plan: Pt needs crisis interruption and stabilization with medication adjustment and monitoring in a safe and therapeutic environment until stable. Patient is on a T-Con at present and will be placed in residential care by [facility] office.
[2022-07-04 19:00] VITALS: BP 104/67
--- NOTE | 2022-07-05 05:51 | NUR ---
Nursing Progress Note: Problem: She was brought to the ER from the retirement by [facility] after she was arrested for trespassing at a local penitentiary. She has been in and out of the ER. She was discharged to the [facility] on 03/26 but was never able to maintain herself there. Current 5150 for GD. Interventions: Medication administration. Maintained a safe and supportive environment, provided clear and simple instructions, provided direction and encouragement regarding performance of ADLs, monitored behaviors and maintained clear boundaries, provided positive reinforcement, and maintained Q15 minute safety checks Response: Patient is pleasant; self isolative to her room. She denies SI, HI, A/VH; no apparent delusions expressed. Patient is disheveled and malodorous; refused shower this shift. She was provided HS snack; observed sleeping and continues to have difficulties with frequent interruption. Plan: Pt needs crisis interruption and stabilization with medication adjustment and monitoring in a safe and therapeutic environment until stable.
[2022-07-05] MEDS: pantoprazole 40mg Tablet.DR PO SCH (07:30)
[2022-07-05 08:00] VITALS: BP 120/60
[2022-07-05] MEDS: budesonide 0.5mg/2ml UD nebule IH SCH ×2 (08:00→21:38)
--- NOTE | 2022-07-05 16:53 | NUR ---
Nursing Progress Note: Problem: She was brought to the ER from the senior living by [facility] after she was arrested for trespassing at a local senior living. She has been in and out of the ER. She was discharged to the [facility] on 03/26 but was never able to maintain herself there. Current 5150 for GD. Interventions: Medication administration. Maintained a safe and supportive environment, provided clear and simple instructions, provided direction and encouragement regarding performance of ADLs, monitored behaviors and maintained clear boundaries, provided positive reinforcement, and maintained Q15 minute safety checks Response: Patient received resting quietly in bed. Refuses breakfast and medications. States, No! Theyre wrong! Theyre all wrong! Irritable when approached. Sats remain >90% on 2L O2 via nasal cannula. No s/sx respiratory distress. Refuses scheduled breathing treatment. Denies any mental health symptoms. Patient is guarded/ withdrawn and isolates to her room except for meals. Plan: Pt needs crisis interruption and stabilization with medication adjustment and monitoring in a safe and therapeutic environment until stable.
[2022-07-05 19:47] VITALS: BP 103/57
--- NOTE | 2022-07-06 06:05 | NUR ---
Nursing Progress Note: Problem: She was brought to the ER from the penitentiary by [facility] after she was arrested for trespassing at a local shelter. She has been in and out of the ER. She was discharged to the [facility] on 03/26 but was never able to maintain herself there. Current 5150 for GD. Interventions: Medication administration. Maintained a safe and supportive environment, provided clear and simple instructions, provided direction and encouragement regarding performance of ADLs, monitored behaviors and maintained clear boundaries, provided positive reinforcement, and maintained Q15 minute safety checks Response: Patient is pleasant; self isolative to her room. She denies SI, HI, A/VH; no apparent delusions expressed. Patient remained in bed throughout the shift. She was provided HS snack prior to bed; appeared to sleep better than previous night. Plan: Pt needs crisis interruption and stabilization with medication adjustment and monitoring in a safe and therapeutic environment until stable.
--- NOTE | 2022-07-06 07:29 | NUR ---
Reassessment: Pt continues on Regular diet w/ avg intake 65% of meals meeting est needs at this time. Noted pt wt in EMR fluctuates between 45-56kg over the last few years. LBM 07/03. No nutrition intervention implemented at this time, will continue to monitor. Recs: 1. Continue Regular diet as tolerated 2. Bowel care PRN 3. Weekly wts Addendum: 07/06/22 at [address] Amended: Links added.
[2022-07-06 08:00] VITALS: BP 117/73
[2022-07-06] MEDS: budesonide 0.5mg/2ml UD nebule IH SCH ×2 (08:00→20:00)
--- NOTE | 2022-07-06 08:47 | NUR ---
PT. REFUSED MORNING svn. bs DIMINISHED BUT CLEAR, sPO2 99% ON 2 L/M WITHOUT sob
[2022-07-06] MEDS: pantoprazole 40mg Tablet.DR PO SCH (09:38)
--- NOTE | 2022-07-06 16:57 | NUR ---
Nursing Progress Note: Problem: She was brought to the ER from the penitentiary by [facility] after she was arrested for trespassing at a local fpc. She has been in and out of the ER. She was discharged to the [facility] on 03/26 but was never able to maintain herself there. Current 5150 for GD. Interventions: Medication administration. Maintained a safe and supportive environment, provided clear and simple instructions, provided direction and encouragement regarding performance of ADLs, monitored behaviors and maintained clear boundaries, provided positive reinforcement, and maintained Q15 minute safety checks Response: Patient spends the day isolating in her room, except for meals. She is withdrawn and guarded. She continues to refuse medications, including breathing treatments. Her vital signs remain WNL. Patient denies all MH symptoms, except for worrying a lot. Patient showered today. Plan: Pt needs crisis interruption and stabilization with medication adjustment and monitoring in a safe and therapeutic environment until stable.
[2022-07-06 19:55] VITALS: BP 126/75
--- NOTE | 2022-07-07 05:28 | NUR ---
Nursing Progress Note: Problem: She was brought to the ER from the long term by [facility] after she was arrested for trespassing at a local custodial. She has been in and out of the ER. She was discharged to the [facility] on 03/26 but was never able to maintain herself there. Current 5150 for GD. Interventions: Medication administration. Maintained a safe and supportive environment, provided clear and simple instructions, provided direction and encouragement regarding performance of ADLs, monitored behaviors and maintained clear boundaries, provided positive reinforcement, and maintained Q15 minute safety checks Response: Patient is pleasant and remains isolated to her room; RT is requesting that we discontinue resp Tx as she does has not accepted since being admitted to the unit. Patient would like to have her inhalers. She denies SI, HI, A/VH; remains guarded and responds as minimal as possible. Patient provided HS snack and observed sleeping without difficulty this shift. Plan: Pt needs crisis interruption and stabilization with medication adjustment and monitoring in a safe and therapeutic environment until stable.
[2022-07-07] MEDS: pantoprazole 40mg Tablet.DR PO SCH ×2 (07:30→08:00)
[2022-07-07 08:00] VITALS: BP 132/81
[2022-07-07] MEDS: budesonide 0.5mg/2ml UD nebule IH SCH (08:00)
[2022-07-07] MEDS: acetaminophen 325mg tablet PO PRN (16:57)
--- NOTE | 2022-07-07 17:56 | NUR ---
Nursing Progress Note: Problem: She was brought to the ER from the snf by [facility] after she was arrested for trespassing at a local halfway. She has been in and out of the ER. She was discharged to the [facility] on 03/26 but was never able to maintain herself there. Current 5150 for GD. Interventions: Medication administration. Maintained a safe and supportive environment, provided clear and simple instructions, provided direction and encouragement regarding performance of ADLs, monitored behaviors and maintained clear boundaries, provided positive reinforcement, and maintained Q15 minute safety checks Response: Patient received pt. asleep in bed. Pt. refused AM medication but ate most of her breakfast and all of her lunch. 1:1 done at bedside, pt. reports feeling, ok but gives minimal information. Pt. denies all psych symptoms. Sats this AM were 99% on 2L O2 via nasal cannula. Refuses scheduled breathing treatment. Patient is guarded/ withdrawn and isolates to her room except for meals. Plan: Pt needs crisis interruption and stabilization with medication adjustment and monitoring in a safe and therapeutic environment until stable.
[2022-07-07 20:48] VITALS: BP 109/72
--- NOTE | 2022-07-07 21:36 | NUR ---
Nursing Progress Note: Problem: She was brought to the ER from the residential by [facility] after she was arrested for trespassing at a local long-term. She has been in and out of the ER. She was discharged to the [facility] on 03/26 but was never able to maintain herself there. Current 5150 for GD. Interventions: Medication administration. Maintained a safe and supportive environment, provided clear and simple instructions, provided direction and encouragement regarding performance of ADLs, monitored behaviors and maintained clear boundaries, provided positive reinforcement, and maintained Q15 minute safety checks Response: Pt was laying in bed at change of shift. Pt is on 2L 02 via NC. 02 sats are 96 this evening.Pt is smiling and pleasant, gives minimal response to questions but states she is "ok." and nods her head yes when asked if she is feeling good. Plan: Pt needs crisis interruption and stabilization with medication adjustment and monitoring in a safe and therapeutic environment until stable.
[2022-07-08] MEDS: pantoprazole 40mg Tablet.DR PO SCH (07:30)
[2022-07-08 07:42] VITALS: BP 97/54
--- NOTE | 2022-07-08 17:30 | NUR ---
Nursing Progress Note: Problem: She was brought to the ER from the nursing home by [facility] after she was arrested for trespassing at a local prison. She has been in and out of the ER. She was discharged to the [facility] on 03/26 but was never able to maintain herself there. Current 5150 for GD. Interventions: Medication administration. Maintained a safe and supportive environment, provided clear and simple instructions, provided direction and encouragement regarding performance of ADLs, monitored behaviors and maintained clear boundaries, provided positive reinforcement, and maintained Q15 minute safety checks Response: RN received pt. asleep in bed. Pt. refused AM medication but ate most of her breakfast and lunch. Pt. isolates to her room, napping intermittently throughout the day. 1:1 done at bedside, pt. reports feeling, ok but gives minimal information. Pt. denies all psych symptoms. Sats this AM were 92% on 2L O2 via nasal cannula. Patient is guarded and withdrawn. Plan: Pt needs crisis interruption and stabilization with medication adjustment and monitoring in a safe and therapeutic environment until stable.
[2022-07-08 19:14] VITALS: BP 98/58
--- NOTE | 2022-07-09 04:54 | NUR ---
Nursing Progress Note: Problem: She was brought to the ER from the shelter by [facility] after she was arrested for trespassing at a local halfway. She has been in and out of the ER. She was discharged to the [facility] on 03/26 but was never able to maintain herself there. Current 5150 for GD. Interventions: Medication administration. Maintained a safe and supportive environment, provided clear and simple instructions, provided direction and encouragement regarding performance of ADLs, monitored behaviors and maintained clear boundaries, provided positive reinforcement, and maintained Q15 minute safety checks Response: Patient was found sleeping in bed. Patient continued to sleep sporadically through out shift. Patient requested no prns nor did she participate in snack. Plan: Pt needs crisis interruption and stabilization with medication adjustment and monitoring in a safe and therapeutic environment until stable.
[2022-07-09] MEDS: pantoprazole 40mg Tablet.DR PO SCH (07:30)
[2022-07-09 07:36] VITALS: BP 148/93
--- NOTE | 2022-07-09 18:03 | NUR ---
Nursing Progress Note: Problem: She was brought to the ER from the longterm by [facility] after she was arrested for trespassing at a local residential. She has been in and out of the ER. She was discharged to the [facility] on 03/26 but was never able to maintain herself there. Current 5150 for GD. Interventions: Medication administration. Maintained a safe and supportive environment, provided clear and simple instructions, provided direction and encouragement regarding performance of ADLs, monitored behaviors and maintained clear boundaries, provided positive reinforcement, and maintained Q15 minute safety checks Response: RN received pt. asleep in bed. Pt. refused AM medication but ate most of her breakfast and lunch. Pt. isolates to her room, napping intermittently throughout the day. 1:1 done at bedside, pt. reports feeling, ok but gives minimal information. Pt. denies all psych symptoms. Sats this AM were 93% on 2L O2 via nasal cannula. Patient is guarded and withdrawn. Plan: Pt needs crisis interruption and stabilization with medication adjustment and monitoring in a safe and therapeutic environment until stable.
[2022-07-09] MEDS: acetaminophen 325mg tablet PO PRN (19:26)
[2022-07-09 20:00] VITALS: BP 109/61
--- NOTE | 2022-07-10 01:52 | NUR ---
Nursing Progress Note: [place] Problem: She was brought to the ER from the halfway by [facility] after she was arrested for trespassing at a local long term. She has been in and out of the ER. She was discharged to the [facility] on 03/26 but was never able to maintain herself there. Current 5150 for GD. Interventions: Medication administration. Maintained a safe and supportive environment, provided clear and simple instructions, provided direction and encouragement regarding performance of ADLs, monitored behaviors and maintained clear boundaries, provided positive reinforcement, and maintained Q15 minute safety checks Response: RN received pt resting in bed. Pt cooperative and c/o lower back pain, /, PRN Tylenol given with good effect. Pt states she had a BM today, requested snacks and had no other complaints or needs. Pt. denies all psych symptoms. Sats this PM were 95% on 2L O2 via nasal cannula. Patient is guarded and withdrawn. Plan: Pt needs crisis interruption and stabilization with medication adjustment and monitoring in a safe and therapeutic environment until stable.
[2022-07-10] MEDS: pantoprazole 40mg Tablet.DR PO SCH (07:30)
[2022-07-10 09:08] VITALS: BP 118/64
--- NOTE | 2022-07-10 11:21 | NUR ---
PLACEMENT UPDATE Placement packet is at [place] () [place], [place], [place], and [place]. REGGIE Cummings
--- NOTE | 2022-07-10 18:09 | NUR ---
Nursing Progress Note: Problem: She was brought to the ER from the long-term by [facility] after she was arrested for trespassing at a local penitentiary. She has been in and out of the ER. She was discharged to the [facility] on 03/26 but was never able to maintain herself there. Current 5150 for GD. Interventions: Medication administration. Maintained a safe and supportive environment, provided clear and simple instructions, provided direction and encouragement regarding performance of ADLs, monitored behaviors and maintained clear boundaries, provided positive reinforcement, and maintained Q15 minute safety checks Response: Patient received resting quietly in bed with O2 at 2L via nasal cannula. No s/sx respiratory distress. Assessment performed at bedside but the patient becomes irritable when approached. Speech is whiny and she complains whenever disturbed. When offered medication she states, No! I dont want it! Education is provided but the patient continues to refuse. Ambulates independently on the unit and pushes her O2 tank. Isolates to her room the entire shift except for meals. Plan: Pt needs crisis interruption and stabilization with medication adjustment and monitoring in a safe and therapeutic environment until stable.
[2022-07-10 19:54] VITALS: BP 132/83
--- NOTE | 2022-07-11 03:45 | NUR ---
Nursing Progress Note: Problem: She was brought to the ER from the prison by [facility] after she was arrested for trespassing at a local retirement. She has been in and out of the ER. She was discharged to the [facility] on 03/26 but was never able to maintain herself there. Current 5150 for GD. Interventions: Medication administration. Maintained a safe and supportive environment, provided clear and simple instructions, provided direction and encouragement regarding performance of ADLs, monitored behaviors and maintained clear boundaries, provided positive reinforcement, and maintained Q15 minute safety checks Response: Patient was received laying in bed at beginning of shift. Patient spent the shift sleeping and self isolating in bed. Patient requested no prns and refused to get up for snack. Plan: Pt needs crisis interruption and stabilization with medication adjustment and monitoring in a safe and therapeutic environment until stable.
[2022-07-11] MEDS: pantoprazole 40mg Tablet.DR PO SCH (07:30)
[2022-07-11 08:00] VITALS: BP 115/65
--- NOTE | 2022-07-11 12:48 | NUR ---
PLACEMENT UPDATE Sent updated notes (07/04/22-07/10/22) to [place] office for placement purposes. REGGIE Cummings
--- NOTE | 2022-07-11 18:09 | NUR ---
Nursing Progress Note: Problem: She was brought to the ER from the care home by [facility] after she was arrested for trespassing at a local mcc. She has been in and out of the ER. She was discharged to the [facility] on 03/26 but was never able to maintain herself there. Current 5150 for GD. Interventions: Medication administration. Maintained a safe and supportive environment, provided clear and simple instructions, provided direction and encouragement regarding performance of ADLs, monitored behaviors and maintained clear boundaries, provided positive reinforcement, and maintained Q15 minute safety checks Response: Received patient still sleeping. Her O2 sats this morning were 95% on 2.5 liters/NC. Patient refuses physical assessment, so visual assessment completed. She continues to refuse Protonix, her only AM medication. She only leaves her room for meals or a shower, which she was encouraged to have today. That was successful. Plan: Pt needs crisis interruption and stabilization with medication adjustment and monitoring in a safe and therapeutic environment until stable.
[2022-07-11 19:54] VITALS: BP 102/70
--- NOTE | 2022-07-12 04:19 | NUR ---
Nursing Progress Note: Problem: [place] by [facility] after she was arrested for trespassing at a local care home. She has been in and out of the ER. She was discharged to the [facility] on 03/26 but was never able to maintain herself there. Current 5150 for GD. Interventions: Medication administration. Maintained a safe and supportive environment, provided clear and simple instructions, provided direction and encouragement regarding performance of ADLs, monitored behaviors and maintained clear boundaries, provided positive reinforcement, and maintained Q15 minute safety checks Response: Patient was found sitting in community room eating dinner at beginning of shift. Patient walked back to room and stayed in bed for the rest of the shift. Patient continues to sleep and self isolate. Patient requested no prns. Plan: Pt needs crisis interruption and stabilization with medication adjustment and monitoring in a safe and therapeutic environment until stable.
[2022-07-12] MEDS: pantoprazole 40mg Tablet.DR PO SCH (07:30)
[2022-07-12 08:00] VITALS: BP 91/53
--- NOTE | 2022-07-12 17:15 | NUR ---
Nursing Progress Note: Problem: She was brought to the ER from the chcf by [facility] after she was arrested for trespassing at a local alf. She has been in and out of the ER. She was discharged to the [facility] on 03/26 but was never able to maintain herself there. Current 5150 for GD. Interventions: Medication administration. Maintained a safe and supportive environment, provided clear and simple instructions, provided direction and encouragement regarding performance of ADLs, monitored behaviors and maintained clear boundaries, provided positive reinforcement, and maintained Q15 minute safety checks Response: Patient chose to sleep through breakfast and refused it. She also continues to refuse any medications. Patient did get up for lunch and ate most of it. She then went back to bed. Her O2 sats were 93% on 2 liters/NC. Patient continues to refuse physical assessments. Plan: Pt needs crisis interruption and stabilization with medication adjustment and monitoring in a safe and therapeutic environment until stable.
[2022-07-12 19:00] VITALS: BP 138/82
--- NOTE | 2022-07-13 03:31 | NUR ---
Nursing Progress Note: Problem: She was brought to the ER from the detention by [facility] after she was arrested for trespassing at a local alf. She has been in and out of the ER. She was discharged to the [facility] on 03/26 but was never able to maintain herself there. Current 5150 for GD. Interventions: Medication administration. Maintained a safe and supportive environment, provided clear and simple instructions, provided direction and encouragement regarding performance of ADLs, monitored behaviors and maintained clear boundaries, provided positive reinforcement, and maintained Q15 minute safety checks Response: Patient is pleasant; continues to resist care. Patient is frequently responding to IS this shift and difficult to get her attention at times. She continues to isolate to her room; provided HS snacks. Patient has not slept at this time. Plan: Pt needs crisis interruption and stabilization with medication adjustment and monitoring in a safe and therapeutic environment until stable.
[2022-07-13] MEDS: pantoprazole 40mg Tablet.DR PO SCH (07:30)
--- NOTE | 2022-07-13 07:32 | NUR ---
Reassessment: Pt continues on Regular diet w/ avg intake 65% of meals meeting est needs at this time. LBM 07/11. No nutrition intervention implemented at this time, will continue to monitor. Recs: 1. Continue Regular diet as tolerated 2. Bowel care PRN 3. Weekly wts Addendum: 07/13/22 at [address] Amended: Links added.
--- NOTE | 2022-07-13 16:55 | NUR ---
Nursing Progress Note Problem: She was brought to the ER from the alf by [facility] after she was arrested for trespassing at a local usp. She has been in and out of the ER. She was discharged to the [facility] on 03/26 but was never able to maintain herself there. Current 5150 for GD. Interventions: Medication administration. Maintained a safe and supportive environment, provided clear and simple instructions, provided direction and encouragement regarding performance of ADLs, monitored behaviors and maintained clear boundaries, provided positive reinforcement, and maintained Q15 minute safety checks Response: Received Pt in bed resting w/o distress. Pt woke and was cooperative with vitals and remained awake in bed. Pt did not want to eat breakfast and refused AM Protonix. Pt told script writer to leave after some AM assessment questions. Pt remained on O2 throughout the day. Pt was more pleasant in afternoon, but remains guarded and minimally verbal. Plan: Pt needs crisis interruption and stabilization with medication adjustment and monitoring in a safe and therapeutic environment until stable.
[2022-07-13 20:08] VITALS: BP 103/66
--- NOTE | 2022-07-14 02:20 | NUR ---
Nursing Progress Note: Problem: She was brought to the ER from the care home by [facility] after she was arrested for trespassing at a local long term. She has been in and out of the ER. She was discharged to the [facility] on 03/26 but was never able to maintain herself there. Current 5150 for GD. Interventions: Medication administration. Maintained a safe and supportive environment, provided clear and simple instructions, provided direction and encouragement regarding performance of ADLs, monitored behaviors and maintained clear boundaries, provided positive reinforcement, and maintained Q15 minute safety checks Response: Received Pt in bed with O2 flowing at 2l. She walked to dinner, ate well, and walked back to her room. Pt remains guarded and resistive to Tx or care. Pt appears mentally preoccupied and often ignores attempts to engage. Pt had snack and rested in bed. She is currently sleeping well and w/o distress. Plan: Pt needs crisis interruption and stabilization with medication adjustment and monitoring in a safe and therapeutic environment until stable.
[2022-07-14] MEDS: pantoprazole 40mg Tablet.DR PO SCH (07:30)
[2022-07-14 08:00] VITALS: BP 103/59
--- NOTE | 2022-07-14 16:50 | NUR ---
Nursing Progress Note Problem: She was brought to the ER from the chcf by [facility] after she was arrested for trespassing at a local mcfp. She has been in and out of the ER. She was discharged to the [facility] on 03/26 but was never able to maintain herself there. Current 5150 for GD. Interventions: Medication administration. Maintained a safe and supportive environment, provided clear and simple instructions, provided direction and encouragement regarding performance of ADLs, monitored behaviors and maintained clear boundaries, provided positive reinforcement, and maintained Q15 minute safety checks Response: RN received pt. asleep in bed at start of shift. Pt. has continuous O2 running 2L/min per NC. Pt. awoke for breakfast and refused AM medication. Pt. isolates to her room and is socially withdrawn, coming to community room for meals and then going back to her room. RN encouraged pt. to shower, pt. states, I showered 2 days ago. 1:1 done at bedside, pt. denies all psych symptoms. Pt. gives minimal info during assessment. Plan: Pt needs crisis interruption and stabilization with medication adjustment and monitoring in a safe and therapeutic environment until stable.
[2022-07-14 19:44] VITALS: BP 120/73
--- NOTE | 2022-07-14 22:52 | NUR ---
NURSING PROGRESS NOTE Problem: Patient was brought to the ER from the long-term by [facility] after she was arrested for trespassing at a local long-term. She has been in and out of the ER. She was discharged to the [facility] on 03/26 but was never able to maintain herself there. Current 5150 for GD. Interventions: Maintained a safe and supportive environment, provided clear and simple instructions, monitored behaviors and provided positive reinforcement, and maintained Q15 minute safety checks Response: Received patient awake lying on her bed. Pt continues with on 2LNC. Pt declined to engage with technical writer and editor saying Im just tired. Pt appears distracted at times, lying on her bed playing with her hair. Pt unable to recall LBM. Pt ate her snack then went to sleep. Pt sleeps without issue, requested to leave door ajar. Plan: Patient is unable to provide for food, skilled nursing or clothing. Pt is on a TCON. Pt requires a safe and therapeutic environment during this process. Addendum: 07/15/22 at 0509 by Thu Butler RN DURING 1999 ASSESSMENT - PT HAD SOME BILATERAL WHEEZING IN UPPER LOBES, PT REFUSED PRN BREATHING TREATMENT.
[2022-07-15] MEDS: pantoprazole 40mg Tablet.DR PO SCH (07:30)
[2022-07-15 08:00] VITALS: BP 104/55
--- NOTE | 2022-07-15 16:35 | NUR ---
Nursing Progress Note: Kimberlee Problem: She was brought to the ER from the longterm by [facility] after she was arrested for trespassing at a local chcf. She has been in and out of the ER. She was discharged to the [facility] on 03/26 but was never able to maintain herself there. Current hold T-Con. Interventions: Medication administration. Maintained a safe and supportive environment, provided clear and simple instructions, provided direction and encouragement regarding performance of ADLs, monitored behaviors and maintained clear boundaries, provided positive reinforcement, and maintained Q15 minute safety checks Response: Pt. received sleeping in her room and has continuous O2 running 2L/min per NC. Pt. awoke for her medication and refused. She denies SI, HI, A/VH and has no information re her DC. She presents as irritable and fatigued, refused to eat her breakfast in the dining room. Pt. remains withdrawn and isolates in her room often sleeping for extended periods of time. Pt. reports Im not going to court, get the hell out of here and refused to attend her hearing. Pt. ate her lunch in the dining room and required LOS d/t safety concerns and oxygen tubing. Pt. presents as disheveled, with poor hygiene, and wearing unit scrubs. Plan: Pt needs crisis interruption and stabilization with medication adjustment and monitoring in a safe and therapeutic environment until stable.
[2022-07-15 20:55] VITALS: BP 119/62
--- NOTE | 2022-07-15 23:42 | NUR ---
Nursing Progress Note: Kimberlee Problem: She was brought to the ER from the snf by [facility] after she was arrested for trespassing at a local group home. She has been in and out of the ER. She was discharged to the [facility] on 03/26 but was never able to maintain herself there. Current hold T-Con. Interventions: Medication administration. Maintained a safe and supportive environment, provided clear and simple instructions, provided direction and encouragement regarding performance of ADLs, monitored behaviors and maintained clear boundaries, provided positive reinforcement, and maintained Q15 minute safety checks Response: Pt was in her room at change of shift. She is on 2L O2 via NC. Pt states she is fine and has no needs at this time. Pt was encouraged to shower and declined. Pt was offered assistance with positioning her bed, offered warm blankets but declines stating she is comfortable. Pt isolates to her room this evening. Plan: Pt needs crisis interruption and stabilization with medication adjustment and monitoring in a safe and therapeutic environment until stable.
[2022-07-16] MEDS: pantoprazole 40mg Tablet.DR PO SCH (07:30)
[2022-07-16 08:00] VITALS: BP 115/71
--- NOTE | 2022-07-16 16:23 | NUR ---
Nursing Progress Note: Kimberlee Problem: She was brought to the ER from the [facility] by [facility] after she was arrested for trespassing at a local half-way. She has been in and out of the ER. She was discharged to the [facility] on 03/26 but was never able to maintain herself there. Current hold T-Con. Interventions: Medication administration. Maintained a safe and supportive environment, provided clear and simple instructions, provided direction and encouragement regarding performance of ADLs, monitored behaviors and maintained clear boundaries, provided positive reinforcement, and maintained Q15 minute safety checks Response: Pt. received sleeping in her room and has continuous O2 running 2L/min per NC. Pt. awoke for her medication and refused stating I dont need that. She refused to participate in the 1:1 assessment instead stating leave me alone, get out. Pt.ate breakfast in her room with poor intake noted, ate her lunch in the dining room, eating better than this morning. She continues to require LOS when OOB d/t safety concerns and oxygen tubing. Pt. presents as disheveled, with poor hygiene, and wearing unit scrubs. She doesnt participate in group therapy and napped frequently. Pt. is soft spoken, fatigued and uncooperative with care. Plan: Pt needs crisis interruption and stabilization with medication adjustment and monitoring in a safe and therapeutic environment until stable.
[2022-07-16 20:21] VITALS: BP 116/71
--- NOTE | 2022-07-17 01:45 | NUR ---
Nursing Progress Note: Problem: She was brought to the ER from the intermediate by [facility] after she was arrested for trespassing at a local correction. She has been in and out of the ER. She was discharged to the [facility] on 03/26 but was never able to maintain herself there. Current hold T-Con. Interventions: Medication administration. Maintained a safe and supportive environment, provided clear and simple instructions, provided direction and encouragement regarding performance of ADLs, monitored behaviors and maintained clear boundaries, provided positive reinforcement, and maintained Q15 minute safety checks Response: Pt. received sleeping in her room and has continuous O2 running 2L/min per NC. Pt remained in room all shift. She ate snack in room. She did not have any HS medications ordered. She is not cooperative with assessment. Plan: Pt needs crisis interruption and stabilization with medication adjustment and monitoring in a safe and therapeutic environment until stable.
[2022-07-17] MEDS: pantoprazole 40mg Tablet.DR PO SCH (07:30)
[2022-07-17 08:00] VITALS: BP 94/57
--- NOTE | 2022-07-17 17:10 | NUR ---
Nursing Progress Note: Problem: She was brought to the ER from the correction by [facility] after she was arrested for trespassing at a local mcc. She has been in and out of the ER. She was discharged to the [facility] on 03/26 but was never able to maintain herself there. Current hold T-Con. Interventions: Medication administration. Maintained a safe and supportive environment, provided clear and simple instructions, provided direction and encouragement regarding performance of ADLs, monitored behaviors and maintained clear boundaries, provided positive reinforcement, and maintained Q15 minute safety checks Response: Patient received resting quietly in bed. Refuses breakfast and sleeps in. Patient is resistive to care and refuses medication. Isolates to her room except for meals. O2 remains >90% on 2L O2 via nasal cannula. No s/sx respiratory distress noted. Patient denies any mental health symptoms at this time. Plan: Pt needs crisis interruption and stabilization with medication adjustment and monitoring in a safe and therapeutic environment until stable.
[2022-07-17 19:00] VITALS: BP 87/52
--- NOTE | 2022-07-18 05:34 | NUR ---
Nursing Progress Note: Problem: She was brought to the ER from the residential by [facility] after she was arrested for trespassing at a local fdc. She has been in and out of the ER. She was discharged to the [facility] on 03/26 but was never able to maintain herself there. Current hold T-Con. Interventions: Medication administration. Maintained a safe and supportive environment, provided clear and simple instructions, provided direction and encouragement regarding performance of ADLs, monitored behaviors and maintained clear boundaries, provided positive reinforcement, and maintained Q15 minute safety checks Response: Patient was found laying in bed resting at beginning of shift. Patient stayed in her room self isolating all shift. Patient was observed walking herself to the bathroom and returning right back to bed. Patient did not request any prns. Plan: Pt needs crisis interruption and stabilization with medication adjustment and monitoring in a safe and therapeutic environment until stable.
[2022-07-18] MEDS: pantoprazole 40mg Tablet.DR PO SCH (07:19)
[2022-07-18 07:25] VITALS: BP 105/63
--- NOTE | 2022-07-18 08:45 | NUR ---
PLACEMENT UPDATE Sent updated notes to [facility] office (07/11-07/17) for placement purposes. Packet is at [place] () [place], [place], and [place]. Client has been declined at [place]. REGGIE Cummings
--- NOTE | 2022-07-18 17:50 | NUR ---
Nursing Progress Note: Problem: She was brought to the ER from the shelter by [facility] after she was arrested for trespassing at a local mcc. She has been in and out of the ER. She was discharged to the [facility] on 03/26 but was never able to maintain herself there. Current hold T-Con. Interventions: Medication administration. Maintained a safe and supportive environment, provided clear and simple instructions, provided direction and encouragement regarding performance of ADLs, monitored behaviors and maintained clear boundaries, provided positive reinforcement, and maintained Q15 minute safety checks Response: Patient received resting quietly in bed. Refuses medication and 1:1 assessment. No s/sx acute distress. O2 sats >90% on 2L O2 via nasal cannula. Patient requests help pushing her O2 cannister to the dining room but she pushes it back herself. Patient isolates to her room the entire shift except for meals. She is guarded, isolative and withdrawn. When approached patient becomes irritable. Denies any mental health symptoms at this time. Plan: Pt needs crisis interruption and stabilization with medication adjustment and monitoring in a safe and therapeutic environment until stable.
[2022-07-18 19:39] VITALS: BP 119/66
--- NOTE | 2022-07-19 05:29 | NUR ---
Nursing Progress Note: Problem: She was brought to the ER from the mcc by [facility] after she was arrested for trespassing at a local intermediate. She has been in and out of the ER. She was discharged to the [facility] on 03/26 but was never able to maintain herself there. Current hold T-Con. Interventions: Medication administration. Maintained a safe and supportive environment, provided clear and simple instructions, provided direction and encouragement regarding performance of ADLs, monitored behaviors and maintained clear boundaries, provided positive reinforcement, and maintained Q15 minute safety checks Response: Patient was found laying in bed at change of shift Patient stayed in her room laying in bed all shift. Patient self isolated in room only getting up to use the bathroom and returning back to bed. Patient requested no prns. Plan: Pt needs crisis interruption and stabilization with medication adjustment and monitoring in a safe and therapeutic environment until stable.
[2022-07-19] MEDS: pantoprazole 40mg Tablet.DR PO SCH (07:30)
--- NOTE | 2022-07-19 17:29 | NUR ---
Nursing Progress Note: Problem: She was [facility] by [facility] after she was arrested for trespassing at a local m[facility]. She has been in and out of the ER. She was discharged to the [facility] on 03/26 but was never able to maintain herself there. Current hold T-Con. Interventions: Medication administration. Maintained a safe and supportive environment, provided clear and simple instructions, provided direction and encouragement regarding performance of ADLs, monitored behaviors and maintained clear boundaries, provided positive reinforcement, and maintained Q15 minute safety checks Response: Patient received resting quietly in bed. Continues on 2L O2 via nasal cannula. No s/sx respiratory distress. Patient refuses 1:1 assessment. Refuses Protonix stating, Its wrong! She is irritable when offered disturbed. Appears guarded and withdrawn. Isolates to her room except for meals. Requires LOS when on O2 out of her room. Naps frequently for long periods of time. Plan: Pt needs crisis interruption and stabilization with medication adjustment and monitoring in a safe and therapeutic environment until stable.
[2022-07-19 19:00] VITALS: BP 111/53
--- NOTE | 2022-07-20 05:28 | NUR ---
Nursing Progress Note: Problem: She was brought to the ER from the long-term by [facility] after she was arrested for trespassing at a local custodial. She has been in and out of the ER. She was discharged to the [facility] on 03/26 but was never able to maintain herself there. Current hold T-Con. Interventions: Medication administration. Maintained a safe and supportive environment, provided clear and simple instructions, provided direction and encouragement regarding performance of ADLs, monitored behaviors and maintained clear boundaries, provided positive reinforcement, and maintained Q15 minute safety checks Response: Patient was found laying in bed resting at beginning of shift patient continued to observed in bed through out shift. Patient requested no prns and was only seen up once to go to the bathroom. Plan: Pt needs crisis interruption and stabilization with medication adjustment and monitoring in a safe and therapeutic environment until stable.
--- NOTE | 2022-07-20 07:20 | NUR ---
Reassessment: Pt continues on Regular diet w/ avg intake ~65% of meals meeting est needs at this time. LBM 07/18. No nutrition intervention implemented at this time, will continue to monitor. Recs: 1. Continue Regular diet as tolerated 2. Bowel care PRN 3. Weekly wts Addendum: 07/20/22 at [address] Amended: Links added.
[2022-07-20] MEDS: pantoprazole 40mg Tablet.DR PO SCH (07:30)
[2022-07-20 07:44] VITALS: BP 103/61
--- NOTE | 2022-07-20 17:10 | NUR ---
Nursing Progress Note: Problem: She was brought to the ER from the alf by [facility] after she was arrested for trespassing at a local alf. She has been in and out of the ER. She was discharged to the [facility] on 03/26 but was never able to maintain herself there. Current hold T-Con. Interventions: Medication administration. Maintained a safe and supportive environment, provided clear and simple instructions, provided direction and encouragement regarding performance of ADLs, monitored behaviors and maintained clear boundaries, provided positive reinforcement, and maintained Q15 minute safety checks Response: Patient sleeping in bed at change of shift. 02 is running at 2 liters via [employer]. Patient refuses her daily Protonix, as usual. Patient is hard of hearing and she can only hear with low level shouting. Patient did not eat her lunch because she did not like it. Gets up for meals on LOS, otherwise self-isolates in her room. Frequently found napping throughout the day. Plan: Pt needs crisis interruption and stabilization with medication adjustment and monitoring in a safe and therapeutic environment until stable.
[2022-07-20 20:00] VITALS: BP 117/55
--- NOTE | 2022-07-21 01:46 | NUR ---
Nursing Progress Note: Problem: She was brought to the ER from the long-term by [facility] after she was arrested for trespassing at a local jail. She has been in and out of the ER. She was discharged to the [facility] on 03/26 but was never able to maintain herself there. Current hold T-Con. Interventions: Medication administration. Maintained a safe and supportive environment, provided clear and simple instructions, provided direction and encouragement regarding performance of ADLs, monitored behaviors and maintained clear boundaries, provided positive reinforcement, and maintained Q15 minute safety checks Response: Patient in room sleeping at shift change. Patient reports that she had a good day with nothing else to report. The patient mostly stayed in her room and slept throughout the evening. Patient has no evening meds and declined snack. The patient continues to be on 2L 02 via NC. The patient reports having a BM. Will continue to monitor. Plan: Pt needs crisis interruption and stabilization with medication adjustment and monitoring in a safe and therapeutic environment until stable.
[2022-07-21] MEDS: pantoprazole 40mg Tablet.DR PO SCH (07:30)
[2022-07-21 08:00] VITALS: BP 113/83
--- NOTE | 2022-07-21 16:49 | NUR ---
NURSING PROGRESS NOTE Problem: She was brought to the ER from the mcc by [facility] after she was arrested for trespassing at a local care home. She has been in and out of the ER. She was discharged to the [facility] on 03/26 but was never able to maintain herself there. Current hold T-Con. Interventions: Maintained a safe and supportive environment, provided clear and simple instructions, provided direction and encouragement regarding performance of ADLs, monitored oxygen levels w/2LNC, provided positive reinforcement, and maintained Q15 minute safety checks Response: Received patient sleeping at shift change, pt was on 2LNC. Pt woke and ambulated to group room for breakfast meals, she is on LOS during this time. Pt continues to refuse her medication, but appears to be doing well without. Pt spends most of her time in her room. [employer] attempted throughout the day to talk with patient. The only time she engaged was when resume writer assessed the top of her scalp and tried to apply triple antibiotic ointment. Pt refused the ointment. Pt lays in her bed running her fingers through her hair and scratching her head. Pt has three different areas where the skin has been impaired. Some redness and dry skin noted, but no bleeding or open areas. [employer] told pt that if she didnt stop scratching the ointment would be applied No I dont need that. That will make it all worse. I wont scratch, I promise. Plan: Patient is conserved and per report is at baseline. Pt is awaiting placement.
[2022-07-21 20:00] VITALS: BP 123/71
--- NOTE | 2022-07-22 01:55 | NUR ---
Nursing Progress Note: Problem: She was brought to the ER from the assisted by [facility] after she was arrested for trespassing at a local intermediate. She has been in and out of the ER. She was discharged to the [facility] on 03/26 but was never able to maintain herself there. Current hold T-Con. Interventions: Medication administration. Maintained a safe and supportive environment, provided clear and simple instructions, provided direction and encouragement regarding performance of ADLs, monitored behaviors and maintained clear boundaries, provided positive reinforcement, and maintained Q15 minute safety checks Response: The patient was laying down on her bed napping at shift change. The patient spends most of her time in her room and makes minimal responses to staff. Asked patient if she wanted a shower but pt declined stating that she'll take one tomorrow. The patient was given a washcloth which she washed her face with. Brought patient a clean shirt and clean underwear but the patient quit responding at this time. The patient has no evening meds and takes herself to the restroom. The patient went to bed shortly after snack time when she got coffee. Plan: Pt needs crisis interruption and stabilization with medication adjustment and monitoring in a safe and therapeutic environment until stable.
[2022-07-22 07:00] VITALS: BP 88/44
[2022-07-22] MEDS: pantoprazole 40mg Tablet.DR PO SCH (07:30)
--- NOTE | 2022-07-22 17:44 | NUR ---
NURSING PROGRESS NOTE Problem: She was brought to the ER from the halfway by [facility] after she was arrested for trespassing at a local intermediate. She has been in and out of the ER. She was discharged to the [facility] on 03/26 but was never able to maintain herself there. Current hold T-Con. Interventions: Maintained a safe and supportive environment, provided clear and simple instructions, provided direction and encouragement regarding performance of ADLs, monitored oxygen levels w/2LNC, provided positive reinforcement, and maintained Q15 minute safety checks Response: Patient was sleeping in bed at change of shift. Patients BP was low this morning at 88/44. Informed patient that if she didnt start drinking in more fluids, RN would have to put an I.V. in her. Patient verbalized understanding. Patient has been drinking more fluids this shift, with assistance of MHTs. Dr. Chavez notified, and does not want I.V. at this time, but wants us to encourage p.o. fluid intake. Patient comes to the dining room for all meals with 02 running at 2L via NC. Patient continues to refuse p.o. medications. Patient naps on and off throughout the day, but seems content. Plan: Patient is conserved and per report is at baseline. Pt is awaiting placement.
[2022-07-22 19:28] VITALS: BP 96/55
--- NOTE | 2022-07-23 01:11 | NUR ---
NURSING PROGRESS NOTE Problem: She was brought to the ER from the longterm by [facility] after she was arrested for trespassing at a local intermediate. She has been in and out of the ER. She was discharged to the [facility] on 03/26 but was never able to maintain herself there. Current hold T-Con. Interventions: Maintained a safe and supportive environment, provided clear and simple instructions, provided direction and encouragement regarding performance of ADLs, monitored oxygen levels w/2LNC, provided positive reinforcement, and maintained Q15 minute safety checks Response: Pt resting in bed at change of shift. Pt is on 2L 02 via NC. Pts BP was 96/55, manual reading was done and pts BP was 98/65. Pt was encouraged to drink fluids. Pt is pleasant but answers minimally to questions. Pt shouts "Im here!" when asking her roommate if they ever talk with each other. Pt requested coffee at snack time then went to sleep. Plan: Patient is conserved and per report is at baseline. Pt is awaiting placement.
[2022-07-23 07:00] VITALS: BP 109/58
[2022-07-23] MEDS: pantoprazole 40mg Tablet.DR PO SCH (07:30)
--- NOTE | 2022-07-23 12:17 | NUR ---
NURSING PROGRESS NOTE Problem: She was brought to the ER from the assisted by [facility] after she was arrested for trespassing at a local penitentiary. She has been in and out of the ER. She was discharged to the [facility] on 03/26 but was never able to maintain herself there. Current hold T-Con. Interventions: Maintained a safe and supportive environment, provided clear and simple instructions, provided direction and encouragement regarding performance of ADLs, monitored oxygen levels w/2LNC, provided positive reinforcement, and maintained Q15 minute safety checks Response: Received patient sleeping in bed at change of shift. Patient has 02 running at 2L via NC. Patient is hard of hearing, so raised voice to speak to her. Patient is drinking plenty of milk and coffee today and her vital signs have improved. Patient reports that she has no complaints. Patient is pleasant and cooperative. Attends all meals in the dining room utilizing tank oxygen under line of sight, and then goes right back to bed. Plan: Patient is conserved and per report is at baseline. Pt is awaiting placement.
--- NOTE | 2022-07-23 12:50 | NUR ---
Sent updated notes to [facility] office (07/20-07/23) as [facility] has Kimberlee's packet currently and can take someone with oxygen. REGGIE Cummings
[2022-07-23 20:00] VITALS: BP 113/54
--- NOTE | 2022-07-23 21:42 | NUR ---
NURSING PROGRESS NOTE Problem: She was brought to the ER from the prison by [facility] after she was arrested for trespassing at a local detention. She has been in and out of the ER. She was discharged to the [facility] on 03/26 but was never able to maintain herself there. Current hold T-Con. Interventions: Maintained a safe and supportive environment, provided clear and simple instructions, provided direction and encouragement regarding performance of ADLs, monitored oxygen levels w/2LNC, provided positive reinforcement, and maintained Q15 minute safety checks Response: Pt was walking to her room at change of shift. She got in bed and states "Im fine." during assessment. Pt denies having any needs at this time. Reports she had enough to eat and then later had an evening snack. Patient has 02 running at 2L via [employer]. Patient is pleasant and cooperative. Plan: Patient is conserved and per report is at baseline. Pt is awaiting placement.
[2022-07-24] MEDS: pantoprazole 40mg Tablet.DR PO SCH (07:30)
[2022-07-24 08:00] VITALS: BP 91/52
--- NOTE | 2022-07-24 12:59 | NUR ---
Pt. attended group today. She sat quietly in her seat and observed. She did not wish to color or write down any thing on her leaves. Her demeanor was calm and pleasant. She was sitting next to a peer whom she seemed to enjoy chatting with. No Triana LCSW
--- NOTE | 2022-07-24 14:37 | NUR ---
ACCEPTED AT [facility] Kimberlee has been accepted at [facility]. Acceptance date is pending. REGGIE Cummings
--- NOTE | 2022-07-24 16:27 | NUR ---
Nursing Progress Note: Problem : Pt. was brought to the ER from the chcf by [facility] after she was arrested for trespassing at a local retirement. She has been in and out of the ER. She was discharged to the [facility] on 03/26 but was never able to maintain herself there. Current hold T-Con. Interventions : Introduced self and established rapport, maintained a safe and supportive environment, ensured contract for safety, provided clear and simple instructions, attempted to orient to reality, maintained oxygen, and maintained Q 15min safety checks and LOS when pt. out of bed. Response : Received pt. sleeping in bed at the beginning of the shift, she was awoken by staff to attend breakfast in the Group Room. Pt's continuous oxygen via nasal cannula was transferred to a tank and she remains LOS when out of bed. Pt. sat up coloring with others after breakfast and afterwards attended group. 1: was completed at bedside, pt. presents as cooperative, resistive to care at times, fatigued, and guarded. She continues to refuse her ordered Protonix and states, "I don't need medication," despite education provided. Pt. is A&O X3, and denies all MH s/s. However, pt. was observed to be talking aloud to herself at times, seeming to be responding to internal stimuli. When questioned by this typewriter mechanic who she was talking to, pt. stated with a smile, "To everyone." PT. napped int the afternoon. It was later reported that pt. has been potentially accepted to a [place] [facility]. Plan : Per Dr. Chavez, pt. is at baseline and continues to require a safe and supportive environment.
[2022-07-24 19:00] VITALS: BP 98/54
--- NOTE | 2022-07-25 05:17 | NUR ---
Nursing Progress Note: Problem : Pt. was brought to the ER from the chcf by [facility] after she was arrested for trespassing at a local shelter. She has been in and out of the ER. She was discharged to the [facility] on 03/26 but was never able to maintain herself there. Current hold T-Con. Interventions : Introduced self and established rapport, maintained a safe and supportive environment, ensured contract for safety, provided clear and simple instructions, attempted to orient to reality, maintained oxygen, and maintained Q 15min safety checks and LOS when pt. out of bed. Response : Patient was found laying in bed resting in at beginning of shift. Patient continued to be observed sleeping or laying in bed laughing to herself. Patient requested no prn medications and did not leave her room for snack or to socialize with other. Plan : Per Dr. Chavez, pt. is at baseline and continues to require a safe and supportive environment.
[2022-07-25 07:28] VITALS: BP 93/51
[2022-07-25] MEDS: pantoprazole 40mg Tablet.DR PO SCH (07:30)
--- NOTE | 2022-07-25 13:20 | NUR ---
Nursing Progress Note: Problem : Pt. was brought to the ER from the correction by [facility] after she was arrested for trespassing at a local longterm. She has been in and out of the ER. She was discharged to the [facility] on 03/26 but was never able to maintain herself there. Current hold T-Con. Interventions : Maintained a safe and supportive environment, ensured contract for safety, provided clear and simple instructions, attempted to orient to reality, maintained oxygen, and maintained Q 15min safety checks and LOS when pt. out of bed. Response : Received pt. sleeping in bed at the beginning of the shift, she was again awoken by staff to attend breakfast in the Group Room. Pt's continuous oxygen via nasal cannula was transferred to a tank and she remains LOS when out of bed r/t safety precautions due to oxygen tubing. Pt. was observed to be pleasant and interacting appropriately with with others during breakfast. She continues to refuse her ordered Protonix despite medication education provided. Pt. continues to present as guarded with conversation with this tag writer and responds minimally to direct questions, she states in a high pitched voice, "I'm fine." Pt. was not observed to be responding aloud to internal stimuli as she had been the previous shift. Pt. napped throughout the afternoon as is her routine, and did not attend Group. Plan : Per Dr. Chavez, pt. is at baseline and continues to require a safe and supportive environment. She has been accepted at [facility].
--- NOTE | 2022-07-25 13:55 | NUR ---
[facility] will deliver oxygen on Thursday for transport to [facility]. They will deliver 3 oxygen tanks. REGGIE Cummings
[2022-07-25] MEDS ORDERED: ALBU6.7H14 INH (14:25)
[2022-07-25] MEDS ORDERED: ATRIN IH (14:25)
[2022-07-25 20:00] VITALS: BP 97/56
--- NOTE | 2022-07-26 05:23 | NUR ---
Nursing Progress Note: Problem : Pt. was brought to the ER from the mcc by [facility] after she was arrested for trespassing at a local penitentiary. She has been in and out of the ER. She was discharged to the [facility] on 03/26 but was never able to maintain herself there. Current hold T-Con. Interventions : Maintained a safe and supportive environment, ensured contract for safety, provided clear and simple instructions, attempted to orient to reality, maintained oxygen, and maintained Q 15min safety checks and LOS when pt. out of bed. Response : Patient was found sleeping in bed at shift change. Patient was observed tossing and turning and was offered a blanket. Patient continued to stay in bed through out shift. Patient did not request any prns. Patient continues to be observed having moments of unprovoked laughter and whispering to herself. Plan : Per Dr. Chavez, pt. is at baseline and continues to require a safe and supportive environment. She has been accepted at [facility].
[2022-07-26] MEDS: pantoprazole 40mg Tablet.DR PO SCH (07:30)
--- NOTE | 2022-07-26 07:53 | NUR ---
F/u 07/26: Pt PO ~70% avg regular diet meeting estimated needs. LBM 07/23 per EMR. No nutrition interventions at this time. Will continue to monitor. Recs: 1. Continue Regular diet as tolerated 2. Bowel care PRN 3. Weekly wts Addendum: 07/26/22 at [address] Amended: Links added.
[2022-07-26 08:00] VITALS: BP 107/55
--- NOTE | 2022-07-26 13:46 | NUR ---
Nursing Progress Note: Problem : Pt. was brought to the ER from the usp by [facility] after she was arrested for trespassing at a local assisted. She has been in and out of the ER. She was discharged to the [facility] on 03/26 but was never able to maintain herself there. Current hold T-Con. Interventions : Maintained a safe and supportive environment, ensured contract for safety, provided clear and simple instructions, attempted to orient to reality, maintained oxygen therapy, encouraged participation on the unit and performance of ADLs, provided medication education, and maintained Q 15min safety checks and LOS when pt. out of bed. Response : Received pt. sleeping in bed at the beginning of the shift, she awoke and required encouragement from staff to attend breakfast in the Group Room. Pt's continuous oxygen via nasal cannula was transferred to a tank and she remains LOS when out of bed r/t safety precautions due to oxygen tubing. Pt. was again observed to be interacting appropriately in a linear manner with a female peer during breakfast. However, she continues to present as guarded in conversation with this caption writer and responds minimally to direct questions only. Pt. states, "I just have my mind on other things." Pt. was observed to be responding aloud to internal stimuli later while laying in bed, however the conversation was pleasant and no s/s of distress were noted. Pt. continues to refuse her ordered Protonix despite medication education. This caption writer encouraged pt. to shower this shift, however she refused stating, "Leave me alone, I'm tired." She was provided with fresh bed linens and encouraged to brush her hair, which she did. Pt. napped throughout the afternoon as is her routine. Plan : Per Dr. Chavez, pt. is at baseline and continues to require a safe and supportive environment. She has been accepted at [facility].
[2022-07-26 20:00] VITALS: BP 134/82
--- NOTE | 2022-07-27 02:02 | NUR ---
Nursing Progress Note: Problem : Pt. was brought to the ER from the halfway by [facility] after she was arrested for trespassing at a local custodial. She has been in and out of the ER. She was discharged to the [facility] on 03/26 but was never able to maintain herself there. Current hold T-Con. Interventions : Maintained a safe and supportive environment, ensured contract for safety, provided clear and simple instructions, attempted to orient to reality, maintained oxygen therapy, encouraged participation on the unit and performance of ADLs, provided medication education, and maintained Q 15min safety checks and LOS when pt. out of bed. Response : Received pt. sitting up in the Group Room at the beginning of the shift, she remains on LOS when out of bed r/t safety precautions due to oxygen tubing. This rfp writer sat with pt. and attempted to engage her in conversation, however pt. remains guarded and responds intermittently to select questions only. Pt. was observed to be talking aloud to herself and appeared to be reminiscing about things she used to do and people she used to know before coming to the hospital. It was unclear whether pt. was responding to internal stimuli. This rfp writer again encouraged pt. to shower, however she refused. Pt. was provided with clean clothing to change in to and fresh oxygen tubing. She retreated to bed and appears to be resting comfortably. Plan : Per Dr. Cahvez, pt. is at baseline and continues to require a safe and supportive environment. She has been accepted at [facility].
[2022-07-27] MEDS: pantoprazole 40mg Tablet.DR PO SCH (07:30)
[2022-07-27 08:00] VITALS: BP 121/63
--- NOTE | 2022-07-27 17:42 | NUR ---
Nursing Progress Note: Problem : Pt. was brought to the ER from the penitentiary by [facility] after she was arrested for trespassing at a local chcf. She has been in and out of the ER. She was discharged to the [facility] on 03/26 but was never able to maintain herself there. Current hold T-Con. Interventions : Maintained a safe and supportive environment, ensured contract for safety, provided clear and simple instructions, attempted to orient to reality, maintained oxygen therapy, encouraged participation on the unit and performance of ADLs, provided medication education, and maintained Q 15min safety checks and LOS when pt. out of bed. Response : Patient was asleep at shift change. She was highly encouraged to come to the dining room for her meals, which she does. Patient continues to refuse meds. She continues to use O2 at 2 liters/minute. Her sats are consistently around 98%. Patient continues to be guarded and speaks very little to staff. When lying in bed, she can be seen and heard responding to IS. She denies it when asked. Go away, Im just talking to myself, its not your business. Patient denies needs or wants. Plan : Per Dr. Chavez, pt. is at baseline and continues to require a safe and supportive environment. She has been accepted at [facility].
[2022-07-27 19:00] VITALS: BP 97/50
--- NOTE | 2022-07-28 05:46 | NUR ---
Nursing Progress Note: Problem : Pt. was brought to the ER from the [facility]cfp by [facility] after she was arrested for trespassing at a local custodial. She has been in and out of the ER. She was discharged to the [facility] on 03/26 but was never able to maintain herself there. Current hold T-Con. Interventions : Maintained a safe and supportive environment, ensured contract for safety, provided clear and simple instructions, maintained oxygen therapy, encouraged performance of ADLs, Q15min safety checks and LOS when pt. out of bed. Response : Patient remains resistive to care and guarded. She remained in her room, responds minimally, however, making needs known. She was provided HS snack; observed sleeping and does not appear to be having difficulty. Plan : Per Dr. Chavez, pt. is at baseline and continues to require a safe and supportive environment. She has been accepted at [facility].
[2022-07-28 07:22] VITALS: BP 90/43
[2022-07-28] MEDS: pantoprazole 40mg Tablet.DR PO SCH (07:30)
--- NOTE | 2022-07-28 16:45 | NUR ---
Nursing Progress Note: Problem : Pt. was brought to the ER from the intermediate by [facility] after she was arrested for trespassing at a local residential. She has been in and out of the ER. She was discharged to the [facility] on 03/26 but was never able to maintain herself there. Current hold T-Con. Interventions : Maintained a safe and supportive environment, ensured contract for safety, provided clear and simple instructions, attempted to orient to reality, maintained oxygen therapy, encouraged participation on the unit and performance of ADLs, provided medication education, and maintained Q 15min safety checks and LOS when pt. out of bed. Response : Pt stays in her room and stays in bed either laying down or sitting up. PT does not converse with staff. Pt gets up for meals and back to bed when finished. Pt refuses to take any medications. Plan : Per Dr. Chavez, pt. is at baseline and continues to require a safe and supportive environment. She has been accepted at [facility].
[2022-07-28 19:30] VITALS: BP 106/51
--- NOTE | 2022-07-29 05:14 | NUR ---
Nursing Progress Note: Problem : Pt. was brought to the ER from the residential by [facility] after she was arrested for trespassing at a local longterm. She has been in and out of the ER. She was discharged to the [facility] on 03/26 but was never able to maintain herself there. Current hold T-Con. Interventions : Maintained a safe and supportive environment, ensured contract for safety, provided clear and simple instructions, maintained oxygen therapy, encouraged performance of ADLs, Q15min safety checks and LOS when pt. out of bed. Response : Patient continues to be resistive to care; staff encouraged a shower or bed bath but refused. She appears to be anxious about discharge; asked, "can I just refuse to go; all I need is oxygen, a bed to rest and food." Mgmt Consultant assured her that [facility] would meet her needs. Patient remained in her room but did not sleep this shift. Plan : Per Dr. Chavez, pt. is at baseline and continues to require a safe and supportive environment. She has been accepted at [facility].
--- NOTE | 2022-07-29 07:33 | NUR ---
Discharge: Pt picked up at 0700 by [facility] drivers to be driven to [facility] in [facility]. Pt sent with three O2 bottles which each is advertised as lasting 5.5 hours at 2L. Pt given all belongings and sent with medications. Pt has flat affect but says she is glad to be going. D/C packet sent with the pt.
== END 2022-07-29 07:00 | DRG 885 ==
LOC: ADULT MH 16:00
PROVIDERS: ADMIT Psychiatry & Neurology Psychiatry; ATTEND Psychiatry & Neurology Psychiatry
DX: F20.9 Schizophrenia, unspecified (principal); J96.00 Acute respiratory failure, unspecified whether with hypoxia or hypercapnia; F03.93 Unspecified dementia, unspecified severity, with mood disturbance; I25.10 Atherosclerotic heart disease of native coronary artery without angina pectoris; K21.9 Gastro-esophageal reflux disease without esophagitis; F41.9 Anxiety disorder, unspecified; M54.9 Dorsalgia, unspecified; F32.9 Major depressive disorder, single episode, unspecified; K59.00 Constipation, unspecified; F17.210 Nicotine dependence, cigarettes, uncomplicated; J44.9 Chronic obstructive pulmonary disease, unspecified; R03.1 Nonspecific low blood-pressure reading; M41.9 Scoliosis, unspecified; R32 Unspecified urinary incontinence; Z59.00 Homelessness unspecified; Z80.0 Family history of malignant neoplasm of digestive organs; Z83.3 Family history of diabetes mellitus; Z86.16 Personal history of COVID-19; Z28.21 Immunization not carried out because of patient refusal; Z56.0 Unemployment, unspecified; Z90.49 Acquired absence of other specified parts of digestive tract; Z88.0 Allergy status to penicillin; Z88.8 Allergy status to other drugs, medicaments and biological substances; Z91.041 Radiographic dye allergy status; Z99.81 Dependence on supplemental oxygen
CPT/HCPCS: 36415; 80053; 83735; 84100; 85025; 87081; 94640; 94760; A4615; C2617